=== PATIENT | female | born 1960 | race Caucasian/White ===

== ENCOUNTER 2018-05-14 21:11 | Inpatient (IN) | payer MEDICARE, OTHER ==
[~2018-05-14] VITALS: Ht 154.9 cm; Wt 103.1 kg
--- OUTSIDE RECORDS SUMMARY | 2018-05-14 21:14 | XMS REPORT | Clinical Summary ---
Author Author [facility] Address Unknown Phone Unavailable Care Team Providers Care Gre Tutor Name Role Phone Lucero Knight MD PCP Allergies Comments Active Allergy Reactions Severity Noted Date Morphine Itching 09/03/2016 Medications End Date Status Medication Sig Dispensed Refills Start Date Active VENTOLIN HFA 90 INL 1 PUFF PO 0 mcg/actuation inhaler Q 4 H PRF WHZ 7 Active amLODIPine (NORVASC) 10 TK 1 T PO QD 3 mg tablet 7 Active atorvastatin (LIPITOR) 20 TK 1 T PO HS 1 MG tablet 7 Active esomeprazole (NexIUM) 40 TK 1 C PO D 0 MG capsule 7 Active lisinopril-hydrochlorothi TK 1 T PO D 0 azide 7 (PRINZIDE,ZESTORETIC) 20-12.5 mg per tablet Active citalopram (CeleXA) 20 MG TK 1 AND 1/2 0 tablet TS PO D 7 Active QUEtiapine (SEROquel) 400 TK 2 TS PO HS 0 MG tablet 7 Active traZODone (DESYREL) 50 MG TK 1 T PO HS 0 tablet 7 Active QUEtiapine (SEROquel) 300 TK 2 TS PO HS 0 MG tablet 7 Active eszopiclone (LUNESTA) 2 TK 1 T PO QD 0 MG tablet HS PRN 7 10/21/2017 Discontinued LEVEMIR FLEXTOUCH 100 INJ 70 UNITS 3 unit/mL (3 mL) insulin UNDER THE 7 pen SKIN QD 10/21/2017 Discontinued zolpidem (AMBIEN) 10 mg TK 1 T PO QD 0 tablet HS 7 10/21/2017 Discontinued benzonatate (TESSALON) Take 1 15 capsule 0 100 MG capsule capsule (100 8 mg total) by mouth 3 (three) times a day as needed for cough. 10/21/2017 Discontinued guaiFENesin (MUCINEX) 600 Take 1 tablet 10 tablet 0 mg tablet extended (600 mg 8 release 12hr total) by mouth every 12 (twelve) hours. 10/28/2017 doxycycline (VIBRAMYCIN) Take 1 14 capsule 0 100 MG capsule capsule (100 8 mg total) by mouth 2 (two) times a day for 7 days. 10/28/2017 mupirocin (BACTROBAN) 2 % Apply 22 g 0 ointment topically 3 8 (three) times a day for 7 days. 10/24/2017 acetaminophen-codeine Take 1-2 20 tablet 0 (TYLENOL WITH CODEINE #3) tablets by 8 300-30 mg per tablet mouth every 6 (six) hours as needed for moderate pain for up to 20 doses. Active Problems Not on file Encounters Care Team Description Date Type Specialty Eloina Hunetr DO Periorbital cellulitis of left eye (Primary Dx); Elevated blood pressure reading 10/21/2017 Emergency Emergency Medicine after 05/13/2017 Social History Date Tobacco Use Types Packs/Day Years Used Current Every Day Smoker Smokeless Tobacco: Never Used Alcohol Use Drinks/Week oz/Week Comments No Sex Assigned at Date Recorded Not on file Industry Job Start Date Occupation Not on file Not on file Not on file Travel End Travel History Travel Start No recent travel history available. Last Filed Vital Signs Time Taken Vital Sign Reading 10/21/2017 10:34 AM CDT Blood Pressure 189/74 10/21/2017 10:34 AM CDT Pulse 96 10/21/2017 10:34 AM CDT Temperature 36.9 C (98.4 F) 10/21/2017 10:34 AM CDT Respiratory Rate 14 10/21/2017 10:34 AM CDT Oxygen Saturation 95% - Inhaled Oxygen - Concentration 10/21/2017 10:35 AM CDT Weight 95.3 kg (210 lb) 10/21/2017 10:35 AM CDT Height 154.9 cm (5' 1") 10/21/2017 10:35 AM CDT Body Mass Index 39.68 Plan of Treatment Health Maintenance Due Date Last Done Comments CERVICAL CANCER SCREENING 1980 BREAST CANCER SCREENING 2009 COLON CANCER SCREENING 2009 SHINGLES VACCINES (#1) 2009 INFLUENZA VACCINE 10/04/2017 Procedures Comments Procedure Name Priority Date/Time Associated Diagnosis ED REFERRAL TO [facility] 10/21/2017 [facility] PHYSICIAN 11:02 AM CDT ORGANIZATION after 05/13/2017 Results Not on fileafter 05/13/2017 Insurance Payer Benefit Subscriber ID Type Phone Address Plan / Group [employer] xxxxxxxxx HMO STAR+PLUS MICHAELA HUMANA MEDICARE HUMANA HMO xxxxxxxxx HMO GOLD PLUS [place] [address] ([place]) [place] [address] Advance Directives Patient has advance care planning documents on file. For more information, carmen pruitt contact: Jonnathan Zapata [address] [place] [address]
--- OUTSIDE RECORDS SUMMARY | 2018-05-14 21:17 | XMS REPORT | Summary of Care ---
Author Author [facility] Address Unknown Phone Unavailable Encounter KELLY Lomas(NOAH) [id number] Date(s): 01/30/17 - 01/31/17 [facility] [address] [place] [phone] Vital Signs No data available for this section Problem List Condition Effective Dates Status Health Status Informant Abdominal Active bloating(Confirmed) Anemia(Confirmed) Active Anxiety(Confirmed) Active Chronic Active colitis(Confirmed) CKD - chronic kidney Active disease(Confirmed) Colitis(Confirmed) < 01/13/14 Resolved Uncontrolled Active diabetes mellitus(Confirmed) Diabetes(Confirmed) < 01/13/14 Resolved Diarrhea(Confirmed) < 01/13/14 Resolved DVT (deep venous < 01/13/14 Resolved thrombosis)(Confirme d) Gastric < 01/13/14 Resolved bypass(Confirmed) GERD Active (gastroesophageal reflux disease)(Confirmed) S/P gastric Active bypass(Confirmed) HTN Active (hypertension)(Confi rmed) Hyperlipidemia(Confi Active rmed) Hypothyroid(Confirme Active d) Insomnia(Confirmed) Active Bipolar Active disorder(Confirmed) Depression(Confirmed Active ) Morbid Active obesity(Confirmed) Paronychia(Confirmed Active ) Restless Active legs(Confirmed) Smoker(Confirmed) Active Tinea Active pedis(Confirmed) Allergies, Adverse Reactions, Alerts Substance Reaction Severity Status NKDA Active Medications Lunesta 2 mg oral tablet 2 mg=1 tab, PO, Bedtime, PRN for insomnia, X 30 day, # 30 tab, 0 Refill(s) Start Date: 01/30/17 Stop Date: 03/01/17 Status: Ordered Results No data available for this section Immunizations Given and Recorded Vaccine Date Status Refusal Reason pneumococcal 23-valent vaccine 01/08/14 Given pneumococcal 23-valent vaccine 01/20/09 Given influenza virus vaccine, inactivated 01/08/14 Given influenza virus vaccine, inactivated 01/20/09 Given Procedures Procedure Date Related Diagnosis Body Site section1 Cholecystectomy Gastric bypass operation Oophorectomy2 1x 2 2right Social History Social History Type Response Substance Abuse Use: Current. Type: Marijuana. Frequency: Daily. Employment/School Work/School description: unemployed. Alcohol Never Smoking Status Current every day smoker; Type: Cigarettes; Previous treatment: None; Ready to change: No; Concerns about tobacco use in household: No; Exposure to Tobacco Smoke None; Cigarette Smoking Last 365 Days No; Reg Smoking Cessation Counseling No; Other Tobacco Frequency One Pack a day; Assessment and Plan No data available for this section
--- OUTSIDE RECORDS SUMMARY | 2018-05-14 21:17 | XMS REPORT | Summary of Care ---
Author Author [facility] Organization [facility] Address Unknown Phone Unavailable Encounter KELLY Lomas([facility]) [id number] Date(s): 10/11/16 - 10/15/16 [facility] [address] [place] [address]- Discharge Disposition: Home or Self Care Attending Physician: Umm Yao MD Admitting Physician: Umm Yao MD Vital Signs 1 2 3 Most recent to oldest [Reference Range]: 154.94 cm (10/11/16 9:18 PM) 154.94 cm (10/11/16 9:44 AM) Height 98.6 DegF (10/15/16 8:00 AM) 98.1 DegF (10/15/16 4:00 AM) 98.3 DegF (10/15/16 12:00 AM) Temperature Oral [96.4-99.1 DegF] 142/69 mmHg *HI* (10/15/16 8:00 AM) 137/73 mmHg (10/15/16 4:00 AM) 150/81 mmHg *HI* (10/15/16 12:00 AM) Blood Pressure [90-140/60-90 mmHg] 20 BRMIN (10/15/16 8:00 AM) 20 BRMIN (10/15/16 4:00 AM) 18 BRMIN (10/15/16 12:00 AM) Respiratory Rate [14-20 BRMIN] 95 bpm (10/15/16 8:00 AM) 100 bpm (10/15/16 4:00 AM) 98 bpm (10/15/16 12:00 AM) Peripheral Pulse Rate [60-100 bpm] 93.6 kg (10/11/16 9:18 PM) 90.909 kg (10/11/16 9:44 AM) Weight 38.99 m2 (10/11/16 9:18 PM) 37.87 m2 (10/11/16 9:44 AM) Body Mass Index Problem List Condition Effective Dates Status Health Status Informant Anemia(Confirmed) Active Chronic Active colitis(Confirmed) CKD - chronic kidney Active disease(Confirmed) Colitis(Confirmed) < 01/13/14 Resolved Uncontrolled Active diabetes mellitus(Confirmed) Diabetes(Confirmed) < 01/13/14 Resolved Diarrhea(Confirmed) < 01/13/14 Resolved DVT (deep venous < 01/13/14 Resolved thrombosis)(Confirme d) Gastric < 01/13/14 Resolved bypass(Confirmed) GERD Active (gastroesophageal reflux disease)(Confirmed) S/P gastric Active bypass(Confirmed) HTN Active (hypertension)(Confi rmed) Hyperlipidemia(Confi Active rmed) Hypothyroid(Confirme Active d) Bipolar Active disorder(Confirmed) Depression(Confirmed Active ) Morbid Active obesity(Confirmed) Smoker(Confirmed) Active Allergies, Adverse Reactions, Alerts Substance Reaction Severity Status NKDA Active Medications acetaminophen-hydrocodone 325 mg-5 mg oral tablet 2 tab, Route: PO, Drug Form: TAB, Dosing Weight 90.909, kg, Q4H, PRN Pain Score 7-10, Start date: 10/11/16 15:12:00 CDT, Duration: 30 day, Stop date: 11/10/16 1 5:11:00 CDT Notes: (Same as: Mosca 325/5) Do not exceed 4gm/day of acetaminophen. Start Date: 10/11/16 Stop Date: 10/15/16 Status: Discontinued Ambien 10 mg, 2 tab, Route: PO, Drug form: TAB, Bedtime, Dosing Weight 93.6, kg, Start date: 10/13/16 22:52:00 CDT, Duration: 30 day, Stop date: 11/12/16 21:00:00 CDT Notes: (Same As: Ambien) Start Date: 10/13/16 Stop Date: 10/15/16 Status: Discontinued Bentyl 10 mg, 1 cap, Route: PO, Drug form: CAP, QID, Dosing Weight 93.6, kg, PRN Pain S core 1-5, Start date: 10/12/16 20:59:00 CDT, Duration: 30 day, Stop date: 20:58:00 CDT Notes: (Same as: Bentyl) Start Date: 10/12/16 Stop Date: 10/15/16 Status: Discontinued Cipro 200 mg, 100 mL, Route: IVPB, Drug form: INJ, [id number], Start date: 10/11/16 16:00 :00 CDT, Duration: 5 day, Stop date: 10/16/16 4:00:00 CDT, ABX Indication: Intra -abdominal Infection Start Date: 10/11/16 Stop Date: 10/15/16 Status: Discontinued Cipro 400 mg, Route: IVPB, [id number], Dosing Weight 90.909, kg, Start date: 10/11/16 16: 00:00 CDT, Duration: 5 day, Stop date: 10/16/16 4:00:00 CDT, ABX Indication: Int ra-abdominal Infection Start Date: 10/11/16 Stop Date: 10/11/16 Status: Deleted Cipro 500 mg oral tablet 500 mg=1 tab, PO, Q12H, X 9 day, # 18 tab, 0 Refill(s), Pharmacy: [id number] Start Date: 10/15/16 Stop Date: 10/24/16 Status: Ordered citalopram 30 mg, 1.5 tab, Route: PO, Drug form: TAB, Daily, Dosing Weight 93.6, kg, Start date: 10/12/16 9:00:00 CDT, Duration: 30 day, Stop date: 11/10/16 9:00:00 CDT Notes: (Same As: CeleXA) Start Date: 10/12/16 Stop Date: 10/15/16 Status: Discontinued Dextrose 50% Syringe 25 gm, 50 mL, Route: IVP, Drug Form: INJ, Dosing Weight 90.909, kg, PRN, PRN Blo od Glucose Results, Start date: 10/11/16 15:06:00 CDT, Duration: 30 day, Stop da te: 11/10/16 15:05:00 CDT Start Date: 10/11/16 Stop Date: 10/15/16 Status: Discontinued Dextrose 50% Syringe 12.5 gm, 25 mL, Route: IVP, Drug Form: INJ, Dosing Weight 90.909, kg, PRN, PRN B lood Glucose Results, Start date: 10/11/16 15:06:00 CDT, Duration: 30 day, Stop date: 11/10/16 15:05:00 CDT Start Date: 10/11/16 Stop Date: 10/15/16 Status: Discontinued dicyclomine 20 mg, 2 cap, Route: PO, Drug form: CAP, Q6H, Dosing Weight 93.6, kg, PRN Cramps , Start date: 10/11/16 23:56:00 CDT, Duration: 30 day, Stop date: 11/10/16 23:55 :00 CDT Notes: (Same as: Bentyl) Start Date: 10/11/16 Stop Date: 10/15/16 Status: Discontinued dicyclomine 20 mg oral tablet 20 mg=1 tab, PO, QID, PRN Cramps, 0 Refill(s) Start Date: 10/11/16 Status: Ordered docusate 100 mg, 1 cap, Route: PO, Drug form: CAP, BID, Dosing Weight 90.909, kg, Start d ate: 10/11/16 17:00:00 CDT, Duration: 30 day, Stop date: 11/10/16 9:00:00 CDT Notes: (Same as: Colace) (Do Not Crush) Start Date: 10/11/16 Stop Date: 10/15/16 Status: Discontinued Ferrlecit 125 mg, Route: IVPB, Daily, Dosing Weight 93.6, kg, Start date: 10/14/16 9:00:00 CDT, Duration: 4 doses or times, Stop date: 10/17/16 9:00:00 CDT Start Date: 10/14/16 Stop Date: 10/13/16 Status: Canceled Ferrlecit + sodium chloride 0.9% INJ 100 mL 125 mg, 10 mL, Route: IVPB, Daily, Dosing Weight 93.6, kg, Start date: 10/13/16 12:40:00 CDT, Duration: 4 doses or times, Stop date: 10/16/16 9:00:00 CDT Notes: (sodium ferric gluconate complex (elemental iron) 62.5 mg/5 ml INJ)"Limit ed stability. Use immediately after admixture"(Same as: Ferrlecit) MEDICAT ION WASTE Product Size: 62.5 mgProduct Wasted: __0_ mg Start Date: 10/13/16 Stop Date: 10/15/16 Status: Discontinued Flagyl 500 mg, 100 mL, Route: IVPB, Drug form: INJ, [id number], Dosing Weight 90.909, kg, S tart date: 10/11/16 16:00:00 CDT, Duration: 5 day, Stop date: 10/16/16 8:00:00 C DT, ABX Indication: Intra-abdominal Infection Notes: (Same as: Flagyl) Avoid alcohol. Start Date: 10/11/16 Stop Date: 10/15/16 Status: Discontinued Flagyl 500 mg oral tablet 500 mg=1 tab, PO, Q8H, X 9 day, # 27 tab, 0 Refill(s), Pharmacy: [facility] [id number] Start Date: 10/15/16 Stop Date: 10/24/16 Status: Ordered glucagon 1 mg, Route: IM, Drug form: PDR/INJ, PRN, Dosing Weight 90.909, kg, PRN Blood Gl ucose Results, Start date: 10/11/16 15:06:00 CDT, Duration: 30 day, Stop date: 0 11/10/16 15:05:00 CDT Start Date: 10/11/16 Stop Date: 10/15/16 Status: Discontinued insulin aspart 3 unit, 0.03 mL, Route: SUB-Q, Drug form: SOLN, Bedtime, Dosing Weight 90.909, k g, PRN Blood Glucose Results, Start date: 10/11/16 15:06:00 CDT, Duration: 30 da y, Stop date: 11/10/16 15:05:00 CDT Notes: Roll in palms of hands gently; Do not shake vigorously. (Same as: NovoLO G)"single patient use only"WASTE: F/P - Black; E - Municipal Trash Bin Stable f or 28 days at room temperature.Expires in days from Date Start Date: 10/11/16 Stop Date: 10/15/16 Status: Discontinued insulin aspart 4 unit, 0.04 mL, Route: SUB-Q, Drug form: SOLN, Bedtime, Dosing Weight 90.909, k g, PRN Blood Glucose Results, Start date: 10/11/16 15:06:00 CDT, Duration: 30 da y, Stop date: 11/10/16 15:05:00 CDT Notes: Roll in palms of hands gently; Do not shake vigorously. (Same as: Reina Simth)"single patient use only"WASTE: F/P - Black; E - Municipal Trash Bin Stable f or 28 days at room temperature.Expires in days from Date Start Date: 10/11/16 Stop Date: 10/15/16 Status: Discontinued insulin aspart 4 unit, 0.04 mL, Route: SUB-Q, Drug form: SOLN, TID-Before Meals, Dosing Weight 90.909, kg, PRN Blood Glucose Results, Start date: 10/11/16 15:06:00 CDT, Durati on: 30 day, Stop date: 11/10/16 15:05:00 CDT Notes: Roll in palms of hands gently; Do not shake vigorously. (Same as: Reina Smith)"single patient use only"WASTE: F/P - Black; E - Municipal Trash Bin Stable f or 28 days at room temperature.Expires in days from Date Start Date: 10/11/16 Stop Date: 10/15/16 Status: Discontinued insulin aspart 5 unit, 0.05 mL, Route: SUB-Q, Drug form: SOLN, TID-Before Meals, Dosing Weight 90.909, kg, PRN Blood Glucose Results, Start date: 10/11/16 15:06:00 CDT, Durati on: 30 day, Stop date: 11/10/16 15:05:00 CDT Notes: Roll in palms of hands gently; Do not shake vigorously. (Same as: Reina Smith)"single patient use only"WASTE: F/P - Black; E - Municipal Trash Bin Stable f or 28 days at room temperature.Expires in days from Date Start Date: 10/11/16 Stop Date: 10/15/16 Status: Discontinued insulin aspart 3 unit, 0.03 mL, Route: SUB-Q, Drug form: SOLN, TID-Before Meals, Dosing Weight 90.909, kg, PRN Blood Glucose Results, Start date: 10/11/16 15:06:00 CDT, Durati on: 30 day, Stop date: 11/10/16 15:05:00 CDT Notes: Roll in palms of hands gently; Do not shake vigorously. (Same as: Reina Smith)"single patient use only"WASTE: F/P - Black; E - Municipal Trash Bin Stable f or 28 days at room temperature.Expires in days from Date Start Date: 10/11/16 Stop Date: 10/15/16 Status: Discontinued insulin aspart 2 unit, 0.02 mL, Route: SUB-Q, Drug form: SOLN, Bedtime, Dosing Weight 90.909, k g, PRN Blood Glucose Results, Start date: 10/11/16 15:06:00 CDT, Duration: 30 da y, Stop date: 11/10/16 15:05:00 CDT Notes: Roll in palms of hands gently; Do not shake vigorously. (Same as: Reina Smith)"single patient use only"WASTE: F/P - Black; E - Municipal Trash Bin Stable f or 28 days at room temperature.Expires in days from Date Start Date: 10/11/16 Stop Date: 10/15/16 Status: Discontinued insulin aspart 1 unit, 0.01 mL, Route: SUB-Q, Drug form: SOLN, Bedtime, Dosing Weight 90.909, k g, PRN Blood Glucose Results, Start date: 10/11/16 15:06:00 CDT, Duration: 30 da y, Stop date: 11/10/16 15:05:00 CDT Notes: Roll in palms of hands gently; Do not shake vigorously. (Same as: Reina Smith)"single patient use only"WASTE: F/P - Black; E - Municipal Trash Bin Stable f or 28 days at room temperature.Expires in days from Date Start Date: 10/11/16 Stop Date: 10/15/16 Status: Discontinued insulin aspart 2 unit, 0.02 mL, Route: SUB-Q, Drug form: SOLN, TID-Before Meals, Dosing Weight 90.909, kg, PRN Blood Glucose Results, Start date: 10/11/16 15:06:00 CDT, Durati on: 30 day, Stop date: 11/10/16 15:05:00 CDT Notes: Roll in palms of hands gently; Do not shake vigorously. (Same as: NovoCHUY Smith)"single patient use only"WASTE: F/P - Black; E - Municipal Trash Bin Stable f or 28 days at room temperature.Expires in days from Date Start Date: 10/11/16 Stop Date: 10/15/16 Status: Discontinued insulin aspart 1 unit, 0.01 mL, Route: SUB-Q, Drug form: SOLN, TID-Before Meals, Dosing Weight 90.909, kg, PRN Blood Glucose Results, Start date: 10/11/16 15:06:00 CDT, Durati on: 30 day, Stop date: 11/10/16 15:05:00 CDT Notes: Roll in palms of hands gently; Do not shake vigorously. (Same as: NovoCHUY Smith)"single patient use only"WASTE: F/P - Black; E - Municipal Trash Bin Stable f or 28 days at room temperature.Expires in days from Date Start Date: 10/11/16 Stop Date: 10/12/16 Status: Discontinued Levemir 20 unit, 0.2 mL, Route: SUB-Q, Drug form: INJ, Bedtime, Dosing Weight 90.909, kg , Start date: 10/11/16 21:00:00 CDT, Stop date: 11/09/16 21:00:00 CDT Notes: Same as LevemirDo not hold insulin without contacting prescriberWASTE: F/ P - Black; E - Municipal Trash Bin "single patient use only" Start Date: 10/11/16 Stop Date: 10/15/16 Status: Discontinued levothyroxine 25 microgram, 1 tab, Route: PO, Drug form: TAB, [id number], Dosing Weight 93.6, kg, Start date: 10/12/16 6:30:00 CDT, Duration: 30 day, Stop date: 11/10/16 6:30:00 CDT Notes: Take 1 hour before or 2 hours after meal; Enteral feeds may interefere wi th the absorption of this medication. (Same as:Levothroid) Start Date: 10/12/16 Stop Date: 10/15/16 Status: Discontinued Lipitor 20 mg, 1 tab, Route: PO, Drug form: TAB, Bedtime, Dosing Weight 93.6, kg, Start date: 10/12/16 0:05:00 CDT, Duration: 30 day, Stop date: 11/10/16 21:00:00 CDT Notes: (Same As: Lipitor) Start Date: 10/12/16 Stop Date: 10/15/16 Status: Discontinued Lovenox 40 mg, 0.4 mL, Route: SUB-Q, Drug form: INJ, [id number], Dosing Weight 93.6, kg, S tart date: 10/14/16 15:00:00 CDT, Duration: 30 day, Stop date: 11/12/16 15:00:00 CDT Notes: (Same as: Lovenox) Start Date: 10/14/16 Stop Date: 10/15/16 Status: Discontinued morphine Sulfate 4 mg, 1 mL, Route: IVP, Drug form: INJ, ONCE, Dosing Weight 90.909, kg, Priority : STAT, Start date: 10/11/16 14:02:00 CDT, Stop date: 10/11/16 14:02:00 CDT Notes: (Same as:MORPhine Sulfate) Start Date: 10/11/16 Stop Date: 10/11/16 Status: Completed morphine Sulfate 2 mg, 0.5 mL, Route: IVP, Drug form: INJ, Q4H, Dosing Weight 90.909, kg, PRN Shanti n Score 7-10, Start date: 10/11/16 15:12:00 CDT, Duration: 30 day, Stop date: 15:11:00 CDT Notes: (Same as:MORPhine Sulfate) Start Date: 10/11/16 Stop Date: 10/14/16 Status: Discontinued NexIUM 40 mg, Route: PO, Drug form: ECCAP, Daily, Dosing Weight 93.6, kg, Start date: 0 10/12/16 9:00:00 CDT, Duration: 30 day, Stop date: 11/10/16 9:00:00 CDT Start Date: 10/12/16 Stop Date: 10/12/16 Status: Deleted NS (Bolus) IV 1,000 mL, 1,000 ml/hr, Infuse Over: 1 hr, Route: IV, ONCE, Priority: STAT, Dosin g Weight 90.909 kg, Start date: 10/11/16 11:32:00 CDT, Duration: 1 doses or time s, Stop date: 10/11/16 11:32:00 CDT Start Date: 10/11/16 Stop Date: 10/11/16 Status: Completed ondansetron 4 mg, 2 mL, Route: IVP, Drug form: INJ, Q6H, Dosing Weight 90.909, kg, PRN Nause a & Vomiting, Start date: 10/11/16 15:12:00 CDT, Duration: 30 day, Stop date: 11/10/16 15:11:00 CDT Notes: (Same as: Kimberly) MEDICATION WASTE Product Size: 4 mgProduct Was stephanie: ___ mg Start Date: 10/11/16 Stop Date: 10/15/16 Status: Discontinued Protonix 40 mg, 1 tab, Route: PO, Drug form: ECTAB, Before Dinner, Start date: 10/12/16 1 6:30:00 CDT, Duration: 30 day, Stop date: 11/10/16 16:30:00 CDT Notes: Tablet should not be chewed or crushed.(Same as: Protonix) Start Date: 10/12/16 Stop Date: 10/15/16 Status: Discontinued QUEtiapine 800 mg, 8 tab, Route: PO, Drug form: TAB, Bedtime, Dosing Weight 93.6, kg, Start date: 10/12/16 0:10:00 CDT, Duration: 30 day, Stop date: 11/10/16 21:00:00 CDT Notes: (Same as: SEROquel) Start Date: 10/12/16 Stop Date: 10/15/16 Status: Discontinued Saline Flush 0.9% 10 mL, Route: IVP, Drug Form: INJ, Dosing Weight 90.909, kg, PRN, PRN Line Flush , Start date: 10/11/16 9:54:00 CDT, Duration: 30 day, Stop date: 11/10/16 9:53:0 0 CDT Notes: preservative free. Start Date: 10/11/16 Stop Date: 10/15/16 Status: Discontinued sodium chloride 0.9% 1000 ml INJ 1,000 mL 1,000 mL, Rate: 75 ml/hr, Infuse over: 13.3 hr, Route: IV, Dosing Weight 90.909 kg, Total Volume: 1,000, Start date: 10/11/16 15:10:00 CDT, Stop date: 10/13/16 6:43:00 CDT Start Date: 10/11/16 Stop Date: 10/13/16 Status: Completed Tylenol with Codeine #3 oral tablet 1 tab, PO, Q4H, PRN Pain, X 7 day, # 42 tab, 0 Refill(s) Start Date: 10/15/16 Stop Date: 10/22/16 Status: Ordered Zofran 4 mg, 2 mL, Route: IVP, Drug form: INJ, ONCE, Dosing Weight 90.909, kg, Priority : STAT, Start date: 10/11/16 14:03:00 CDT, Stop date: 10/11/16 14:03:00 CDT Notes: (Same as: Zofran) MEDICATION WASTE Product Size: 4 mgProduct Was stephanie: ___ mg Start Date: 10/11/16 Stop Date: 10/11/16 Status: Completed Results BLOOD BANK RESULTS 1 2 3 Most recent to oldest [Reference Range]: O POS *Unknown* (10/11/16 10:34 AM) ABO/Rh Negative (10/11/16 10:34 AM) Antibody Scrn ELECTROLYTES 1 2 3 Most recent to oldest [Reference Range]: 140 mEq/L (10/15/16 9:35 AM) 138 mEq/L (10/14/16 4:00 AM) 136 mEq/L (10/13/16 5:04 AM) Sodium Lvl [135-145 mEq/L] 3.7 mEq/L (10/15/16 9:35 AM) 3.8 mEq/L (10/14/16 4:00 AM) 3.8 mEq/L (10/13/16 5:04 AM) Potassium Lvl [3.5-5.1 mEq/L] 109 mEq/L (10/15/16 9:35 AM) 108 mEq/L (10/14/16 4:00 AM) 107 mEq/L (10/13/16 5:04 AM) Chloride Lvl [95-109 mEq/L] 23 mEq/L *LOW* (10/15/16:35 AM) 23 mEq/L *LOW* (10/14/16 4:00 AM) 21 mEq/L *LOW* (10/13/16 5:04 AM) CO2 [24-32 mEq/L] 11.7 mEq/L (10/15/16 9:35 AM) 10.8 mEq/L (10/14/16 4:00 AM) 11.8 mEq/L (10/13/16 5:04 AM) AGAP [10.0-20.0 mEq/L] CHEM PANEL 1 2 3 Most recent to oldest [Reference Range]: 1.29 mg/dL (10/15/16 9:35 AM) 1.59 mg/dL *HI* (10/14/16 4:00 AM) 2.04 mg/dL *HI* (10/13/16 5:04 AM) Creatinine Lvl [0.50-1.40 mg/dL] 46 mL/min/1.73m2 1 *NA* (10/15/16 9:35 AM) 36 mL/min/1.73m2 2 *NA* (10/14/16 4:00 AM) 26 mL/min/1.73m2 3 *NA* (10/13/16 5:04 AM) eGFR 20 mg/dL (10/15/16 9:35 AM) 34 mg/dL *HI* (10/14/16 4:00 AM) 46 mg/dL *HI* (10/13/16 5:04 AM) BUN [7-22 mg/dL] 22 (10/12/16 5:02 AM) 14 (10/11/16 10:34 AM) B/C Ratio [6-25] 124 mg/dL *HI* (10/15/16 9:35 AM) 101 mg/dL *HI* (10/14/16 4:00 AM) 77 mg/dL (10/13/16 5:04 AM) Glucose Lvl [70-99 mg/dL] 5.8 g/dL *LOW* (10/12/16 5:02 AM) 7.3 g/dL (10/11/16 10:34 AM) Total Protein [6.4-8.4 g/dL] 2.1 g/dL *LOW* (10/14/16 4:00 AM) 2.1 g/dL *LOW* (10/13/16 5:04 AM) 2.2 g/dL *LOW* (10/12/16 5:02 AM) Albumin Lvl [3.5-5.0 g/dL] 3.6 g/dL (10/12/16 5:02 AM) 4.5 g/dL *HI* (10/11/16 10:34 AM) Globulin [2.7-4.2 g/dL] 0.6 *LOW* (10/12/16 5:02 AM) 0.6 *LOW* (10/11/16 10:34 AM) A/G Ratio [0.7-1.6] 8.3 mg/dL *LOW* (10/15/16 9:35 AM) 8.6 mg/dL (10/14/16 4:00 AM) 7.9 mg/dL *LOW* (10/13/16 5:04 AM) Calcium Lvl [8.5-10.5 mg/dL] 2.5 mg/dL (10/14/16 4:00 AM) 3.3 mg/dL (10/13/16 5:04 AM) 3.6 mg/dL (10/12/16 5:02 AM) Phosphorus [2.5-4.5 mg/dL] 18 unit/L (10/12/16 5:02 AM) 24 unit/L (10/11/16 10:34 AM) ALT [0-65 unit/L] 19 unit/L (10/12/16 5:02 AM) 21 unit/L (10/11/16 10:34 AM) AST [0-37 unit/L] 71 unit/L (10/12/16 5:02 AM) 95 unit/L (10/11/16 10:34 AM) Alk Phos [39-136 unit/L] 0.4 mg/dL (10/12/16 5:02 AM) 0.5 mg/dL (10/11/16 10:34 AM) Bili Total [0.2-1.3 mg/dL] 420 unit/L *HI* (10/11/16 10:34 AM) Lipase Lvl [73-393 unit/L] 1.6 mMol/L (10/11/16 4:11 PM) 2.0 mMol/L (10/11/16 1:51 PM) 4.2 mMol/L 4 *CRIT* (10/11/16 10:34 AM) Lactic Acid Lvl [0.5-2.2 mMol/L] 1Result Comment: The eGFR is calculated using the CKD-EPI formula. In most young, healthy individuals the eGFR will be >90 mL/min/1.73m2. The eGFR declines with age. An eGFR of 60-89 may be normal in some populations, particularly the elderly, for whom the CKD-EPI formula has not been extensively validated. Use of the eGFR is not recommended in the following populations: Individuals with unstable creatinine concentrations, including patients and those with serious co-morbid conditions. Patients with extremes in muscle mass or diet. The data above are obtained from the National Kidney Disease Education Program ( NKDEP) which additionally recommends that when the eGFR is used in patients with extremes of body mass index for purposes of drug dosing, the eGFR should be mul tiplied by the estimated BMI. 2Result Comment: The eGFR is calculated using the CKD-EPI formula. In most young, healthy individuals the eGFR will be >90 mL/min/1.73m2. The eGFR declines with age. An eGFR of 60-89 may be normal in some populations, particularly the elderly, for whom the CKD-EPI formula has not been extensively validated. Use of the eGFR is not recommended in the following populations: Individuals with unstable creatinine concentrations, including patients and those with serious co-morbid conditions. Patients with extremes in muscle mass or diet. The data above are obtained from the National Kidney Disease Education Program ( NKDEP) which additionally recommends that when the eGFR is used in patients with extremes of body mass index for purposes of drug dosing, the eGFR should be mul tiplied by the estimated BMI. 3Result Comment: The eGFR is calculated using the CKD-EPI formula. In most young, healthy individuals the eGFR will be >90 mL/min/1.73m2. The eGFR declines with age. An eGFR of 60-89 may be normal in some populations, particularly the elderly, for whom the CKD-EPI formula has not been extensively validated. Use of the eGFR is not recommended in the following populations: Individuals with unstable creatinine concentrations, including patients and those with serious co-morbid conditions. Patients with extremes in muscle mass or diet. The data above are obtained from the National Kidney Disease Education Program ( NKDEP) which additionally recommends that when the eGFR is used in patients with extremes of body mass index for purposes of drug dosing, the eGFR should be mul tiplied by the estimated BMI. 4Result Comment: critical results called to von roberts at 10/11/2016 11:15 by usman. read back ok. CARDIAC ENZYMES 1 2 3 Most recent to oldest [Reference Range]: 0.08 ng/mL (10/11/16 10:34 AM) Troponin-I [0.00-0.40 ng/mL] ANEMIA STUDY 1 2 3 Most recent to oldest [Reference Range]: 10 ug/dl *LOW* (10/13/16 5:04 AM) Iron [30-160 ug/dl] 142 ng/mL (10/13/16 5:04 AM) Ferritin Lvl [5-204 ng/mL] 5 % *LOW* (10/13/16 5:04 AM) % Satur Fe [12-57 %] 182 ug/dl (10/13/16 5:04 AM) UIBC [110-370 ug/dl] 192 ug/dl *LOW* (10/13/16 5:04 AM) TIBC [228-428 ug/dl] URINE CHEM 1 2 3 Most recent to oldest [Reference Range]: 240.0 mg/L *NA* (10/12/16 12:28 AM) U Microalb 79.80 mg/dL *NA* (10/12/16 12:28 AM) U Creatinine 59.9 mg/dL *NA* (10/12/16 12:28 AM) U Protein URINE AND STOOL 1 2 3 Most recent to oldest [Reference Range]: Slight *ABN* (10/11/16 10:34 AM) UA Turbidity [Clear] Brown *ABN* (10/11/16 10:34 AM) UA Color [Yellow] 5.0 (10/11/16 10:34 AM) UA pH [5.0-8.0] 1.021 (10/11/16 10:34 AM) UA Spec Grav [<=1.030] 70 mg/dL *ABN* (10/11/16 10:34 AM) UA Glucose [Negative mg/dL] Negative (10/11/16 10:34 AM) UA Blood [Negative] Trace mg/dL *ABN* (10/11/16 10:34 AM) UA Ketones [Negative mg/dL] 70 mg/dL *ABN* (10/11/16 10:34 AM) UA Protein [Negative mg/dL] 8.0 mg/dL *HI* (10/11/16 10:34 AM) UA Urobilinogen [0.1-1.0 mg/dL] Small *ABN* (10/11/16 10:34 AM) UA Bili [Negative] Trace *ABN* (10/11/16 10:34 AM) UA Leuk Est [Negative] Negative (10/11/16 10:34 AM) UA Nitrite [Negative] 2 /HPF (10/11/16 10:34 AM) UA WBC [0-5 /HPF] 3 /HPF *HI* (10/11/16 10:34 AM) UA RBC [0-2 /HPF] Moderate /LPF *ABN* (10/11/16 10:34 AM) UA Sq Epi [Few /LPF] 9 /LPF *HI* (10/11/16 10:34 AM) UA Hyal Cast [0-2 /LPF] Occasional /HPF *NA* (10/11/16 10:34 AM) UA Amorph Heena [None Seen /HPF] Few /LPF *NA* (10/11/16 10:34 AM) UA Mucus [None Seen /LPF] HEMATOLOGY 1 2 3 Most recent to oldest [Reference Range]: 8.7 K/CMM (10/14/16 4:00 AM) 9.9 K/CMM (10/12/16 5:02 AM) 15.6 K/CMM *HI* (10/11/16 10:34 AM) WBC [3.7-10.4 K/CMM] 2.83 M/CMM *LOW* (10/14/16 4:00 AM) 2.96 M/CMM *LOW* (10/12/16 5:02 AM) 3.90 M/CMM *LOW* (10/11/16 10:34 AM) RBC [4.20-5.40 M/CMM] 8.6 g/dL *LOW* (10/14/16 4:00 AM) 8.9 g/dL *LOW* (10/12/16 5:02 AM) 11.7 g/dL *LOW* (10/11/16 10:34 AM) Hgb [12.0-16.0 g/dL] 25.2 % *LOW* (10/14/16 4:00 AM) 26.4 % *LOW* (10/12/16 5:02 AM) 35.2 % *LOW* (10/11/16 10:34 AM) Hct [36.0-48.0 %] 88.8 fL (10/14/16 4:00 AM) 89.0 fL (10/12/16 5:02 AM) 90.2 fL (10/11/16 10:34 AM) MCV [80.0-98.0 fL] 30.2 pg (10/14/16 4:00 AM) 30.1 pg (10/12/16 5:02 AM) 29.9 pg (10/11/16 10:34 AM) MCH [27.0-31.0 pg] 34.1 g/dL (10/14/16 4:00 AM) 33.8 g/dL (10/12/16 5:02 AM) 33.2 g/dL (10/11/16 10:34 AM) MCHC [32.0-36.0 g/dL] 14.0 % (10/14/16 4:00 AM) 14.4 % (10/12/16 5:02 AM) 14.0 % (10/11/16 10:34 AM) RDW [11.5-14.5 %] 184 K/CMM (10/14/16 4:00 AM) 176 K/CMM (10/12/16 5:02 AM) 246 K/CMM (10/11/16 10:34 AM) Platelet [133-450 K/CMM] 8.0 fL (10/14/16 4:00 AM) 8.0 fL (10/12/16 5:02 AM) 8.9 fL (10/11/16 10:34 AM) MPV [7.4-10.4 fL] 80.9 % *HI* (10/14/16 4:00 AM) 83.6 % *HI* (10/12/16 5:02 AM) 91.1 % *HI* (10/11/16 10:34 AM) Segs [45.0-75.0 %] 10.7 % *LOW* (10/14/16 4:00 AM) 10.7 % *LOW* (10/12/16 5:02 AM) 5.0 % *LOW* (10/11/16 10:34 AM) Lymphocytes [20.0-40.0 %] 7.7 % (10/14/16 4:00 AM) 5.1 % (10/12/16 5:02 AM) 3.8 % (10/11/16 10:34 AM) Monocytes [2.0-12.0 %] 0.6 % (10/14/16 4:00 AM) 0.3 % (10/12/16 5:02 AM) Eosinophils [0.0-4.0 %] 0.1 % (10/14/16 4:00 AM) 0.3 % (10/12/16 5:02 AM) 0.1 % (10/11/16 10:34 AM) Basophils [0.0-1.0 %] 7.1 K/CMM (10/14/16 4:00 AM) 8.2 K/CMM *HI* (10/12/16 5:02 AM) 14.2 K/CMM *HI* (10/11/16 10:34 AM) Segs-Bands # [1.5-8.1 K/CMM] 0.9 K/CMM *LOW* (10/14/16 4:00 AM) 1.1 K/CMM (10/12/16 5:02 AM) 0.8 K/CMM *LOW* (10/11/16 10:34 AM) Lymphocytes # [1.0-5.5 K/CMM] 0.7 K/CMM (10/14/16 4:00 AM) 0.5 K/CMM (10/12/16 5:02 AM) 0.6 K/CMM (10/11/16 10:34 AM) Monocytes # [0.0-0.8 K/CMM] 16.5 seconds *HI* (10/11/16 10:34 AM) PT [12.0-14.7 seconds] 1.31 *HI* (10/11/16 10:34 AM) INR [0.85-1.17] 30.2 seconds (10/11/16 10:34 AM) PTT [22.9-35.8 seconds] MOLECULAR DIAGNOSTIC 1 2 3 Most recent to oldest [Reference Range]: Negative (10/12/16 4:08 PM) C difficile DNA [Negative] PARASITOLOGY - SEROLOGY 1 2 3 Most recent to oldest [Reference Range]: Negative (10/12/16 4:08 PM) Giardia Ag [Negative] Immunizations Given and Recorded Vaccine Date Status Refusal Reason influenza virus vaccine, inactivated 01/08/14 Given influenza virus vaccine, inactivated 01/20/09 Given pneumococcal 23-valent vaccine 01/08/14 Given pneumococcal 23-valent vaccine 01/20/09 Given Procedures Procedure Date Related Diagnosis [...] household: No; Exposure to Tobacco Smoke None; Other Tobacco Frequency One Pack a day; Cigarette Smoking Last 365 Days No; Reg Smoking Cessation Counseling No Assessment and Plan Extracted from: Title: Clinical Document Author: Cindi Brown MD Date: 10/17/16 DISCHARGE SUMMARY ADMISSION DATE 10/11/2016 DISCHARGE DATE 10/15/2016 DISCHARGE DIAGNOSIS Sepsis likely secondary to acute infectious colitis Acute infectious colitis Acute on chronic kidney disease stage III Dehydration Hypertension Diabetes mellitus Hyponatremia resolved Morbid obesity Leukocytosis resolved Mild encephalopathy resolved DISCHARGE MEDICATIONS : See medication reconciliation sheet. Home Diet: Diet Heart Healthy Activity: Limited activity Follow Up With Anya Pena MD, Call for appointment, within: 1 Week, reason: gastroenterology follow up Lucero Knight MD, Call for appointment, within: 1 Week, reason: Primary Care Physician follow up post hospitalization Richelle Campo MD, Call for appointment, within: 1 Week, reason: kidney doctor follow up with [facility] Consulting Physicians: Anya Pena MDOffice: service: Gastroenterology Naun Miguel MDOffice: Service: Medicine Richelle Campo MDOffice: Service: Nephrology Labs (Last four charted values) WBC 8.7(OCT 14)9.9(OCT 12)H 15.6(OCT 11) Hgb L 8.6(OCT 14)L 8.9(OCT 12)L 11.7(OCT 11) Hct L 25.2(OCT 14)L 26.4(OCT 12)L 35.2(OCT 11) Plt 184(OCT 14)176(OCT 12)246(OCT 11) Na 140(OCT 15)138(OCT 14)136(OCT 13)136(OCT 12) K 3.7(OCT 15)3.8(OCT 14)3.8(OCT 13)3.7(OCT 12) CO2 L 23(OCT 15)L 23(OCT 14)L 21(OCT 13)L 20(OCT 12) Cl 109(OCT 15)108(OCT 14)107(OCT 13)105(OCT 12) Cr 1.29(OCT 15)H 1.59(OCT 14)H 2.04(OCT 13)H 2.10(OCT 12) BUN 20(OCT 15)H 34(OCT 14)H 46(OCT 13)H 46(OCT 12) Glucose Random H 124(OCT 15)H 101(OCT 14)77(OCT 13)H 114(OCT 12) Phos 2.5(OCT 14)3.3(AUG 10)3.6(OCT 12) Ca L 8.3(OCT 15)8.6(OCT 14)L 7.9(OCT 13)L 7.7(OCT 12) PT H 16.5(OCT 11) INR H 1.31(OCT 11) PTT 30.2(OCT 11) Troponin 0.08(OCT 11) Ms. Marc is 56 years old female with history of bowel resection 2 years ago, chronic abdominal pain post surgery, hypertension, bipolar disorder who presented with abdominal pain, diarrhea, vomitings patient as outpatient was seen by Dr. Mera and patient was scheduled to have colonoscopy but was noted to have elevated blood sugars and was instructed to present to the ER. In ER patient was noted to have leukocytosis, acute on chronic renal failure, lactic acidosis and CAT scan concerning for colitis. Patient was admitted for further management. Physical examination on day of discharge Vital signs stable Heart sounds regular Abdomen showed no tenderness Patient was admitted. Vital signs were closely monitored. With her lactic acidosis, elevated white count, tachycardia, colitis patient was thought to have sepsis. Was started on IV antibiotics. Stool studies and C. difficile were negative. Renal function improved. Patient was started on clear liquids and diet was advanced to regular and the patient tolerated well. With patient remote dramatically and was discharged home with outpatient follow-up as above. Extracted from: Title: Progress Note * Author: Cindi Brown MD Date: 10/14/16 Impression and Plan 1. Acute infectious colitis - cont cipro/Flagyl. Cdiff neg, stool Cx negative so far. Will need colonoscopy as outpatient once colitis improves. 2. ADAM on CKD stage III - 2nd to ATN - cont IVF, improving. 3. Dehydration - cont IVF 4. Sepsis - 2nd to colitis - cont IV abx, improving 5. HTN - hold antihypertensives 6. NIDDM - decrease levemir 7. hyponatremia - resolved 8. morbid obesity - aware 9. Leukocytosis - resolved. 10. Mild encephalopathy - likely secondary to pain meds. D/c morphine. Lovenox for dvt prophylaxis. Full code. Extracted from: Title: General Admission H&P * Author: Umm Yao MD Date: 10/11/16 Impression and Plan 56 yo fm with history of bowel resection 2 years ago with chronic abdominal pain post surgery, HTN, bipolar disorder here with abdominal pain, CT with colitis 1.Acute colitis- seen on CT A/P. CConcern for UC flare on imaging. Pt states she has no diagnosis of UC in past -GI Dr Pena consulted -Pt unable to state why she had a bowel resection in the past -given white count, started empiric cipro flagyl -c diff and stool studies ordered -further management per GI 2.ADAM- Cr of 3.21 -baseline Cr 1.6 -poor po intake since Monday given vomiting -suspect prerenal, also on lisinopril- discontinue -Renal consult -IVF 3.Severe Sepsis - lactic acidosis, white count, tachy, colitis -IVF -Abx -GI following, Source colitis 4.HTN -Hold lisinopril -add antihypertensives tomorrow if vitals stable 5.Elevated lipase- unclear if this is related to pancreatitis -cld -ivf 6.Uncontrolled DM -BS 400s in ER, no gap -IVF -Did not take her levemir this AM given colonoscopy -restart low dose levemir, Takes levemir 70 U qam 7.Hyponatremia - 2/2 volume depletion -IVF Code Full Admit to inpatient
--- OUTSIDE RECORDS SUMMARY | 2018-05-14 21:17 | XMS REPORT | Summary of Care ---
Author Author [facility] Organization [facility] Address Unknown Phone Unavailable Encounter [facility]) [id number] Date(s): 11/18/16 - 11/18/16 [facility] [address] [place] [address]- Discharge Diagnosis: Abdominal pain in female Discharge Disposition: Home or Self Care Attending Physician: Rashel Montemayor MD Vital Signs 1 2 3 Most recent to oldest [Reference Range]: 154.94 cm (11/18/16 12:25 PM) Height 97.5 DegF (11/18/16 12:25 PM) Temperature Oral [96.4-99.1 DegF] 151/65 mmHg *HI* (11/18/16 8:02 PM) 152/72 mmHg *HI* (11/18/16 7:00 PM) 155/80 mmHg *HI* (11/18/16 5:59 PM) Blood Pressure [90-140/60-90 mmHg] 18 BRMIN (11/18/16 7:00 PM) 18 BRMIN (11/18/16 5:59 PM) 20 BRMIN (11/18/16 12:25 PM) Respiratory Rate [14-20 BRMIN] 93 bpm (11/18/16 12:25 PM) Peripheral Pulse Rate [60-100 bpm] 92.273 kg (11/18/16 12:25 PM) Weight 38.44 m2 (11/18/16 12:25 PM) Body Mass Index Problem List Condition Effective Dates Status Health Status Informant Abdominal Active bloating(Confirmed) Anemia(Confirmed) Active Chronic Active colitis(Confirmed) CKD - [...] ) Morbid Active obesity(Confirmed) Paronychia(Confirmed Active ) Smoker(Confirmed) Active Tinea Active pedis(Confirmed) Allergies, Adverse Reactions, Alerts Substance Reaction Severity Status NKDA Active Medications Colace 100 mg oral capsule 100 mg=1 cap, PO, BID, PRN Constipation, # 20 cap, 0 Refill(s), Pharmacy: [facility] [id number] Start Date: 11/18/16 Status: Ordered lactulose 10 g/15 mL oral syrup 20 gm, 30 ml, Route: PO, Drug form: SYRP, ONCE, Dosing Weight 92.273, kg, Priori ty: STAT, Start date: 11/18/16 20:30:00 CDT, Stop date: 11/18/16 20:30:00 CDT Notes: (Same as:Chronulac) Start Date: 11/18/16 Stop Date: 11/18/16 Status: Completed lactulose 10 g/15 mL oral syrup 20 gm=30 mL, PO, BID, PRN constipation, X 8 day, # 240 mL, 0 Refill(s), Pharmacy : [facility] [id number] Start Date: 11/18/16 Stop Date: 11/26/16 Status: Ordered morphine Sulfate 4 mg, 1 mL, Route: IVP, Drug form: SOLN, ONCE, Dosing Weight 92.273, kg, Priorit y: STAT, Start date: 11/18/16 12:28:00 CDT, Stop date: 11/18/16 12:28:00 CDT Notes: (Same as:MORPhine Sulfate) Start Date: 11/18/16 Stop Date: 11/18/16 Status: Completed ondansetron 4 mg, 2 mL, Route: IVP, Drug form: INJ, ONCE, Dosing Weight 92.273, kg, Priority : STAT, Start date: 11/18/16 12:28:00 CDT, Stop date: 11/18/16 12:28:00 CDT Notes: (Same as: Zofran) MEDICATION WASTE Product Size: 4 mgProduct Was stephanie: ___ mg Start Date: 11/18/16 Stop Date: 11/18/16 Status: Completed Saline Flush 0.9% 10 mL, Route: IVP, Drug Form: INJ, Dosing Weight 92.273, kg, PRN, PRN Line Flush , Start date: 11/18/16 12:28:00 CDT, Duration: 30 day, Stop date: 12/18/16 12:27 :00 CDT Notes: Same as: BD Posiflush Sterile Start Date: 11/18/16 Stop Date: 11/18/16 Status: Discontinued Sodium Chloride 0.9% (Bolus) IV 1,000 mL, 2,000 ml/hr, Infuse Over: 30 minutes, Route: IV, 1,000, Drug form: INJ , ONCE, Priority: STAT, Dosing Weight 92.273 kg, Start date: 11/18/16 12:28:00 C DT, Duration: 1 doses or times, Stop date: 11/18/16 12:28:00 CDT Start Date: 11/18/16 Stop Date: 11/18/16 Status: Completed Results ELECTROLYTES Most recent to 1 oldest [Reference Range]: Sodium Lvl [135-145 138 mEq/L mEq/L] (11/18/16 4:41 PM) Potassium Lvl 4.0 mEq/L [3.5-5.1 mEq/L] (11/18/16 4:41 PM) Chloride Lvl [95-109 107 mEq/L mEq/L] (11/18/16 4:41 PM) CO2 [24-32 mEq/L] 25 mEq/L (11/18/16 4:41 PM) AGAP [10.0-20.0 10.0 mEq/L mEq/L] (11/18/16 4:41 PM) CHEM PANEL Most recent to 1 oldest [Reference Range]: Creatinine Lvl 0.98 mg/dL [0.50-1.40 mg/dL] (11/18/16 4:41 PM) eGFR 65 mL/min/1.73m2 1 *NA* (11/18/16 4:41 PM) BUN [7-22 mg/dL] 15 mg/dL (11/18/16 4:41 PM) B/C Ratio [6-25] 15 (11/18/16 4:41 PM) Glucose Lvl [70-99 89 mg/dL mg/dL] (11/18/16 4:41 PM) Total Protein 7.2 g/dL [6.4-8.4 g/dL] (11/18/16 4:41 PM) Albumin Lvl [3.5-5.0 3.0 g/dL g/dL] *LOW* (11/18/16 4:41 PM) Globulin [2.7-4.2 4.2 g/dL g/dL] (11/18/16 4:41 PM) A/G Ratio [0.7-1.6] 0.7 (11/18/16 4:41 PM) Calcium Lvl 8.4 mg/dL [8.5-10.5 mg/dL] *LOW* (11/18/16 4:41 PM) ALT [0-65 unit/L] 14 unit/L (11/18/16 4:41 PM) AST [0-37 unit/L] 9 unit/L (11/18/16 4:41 PM) Alk Phos [39-136 89 unit/L unit/L] (11/18/16 4:41 PM) Bili Total [0.2-1.3 0.3 mg/dL mg/dL] (11/18/16 4:41 PM) Lipase Lvl [73-393 203 unit/L unit/L] (11/18/16 4:41 PM) 1Result Comment: The eGFR is calculated using [...] be mul tiplied by the estimated BMI. URINE AND STOOL Most recent to 1 oldest [Reference Range]: UA Turbidity [Clear] Clear (11/18/16 3:20 PM) UA Color [Yellow] Yellow *NA* (11/18/16 3:20 PM) UA pH [5.0-8.0] 6.0 (11/18/16 3:20 PM) UA Spec Grav 1.011 [<=1.030] (11/18/16 3:20 PM) UA Glucose [Negative Negative mg/dL mg/dL] *NA* (11/18/16 3:20 PM) UA Blood [Negative] Trace *ABN* (11/18/16 3:20 PM) UA Ketones [Negative Negative mg/dL mg/dL] *NA* (11/18/16 3:20 PM) UA Protein [Negative >=300 mg/dL mg/dL] *ABN* (11/18/16 3:20 PM) UA Urobilinogen <=1.0 mg/dL [0.1-1.0 mg/dL] *NA* (11/18/16 3:20 PM) UA Bili [Negative] Negative *NA* (11/18/16 3:20 PM) UA Leuk Est Negative [Negative] (11/18/16 3:20 PM) UA Nitrite Negative [Negative] (11/18/16 3:20 PM) UA WBC [0-5 /HPF] 1 /HPF (11/18/16 3:20 PM) UA RBC [0-2 /HPF] 6 /HPF *HI* (11/18/16 3:20 PM) UA Sq Epi [Few /LPF] Many /LPF *ABN* (11/18/16 3:20 PM) UA Hyal Cast [0-2 3 /LPF /LPF] *HI* (11/18/16 3:20 PM) UA Mucus [None Seen Few /LPF /LPF] *NA* (11/18/16 3:20 PM) HEMATOLOGY Most recent to 1 oldest [Reference Range]: WBC [3.7-10.4 K/CMM] 8.5 K/CMM (11/18/16 4:41 PM) RBC [4.20-5.40 3.12 M/CMM M/CMM] *LOW* (11/18/16 4:41 PM) Hgb [12.0-16.0 g/dL] 9.5 g/dL *LOW* (11/18/16 4:41 PM) Hct [36.0-48.0 %] 27.5 % *LOW* (11/18/16 4:41 PM) MCV [80.0-98.0 fL] 88.2 fL (11/18/16 4:41 PM) MCH [27.0-31.0 pg] 30.3 pg (11/18/16 4:41 PM) MCHC [32.0-36.0 34.3 g/dL g/dL] (11/18/16 4:41 PM) RDW [11.5-14.5 %] 14.7 % *HI* (11/18/16 4:41 PM) Platelet [133-450 275 K/CMM K/CMM] (11/18/16 4:41 PM) MPV [7.4-10.4 fL] 7.4 fL (11/18/16 4:41 PM) Segs [45.0-75.0 %] 58.5 % (11/18/16 4:41 PM) Lymphocytes 35.2 % [20.0-40.0 %] (11/18/16 4:41 PM) Monocytes [2.0-12.0 5.3 % %] (11/18/16 4:41 PM) Eosinophils [0.0-4.0 0.5 % %] (11/18/16 4:41 PM) Basophils [0.0-1.0 0.5 % %] (11/18/16 4:41 PM) Segs-Bands # 5.0 K/CMM [1.5-8.1 K/CMM] (11/18/16 4:41 PM) Lymphocytes # 3.0 K/CMM [1.0-5.5 K/CMM] (11/18/16 4:41 PM) Monocytes # [0.0-0.8 0.5 K/CMM K/CMM] (11/18/16 4:41 PM) PT [12.0-14.7 13.3 seconds seconds] (11/18/16 5:24 PM) INR [0.85-1.17] 0.99 (11/18/16 5:24 PM) PTT [22.9-35.8 25.0 seconds seconds] (11/18/16 5:24 PM) Immunizations Given and Recorded Vaccine Date Status [...] Smoking Cessation Counseling No Assessment and Plan No data available for this section
--- OUTSIDE RECORDS SUMMARY | 2018-05-14 21:17 | XMS REPORT | Continuity of Care Document ---
Author Author [facility] Interface Address Unknown Phone Unavailable Problems Problem Status Onset Date Classification Date Reported Comments Source Bipolar 1 disorder, depressed Active 12/12/2017 Diagnosis 05/01/2018 [facility] Anxiety disorder Active 12/12/2017 Diagnosis 05/01/2018 [facility] SHOULDER KNEE Active 10/04/2017 [facility] CLOSED PATELLAR COMMUNITED FRACTURE OF R Active 07/23/2017 [facility] FALL Active 07/23/2017 [facility] ANXIETY DISORDER/ DR BATISTA # [id number] Active 01/10/2017 [facility] Discharge Diagnosis: Abdominal pain in female 11/18/2016 11/21/2016 [facility] SNT BY Active 11/18/2016 [facility] HYPERGLYCEMIA W/O KETOSIS/ ULCERATIVE CO Active 10/11/2016 [facility] NEAR SYNCOPE Active 10/11/2016 [facility] SURGICAL WOUND Active 12/21/2014 [facility] STRICTURE 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.9 AND 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.9 CHR Active 02/06/2014 [facility] Colitis Resolved 01/13/2014 Problem 05/13/2018 [facility] Diabetes Resolved 01/13/2014 Problem 05/13/2018 [facility] Diarrhea Resolved 01/13/2014 Problem 05/13/2018 [facility] DVT (<span [id number]">Confirmed</span>) Resolved 01/13/2014 Problem 05/13/2018 [facility] Gastric bypass Resolved 01/13/2014 Problem 05/13/2018 [facility] GASTROINTESTINAL BLEED, HYPOKALEMIA, HIS Active 01/07/2014 [facility] ABDOMINAL PAIN, DR VILLANUEVA REFERRAL Active 01/07/2014 [facility] SENT BY FOR BLOOD TRANSFUSION Active 10/05/2013 [facility] SYMPTOMATIC ANEMIA, WEAKNESS Active 10/05/2013 [facility] COLITIS ,BLOOD CLOTS Active 09/11/2013 [facility] ANEMIA HGB 7.0 Active 08/14/2013 [facility] Abdominal bloating Active Problem 05/13/2018 [facility] Anemia Active Problem 05/13/2018 [facility] Problem 05/13/2018 [facility] CKD - chronic kidney disease Resolved Problem 05/13/2018 [facility] Uncontrolled diabetes mellitus Active Problem 05/13/2018 [facility] GERD (<span ID="[id number]">Confirmed</span>) Active Problem 05/13/2018 [facility] S/P gastric bypass Active Problem 05/13/2018 [facility] HTN (<span ID="[id number]">Confirmed</span>) Active Problem 05/13/2018 [facility] Hyperlipidemia Active Problem 05/13/2018 [facility] Hypothyroid Active Problem 05/13/2018 [facility] Insomnia Active Problem 05/13/2018 [facility] Bipolar disorder Active Problem 05/13/2018 [facility] Depression Active Problem 05/13/2018 [facility] Morbid obesity Active Problem 05/13/2018 [facility] Paronychia [facility]13[facility] Active Problem 05/13/2018 [facility] Smoker Active Problem 05/13/2018 [facility] Tinea pedis Active Problem 05/13/2018 [facility] IRON DEFIC ANEMIA NOS Active [facility] GASTROINTEST HEMORR NOS Active [facility] ADMINISTRTVE ENCOUNT NOS Active [facility] ABDOMINAL PAIN Active [facility] INTESTINAL OBSTRUCT NOS Active [facility] REGIONAL ENTERITIS NOS Active [facility] HYPERGLYCEMIA, UNSPECIFIED Active [facility] ULCERATIVE COLITIS, UNSPECIFIED, WITHOUT Active [facility] OT FRACTURE OF RIGHT PATELLA, INIT FOR Active [facility] DISP FX OF GREATER TUBEROSITY OF R HUMER Active [facility] UNSPECIFIED FALL, INITIAL ENCOUNTER Active [facility] Medications Medication Details Route Status Patient Instructions Ordering Provider Order Date Source Furosemide 20 MG Oral Tablet [Lasix] 20 mg=1 tab, PO, Daily, # 30 tab, 0 Refill(s) Active 05/03/2018 [facility] Esomeprazole 40 MG Enteric Coated Capsule =1 cap, PO, Daily, # 90 unknown unit, [id number] Active 04/03/2018 [facility] Hydrochlorothiazide 12.5 MG / Lisinopril 20 MG Oral Tablet =1 tab, PO, Daily, # 90 tab, Pharmacy: [facility] [id number] Active 04/03/2018 [facility] ZOLOFT 100 MG ORAL TABLET Take 1.5 tablets daily Active Take 1.5 tablets daily 02/03/2018 [facility] QUETIAPINE FUMARATE TAKE 1 TABLET BY MOUTH EVERY NIGHT AT BEDTIME Active TAKE 1 TABLET BY MOUTH EVERY NIGHT AT BEDTIME 02/03/2018 [facility] FLUOXETINE HCL TAKE ONE CAPSULE BY MOUTH EVERY DAY Active TAKE ONE CAPSULE BY MOUTH EVERY DAY 02/03/2018 [facility] ARIPIPRAZOLE TAKE 1 TABLET BY MOUTH EVERY NIGHT AT BEDTIME Active TAKE 1 TABLET BY MOUTH EVERY NIGHT AT BEDTIME 01/03/2018 [facility] ESCITALOPRAM OXALATE TAKE 1 TABLET BY MOUTH EVERY DAY Active TAKE 1 TABLET BY MOUTH EVERY DAY 01/03/2018 [facility] celecoxib 200 mg oral capsule See Instructions, # 60 unknown unit, TAKE 1 CAPSULE BY MOUTH TWICE DAILY, Pharmacy: [facility] [id number] Active 12/19/2017 [facility] Furosemide 20 MG Oral Tablet See Instructions, # 30 tab, TAKE 1 TABLET BY MOUTH DAILY, Pharmacy: [facility] [id number] Active 12/19/2017 [facility] potassium chloride 10 mEq oral capsule, extended release See Instructions, # 30 unknown unit, TAKE 1 CAPSULE BY MOUTH DAILY, Pharmacy: [facility] [id number] Active 12/19/2017 [facility] KLONOPIN 0.5 MG ORAL TABLET Take 1 tablet at bedtime Active Take 1 tablet at bedtime 12/12/2017 [facility] VALIUM 5 MG ORAL TABLET Take 1 tablet By Mouth twice a day Active Take 1 tablet By Mouth twice a day 12/12/2017 [facility] celecoxib 200 mg oral capsule See Instructions, # 60 unknown unit, TAKE 1 CAPSULE BY MOUTH TWICE DAILY, Pharmacy: [facility] [id number] No Longer Active 11/20/2017 [facility] potassium chloride 10 mEq oral capsule, extended release See Instructions, # 30 unknown unit, TAKE 1 CAPSULE BY MOUTH DAILY, Pharmacy: [facility] [id number] No Longer Active 11/20/2017 [facility] Furosemide 20 MG Oral Tablet See Instructions, # 30 tab, TAKE 1 TABLET BY MOUTH DAILY, Pharmacy: [facility] [id number] No Longer Active 11/20/2017 [facility] Furosemide 20 MG Oral Tablet See Instructions, # 30 tab, TAKE 1 TABLET BY MOUTH DAILY, [id number] No Longer Active 10/23/2017 [facility] Vitamin B 12 1,000 microgram, Route: IM, ONCE, Dosing Weight 97.727, kg, Start date: 10/05/17 11:18:00 CDT, Stop date: 10/05/17 11:18:00 CDT Inactive 10/05/2017 [facility] Esomeprazole 40 MG Enteric Coated Capsule 40 mg=1 cap, PO, Daily, # 90 cap, 1 Refill(s), [facility] [id number] No Longer Active 10/05/2017 [facility] trazodone 300 mg oral tablet 300 mg=1 tab, PO, Bedtime, # 90 tab, 0 Refill(s), Pharmacy: [facility] [id number] Active 10/05/2017 [facility] Furosemide 20 MG Oral Tablet See Instructions, # 90 tab, TAKE 1 TABLET BY MOUTH DAILY, Pharmacy: [facility] [id number] No Longer Active 09/27/2017 [facility] potassium chloride 10 mEq oral capsule, extended release See Instructions, # 90 unknown unit, Refill(s) 1, TAKE 1 CAPSULE BY MOUTH DAILY, Pharmacy: [facility] [id number] No Longer Active 09/27/2017 [facility] Vitamin B12 1000 mcg/mL injectable solution See Instructions, 1 mL IM once a week x 4 weeks, then once a month, # 30 mL, 0 Refill(s), Pharmacy: [facility] [id number] Active 09/27/2017 [facility] potassium chloride 10 mEq oral capsule, extended release 10 mEq=1 cap, PO, Daily, # 30 cap, 1 Refill(s), Pharmacy: [facility] [id number] Inactive 09/27/2017 [facility] Furosemide 20 MG Oral Tablet [Lasix] 20 mg=1 tab, PO, Daily, # 30 tab, 0 Refill(s), [id number] Inactive 09/27/2017 [facility] Mupirocin 0.02 MG/MG Topical Ointment [Bactroban] 1 appl, TOP, TID, PRN as needed, Apply to affected area(s), X 14 day, # 60 gm, 0 Refill(s), [facility] [id number] No Longer Active 09/26/2017 [facility] Trazodone Hydrochloride 100 MG Oral Tablet See Instructions, # 180 tab, TAKE 2 TABLETS BY MOUTH AT BEDTIME, [id number] Active 08/01/2017 [facility] QUEtiapine 400 mg oral tablet 400 mg=1 tab, PO, Daily, # 30 tab, 11 Refill(s), [id number] Active 08/01/2017 [facility] zolpidem 10 mg oral tablet 10 mg=1 tab, PO, Bedtime, PRN for sleep, X 30 day, # 30 tab, 0 Refill(s) Active 08/01/2017 [facility] Trazodone Hydrochloride 100 MG Oral Tablet 200 mg=2 tab, PO, Bedtime, # 60 tab, 0 Refill(s), Pharmacy: [facility] [id number] Inactive 08/01/2017 [facility] Lovenox 40 mg, 0.4 mL, Route: SUB-Q, Drug form: INJ, [id number], Dosing Weight 86, kg, Start date: 07/29/17 9:00:00 CDT, Duration: 30 day, Stop date: 08/27/17 9:00:00 CDTNotes: (Same as: Lovenox) No Longer Active 07/29/2017 [facility] Lisinopril 10 mg, 1 tab, Route: PO, Drug form: TAB, Daily, Dosing Weight 86, kg, Start date: 07/28/17 15:00:00 CDT, Duration: 30 day, Stop date: 08/27/17 9:00:00 CDTNotes: (Same as: Prinivil, Zestril) Inactive 07/28/2017 [facility] Acetaminophen 325 MG / Hydrocodone Bitartrate 5 MG Oral Tablet [[place] 5/325] 1 tab, PO, Q4H, PRN Pain Score 6-10, # 60 tab, 0 Refill(s), other Active 07/28/2017 [facility] Bisacodyl 10 mg, 2 tab, Route: PO, Drug form: ECTAB, ONCE, Dosing Weight 86, kg, Start date: 07/28/17 13:20:00 CDT, Stop date: 07/28/17 13:20:00 CDTNotes: (Same As: Dulcolax, Correctol) (Do Not Crush) "Do Not Crush" Inactive 07/28/2017 [facility] lisinopril 10 mg oral tablet 10 mg, PO, Daily, 0 Refill(s) Active 07/28/2017 [facility] insulin lispro 100 units/mL subcutaneous injection 2 unit, SUB-Q, Bedtime, PRN Blood Glucose Results, 0 Refill(s) Active 07/28/2017 [facility] Insulin Glargine 100 UNT/ML Injectable Solution [Lantus] 20 unit, SUB-Q, Daily, 0 Refill(s) Active 07/28/2017 [facility] Lovenox 40 mg, SUB-Q, [id number], 0 Refill(s) Active 07/28/2017 [facility] Docusate Sodium 100 MG Oral Capsule 100 mg=1 cap, PO, BID, 0 Refill(s) Active 07/28/2017 [facility] amLODIPine 10 mg oral tablet 10 mg=1 tab, PO, Daily, 0 Refill(s) Active 07/28/2017 [facility] Protonix 40 mg, 1 tab, Route: PO, Drug form: ECTAB, Before Dinner, Dosing Weight 86, kg, Start date: 07/27/17 16:30:00 CDT, Duration: 30 day, Stop date: 08/25/17 16:30:00 CDTNotes: Tablet should not be chewed or crushed. (Same as: Protonix) No Longer Active 07/27/2017 [facility] Magnesium Oxide 400 mg, 1 tab, Route: PO, Drug form: TAB, Daily, Dosing Weight 86, kg, Start date: 07/27/17 9:00:00 CDT, Duration: 30 day, Stop date: 08/25/17 9:00:00 CDTNotes: (Same as: Mag-Ox 400) Magnesium oxide [id number] elemental magnesium Dose=____mg magnesium oxide (___mg elemental magnesium) No Longer Active 07/27/2017 [facility] metoprolol tartrate 25 mg, 1 tab, Route: PO, Drug form: TAB, Q12H, Dosing Weight 86, kg, Start date: 07/26/17 21:00:00 CDT, Duration: 30 day, Stop date: 08/25/17 9:00:00 CDTNotes: (Same as: Lopressor) No Longer Active 07/27/2017 [facility] Hydralazine Hydrochloride 50 MG Oral Tablet 50 mg, 1 tab, Route: PO, Drug form: TAB, ONCE, Dosing Weight 86, kg, Start date: 07/26/17 18:02:00 CDT, Stop date: 07/26/17 18:02:00 CDTNotes: (Same as: Apresoline) May interfere w/enteral feedings Take With Food Inactive 07/26/2017 [facility] Magnesium Oxide 400 mg, 1 tab, Route: PO, Drug form: TAB, ONCE, Dosing Weight 86, kg, Start date: 07/26/17 17:58:00 CDT, Stop date: 07/26/17 17:58:00 CDTNotes: (Same as: Mag-Ox 400) Magnesium oxide [id number] elemental magnesium Dose=____mg magnesium oxide (___mg elemental magnesium) Inactive 07/26/2017 [facility] Magnesium Sulfate 1 gm, 100 mL, Route: IVPB, Drug form: INJ, ONCE, Dosing Weight 86, kg, Start date: 07/26/17 17:54:00 CDT, Stop date: 07/26/17 17:54:00 CDTNotes: WASTE: F/P - Sink; E - Municipal Trash Bin Inactive 07/26/2017 [facility] Cefazolin 1 gm, Route: IVP, [id number], Dosing Weight 86, kg, Start date: 07/25/17 22:00:00 CDT, Duration: 1 day, Stop date: 07/26/17 14:00:00 CDT, ABX Indication: Surgical ProphylaxisNotes: (Same As: Braxton Jama) MEDICATION WASTE Product Size: 1000 mg Product Wasted: ___ mg No Longer Active 07/26/2017 [facility] Ergocalciferol 50,000 unit, Route: PO, Drug form: CAP, QTue, Dosing Weight 86, kg, Start date: 07/25/17 18:00:00 CDT, Duration: 30 day, Stop date: 08/22/17 9:00:00 CDTNotes: (Same as: Vitamin D) "Do Not Crush" No Longer Active 07/25/2017 [facility] Calcium Carbonate 500 mg, 1 tab, Route: PO, Drug form: CHEWTAB, BID, Dosing Weight 86, kg, Start date: 07/25/17 17:00:00 CDT, Duration: 30 day, Stop date: 08/24/17 9:00:00 CDTNotes: (Same As: Tums) Calcium Carbonate 500 ya=492 mg elemental calcium Dose= mg calcium carbonate ( mg elemental calcium) No Longer Active 07/25/2017 [facility] fentaNYL (ANES) Route: IV, Drug form: INJ, ONCE, Stop date: 07/25/17 16:57:00 CDT Inactive 07/25/2017 [facility] propofol (ANES) Route: IV, Drug form: INJ, ONCE, Stop date: 07/25/17 16:44:00 CDT Inactive 07/25/2017 [facility] phenylephrine (ANES) Route: IV, Drug form: INJ, ONCE, Stop date: 07/25/17 15:11:00 CDT Inactive 07/25/2017 [facility] midazolam (ANES) Route: IV, Drug form: SOLN, ONCE, Stop date: 07/25/17 14:56:00 CDT Inactive 07/25/2017 [facility] fentaNYL (ANES) Route: IV, Drug form: INJ, ONCE, Stop date: 07/25/17 14:40:00 CDT Inactive 07/25/2017 [facility] propofol (ANES) Route: IV, Drug form: INJ, ONCE, Stop date: 07/25/17 14:40:00 CDT Inactive 07/25/2017 [facility] rocuronium (ANES) Route: IV, Drug form: INJ, ONCE, Stop date: 07/25/17 14:40:00 CDT Inactive 07/25/2017 [facility] lidocaine (ANES) Route: IV, Drug form: INJ, ONCE, Stop date: 07/25/17 14:35:00 CDT Inactive 07/25/2017 [facility] acetaminophen (ANES) 10 mg Route: IV, Drug form: INJ, Start date: 07/25/17 14:27:00 CDT, Stop date: 07/25/17 15:27:00 CDT Inactive 07/25/2017 [facility] ceFAZolin (ANES) 1000 mg Route: IV, Drug form: INJ, Start date: 07/25/17 13:51:00 CDT, Stop date: 07/25/17 14:51:00 CDT Inactive 07/25/2017 [facility] Sodium Chloride 0.9% IV (ANES) 500 mL Route: IV, Total Volume: 500, Start date: 07/25/17 13:10:00 CDT, Stop date: 07/25/17 14:10:00 CDT Inactive 07/25/2017 [facility] Albuterol 0.833 MG/ML / Ipratropium [place] 0.167 MG/ML Inhalant Solution [DuoNeb] 3 ml, Route: INHALATION, Drug Form: SOLN, Dosing Weight 86, kg, PRN, PRN Respiratory Protocol, Start date: 07/25/17 11:30:00 CDT, Duration: 30 day, Stop date: 08/24/17 11:29:00 CDTNotes: (Same as: Duoneb) Inactive 07/25/2017 [facility] Calcium Chloride 0.0014 MEQ/ML / Potassium Chloride 0.004 MEQ/ML / Sodium Chloride 0.103 MEQ/ML / Sodium Lactate 0.028 MEQ/ML Injectable Solution 1,000 mL, Rate: 25 ml/hr, Infuse over: 40 hr, Route: IV, Dosing Weight 86 kg, Total Volume: 1,000, Start date: 07/25/17 11:30:00 CDT, Duration: 30 day, Stop date: 08/24/17 11:29:00 CDT, 1.96, m2 Inactive 07/25/2017 [facility] Benadryl 12.5 mg, 0.25 mL, Route: IVP, Drug form: INJ, ONCE, Dosing Weight 86, kg, PRN Itching, Start date: 07/25/17 9:48:00 CDTNotes: (Same as: Benadryl) Inactive 07/25/2017 [facility] Thyroxine 25 microgram, 1 tab, Route: PO, Drug form: TAB, Daily, Dosing Weight 86, kg, Start date: 07/25/17 9:00:00 CDT, Stop date: 08/23/17 6:30:00 CDTNotes: Take 1 hour before or 2 hours after meal; Enteral fee ds may interefere with the absorption of this medication. (Same as:Levothroid) No Longer Active 07/25/2017 [facility] Amlodipine 10 mg, 1 tab, Route: PO, Drug form: TAB, Daily, Dosing Weight 86, kg, Start date: 07/25/17 9:00:00 CDT, Duration: 30 day, Stop date: 08/23/17 9:00:00 CDTNotes: (Same as: Norvasc) No Longer Active 07/25/2017 [facility] Lunesta 3mg tab Lunesta 3mg tab, 1 tab, Drug form: MISC, Route: PO, Bedtime, 07/24/17 21:00:00 CDT, Duration: 30 day, Stop date: 08/22/17 21:00:00 CDT Inactive 07/25/2017 [facility] Lunesta 3 mg, Route: PO, Bedtime, Dosing Weight 86.364, kg, Start date: 07/24/17 21:00:00 CDT, Duration: 30 day, Stop date: 08/22/17 21:00:00 CDT Inactive 07/25/2017 [facility] Potassium Chloride 20 mEq, 1 tab, Route: PO, Drug form: ERTAB, ONCE, Dosing Weight 86, kg, Start date: 07/24/17 14:49:00 CDT, Stop date: 07/24/17 14:49:00 CDTNotes: (Same as: K-Dur 20) "Do Not Crush" For patient s unable to swallow tablet, dissolve in one half glass of water. Allow about 2 minutes for the tablets to disintegrate. Stir before giving to prepare slurry and administer. Please exclude Patients with feeding tube less than 14 Swedish (Dobhoff, J-tube etc) and pediatric and patients. With food and full glass of water Inactive 07/24/2017 [facility] Benadryl 25 mg, 1 cap, Route: PO, Drug form: CAP, Q6H, Dosing Weight 86, kg, PRN as needed for itching, Start date: 07/24/17 12:07:00 CDT, Duration: 30 day, Stop date: 08/23/17 12:06:00 CDT, Patient's Own Med sNotes: (Same as: Benadryl) No Longer Active 07/24/2017 [facility] Dilaudid 0.2 mg, 0.1 mL, Route: IVP, Drug form: INJ, Q3H, Dosing Weight 86, kg, PRN Pain Score 7-10, Start date: 07/24/17 12:04:00 CDT, Duration: 30 day, Stop date: 08/23/17 12:03:00 CDTNotes: Same as Dilaudid No Longer Active 07/24/2017 [facility] Acetaminophen 325 MG / Oxycodone Hydrochloride 5 MG Oral Tablet [Percocet 5/325] 2 tab, Route: PO, Drug Form: TAB, Dosing Weight 86, kg, Q4H, PRN Pain Score 4-6, Start date: 07/24/17 12:03:00 CDT, Duration: 30 day, Stop date: 08/23/17 12:02:00 CDTNotes: Do not exceed 4gm/day of acetaminophen. (Same as: Percocet-5/325) No Longer Active 07/24/2017 [facility] Insulin Glargine 100 UNT/ML Injectable Solution [Lantus] 20 unit, 0.2 mL, Route: SUB-Q, Drug form: SOLN, Daily, Dosing Weight 86, kg, Start date: 07/24/17 10:00:00 CDT, Duration: 30 day, Stop date: 08/23/17 9:00:00 CDTNotes: (Same as: Lantus) Do not hold insulin without contacting prescriber WASTE: F/P - Black; E - Municipal Trash Bin "single patient use only" No Longer Active 07/24/2017 [facility] Albuterol 0.833 MG/ML / Ipratropium [place] 0.167 MG/ML Inhalant Solution [DuoNeb] 3 ml, Route: NEB, Drug Form: SOLN, Dosing Weight 86, kg, TID, PRN Respiratory Protocol, Start date: 07/24/17 9:22:00 CDT, Duration: 30 day, Stop date: 08/23/17 9:21:00 CDTNotes: (Same as: Duoneb) No Longer Active 07/24/2017 [facility] NS 1,000 mL 1,000 mL, Rate: 75 ml/hr, Infuse over: 13.3 hr, Route: IV, Dosing Weight 86 kg, Total Volume: 1,000, Start date: 07/24/17 9:15:00 CDT, Duration: 30 day, Stop date: 08/23/17 9:14:00 CDT, 1.96, m2 No Longer Active 07/24/2017 [facility] Morphine 2 mg, 0.5 mL, Route: IVP, Drug form: SOLN, Q4H, Dosing Weight 86, kg, PRN Pain Score 7-10, Start date: 07/24/17 9:14:00 CDT, Duration: 30 day, Stop date: 08/23/17 9:13:00 CDTNotes: (Same as:MORPhine Sulfate) No Longer Active 07/24/2017 [facility] Acetaminophen 325 mg, 1 tab, Route: PO, Drug form: TAB, Q4H, Dosing Weight 86, kg, PRN Pain 1-3/Temp > 100.4 F, Start date: 07/24/17 9:13:00 CDT, Duration: 30 day, Stop date: 08/23/17 9:12:00 CDTNotes: Do not exce ed 4 gm/day. (Same as: Tylenol) No Longer Active 07/24/2017 [facility] Insulin Lispro 3 unit, 0.03 mL, Route: SUB-Q, Drug form: SOLN, Bedtime, Dosing Weight 86, kg, PRN Blood Glucose Results, Start date: 07/24/17 9:07:00 CDT, Duration: 30 day, Stop date: 08/23/17 9:06:00 CDTNotes: (Same as: Humalog ) Roll in palms of hands gently; Do not shake `vigorously. "Single Patient Use Only " WASTE: F/P - Black; E - Municipal Trash Bin Stable for 28 days at room temperature. Expires in days from Date No Longer Active 07/24/2017 [facility] Dextrose 50% Syringe 12.5 gm, 25 mL, Route: IVP, Drug Form: INJ, Dosing Weight 86, kg, PRN, PRN Blood Glucose Results, Start date: 07/24/17 9:07:00 CDT, Duration: 30 day, Stop date: 08/23/17 9:06:00 CDT No Longer Active 07/24/2017 [facility] Glucagon 1 mg, Route: IM, Drug form: PDR/INJ, PRN, Dosing Weight 86, kg, PRN Blood Glucose Results, Start date: 07/24/17 9:07:00 CDT, Duration: 30 day, Stop date: 08/23/17 9:06:00 CDT No Longer Active 07/24/2017 [facility] Docusate 100 mg, 1 cap, Route: PO, Drug form: CAP, BID, Dosing Weight 86.364, kg, Start date: 07/24/17 9:00:00 CDT, Duration: 30 day, Stop date: 08/22/17 17:00:00 CDTNotes: (Same as: Colace) (Do Not Crush) No Longer Active 07/24/2017 [facility] zolpidem 5 mg, 1 tab, Route: PO, Drug form: TAB, Bedtime, Start date: 07/24/17 1:00:00 CDT, Duration: 30 day, Stop date: 08/22/17 21:00:00 CDTNotes: (Same As: Ambien) No Longer Active 07/24/2017 [facility] Trazodone Hydrochloride 100 MG Oral Tablet 100 mg, 2 tab, Route: PO, Drug form: TAB, Bedtime, Dosing Weight 86.364, kg, Start date: 07/24/17 1:00:00 CDT, Duration: 30 day, Stop date: 08/22/17 21:00:00 CDTNotes: (Same As: Desyrel) No Longer Active 07/24/2017 [facility] Seroquel 400 mg, 4 tab, Route: PO, Drug form: TAB, Bedtime, Dosing Weight 86.364, kg, Start date: 07/24/17 1:00:00 CDT, Duration: 30 day, Stop date: 08/22/17 21:00:00 CDTNotes: (Same as: SEROquel) No Longer Active 07/24/2017 [facility] Eszopiclone 3 MG Oral Tablet [Lunesta] 3 mg=1 tab, PO, Bedtime, PRN for insomnia, # 30 tab, 0 Refill(s) Inactive 07/24/2017 [facility] Hydralazine 10 mg, 0.5 mL, Route: IVP, Drug form: INJ, Q6H, Dosing Weight 86.364, kg, PRN Hypertension, Start date: 07/23/17 18:26:00 CDT, Duration: 30 day, Stop date: 08/22/17 18:25:00 CDTNotes: (Same as: Serafin lin) Push over 5 minutes No Longer Active 07/23/2017 [facility] Enoxaparin 30 mg, 0.3 mL, Route: SUB-Q, Drug form: INJ, [id number], Dosing Weight 86.364, kg, Start date: 07/23/17 18:00:00 CDT, Stop date: 08/22/17 6:00:00 CDTNotes: (Same as: Lovenox) No Longer Active 07/23/2017 [facility] Insulin Lispro 4 unit, 0.04 mL, Route: SUB-Q, Drug form: SOLN, TID-Before Meals, Dosing Weight 86.364, kg, PRN Blood Glucose Results, Start date: 07/23/17 17:41:00 CDT, Duration: 30 day, Stop date: 08/22/17 17:40:0 0 CDTNotes: (Same as: Humalog ) Roll in palms of hands gently; Do not shake `vigorously. "Single Patient Use Only " WASTE: F/P - Black; E - Municipal Trash Bin Stable for 28 days at room temperature. Expires in days from Date No Longer Active 07/23/2017 [facility] Glucagon 1 mg, Route: IM, Drug form: PDR/INJ, PRN, Dosing Weight 86.364, kg, PRN Blood Glucose Results, Start date: 07/23/17 17:41:00 CDT, Duration: 30 day, Stop date: 08/22/17 17:40:00 CDT No Longer Active 07/23/2017 [facility] Dextrose 50% Syringe 25 gm, 50 mL, Route: IVP, Drug Form: INJ, Dosing Weight 86.364, kg, PRN, PRN Blood Glucose Results, Start date: 07/23/17 17:41:00 CDT, Duration: 30 day, Stop date: 08/22/17 17:40:00 CDT No Longer Active 07/23/2017 [facility] Ondansetron 4 mg, 2 mL, Route: IVP, Drug form: INJ, Q6H, Dosing Weight 86.364, kg, PRN Nausea & Vomiting, Start date: 07/23/17 17:40:00 CDT, Duration: 30 day, Stop date: 08/22/17 17:39:00 CDTNotes: (Same as: Kimberly) MEDICATION WASTE Product Size: 4 mg Product Wasted: ___ mg No Longer Active 07/23/2017 [facility] Morphine 4 mg, 1 mL, Route: IVP, Drug form: SOLN, Q3H, Dosing Weight 86.364, kg, PRN Pain Score 7-10, Start date: 07/23/17 17:40:00 CDT, Duration: 30 day, Stop date: 08/22/17 17:39:00 CDTNotes: (Same as:MORPhine Sulfate) No Longer Active 07/23/2017 [facility] Acetaminophen 325 MG / Hydrocodone Bitartrate 5 MG Oral Tablet 1 tab, Route: PO, Drug Form: TAB, Dosing Weight 86.364, kg, Q4H, PRN Pain Score 4-6, Start date: 07/23/17 17:40:00 CDT, Duration: 30 day, Stop date: 08/22/17 17:39:00 CDTNotes: (Same as: [place] 325/5) Do not exceed 4gm/day of acetaminophen. No Longer Active 07/23/2017 [facility] Acetaminophen 650 mg, 2 tab, Route: PO, Drug form: TAB, Q4H, Dosing Weight 86.364, kg, PRN Pain 1-3/Temp > 100.4 F, Start date: 07/23/17 17:40:00 CDT, Duration: 30 day, Stop date: 08/22/17 17:39:00 CDTNotes: Do not exceed 4 gm/day. (Same as: Tylenol) No Longer Active 07/23/2017 [facility] Acetaminophen 325 MG / Hydrocodone Bitartrate 5 MG Oral Tablet [[place] 5/325] 1 tab, Route: PO, Drug Form: TAB, Dosing Weight 86.364, kg, ONCE, STAT, Start date: 07/23/17 16:34:00 CDT, Stop date: 07/23/17 16:34:00 CDT Inactive 07/23/2017 [facility] tramadol hydrochloride 50 MG Oral Tablet 50 mg, Route: PO, Drug form: TAB, ONCE, Dosing Weight 86.364, kg, Priority: STAT, Start date: 07/23/17 15:37:00 CDT, Stop date: 07/23/17 15:37:00 CDT Inactive 07/23/2017 [facility] tramadol hydrochloride 50 MG Oral Tablet 50 mg, Route: PO, Drug form: TAB, ONCE, Dosing Weight 86.364, kg, Priority: STAT, Start date: 07/23/17 15:14:00 CDT, Stop date: 07/23/17 15:14:00 CDT Inactive 07/23/2017 [facility] citalopram 20 mg oral tablet See Instructions, # 180 tab, TAKE 2 TABLETS BY MOUTH DAILY, Pharmacy: [facility] [id number] Active 07/20/[facility] QUEtiapine 400 mg oral tablet See Instructions, # 30 tab, Refill(s) 11, TAKE 1 TABLET BY MOUTH AT BEDTIME, 08/01/17 8:20:36 CDT, Pharmacy: [facility] [id number] No Longer Active 07/20/2017 [facility] QUEtiapine 400 mg oral tablet See Instructions, # 30 tab, TAKE 1 TABLET BY MOUTH AT BEDTIME, Pharmacy: [facility] [id number] No Longer Active 06/09/2017 [facility] Esomeprazole 40 MG Enteric Coated Capsule See Instructions, # 90 unknown unit, TAKE 1 CAPSULE BY MOUTH DAILY, Pharmacy: [facility] [id number] Active 06/09/2017 [facility] amLODIPine 10 mg oral tablet See Instructions, # 90 tab, TAKE 1 TABLET BY MOUTH DAILY, Pharmacy: [facility] [id number] No Longer Active 06/09/2017 [facility] Metronidazole 500 MG Oral Tablet [Flagyl] 500 mg=1 tab, PO, BID, X 14 day, # 28 tab, 0 Refill(s), Pharmacy: [facility] [id number] No Longer Active 05/25/2017 [facility] QUEtiapine 400 mg oral tablet See Instructions, # 90 tab, TAKE 1 TABLET BY MOUTH AT BEDTIME, Pharmacy: [facility] [id number] No Longer Active 05/17/2017 [facility] Fluconazole 100 MG Oral Tablet [Diflucan] 100 mg=1 tab, PO, Daily, X 7 day, # 7 tab, 0 Refill(s) No Longer Active 05/16/2017 [facility] Trazodone Hydrochloride 100 MG Oral Tablet 200 mg=2 tab, PO, Bedtime, # 180 tab, 0 Refill(s) No Longer Active 05/16/2017 [facility] Hydrochlorothiazide 12.5 MG / Lisinopril 20 MG Oral Tablet See Instructions, TAKE 1 TABLET BY MOUTH DAILY, # 90 tab, 1 Refill(s), [id number] No Long[facility] Active 05/16/2017 [facility] QUEtiapine 400 mg oral tablet 400 mg=1 tab, PO, Bedtime, # 30 tab, 0 Refill(s) No Longer Active 05/16/2017 [facility] Suvorexant 5 MG Oral Tablet [Belsomra] 5 mg=1 tab, PO, Bedtime, # 90 tab, 0 Refill(s) No Longer Active 05/10/2017 [facility] Eszopiclone 3 MG Oral Tablet [Lunesta] 3 mg=1 tab, PO, Bedtime, PRN for insomnia, X 30 day, # 30 tab, 3 Refill(s) No Longer Active 05/02/2017 [facility] citalopram 20 mg oral tablet See Instructions, # 180 tab, TAKE 2 TABLETS BY MOUTH DAILY, [facility] [id number] No Longer Active 05/02/2017 [facility] QUEtiapine 300 mg oral tablet 300 mg=1 tab, PO, Daily, # 90 tab, 0 Refill(s), [facility] [id number] No Longer Active 04/05/2017 [facility] Trazodone Hydrochloride 100 MG Oral Tablet See Instructions, TAKE 1 TABLET BY MOUTH AT BEDTIME, # 90 tab, 0 Refill(s), Pharmacy: [facility] [id number] No Longer Active 04/05/2017 [facility] Eszopiclone 3 MG Oral Tablet [Lunesta] 3 mg=1 tab, PO, Bedtime, PRN for insomnia, X 30 day, # 30 tab, 0 Refill(s) No Longer Active 04/05/2017 [facility] Trazodone Hydrochloride 100 MG Oral Tablet See Instructions, # 90 tab, TAKE 1 TABLET BY MOUTH AT BEDTIME, Pharmacy: [facility] [id number] No Longer Active 03/15/2017 [facility] predniSONE 20 mg oral tablet 20 mg=1 tab, PO, Daily, X 7 day, # 7 tab, 0 Refill(s), Pharmacy: [facility] [id number] No Longer Active 03/15/2017 [facility] Sulfamethoxazole 800 MG / Trimethoprim 160 MG Oral Tablet [Bactrim] 1 tab, PO, BID, X 14 day, # 28 tab, 0 Refill(s), Pharmacy: [facility] [id number] No Longer Active 03/15/2017 [facility] QUEtiapine 300 mg oral tablet 300 mg=1 tab, PO, Daily, # 90 tab, 0 Refill(s), Pharmacy: [facility] [id number] No Longer Active 03/15/2017 [facility] Hydrochlorothiazide 12.5 MG / Lisinopril 20 MG Oral Tablet See Instructions, TAKE 1 TABLET BY MOUTH DAILY, # 90 tab, 1 Refill(s), Pharmacy: [facility] [id number] No Longer Active 03/15/2017 [facility] Eszopiclone 2 MG Oral Tablet [Lunesta] 2 mg=1 tab, PO, Bedtime, PRN for insomnia, X 30 day, # 30 tab, 0 Refill(s) No Longer Active 03/15/2017 [facility] Trazodone Hydrochloride 100 MG Oral Tablet 100 mg=1 tab, PO, Bedtime, # 30 tab, 0 Refill(s), Pharmacy: [facility] [id number] Inactive 03/15/2017 [facility] amLODIPine 10 mg oral tablet 10 mg, PO, Daily, # 90 tab, 0 Refill(s), Pharmacy: [facility] [id number] No Longer Active 03/15/2017 [facility] Eszopiclone 2 MG Oral Tablet [Lunesta] 2 mg=1 tab, PO, Bedtime, PRN for insomnia, X 30 day, # 30 tab, 0 Refill(s) Active 02/03/2017 [facility] Trazodone Hydrochloride 50 MG Oral Tablet See Instructions, # 90 tab, Refill(s) 1, TAKE 1 TABLET BY MOUTH AT BEDTIME, Pharmacy: [facility] [id number] Active 02/03/2017 [facility] QUEtiapine 300 mg oral tablet See Instructions, # 60 tab, TAKE 2 TABLETS BY MOUTH AT BEDTIME, Pharmacy: [facility] [id number] Active 02/03/2017 [facility] Eszopiclone 2 MG Oral Tablet [Lunesta] 2 mg=1 tab, PO, Bedtime, PRN for insomnia, X 30 day, # 30 tab, 0 Refill(s) Active 01/30/2017 [facility] Lactulose 667 MG/ML Oral Solution 20 gm=30 mL, PO, BID, PRN constipation, X 8 day, # 240 mL, 0 Refill(s), Pharmacy: [facility] [id number] Active 11/19/2016 [facility] Docusate Sodium 100 MG Oral Capsule [Colace] 100 mg=1 cap, PO, BID, PRN Constipation, # 20 cap, 0 Refill(s), Pharmacy: [facility] [id number] Active 11/19/2016 [facility] Lactulose 667 MG/ML Oral Solution 20 gm, 30 ml, Route: PO, Drug form: SYRP, ONCE, Dosing Weight 92.273, kg, Priority: STAT, Start date: 11/18/16 20:30:00 CDT, Stop date: 11/18/16 20:30:00 CDTNotes: (Same as:Chronulac) Inactive 11/19/2016 [facility] Ondansetron 4 mg, 2 mL, Route: IVP, Drug form: INJ, ONCE, Dosing Weight 92.273, kg, Priority: STAT, Start date: 11/18/16 12:28:00 CDT, Stop date: 11/18/16 12:28:00 CDTNotes: (Same as: Zofran) MEDICATION WASTE Product Size: 4 mg Product Wasted: ___ mg Inactive 11/18/2016 [facility] Morphine 4 mg, 1 mL, Route: IVP, Drug form: SOLN, ONCE, Dosing Weight 92.273, kg, Priority: STAT, Start date: 11/18/16 12:28:00 CDT, Stop date: 11/18/16 12:28:00 CDTNotes: (Same as:MORPhine Sulfate) Inactive 11/18/2016 [facility] Saline Flush 0.9% 10 mL, Route: IVP, Drug Form: INJ, Dosing Weight 92.273, kg, PRN, PRN Line Flush, Start date: 11/18/16 12:28:00 CDT, Duration: 30 day, Stop date: 12/18/16 12:27:00 CDTNotes: Same as: [facility] Posiflush Sterile Inactive 11/18/2016 [facility] Sodium Chloride 0.9% (Bolus) IV 1,000 mL, 2,000 ml/hr, Infuse Over: 30 minutes, Route: IV, 1,000, Drug form: INJ, ONCE, Priority: STAT, Dosing Weight 92.273 kg, Start date: 11/18/16 12:28:00 CDT, Duration: 1 doses or times, Stop date: 11/18/16 12:28:00 CDT Inactive 11/18/2016 [facility] Acetaminophen 300 MG / Codeine Phosphate 30 MG Oral Tablet [Tylenol with Codeine #3] 1 tab, PO, Q4H, PRN Pain, X 7 day, # 42 tab, 0 Refill(s) Active 10/15/2016 [facility] Metronidazole 500 MG Oral Tablet [Flagyl] 500 mg=1 tab, PO, Q8H, X 9 day, # 27 tab, 0 Refill(s), [facility] [id number] Active 10/15/2016 [facility] Ciprofloxacin 500 MG Oral Tablet [Cipro] 500 mg=1 tab, PO, Q12H, X 9 day, # 18 tab, 0 Refill(s), [facility] [id number] Active 10/15/2016 [facility] Lovenox 40 mg, 0.4 mL, Route: SUB-Q, Drug form: INJ, [id number], Dosing Weight 93.6, kg, Start date: 10/14/16 15:00:00 CDT, Duration: 30 day, Stop date: 11/12/16 15:00:00 CDTNotes: (Same as: Lovenox) No Longer Active 10/14/2016 [facility] Ferrlecit 125 mg, Route: IVPB, Daily, Dosing Weight 93.6, kg, Start date: 10/14/16 9:00:00 CDT, Duration: 4 doses or times, Stop date: 10/17/16 9:00:00 CDT No Longer Active 10/14/2016 [facility] Ambien 10 mg, 2 tab, Route: PO, Drug form: TAB, Bedtime, Dosing Weight 93.6, kg, Start date: 10/13/16 22:52:00 CDT, Duration: 30 day, Stop date: 11/12/16 21:00:00 CDTNotes: (Same As: Ambien) No Longer Active 10/14/2016 [facility] Ferrlecit 125 mg, 10 mL, Route: IVPB, Daily, Dosing Weight 93.6, kg, Start date: 10/13/16 12:40:00 CDT, Duration: 4 doses or times, Stop date: 10/16/16 9:00:00 CDTNotes: (sodium ferric gluconate complex (elemental iron) 62.5 mg/5 ml INJ) "Limited stability. Use immediately after admixture" (Same as: Ferrlecit) MEDICATION WASTE Product Size: 62.5 mg Product Wasted: __0_ mg No Longer Active 10/13/2016 [facility] Bentyl 10 mg, 1 cap, Route: PO, Drug form: CAP, QID, Dosing Weight 93.6, kg, PRN Pain Score 1-5, Start date: 10/12/16 20:59:00 CDT, Duration: 30 day, Stop date: 11/11/16 20:58:00 CDTNotes: (Same as: Bentyl) No Longer Active 10/13/2016 [facility] Protonix 40 mg, 1 tab, Route: PO, Drug form: ECTAB, Before Dinner, Start date: 10/12/16 16:30:00 CDT, Duration: 30 day, Stop date: 11/10/16 16:30:00 CDTNotes: Tablet should not be chewed or crushed. (Same as: Protonix) No Longer Active 10/12/2016 [facility] Citalopram 30 mg, 1.5 tab, Route: PO, Drug form: TAB, Daily, Dosing Weight 93.6, kg, Start date: 10/12/16 9:00:00 CDT, Duration: 30 day, Stop date: 11/10/16 9:00:00 CDTNotes: (Same As: CeleXA) No Longer Active 10/12/2016 [facility] Nexium 40 mg, Route: PO, Drug form: ECCAP, Daily, Dosing Weight 93.6, kg, Start date: 10/12/16 9:00:00 CDT, Duration: 30 day, Stop date: 11/10/16 9:00:00 CDT Inactive 10/12/2016 [place] Thyroxine 25 microgram, 1 tab, Route: PO, Drug form: TAB, [id number], Dosing Weight 93.6, kg, Start date: 10/12/16 6:30:00 CDT, Duration: 30 day, Stop date: 11/10/16 6:30:00 CDTNotes: Take 1 hour before or 2 hours after meal; Enteral feeds may interefere with the absorption of this medication. (Same as:Levothroid) No Longer Active 10/12/2016 [facility] quetiapine 800 mg, 8 tab, Route: PO, Drug form: TAB, Bedtime, Dosing Weight 93.6, kg, Start date: 10/12/16 0:10:00 CDT, Duration: 30 day, Stop date: 11/10/16 21:00:00 CDTNotes: (Same as: SEROquel) No Longer Active 10/12/2016 [place] Lipitor 20 mg, 1 tab, Route: PO, Drug form: TAB, Bedtime, Dosing Weight 93.6, kg, Start date: 10/12/16 0:05:00 CDT, Duration: 30 day, Stop date: 11/10/16 21:00:00 CDTNotes: (Same As: Lipitor) No Longer Active 10/12/2016 [place] Dicyclomine 20 mg, 2 cap, Route: PO, Drug form: CAP, Q6H, Dosing Weight 93.6, kg, PRN Cramps, Start date: 10/11/16 23:56:00 CDT, Duration: 30 day, Stop date: 11/10/16 23:55:00 CDTNotes: (Same as: Bentyl) No Longer Active 10/12/2016 [facility] dicyclomine 20 mg oral tablet 20 mg=1 tab, PO, QID, PRN Cramps, 0 Refill(s) Active 10/12/2016 [facility] Levemir 20 unit, 0.2 mL, Route: SUB-Q, Drug form: INJ, Bedtime, Dosing Weight 90.909, kg, Start date: 10/11/16 21:00:00 CDT, Stop date: 11/09/16 21:00:00 CDTNotes: Same as Levemir Do not hold insulin without co ntacting prescriber WASTE: F/P - Black; E - [employer] Trash Bin "single patient use only" No Longer Active 10/12/2016 [facility] Docusate 100 mg, 1 cap, Route: PO, Drug form: CAP, BID, Dosing Weight 90.909, kg, Start date: 10/11/16 17:00:00 CDT, Duration: 30 day, Stop date: 11/10/16 9:00:00 CDTNotes: (Same as: Colace) (Do Not Crush) No Longer Active 10/11/2016 [facility] Flagyl 500 mg, 100 mL, Route: IVPB, Drug form: INJ, [id number], Dosing Weight 90.909, kg, Start date: 10/11/16 16:00:00 CDT, Duration: 5 day, Stop date: 10/16/16 8:00:00 CDT, ABX Indication: Intra-abdominal InfectionNotes: (Same as: Flagyl) Avoid alcohol. No Longer Active 10/11/2016 [facility] Cipro 200 mg, 100 mL, Route: IVPB, Drug form: INJ, [id number], Start date: 10/11/16 16:00:00 CDT, Duration: 5 day, Stop date: 10/16/16 4:00:00 CDT, ABX Indication: Intra-abdominal Infection No Longer Active 10/11/2016 [facility] Morphine 2 mg, 0.5 mL, Route: IVP, Drug form: INJ, Q4H, Dosing Weight 90.909, kg, PRN Pain Score 7-10, Start date: 10/11/16 15:12:00 CDT, Duration: 30 day, Stop date: 11/10/16 15:11:00 CDTNotes: (Same as:MORPhine Sulfate) No Longer Active 10/11/2016 [facility] Ondansetron 4 mg, 2 mL, Route: IVP, Drug form: INJ, Q6H, Dosing Weight 90.909, kg, PRN Nausea & Vomiting, Start date: 10/11/16 15:12:00 CDT, Duration: 30 day, Stop date: 11/10/16 15:11:00 CDTNotes: (Same as: Zofran) MEDICATION WASTE Product Size: 4 mg Product Wasted: ___ mg No Longer Active 10/11/2016 [facility] Acetaminophen 325 MG / Hydrocodone Bitartrate 5 MG Oral Tablet 2 tab, Route: PO, Drug Form: TAB, Dosing Weight 90.909, kg, Q4H, PRN Pain Score 7-10, Start date: 10/11/16 15:12:00 CDT, Duration: 30 day, Stop date: 11/10/16 15:11:00 CDTNotes: (Same as: [place] 325/5) Do not exceed 4gm/day of acetaminophen. No Longer Active 10/11/2016 [facility] sodium chloride 0.9% 1000 ml INJ 1,000 mL 1,000 mL, Rate: 75 ml/hr, Infuse over: 13.3 hr, Route: IV, Dosing Weight 90.909 kg, Total Volume: 1,000, Start date: 10/11/16 15:10:00 CDT, Stop date: 10/13/16 6:43:00 CDT No Longer Active 10/11/2016 [facility] Insulin, Aspart, Human 3 unit, 0.03 mL, Route: SUB-Q, Drug form: SOLN, Bedtime, Dosing Weight 90.909, kg, PRN Blood Glucose Results, Start date: 10/11/16 15:06:00 CDT, Duration: 30 day, Stop date: 11/10/16 15:05:00 CDTNotes: Roll in palms of hands gently; Do not shake vigorously. (Same as: NovoLOG) "single patient use only" WASTE: F/P - Black; E - [employer] Trash Bin Stable for 28 days at room temperature. Expires in days from Date No Longer Active 10/11/2016 [facility] Dextrose 50% Syringe 25 gm, 50 mL, Route: IVP, Drug Form: INJ, Dosing Weight 90.909, kg, PRN, PRN Blood Glucose Results, Start date: 10/11/16 15:06:00 CDT, Duration: 30 day, Stop date: 11/10/16 15:05:00 CDT No Longer Active 10/11/2016 [facility] Glucagon 1 mg, Route: IM, Drug form: PDR/INJ, PRN, Dosing Weight 90.909, kg, PRN Blood Glucose Results, Start date: 10/11/16 15:06:00 CDT, Duration: 30 day, Stop date: 11/10/16 15:05:00 CDT No Longer Active 10/11/2016 [facility] Zofran 4 mg, 2 mL, Route: IVP, Drug form: INJ, ONCE, Dosing Weight 90.909, kg, Priority: STAT, Start date: 10/11/16 14:03:00 CDT, Stop date: 10/11/16 14:03:00 CDTNotes: (Same as: Zofran) MEDICATION WASTE Product Size: 4 mg Product Wasted: ___ mg Inactive 10/11/2016 [facility] Morphine 4 mg, 1 mL, Route: IVP, Drug form: INJ, ONCE, Dosing Weight 90.909, kg, Priority: STAT, Start date: 10/11/16 14:02:00 CDT, Stop date: 10/11/16 14:02:00 CDTNotes: (Same as:MORPhine Sulfate) Inactive 10/11/2016 [facility] NS (Bolus) IV 1,000 mL, 1,000 ml/hr, Infuse Over: 1 hr, Route: IV, ONCE, Priority: STAT, Dosing Weight 90.909 kg, Start date: 10/11/16 11:32:00 CDT, Duration: 1 doses or times, Stop date: 10/11/16 11:32:00 CDT Inactive 10/11/2016 [facility] Saline Flush 0.9% 10 mL, Route: IVP, Drug Form: INJ, Dosing Weight 90.909, kg, PRN, PRN Line Flush, Start date: 10/11/16 9:54:00 CDT, Duration: 30 day, Stop date: 11/10/16 9:53:00 CDTNotes: preservative free. No Longer Active 10/11/2016 [facility] predniSONE 10 mg oral tablet 20 mg=2 tab, PO, Daily, # 60 tab, 0 Refill(s) Active 01/13/2014 [facility] benzonatate 100 mg oral capsule 200 mg=2 cap, PO, TID, Cough, # 30 cap, 0 Refill(s) Active 01/13/2014 [facility] Amlodipine 10 mg, PO, Daily, 0 Refill(s) Active 01/13/2014 [facility] Acetaminophen 325 MG / tramadol hydrochloride 37.5 MG Oral Tablet [Ultracet] 1 tab, PO, Q12H, for pain, # 20 tab, 0 Refill(s) Active 01/13/2014 [facility] 120 ACTUAT Fluticasone propionate 0.05 MG/ACTUAT Nasal Inhaler [Flonase] 2 spray, Route: Each Affected Nostril, Drug Form: SPRY, Dosing Weight 83.182, kg, Daily, Start date: 01/12/14 18:30:00, Duration: 30 day, Stop date: 02/11/14 9:00:00Notes: (Same as: Flonase) No Longer Active 01/13/2014 [facility] Tessalon Perles 200 mg, 2 cap, Route: PO, Drug form: CAP, TID, Dosing Weight 83.182, kg, PRN Cough, Start date: 01/12/14 17:26:00, Duration: 30 day, Stop date: 02/11/14 17:25:00Notes: (Same As: Tessalon Perles) "Do Not Crush" No Longer Active 01/12/2014 [facility] Norvasc 10 mg, 1 tab, Route: PO, Drug form: TAB, Daily, Start date: 01/11/14 18:00:00, Duration: 30 day, Stop date: 02/10/14 9:00:00Notes: (Same as: Norvasc) No Longer Active 01/12/2014 [facility] Aldactone 50 mg, 1 tab, Route: PO, Drug form: TAB, Daily, Start date: 01/11/14 18:00:00, Duration: 30 day, Stop date: 02/10/14 9:00:00Notes: (Same As: Aldactone) No Longer Active 01/12/2014 [facility] Trandate 20 mg, 4 mL, Route: IV, Drug form: INJ, Q4H, PRN Other -See Comment, Start date: 01/11/14 16:52:00, Duration: 30 day, Stop date: 02/10/14 16:51:00 No Longer Active 01/11/2014 [facility] Seroquel XR 400mg- patient's own med Seroquel XR 400mg- patient's own med, 800 mg, 2 tab, Drug form: MISC, Route: PO, Bedtime, 01/10/14 21:00:00, Duration: 30 day, Stop date: 02/08/14 21:00:00 No Longer Active 01/11/2014 [facility] Asacol 800 mg, 2 cap, Route: PO, Drug form: DRC, TID, Dosing Weight 83.182, kg, Start date: 01/10/14 17:00:00, Duration: 30 day, Stop date: 02/09/14 13:00:00Notes: (Same as: Delzicol) No Longer Active 01/10/2014 [facility] Prednisone 20 mg, 1 tab, Route: PO, Drug form: TAB, Daily, Dosing Weight 83.182, kg, Start date: 01/10/14 17:00:00, Duration: 30 day, Stop date: 02/09/14 9:00:00Notes: Take with food. No Longer Active 01/10/2014 [facility] Dextrose 50% in Water IV 50 mL, Route: IVP, Start date: 01/09/14 19:34:00, Duration: 30 day, Stop date: 02/08/14 19:33:00, PRN Blood Glucose Results No Longer Active 01/10/2014 [facility] NovoLOG FlexPen 15 unit, 0.15 mL, Route: SUB-Q, Drug form: SOLN, Sliding Scale, PRN Blood Glucose Results, Start date: 01/09/14 19:34:00, Duration: 30 day, Stop date: 02/08/14 19:33:00Notes: Roll in palms of hands gent ly; Do not shake vigorously. (Same as: NovoLOG) "single patient use only" Stable for 28 days at room temperature. Expires in days from Date No Longer Active 01/10/2014 [facility] NovoLOG FlexPen 4 unit, 0.04 mL, Route: SUB-Q, Drug form: SOLN, Sliding Scale, PRN Blood Glucose Results, Start date: 01/09/14 19:33:00, Duration: 30 day, Stop date: 02/08/14 19:32:00Notes: Roll in palms of hands ge ntly; Do not shake vigorously. (Same as: NovoLOG) "single patient use only" Stable for 28 days at room temperature. Expires in days from Date No Longer Active 01/10/2014 [facility] Zocor 20 mg, 1 tab, Route: PO, Drug form: TAB, Bedtime, Dosing Weight 81.42, kg, Start date: 01/08/14 21:00:00, Duration: 30 day, Stop date: 02/06/14 21:00:00Notes: (Same as: Zocor) No Longer Active 01/09/2014 [facility] Trazodone Hydrochloride 100 MG Oral Tablet 50 mg, 1 tab, Route: PO, Drug form: TAB, Bedtime, Dosing Weight 81.42, kg, Start date: 01/08/14 21:00:00, Duration: 30 day, Stop date: 02/06/14 21:00:00Notes: (Same As: Desyrel) No Longer Active 01/09/2014 [facility] Seroquel 800 mg, 16 tab, Route: PO, Drug form: ERTAB, Bedtime, Dosing Weight 81.42, kg, Start date: 01/08/14 21:00:00, Stop date: 02/06/14 21:00:00Notes: Same as: SEROquel XR "Do Not Crush" Non-Formulary Item No Longer Active 01/09/2014 [facility] acetaminophen-hydrocodone 325 mg-7.5 mg oral tablet 1 tab, Route: PO, Drug Form: TAB, Q6H, PRN Pain, Start date: 01/08/14 20:04:00, Duration: 30 day, Stop date: 02/07/14 20:03:00Notes: Same as [place] 325-7.5mg Do not exceed 4gm/day of acetaminophen. No Longer Active 01/09/2014 [facility] magnesium citrate 300 ml, Route: PO, Drug Form: LIQ, Dosing Weight 83.182, kg, ONCE, Start date: 01/08/14 19:40:00, Stop date: 01/08/14 19:40:00Notes: (Same as: Citrate of Magnesia) Inactive 01/09/2014 [facility] Pepcid 40 mg, 2 tab, Route: PO, Drug form: TAB, ONCE, Start date: 01/08/14 19:33:00, Stop date: 01/08/14 19:33:00Notes: (Same as: Pepcid) Inactive 01/09/2014 [facility] Benadryl 50 mg, 2 cap, Route: PO, Drug form: CAP, ONCE, Start date: 01/08/14 19:32:00, Stop date: 01/08/14 19:32:00Notes: (Same as: Benadryl) Inactive 01/09/2014 [facility] Ambien 10 mg, 2 tab, Route: PO, Drug form: TAB, Bedtime, PRN Sleep, Start date: 01/08/14 19:11:00, Stop date: 02/07/14 19:10:00Notes: (Same As: Ambien) No Longer Active 01/09/2014 [facility] Dilaudid 1 mg, 0.5 mL, Route: IV, Drug form: INJ, Q6H, PRN Pain, Start date: 01/08/14 17:27:00, Duration: 30 day, Stop date: 02/07/14 17:26:00Notes: (Same as: Dilaudid) Inactive 01/08/2014 [facility] Protonix 40 mg, 1 tab, Route: PO, Drug form: ECTAB, Before Dinner, Start date: 01/08/14 16:30:00, Duration: 30 day, Stop date: 02/06/14 16:30:00Notes: Tablet should not be chewed or crushed. (Same as: Protonix) No Longer Active 01/08/2014 [facility] Prinivil 20 mg, 1 tab, Route: PO, Drug form: TAB, Daily, Start date: 01/08/14 9:00:00, Duration: 30 day, Stop date: 02/06/14 9:00:00Notes: (Same as: Prinivil, Zestril) Inactive 01/08/2014 [facility] hydrochlorothiazide 25 mg oral tablet 12.5 mg, 0.5 tab, Route: PO, Drug form: TAB, Daily, Start date: 01/08/14 9:00:00, Duration: 30 day, Stop date: 02/06/14 9:00:00Notes: (Same as: Hydrodiuril) With food. No Longer Active 01/08/2014 [facility] Hydrochlorothiazide 12.5 MG / Lisinopril 20 MG Oral Tablet 1 tab, Route: PO, Drug Form: TAB, Dosing Weight 81.42, kg, Daily, Start date: 01/08/14 9:00:00, Duration: 30 day, Stop date: 02/06/14 9:00:00 No Longer Active 01/08/2014 [facility] Omeprazole 10 mg, Route: PO, Drug form: DRC, Daily, Dosing Weight 81.42, kg, Start date: 01/08/14 9:00:00, Duration: 30 day, Stop date: 02/06/14 9:00:00 Inactive 01/08/2014 [facility] Lasix 20 mg, 1 tab, Route: PO, Drug form: TAB, Daily, Dosing Weight 81.42, kg, Start date: 01/08/14 9:00:00, Duration: 30 day, Stop date: 02/06/14 9:00:00Notes: (Same as: Lasix) May cause GI upset. Give with food or milk. No Longer Active 01/08/2014 [facility] Nexium 40 mg, Route: PO, Drug form: ECCAP, Daily, Dosing Weight 81.42, kg, Start date: 01/08/14 9:00:00, Duration: 30 day, Stop date: 02/06/14 9:00:00 Inactive 01/08/2014 [facility] Acetaminophen 325 MG / Hydrocodone Bitartrate 5 MG Oral Tablet [[place] 5/325] 1 tab, Route: PO, Drug Form: TAB, Dosing Weight 81.42, kg, BID, Start date: 01/08/14 9:00:00, Duration: 30 day, Stop date: 02/06/14 17:00:00 No Longer Active 01/08/2014 [facility] Lovenox 40 mg, 0.4 mL, Route: SUB-Q, Drug form: INJ, [id number], Dosing Weight 81.42, kg, Start date: 01/08/14 8:00:00, Duration: 30 day, Stop date: 02/06/14 8:00:00Notes: (Same as: Lovenox) No Longer Active 01/08/2014 [facility] Omeprazole 40 mg, Route: PO, Drug form: ECCAP, Before Breakfast, Dosing Weight 81.42, kg, Start date: 01/08/14 7:30:00, Duration: 30 day, Stop date: 02/06/14 7:30:00 No Longer Active 01/08/2014 [facility] Protonix 40 mg, 1 tab, Route: PO, Drug form: ECTAB, Before Breakfast, Start date: 01/08/14 7:30:00, Duration: 30 day, Stop date: 02/06/14 7:30:00Notes: Tablet should not be chewed or crushed. (Same as: Protonix) Inactive 01/08/2014 [facility] Promethazine 12.5 mg, 0.5 tab, Route: PO, Drug form: TAB, TID, Dosing Weight 81.42, kg, PRN Nausea, Start date: 01/08/14 7:17:00, Duration: 30 day, Stop date: 02/07/14 7:16:00Notes: (Same as: Phenergan) No Longer Active 01/08/2014 [facility] K-Dur 20 40 mEq, 2 tab, Route: PO, Drug form: ERTAB, ONCE, Start date: 01/08/14 5:30:00, Stop date: 01/08/14 5:30:00Notes: (Same as: K-Dur 20) "Do Not Crush" With food and full glass of water Inactive 01/08/2014 [facility] magnesium citrate 300 ml, Route: PO, Drug Form: LIQ, Dosing Weight 81.42, kg, ONCE, Start date: 01/08/14 1:24:00, Stop date: 01/08/14 1:24:00Notes: (Same as: Citrate of Magnesia) Inactive 01/08/2014 [facility] Golytely 4,000 ml, Route: PO, Drug Form: PDR/REC, Dosing Weight 81.42, kg, ONCE, Start date: 01/08/14 1:24:00, Duration: 1 doses or times, Stop date: 01/08/14 1:24:00Notes: (polyethylene glycol electrolyte solut ion 4 Liter bottle) (Same as: Golytely, Colyte) Inactive 01/08/2014 [facility] Dulcolax Laxative 20 mg, 4 tab, Route: PO, Drug form: ECTAB, ONCE, Dosing Weight 81.42, kg, Start date: 01/08/14 1:24:00, Stop date: 01/08/14 1:24:00Notes: (Same As: Dulcolax, Correctol) (Do Not Crush) "Do Not Crush" Inactive 01/08/2014 [facility] Carafate 1 gm, 10 mL, Route: PO, Drug form: SUSP, Q6H, PRN Stomach Upset, Priority: NOW, Start date: 01/08/14 1:05:00, Duration: 30 day, Stop date: 02/07/14 1:04:00Notes: Enteral feeds may interfere with the abs orption of this medication. Shake well. Take 1 hr before or 2 hrs after antacids, dairy pdt, minerals & meals. (Same As: Carafate) Inactive 01/08/2014 [facility] Ondansetron 4 mg, 2 mL, Route: IVP, Drug form: INJ, Q8H, Dosing Weight 81.42, kg, PRN Nausea & Vomiting, Start date: 01/07/14 23:40:00, Duration: 30 day, Stop date: 02/06/14 23:39:00Notes: (Same as: Zofran) No Longer Active 01/08/2014 [facility] Visipaque 100 mL, 200 ml/hr, Route: IV, Drug Form: SOLN, ONCALL, Start date: 01/07/14 23:00:00, Duration: 30 day, Stop date: 02/06/14 22:59:00Notes: (Same as: Visipaque). Inactive 01/08/2014 [facility] Potassium Chloride 1.33 MEQ/ML Oral Solution 40 mEq, 30 mL, Route: PO, Drug form: LIQ, ONCE, Dosing Weight 81.42, kg, Priority: STAT, Start date: 01/07/14 19:53:00, Stop date: 01/07/14 19:53:00Notes: (Same as: Potassium Chloride) Inactive 01/08/2014 [facility] Hydrochlorothiazide 12.5 MG / Lisinopril 20 MG Oral Tablet 1 tab, Route: PO, Drug Form: TAB, Dosing Weight 80.455, kg, Daily, Start date: 10/06/13 9:00:00, Duration: 30 day, Stop date: 11/04/13 9:00:00 No Longer Active 10/06/2013 [facility] Nexium 40 mg, Route: PO, Drug form: ECCAP, Daily, Dosing Weight 80.455, kg, Start date: 10/06/13 9:00:00, Duration: 30 day, Stop date: 11/04/13 9:00:00 No Longer Active 10/06/2013 [facility] Lasix 20 mg, 1 tab, Route: PO, Drug form: TAB, Daily, Dosing Weight 80.455, kg, Start date: 10/06/13 9:00:00, Duration: 30 day, Stop date: 11/04/13 9:00:00Notes: (Same as: Lasix) May cause GI upset. Give with food or milk. Inactive 10/06/2013 [facility] hydrochlorothiazide 25 mg oral tablet 12.5 mg, 0.5 tab, Route: PO, Drug form: TAB, Daily, Start date: 10/06/13 9:00:00, Duration: 30 day, Stop date: 11/04/13 9:00:00Notes: (Same as: Hydrodiuril) With food. Inactive 10/06/2013 [facility] Prinivil 20 mg, 1 tab, Route: PO, Drug form: TAB, Daily, Start date: 10/06/13 9:00:00, Duration: 30 day, Stop date: 11/04/13 9:00:00Notes: (Same as: Prinivil, Zestril) Inactive 10/06/2013 [facility] Trazodone Hydrochloride 100 MG Oral Tablet 50 mg, 1 tab, Route: PO, Drug form: TAB, Bedtime, Dosing Weight 80.455, kg, Start date: 10/05/13 21:00:00, Duration: 30 day, Stop date: 11/03/13 21:00:00Notes: (Same As: Desyrel) No Longer Active 10/06/2013 [facility] Seroquel 800 mg, Route: PO, Drug form: TAB, Bedtime, Dosing Weight 80.455, kg, Start date: 10/05/13 21:00:00, Duration: 30 day, Stop date: 11/03/13 21:00:00 Inactive 10/06/2013 [facility] Nortriptyline 100 mg, 4 cap, Route: PO, Drug form: CAP, Bedtime, Dosing Weight 80.455, kg, Start date: 10/05/13 21:00:00, Duration: 30 day, Stop date: 11/03/13 21:00:00Notes: (Same as:Pamelor, Aventyl) Inactive 10/06/2013 [facility] Coumadin 5 mg, 1 tab, Route: PO, Drug form: TAB, Q5PM, Dosing Weight 80.455, kg, Start date: 10/05/13 17:00:00, Duration: 30 day, Stop date: 11/03/13 17:00:00Notes: Nurse to ensure documentation of patient education per anticoagulation policy. Avoid large intake of vitamin-K containing foods diet. (Same As: Coumadin) No Longer Active 10/05/2013 [facility] Promethazine 25 mg, 1 tab, Route: PO, Drug form: TAB, TID, Dosing Weight 80.455, kg, Start date: 10/05/13 17:00:00, Duration: 30 day, Stop date: 11/04/13 13:00:00Notes: (Same as: Phenergan) No Longer Active 10/05/2013 [facility] Protonix 40 mg, 1 tab, Route: PO, Drug form: ECTAB, Before Dinner, Start date: 10/05/13 16:30:00, Duration: 30 day, Stop date: 11/03/13 16:30:00Notes: Tablet should not be chewed or crushed. (Same as: Protonix) No Longer Active 10/05/2013 [facility] Acetaminophen 325 MG / Hydrocodone Bitartrate 5 MG Oral Tablet 1 tab, Route: PO, Drug Form: TAB, Dosing Weight 80.455, kg, Q4H, PRN Pain Score 1-3, Start date: 10/05/13 16:00:00, Duration: 30 day, Stop date: 11/04/13 15:59:00Notes: (Same as: [place] 325/5) Do not exceed 4gm/day of acetaminophen. No Longer Active 10/05/2013 [facility] Insulin, Aspart, Human 4 unit, 0.04 mL, Route: SUB-Q, Drug form: SOLN, TID-Before Meals, Dosing Weight 80.455, kg, PRN Blood Glucose Results, Start date: 10/05/13 15:59:00, Duration: 30 day, Stop date: 11/04/13 15:58:00Notes: Roll in palms of hands gently; Do not shake vigorously. (Same as: NovoLOG) "single patient use only" Stable for 28 days at room temperature. Expires in days from Date No Longer Active 10/05/2013 [facility] Acetaminophen 650 mg, 2 tab, Route: PO, Drug form: TAB, Q4H, Dosing Weight 80.455, kg, PRN Pain 1-3/Temp > 100.4 F, Start date: 10/05/13 15:53:00, Duration: 30 day, Stop date: 11/04/13 15:52:00Notes: Do not exceed 4 gm/day. (Same as: Tylenol) No Longer Active 10/05/2013 [facility] Ondansetron 4 mg, 2 mL, Route: IVP, Drug form: INJ, Q8H, Dosing Weight 80.455, kg, PRN Nausea & Vomiting, Start date: 10/05/13 15:53:00, Duration: 30 day, Stop date: 11/04/13 15:52:00Notes: (Same as: Zofran) No Longer Active 10/05/2013 [facility] Acetaminophen 325 MG / Hydrocodone Bitartrate 5 MG Oral Tablet [[place] 5/325] 1 tab, PO, BID, 0 Refill(s) Active 10/05/2013 [facility] Ondansetron 4 MG Oral Tablet [Zofran] =4 mg, PO, BID, 0 Refill(s) Active 10/05/2013 [facility] Lasix 20 mg, PO, Daily, 0 Refill(s) Active 10/05/2013 [facility] Warfarin Sodium 5 MG Oral Tablet [Coumadin] 5 mg=1 tab, PO, Daily, # 30 tab, 0 Refill(s) Active 10/05/2013 [facility] loperamide 2 mg oral tablet 2 mg=1 tab, PO, Q4H, Loose Stools, # 60 tab, 0 Refill(s) Inactive 10/05/2013 [facility] Atropine Sulfate 0.025 MG / Diphenoxylate Hydrochloride 2.5 MG Oral Tablet [Lomotil] 2.5mg-5 mg, PO, TID, 0 Refill(s) Inactive 10/05/2013 [facility] promethazine 25 mg oral tablet =25 mg, PO, TID, 0 Refill(s) Active 10/05/2013 [facility] Trazodone Hydrochloride 100 MG Oral Tablet =100 mg, PO, Bedtime, 0 Refill(s) Active 10/05/2013 [facility] Seroquel 800 mg, PO, Bedtime, 0 Refill(s) Active 10/05/2013 [facility] Hydrochlorothiazide 12.5 MG / Lisinopril 20 MG Oral Tablet 1 tab, PO, Daily, # 30 tab, 0 Refill(s) Active 10/05/2013 [facility] Esomeprazole 40 MG Enteric Coated Capsule [Nexium] 40 mg=1 cap, PO, Daily, # 30 cap, 0 Refill(s) Active 10/05/2013 [facility] nortriptyline 50 mg oral capsule =100 mg, PO, Bedtime, 0 Refill(s) Active 10/05/2013 [facility] busPIRone 10 mg oral tablet =10 mg, PO, BID, 0 Refill(s) Inactive 10/05/2013 [facility] omeprazole 10 mg oral delayed release capsule 10 mg=1 cap, PO, Daily, # 30 cap, 0 Refill(s) Active 10/05/2013 [facility] Rosuvastatin calcium 10 MG Oral Tablet [Crestor] 10 mg=1 tab, PO, Bedtime, # 30 tab, 0 Refill(s) Active 10/05/2013 [facility] Sodium Chloride 0.9% IV IV, 0 ml/hr, PRN, PRN Blood Transfusion, Start date: 08/15/13 8:59:00, Duration: 30, 250 ml No Longer Active 08/15/2013 [facility] DIAZEPAM TAKE 1 TABLET BY MOUTH TWICE DAILY Active TAKE 1 TABLET BY MOUTH TWICE DAILY [facility] Allergies, Adverse Reactions, Alerts Substance Category Reaction Severity Reaction type Status Date Reported Comments Source Immunizations Immunization Date Given Site Status Last Updated Comments Source pneumococcal 23-valent vaccine 01/08/2014 Right Deltoid completed [facility] influenza virus vaccine, inactivated 01/08/2014 Right Deltoid completed [facility] influenza virus vaccine, inactivated 01/20/2009 Left Arm [facility] pneumococcal 23-valent vaccine 01/20/2009 [facility] Results Order Name Results Value Reference Range Date Interpretation Comments Source CHEM PANEL Magnesium Lvl 1.8 mg/dL 1.8 - 2.4 07/27/2017 [facility] CHEM PANEL Glucose Lvl 166 mg/dL 70 - 99 07/27/2017 [facility] CHEM PANEL Chloride Lvl 107 meq/L 95 - 109 07/27/2017 [facility] CHEM PANEL Creatinine Lvl 1.34 mg/dL 0.50 - 1.40 07/27/2017 [facility] CHEM PANEL BUN 21 mg/dL 7 - 22 07/27/2017 [facility] CHEM PANEL Potassium Lvl 3.9 meq/L 3.5 - 5.1 07/27/2017 [facility] CHEM PANEL Sodium Lvl 140 meq/L 135 - 145 07/27/2017 [facility] CHEM PANEL Calcium Lvl 8.5 mg/dL 8.5 - 10.5 07/27/2017 [facility] CHEM PANEL AGAP 12.9 meq/L 10.0 - 20.0 07/27/2017 [facility] CHEM PANEL CO2 24 meq/L 24 - 32 07/27/2017 [facility] CHEM PANEL eGFR 44 mL/min/1.73m2 07/27/2017 Result Comment: The eGFR is calculated using the [...] from the National Kidney Disease Education Program (NKDEP) which additionally recommends that when the eGFR is used in patients with extremes of body mass index for purposes of drug dosing, the eGFR should be multiplied by the estimated BMI. [facility] HEMATOLOGY Lymphocytes # 1.4 K/CMM 1.0 - 5.5 07/27/2017 [facility] HEMATOLOGY Segs-Bands # 4.2 K/CMM 1.5 - 8.1 07/27/2017 [facility] HEMATOLOGY Monocytes # 0.4 K/CMM 0.0 - 0.8 07/27/2017 [facility] HEMATOLOGY Lymphocytes 23.6 % 20.0 - 40.0 07/27/2017 [facility] HEMATOLOGY Monocytes 7.3 % 2.0 - 12.0 07/27/2017 [facility] HEMATOLOGY Segs 68.0 % 45.0 - 75.0 07/27/2017 [facility] HEMATOLOGY Eosinophils 0.7 % 0.0 - 4.0 07/27/2017 [facility] HEMATOLOGY Basophils 0.4 % 0.0 - 1.0 07/27/2017 [facility] HEMATOLOGY Hct 24.9 % 36.0 - 48.0 07/27/2017 [facility] HEMATOLOGY MCV 86.9 fL 80.0 - 98.0 07/27/2017 [facility] HEMATOLOGY MCH 30.4 pg 27.0 - 31.0 07/27/2017 [facility] HEMATOLOGY MCHC 35.0 g/dL 32.0 - 36.0 07/27/2017 [facility] HEMATOLOGY Platelet 199 K/CMM 133 - 450 07/27/2017 [facility] HEMATOLOGY MPV 7.7 fL 7.4 - 10.4 07/27/2017 [facility] HEMATOLOGY RDW 14.0 % 11.5 - 14.5 07/27/2017 [facility] HEMATOLOGY WBC 6.1 K/CMM 3.7 - 10.4 07/27/2017 [facility] HEMATOLOGY RBC 2.87 M/CMM 4.20 - 5.40 07/27/2017 [facility] HEMATOLOGY Hgb 8.7 g/dL 12.0 - 16.0 07/27/2017 [facility] CHEM PANEL Magnesium Lvl 1.4 mg/dL 1.8 - 2.4 07/26/2017 [facility] CHEM PANEL eGFR 36 mL/min/1.73m2 07/26/2017 Result Comment: The eGFR is calculated using the [...] from the National Kidney Disease Education Program (NKDEP) which additionally recommends that when the eGFR is used in patients with extremes of body mass index for purposes of drug dosing, the eGFR should be multiplied by the estimated BMI. [facility] CHEM PANEL Calcium Lvl 8.0 mg/dL 8.5 - 10.5 07/26/2017 [facility] CHEM PANEL Sodium Lvl 142 meq/L 135 - 145 07/26/2017 [facility] CHEM PANEL Potassium Lvl 3.9 meq/L 3.5 - 5.1 07/26/2017 [facility] CHEM PANEL Chloride Lvl 111 meq/L 95 - 109 07/26/2017 [facility] CHEM PANEL BUN 25 mg/dL 7 - 22 07/26/2017 [facility] CHEM PANEL Glucose Lvl 88 mg/dL 70 - 99 07/26/2017 [facility] CHEM PANEL Creatinine Lvl 1.59 mg/dL 0.50 - 1.40 07/26/2017 [facility] CHEM PANEL CO2 23 meq/L 24 - 32 07/26/2017 [facility] CHEM PANEL AGAP 11.9 meq/L 10.0 - 20.0 07/26/2017 [facility] CHEM PANEL Vitamin D, 25-OH, Total 8.5 ng/mL 30.0 - 100.0 07/26/2017 [facility] HEMATOLOGY MPV 7.4 fL 7.4 - 10.4 07/26/2017 [facility] HEMATOLOGY Platelet 203 K/CMM 133 - 450 07/26/2017 [facility] HEMATOLOGY RDW 13.9 % 11.5 - 14.5 07/26/2017 [facility] HEMATOLOGY MCHC 33.4 g/dL 32.0 - 36.0 07/26/2017 [facility] HEMATOLOGY WBC 7.2 K/CMM 3.7 - 10.4 07/26/2017 [facility] HEMATOLOGY RBC 2.82 M/CMM 4.20 - 5.40 07/26/2017 [facility] HEMATOLOGY MCH 29.8 pg 27.0 - 31.0 07/26/2017 [facility] HEMATOLOGY MCV 89.0 fL 80.0 - 98.0 07/26/2017 [facility] HEMATOLOGY Hct 25.1 % 36.0 - 48.0 07/26/2017 [facility] HEMATOLOGY Hgb 8.4 g/dL 12.0 - 16.0 07/26/2017 [facility] HEMATOLOGY Lymphocytes # 2.1 K/CMM 1.0 - 5.5 07/26/2017 [facility] HEMATOLOGY Segs-Bands # 4.5 K/CMM 1.5 - 8.1 07/26/2017 [facility] HEMATOLOGY Eosinophils # 0.1 K/CMM 0.0 - 0.5 07/26/2017 [facility] HEMATOLOGY Monocytes # 0.6 K/CMM 0.0 - 0.8 07/26/2017 [facility] HEMATOLOGY Segs 62.0 % 45.0 - 75.0 07/26/2017 [facility] HEMATOLOGY Basophils 0.4 % 0.0 - 1.0 07/26/2017 [facility] HEMATOLOGY Eosinophils 0.7 % 0.0 - 4.0 07/26/2017 [facility] HEMATOLOGY Lymphocytes 28.5 % 20.0 - 40.0 07/26/2017 [facility] HEMATOLOGY Monocytes 8.4 % 2.0 - 12.0 07/26/2017 [facility] PARATHYROID PROFILE PTH Intact 84.3 pg/mL 18.4 - 80.1 07/26/2017 [facility] PARATHYROID PROFILE Ca Ion WB 1.14 mMol/L 1.05 - 1.25 07/26/2017 [facility] PARATHYROID PROFILE Ca Norm WB 1.12 mMol/L 1.05 - 1.25 07/26/2017 [facility] CHEM PANEL Creatinine Lvl 1.67 mg/dL 0.50 - 1.40 07/25/2017 [facility] CHEM PANEL BUN 24 mg/dL 7 - 22 07/25/2017 [facility] CHEM PANEL Calcium Lvl 7.8 mg/dL 8.5 - 10.5 07/25/2017 [facility] CHEM PANEL CO2 26 meq/L 24 - 32 07/25/2017 [facility] CHEM PANEL Potassium Lvl 4.1 meq/L 3.5 - 5.1 07/25/2017 [facility] CHEM PANEL Sodium Lvl 140 meq/L 135 - 145 07/25/2017 [facility] CHEM PANEL Chloride Lvl 108 meq/L 95 - 109 07/25/2017 [facility] CHEM PANEL eGFR 33 mL/min/1.73m2 07/25/2017 Result Comment: The eGFR is calculated using the [...] from the National Kidney Disease Education Program (NKDEP) which additionally recommends that when the eGFR is used in patients with extremes of body mass index for purposes of drug dosing, the eGFR should be multiplied by the estimated BMI. [facility] CHEM PANEL Glucose Lvl 156 mg/dL 70 - 99 07/25/2017 [facility] CHEM PANEL AGAP 10.1 meq/L 10.0 - 20.0 07/25/2017 [facility] CHEM PANEL Magnesium Lvl 1.4 mg/dL 1.8 - 2.4 07/25/2017 [facility] HEMATOLOGY Lymphocytes 26.5 % 20.0 - 40.0 07/25/2017 [facility] HEMATOLOGY Monocytes 7.0 % 2.0 - 12.0 07/25/2017 [facility] HEMATOLOGY Eosinophils 0.3 % 0.0 - 4.0 07/25/2017 [facility] HEMATOLOGY Basophils 0.6 % 0.0 - 1.0 07/25/2017 [facility] HEMATOLOGY Segs-Bands # 4.7 K/CMM 1.5 - 8.1 07/25/2017 [facility] HEMATOLOGY Lymphocytes # 1.9 K/CMM 1.0 - 5.5 07/25/2017 [facility] HEMATOLOGY Monocytes # 0.5 K/CMM 0.0 - 0.8 07/25/2017 [facility] HEMATOLOGY Segs 65.6 % 45.0 - 75.0 07/25/2017 [facility] HEMATOLOGY Platelet 195 K/CMM 133 - 450 07/25/2017 [facility] HEMATOLOGY MCV 86.8 fL 80.0 - 98.0 07/25/2017 [facility] HEMATOLOGY MCH 29.9 pg 27.0 - 31.0 07/25/2017 [facility] HEMATOLOGY MCHC 34.5 g/dL 32.0 - 36.0 07/25/2017 [facility] HEMATOLOGY RDW 13.4 % 11.5 - 14.5 07/25/2017 [facility] HEMATOLOGY MPV 7.3 fL 7.4 - 10.4 07/25/2017 [facility] HEMATOLOGY Hgb 9.3 g/dL 12.0 - 16.0 07/25/2017 [facility] HEMATOLOGY Hct 27.0 % 36.0 - 48.0 07/25/2017 [facility] HEMATOLOGY WBC 7.2 K/CMM 3.7 - 10.4 07/25/2017 [facility] HEMATOLOGY RBC 3.11 M/CMM 4.20 - 5.40 07/25/2017 [facility] Shoulder wo contrast w/3D CT Shoulder wo contrast w/3D CT Patient Name: ELAINE MARC. : 1960; Age: 57 years y/o; Female. MR: [id number]. Ordering Physician: Donny Melgar MD. CT RIGHT SHOULDER WITHOUT CONTRAST: HISTORY: Right shoulder fracture status post fall. COMPARISON: Right shoulder x-ray 07/23/2017. FINDINGS: Computed tomography of right shoulder was performed utilizing 2.5 mm transaxial sections without intravenous or intra-articular contrast. Coronal and sagittal reformatted images were obtained. 3-D postprocessing volume rendered images were created. Displaced comminuted fracture of right humeral surgical neck noted with fracture lines extending to the anatomical neck and greater tuberosity. Humeral shaft is mildly displaced anteriorly in relation to the humeral head. Perifracture soft tissue hematoma. Fracture line does not appear to extend to the humeral head articular surface. Glenohumeral joint is intact without joint effusion. Hypertrophic degenerative change of acromioclavicular joint noted. Mild subacromial spurring noted. Calcific tendinitis is also noted. Partially imaged right lung demonstrates oblong subpleural pulmonary nodule at the anterolateral aspect of right upper lobe measuring 9 mm in greatest dimension, axial image 71. IMPRESSION: 1. Displaced comminuted fracture of right humeral surgical neck with fracture lines extending to the anatomical neck and greater tuberosity. Humeral shaft is mildly displaced anteriorly in relation to the humeral head. Perifracture soft tissue hematoma. 2. Hypertrophic degenerative change of acromioclavicular joint. Mild subacromial spurring. Calcific tendinitis. 3. 9 mm oblong subpleural pulmonary nodule at the anterolateral aspect of right upper lobe, axial image 71. Follow-up as per Fleischner criteria advised. SL: [id number] 07/24/2017 - - Read by: Rick Suresh MD Dictated Date/time: 07/24/17 13:20 Electronically Signed by: Rick Suresh MD 07/24/17 13:28 FINAL REPORT [facility] CHEM PANEL Alk Phos 81 unit/L 39 - 136 07/23/2017 [facility] CHEM PANEL Bili Total 0.2 mg/dL 0.2 - 1.3 07/23/2017 [facility] CHEM PANEL AST 23 unit/L 0 - 37 07/23/2017 [facility] CHEM PANEL Albumin Lvl 2.8 g/dL 3.5 - 5.0 07/23/2017 [facility] CHEM PANEL Total Protein 7.4 g/dL 6.4 - 8.4 07/23/2017 [facility] CHEM PANEL ALT 17 unit/L 0 - 65 07/23/2017 [facility] CHEM PANEL A/G Ratio 0.6 0.7 - 1.6 07/23/2017 [facility] CHEM PANEL Globulin 4.6 g/dL 2.7 - 4.2 07/23/2017 [facility] CHEM PANEL B/C Ratio 17 6 - 25 07/23/2017 [facility] HEMATOLOGY Basophils # 0.1 K/CMM 0.0 - 0.2 07/23/2017 [facility] Shoulder series DX Shoulder series DX Patient Name: ELAINE Putnam WHIPKEY : 1960; Age: 57 years y/o Female MR: [id number] RIGHT SHOULDER, 2 views, portable History: Injury, trauma to right shoulder. Status post fall. Right shoulder pain. Technique: Portable frontal and crosstable lateral radiographs the right shoulder were obtained. IMPRESSION: 1. Markedly displaced fracture through the right humeral neck. The humeral shaft is displaced medially and superiorly in relation to the humeral head. 2. No other fractures are seen there is no dislocation. 3. No evidence of underlying degenerative changes or other underlying abnormalities. SL: YURI 07/23/2017 - - Read by: Isaak Chavez MD Dictated Date/time: 07/23/17 16:25 Electronically Signed by: Isaak Chavez MD 07/23/17 16:26 FINAL REPORT [facility] Knee 3 views DX Knee 3 views DX Exam: Right Knee 3 views DX Clinical Indication: - knee pain s/p fall Comparison: None FINDINGS: 3 views of the right knee are performed. There is comminuted oblique fracture through the patella with minimal distraction. Alignment is within normal limits without dislocation. Mild degenerative changes in the medial compartment. No significant soft tissue swelling. No radiopaque foreign body. Moderate joint effusion is present. Vascular calcifications are present. IMPRESSION: 1. Comminuted minimally distracted fracture of the patella. 2. Moderate joint effusion. SL: [id number] 07/23/2017 - - Read by: Devin Barnard MD Dictated Date/time: 07/23/17 16:26 Electronically Signed by: Devin Barnard MD 07/23/17 16:27 FINAL REPORT [facility] HEMATOLOGY INR 0.99 0.85 - 1.17 11/18/2016 [facility] HEMATOLOGY PT 13.3 s 12.0 - 14.7 11/18/2016 [place] HEMATOLOGY PTT 25.0 s 22.9 - 35.8 11/18/2016 [place] CHEM PANEL eGFR 65 mL/min/1.73m2 11/18/2016 Result Comment: The eGFR is calculated using the [...] from the National Kidney Disease Education Program (NKDEP) which additionally recommends that when the eGFR is used in patients with extremes of body mass index for purposes of drug dosing, the eGFR should be multiplied by the estimated BMI. [facility] CHEM PANEL AST 9 unit/L 0 - 37 11/18/2016 [facility] CHEM PANEL Total Protein 7.2 g/dL 6.4 - 8.4 11/18/2016 [place] CHEM PANEL ALT 14 unit/L 0 - 65 11/18/2016 [place] CHEM PANEL Albumin Lvl 3.0 g/dL 3.5 - 5.0 11/18/2016 [place] CHEM PANEL Bili Total 0.3 mg/dL 0.2 - 1.3 11/18/2016 [place] CHEM PANEL Alk Phos 89 unit/L 39 - 136 11/18/2016 [place] CHEM PANEL Glucose Lvl 89 mg/dL 70 - 99 11/18/2016 [place] CHEM PANEL Sodium Lvl 138 meq/L 135 - 145 11/18/2016 [place] CHEM PANEL CO2 25 meq/L 24 - 32 11/18/2016 [place] CHEM PANEL Chloride Lvl 107 meq/L 95 - 109 11/18/2016 [place] CHEM PANEL BUN 15 mg/dL 7 - 22 11/18/2016 [place] CHEM PANEL Creatinine Lvl 0.98 mg/dL 0.50 - 1.40 11/18/2016 [place] CHEM PANEL Potassium Lvl 4.0 meq/L 3.5 - 5.1 11/18/2016 [place] CHEM PANEL Calcium Lvl 8.4 mg/dL 8.5 - 10.5 11/18/2016 [place] CHEM PANEL B/C Ratio 15 6 - 25 11/18/2016 [place] CHEM PANEL Globulin 4.2 g/dL 2.7 - 4.2 11/18/2016 [place] CHEM PANEL AGAP 10.0 meq/L 10.0 - 20.0 11/18/2016 [place] CHEM PANEL A/G Ratio 0.7 0.7 - 1.6 11/18/2016 [place] CHEM PANEL Lipase Lvl 203 unit/L 73 - 393 11/18/2016 [facility] HEMATOLOGY MPV 7.4 fL 7.4 - 10.4 11/18/2016 [facility] HEMATOLOGY Platelet 275 K/CMM 133 - 450 11/18/2016 [facility] HEMATOLOGY Hgb 9.5 g/dL 12.0 - 16.0 11/18/2016 [facility] HEMATOLOGY RBC 3.12 M/CMM 4.20 - 5.40 11/18/2016 [facility] HEMATOLOGY RDW 14.7 % 11.5 - 14.5 11/18/2016 [facility] HEMATOLOGY MCH 30.3 pg 27.0 - 31.0 11/18/2016 [facility] HEMATOLOGY MCHC 34.3 g/dL 32.0 - 36.0 11/18/2016 [facility] HEMATOLOGY WBC 8.5 K/CMM 3.7 - 10.4 11/18/2016 [facility] HEMATOLOGY MCV 88.2 fL 80.0 - 98.0 11/18/2016 [facility] HEMATOLOGY Hct 27.5 % 36.0 - 48.0 11/18/2016 [facility] HEMATOLOGY Monocytes # 0.5 K/CMM 0.0 - 0.8 11/18/2016 [facility] HEMATOLOGY Lymphocytes # 3.0 K/CMM 1.0 - 5.5 11/18/2016 [facility] HEMATOLOGY Basophils 0.5 % 0.0 - 1.0 11/18/2016 [facility] HEMATOLOGY Segs 58.5 % 45.0 - 75.0 11/18/2016 [place] HEMATOLOGY Segs-Bands # 5.0 K/CMM 1.5 - 8.1 11/18/2016 [place] HEMATOLOGY Eosinophils 0.5 % 0.0 - 4.0 11/18/2016 [place] HEMATOLOGY Monocytes 5.3 % 2.0 - 12.0 11/18/2016 [place] HEMATOLOGY Lymphocytes 35.2 % 20.0 - 40.0 11/18/2016 [place] URINE AND STOOL UA Urobilinogen <=1.0 mg/dL 0.1 - 1.0 11/18/2016 [place] URINE AND STOOL UA Sq Epi Many /LPF Few /LPF 11/18/2016 [place] URINE AND STOOL UA Blood Trace *ABN* (11/18/16 3:20 PM) Negative 11/18/2016 [place] URINE AND STOOL UA RBC 6 /HPF 0 - 2 11/18/2016 [place] URINE AND STOOL UA Hyal Cast 3 /LPF 0 - 2 11/18/2016 [place] URINE AND STOOL UA Mucus Few /LPF None Seen /LPF 11/18/2016 [place] URINE AND STOOL UA WBC 1 /HPF 0 - 5 11/18/2016 [place] URINE AND STOOL UA Bili Negative *NA* (11/18/16 3:20 PM) Negative 11/18/2016 [place] URINE AND STOOL UA Leuk Est Negative (11/18/16 3:20 PM) Negative 11/18/2016 [place] URINE AND STOOL UA Nitrite Negative (11/18/16 3:20 PM) Negative 11/18/2016 [place] URINE AND STOOL UA Turbidity Clear (11/18/16 3:20 PM) Clear 11/18/2016 [place] URINE AND STOOL UA Color Yellow *NA* (11/18/16 3:20 PM) Yellow 11/18/2016 [place] URINE AND STOOL UA Protein >=300 mg/dL Negative mg/dL 11/18/2016 [place] URINE AND STOOL UA Ketones Negative mg/dL Negative mg/dL 11/18/2016 [place] URINE AND STOOL UA pH 6.0 5.0 - 8.0 11/18/2016 [place] URINE AND STOOL UA Spec Grav 1.011 <=1.030 11/18/2016 [place] URINE AND STOOL UA Glucose Negative mg/dL Negative mg/dL 11/18/2016 [facility] ED Abdomen/Pelvis IV contrast only CT ED Abdomen/Pelvis IV contrast only CT Patient Name: ELAINE MARC : 1960; Age: 56 years y/o Female MR: [id number] Study: ED Abdomen/Pelvis IV contrast only CT 11/18/2016 12:28 PM CDT Ordering Physician: Clinical Indication: - H/O MONISHA; ABDOMINAL PAIN/VOMITING; Comparison: None TECHNIQUE: Helical imaging was performed diaphragm through the symphysis with multiplanar reformations obtained. IV CONTRAST: 100cc Omnipaque 300 GI CONTRAST: None CT Radiation Dose: CFA=959 mGy-cm FINDINGS: LOWER CHEST: The lung bases are clear. SOLID ORGANS: The liver, spleen, pancreas, adrenal glands and kidneys are normal. Gallbladder is surgically absent. Perinephric fat planes show nonspecific stranding. BOWEL: Stomach shows postoperative changes. Small bowel show normal caliber. Distal small bowel surgical suture line is a manifestation of previous partial resection. Right lower quadrant appendix shows normal size. Ascending and transverse colon contain a large amount of stool. A few diverticula arise from the descending and sigmoid colon. Pericolonic fat planes remain preserved. PERITONEUM: No free intraperitoneal fluid or air. RETROPERITONEUM: No adenopathy. The aorta is normal. PELVIS: No pelvic mass. The urinary bladder is normal. MUSCULOSKELETAL: The skeleton is intact. IMPRESSION: Retained stool in colon. No CT evidence of small bowel obstruction SL: MAINOR-SHIRLEY 11/18/2016 - - Read by: Rolando May MD Dictated Date/time: 11/18/16 18:13 Electronically Signed by: Rolando May MD 11/18/16 18:40 FINAL REPORT [place] CHEM PANEL Glucose Lvl 124 mg/dL 70 - 99 10/15/2016 [place] CHEM PANEL Creatinine Lvl 1.29 mg/dL 0.50 - 1.40 10/15/2016 [place] CHEM PANEL BUN 20 mg/dL 7 - 22 10/15/2016 [place] CHEM PANEL Potassium Lvl 3.7 meq/L 3.5 - 5.1 10/15/2016 [place] CHEM PANEL Calcium Lvl 8.3 mg/dL 8.5 - 10.5 10/15/2016 [place] CHEM PANEL CO2 23 meq/L 24 - 32 10/15/2016 [facility] CHEM PANEL Chloride Lvl 109 meq/L 95 - 109 10/15/2016 [facility] CHEM PANEL Sodium Lvl 140 meq/L 135 - 145 10/15/2016 [facility] CHEM PANEL AGAP 11.7 meq/L 10.0 - 20.0 10/15/2016 [facility] CHEM PANEL eGFR 46 mL/min/1.73m2 10/15/2016 Result Comment: The eGFR is calculated using the [...] from the National Kidney Disease Education Program (NKDEP) which additionally recommends that when the eGFR is used in patients with extremes of body mass index for purposes of drug dosing, the eGFR should be multiplied by the estimated BMI. [place] ELECTROLYTES AGAP 10.8 meq/L 10.0 - 20.0 10/14/2016 [facility] ELECTROLYTES Albumin Lvl 2.1 g/dL 3.5 - 5.0 10/14/2016 [facility] ELECTROLYTES Calcium Lvl 8.6 mg/dL 8.5 - 10.5 10/14/2016 [facility] ELECTROLYTES eGFR 36 mL/min/1.73m2 10/14/2016 Result Comment: The eGFR is calculated using the [...] from the National Kidney Disease Education Program (NKDEP) which additionally recommends that when the eGFR is used in patients with extremes of body mass index for purposes of drug dosing, the eGFR should be multiplied by the estimated BMI. [facility] ELECTROLYTES Phosphorus 2.5 mg/dL 2.5 - 4.5 10/14/2016 [facility] ELECTROLYTES Glucose Lvl 101 mg/dL 70 - 99 10/14/2016 [facility] ELECTROLYTES Creatinine Lvl 1.59 mg/dL 0.50 - 1.40 10/14/2016 [facility] ELECTROLYTES Potassium Lvl 3.8 meq/L 3.5 - 5.1 10/14/2016 [facility] ELECTROLYTES BUN 34 mg/dL 7 - 22 10/14/2016 [facility] ELECTROLYTES Chloride Lvl 108 meq/L 95 - 109 10/14/2016 [facility] ELECTROLYTES CO2 23 meq/L 24 - 32 10/14/2016 [facility] ELECTROLYTES Sodium Lvl 138 meq/L 135 - 145 10/14/2016 [facility] HEMATOLOGY MCHC 34.1 g/dL 32.0 - 36.0 10/14/2016 [facility] HEMATOLOGY RDW 14.0 % 11.5 - 14.5 10/14/2016 [facility] HEMATOLOGY Platelet 184 K/CMM 133 - 450 10/14/2016 [facility] HEMATOLOGY MPV 8.0 fL 7.4 - 10.4 10/14/2016 [facility] HEMATOLOGY MCH 30.2 pg 27.0 - 31.0 10/14/2016 [facility] HEMATOLOGY Hct 25.2 % 36.0 - 48.0 10/14/2016 [facility] HEMATOLOGY MCV 88.8 fL 80.0 - 98.0 10/14/2016 [facility] HEMATOLOGY RBC 2.83 M/CMM 4.20 - 5.40 10/14/2016 [facility] HEMATOLOGY Hgb 8.6 g/dL 12.0 - 16.0 10/14/2016 [facility] HEMATOLOGY WBC 8.7 K/CMM 3.7 - 10.4 10/14/2016 [facility] HEMATOLOGY Monocytes # 0.7 K/CMM 0.0 - 0.8 10/14/2016 [facility] HEMATOLOGY Segs 80.9 % 45.0 - 75.0 10/14/2016 [facility] HEMATOLOGY Lymphocytes 10.7 % 20.0 - 40.0 10/14/2016 [facility] HEMATOLOGY Eosinophils 0.6 % 0.0 - 4.0 10/14/2016 [facility] HEMATOLOGY Monocytes 7.7 % 2.0 - 12.0 10/14/2016 [facility] HEMATOLOGY Basophils 0.1 % 0.0 - 1.0 10/14/2016 [facility] HEMATOLOGY Segs-Bands # 7.1 K/CMM 1.5 - 8.1 10/14/2016 [facility] HEMATOLOGY Lymphocytes # 0.9 K/CMM 1.0 - 5.5 10/14/2016 [facility] ANEMIA STUDY TIBC 192 ug/dl 228 - 428 10/13/2016 [facility] ANEMIA STUDY Iron 10 ug/dl 30 - 160 10/13/2016 [facility] ANEMIA STUDY % [place] 5 % 12 - 57 10/13/2016 [facility] ANEMIA STUDY UIBC 182 ug/dl 110 - 370 10/13/2016 [facility] ANEMIA STUDY Ferritin Lvl 142 ng/mL 5 - 204 10/13/2016 [facility] CHEM PANEL eGFR 26 mL/min/1.73m2 10/13/2016 Result Comment: The eGFR is calculated using the [...] from the National Kidney Disease Education Program (NKDEP) which additionally recommends that when the eGFR is used in patients with extremes of body mass index for purposes of drug dosing, the eGFR should be multiplied by the estimated BMI. [place] CHEM PANEL Phosphorus 3.3 mg/dL 2.5 - 4.5 10/13/2016 [place] CHEM PANEL Albumin Lvl 2.1 g/dL 3.5 - 5.0 10/13/2016 [place] CHEM PANEL AGAP 11.8 meq/L 10.0 - 20.0 10/13/2016 [place] CHEM PANEL Potassium Lvl 3.8 meq/L 3.5 - 5.1 10/13/2016 [place] CHEM PANEL Creatinine Lvl 2.04 mg/dL 0.50 - 1.40 10/13/2016 [place] CHEM PANEL BUN 46 mg/dL 7 - 22 10/13/2016 [place] CHEM PANEL CO2 21 meq/L 24 - 32 10/13/2016 [place] CHEM PANEL Glucose Lvl 77 mg/dL 70 - 99 10/13/2016 [place] CHEM PANEL Sodium Lvl 136 meq/L 135 - 145 10/13/2016 [place] CHEM PANEL Calcium Lvl 7.9 mg/dL 8.5 - 10.5 10/13/2016 [place] CHEM PANEL Chloride Lvl 107 meq/L 95 - 109 10/13/2016 [place] MOLECULAR DIAGNOSTIC C difficile DNA Negative (10/12/16 4:08 PM) Negative 10/12/2016 [place] PARASITOLOGY - SEROLOGY Giardia Ag Negative (10/12/16 4:08 PM) Negative 10/12/2016 [place] CHEM PANEL AST 19 unit/L 0 - 37 10/12/2016 [place] CHEM PANEL Alk Phos 71 unit/L 39 - 136 10/12/2016 [place] CHEM PANEL Bili Total 0.4 mg/dL 0.2 - 1.3 10/12/2016 [place] CHEM PANEL B/C Ratio 22 6 - 25 10/12/2016 [place] CHEM PANEL Globulin 3.6 g/dL 2.7 - 4.2 10/12/2016 [place] CHEM PANEL Total Protein 5.8 g/dL 6.4 - 8.4 10/12/2016 [place] CHEM PANEL Albumin Lvl 2.2 g/dL 3.5 - 5.0 10/12/2016 [place] CHEM PANEL A/G Ratio 0.6 0.7 - 1.6 10/12/2016 [place] CHEM PANEL ALT 18 unit/L 0 - 65 10/12/2016 [place] CHEM PANEL Phosphorus 3.6 mg/dL 2.5 - 4.5 10/12/2016 [place] HEMATOLOGY Lymphocytes # 1.1 K/CMM 1.0 - 5.5 10/12/2016 [place] HEMATOLOGY Monocytes # 0.5 K/CMM 0.0 - 0.8 10/12/2016 [place] HEMATOLOGY Segs-Bands # 8.2 K/CMM 1.5 - 8.1 10/12/2016 [place] HEMATOLOGY Basophils 0.3 % 0.0 - 1.0 10/12/2016 [place] HEMATOLOGY Eosinophils 0.3 % 0.0 - 4.0 10/12/2016 [facility] HEMATOLOGY Lymphocytes 10.7 % 20.0 - 40.0 10/12/2016 [facility] HEMATOLOGY Monocytes 5.1 % 2.0 - 12.0 10/12/2016 [place] HEMATOLOGY Segs 83.6 % 45.0 - 75.0 10/12/2016 [facility] HEMATOLOGY MPV 8.0 fL 7.4 - 10.4 10/12/2016 [place] HEMATOLOGY Platelet 176 K/CMM 133 - 450 10/12/2016 [place] HEMATOLOGY WBC 9.9 K/CMM 3.7 - 10.4 10/12/2016 [facility] HEMATOLOGY RBC 2.96 M/CMM 4.20 - 5.40 10/12/2016 [facility] HEMATOLOGY RDW 14.4 % 11.5 - 14.5 10/12/2016 [facility] HEMATOLOGY MCH 30.1 pg 27.0 - 31.0 10/12/2016 [facility] HEMATOLOGY Hct 26.4 % 36.0 - 48.0 10/12/2016 [facility] HEMATOLOGY MCHC 33.8 g/dL 32.0 - 36.0 10/12/2016 [facility] HEMATOLOGY MCV 89.0 fL 80.0 - 98.0 10/12/2016 [facility] HEMATOLOGY Hgb 8.9 g/dL 12.0 - 16.0 10/12/2016 [place] URINE CHEM U Microalb 240.0 mg/L 10/12/2016 [facility] URINE CHEM U Creatinine 79.80 mg/dL 10/12/2016 [place] URINE CHEM U Protein 59.9 mg/dL 10/12/2016 [place] CHEM PANEL Lactic Acid Lvl 1.6 mMol/L 0.5 - 2.2 10/11/2016 [facility] CHEM PANEL Lactic Acid Lvl 2.0 mMol/L 0.5 - 2.2 10/11/2016 [facility] BLOOD BANK RESULTS Antibody Scrn Negative (10/11/16 10:34 AM) 10/11/2016 [facility] BLOOD BANK RESULTS ABO/Rh O POS 10/11/2016 [place] CARDIAC ENZYMES Troponin-I 0.08 ng/mL 0.00 - 0.40 10/11/2016 [place] CHEM PANEL Total Protein 7.3 g/dL 6.4 - 8.4 10/11/2016 [place] CHEM PANEL B/C Ratio 14 6 - 25 10/11/2016 [place] CHEM PANEL Bili Total 0.5 mg/dL 0.2 - 1.3 10/11/2016 [place] CHEM PANEL AST 21 unit/L 0 - 37 10/11/2016 [place] CHEM PANEL Alk Phos 95 unit/L 39 - 136 10/11/2016 [place] CHEM PANEL ALT 24 unit/L 0 - 65 10/11/2016 [place] CHEM PANEL Globulin 4.5 g/dL 2.7 - 4.2 10/11/2016 [place] CHEM PANEL A/G Ratio 0.6 0.7 - 1.6 10/11/2016 [place] CHEM PANEL Lipase Lvl 420 unit/L 73 - 393 10/11/2016 [place] CHEM PANEL Lactic Acid Lvl 4.2 mMol/L 0.5 - 2.2 10/11/2016 Result Comment: critical results called to von roberts at 10/11/2016 11:15 by usman. read back ok. [place] HEMATOLOGY Basophils 0.1 % 0.0 - 1.0 10/11/2016 [facility] HEMATOLOGY Lymphocytes # 0.8 K/CMM 1.0 - 5.5 10/11/2016 [place] HEMATOLOGY Segs-Bands # 14.2 K/CMM 1.5 - 8.1 10/11/2016 [facility] HEMATOLOGY Monocytes # 0.6 K/CMM 0.0 - 0.8 10/11/2016 [place] HEMATOLOGY Segs 91.1 % 45.0 - 75.0 10/11/2016 [facility] HEMATOLOGY Lymphocytes 5.0 % 20.0 - 40.0 10/11/2016 [facility] HEMATOLOGY Monocytes 3.8 % 2.0 - 12.0 10/11/2016 [place] HEMATOLOGY PT 16.5 s 12.0 - 14.7 10/11/2016 [place] HEMATOLOGY INR 1.31 0.85 - 1.17 10/11/2016 [facility] HEMATOLOGY PTT 30.2 s 22.9 - 35.8 10/11/2016 [facility] HEMATOLOGY RDW 14.0 % 11.5 - 14.5 10/11/2016 [facility] HEMATOLOGY Platelet 246 K/CMM 133 - 450 10/11/2016 [facility] HEMATOLOGY MPV 8.9 fL 7.4 - 10.4 10/11/2016 [facility] HEMATOLOGY MCH 29.9 pg 27.0 - 31.0 10/11/2016 [facility] HEMATOLOGY MCHC 33.2 g/dL 32.0 - 36.0 10/11/2016 [facility] HEMATOLOGY MCV 90.2 fL 80.0 - 98.0 10/11/2016 [facility] HEMATOLOGY Hct 35.2 % 36.0 - 48.0 10/11/2016 [facility] HEMATOLOGY WBC 15.6 K/CMM 3.7 - 10.4 10/11/2016 [facility] HEMATOLOGY RBC 3.90 M/CMM 4.20 - 5.40 10/11/2016 [facility] HEMATOLOGY Hgb 11.7 g/dL 12.0 - 16.0 10/11/2016 [facility] URINE AND STOOL UA Nitrite Negative (10/11/16 10:34 AM) Negative 10/11/2016 [facility] URINE AND STOOL UA Hyal Cast 9 /LPF 0 - 2 10/11/2016 [facility] URINE AND STOOL UA Amorph Heena Occasional /HPF None Seen /HPF 10/11/2016 [facility] URINE AND STOOL UA RBC 3 /HPF 0 - 2 10/11/2016 [facility] URINE AND STOOL UA Mucus Few /LPF None Seen /LPF 10/11/2016 [facility] URINE AND STOOL UA Sq Epi Moderate /LPF Few /LPF 10/11/2016 [facility] URINE AND STOOL UA WBC 2 /HPF 0 - 5 10/11/2016 [facility] URINE AND STOOL UA Leuk Est Trace *ABN* (10/11/16 10:34 AM) Negative 10/11/2016 [facility] URINE AND STOOL UA Urobilinogen 8.0 mg/dL 0.1 - 1.0 10/11/2016 [facility] URINE AND STOOL UA Bili Small *ABN* (10/11/16 10:34 AM) Negative 10/11/2016 [place] URINE AND STOOL UA Blood Negative (10/11/16 10:34 AM) Negative 10/11/2016 [place] URINE AND STOOL UA Ketones Trace mg/dL Negative mg/dL 10/11/2016 [place] URINE AND STOOL UA Glucose 70 mg/dL Negative mg/dL 10/11/2016 [place] URINE AND STOOL UA pH 5.0 5.0 - 8.0 10/11/2016 [place] URINE AND STOOL UA Protein 70 mg/dL Negative mg/dL 10/11/2016 [place] URINE AND STOOL UA Spec Grav 1.021 <=1.030 10/11/2016 [place] URINE AND STOOL UA Turbidity Slight *ABN* (10/11/16 10:34 AM) Clear 10/11/2016 [place] URINE AND STOOL UA Color Brown *ABN* (10/11/16 10:34 AM) Yellow 10/11/2016 [place] Abdomen/Pelvis wo IV contrast CT Abdomen/Pelvis wo IV contrast CT Clinical Indication: Abdominal distension - lower abd pain. Comparison: None. TECHNIQUE: Noncontrast helical CT imaging of the abdomen and pelvis performed from the lung bases through the lesser trochanters. Axial, coronal and sagittal reconstructions are provided. IV contrast: None GI contrast: No Exam DLP: 731 mGy-cm FINDINGS: This examination is limited for the evaluation of solid organs and vascular structures due to withheld intravenous contrast. LOWER CHEST: The visualized lung bases are clear. LIVER: Unremarkable. GALLBLADDER/BILIARY: Prior cholecystectomy PANCREAS: Unremarkable. SPLEEN: Unremarkable. ADRENALS: Unremarkable. KIDNEYS: No urinary calculi, hydronephrosis or perinephric stranding. BLADDER: Unremarkable. STOMACH: Prior vertical band gastroplasty BOWEL: Prior distal small bowel resection with right lower quadrant anastomosis.. Segmental wall thickening in the transverse colon with mild pericolonic inflammatory changes in the transverse mesocolon APPENDIX: Not well seen on this exam PELVIS: No pelvic mass. Stress. PERITONEUM AND RETROPERITONEUM: No ascites or free air. LYMPH NODES: Unremarkable. VASCULAR: There is no aortic aneurysm OSSEOUS STRUCTURES: No acute abnormality seen. SOFT TISSUES: Unremarkable. IMPRESSION: 1. Segmental wall thickening and ahaustral appearance of the transverse colon suggestive of infectious or inflammatory colitis, differential considerations including active ulcerative colitis. SL: [id number] 10/11/2016 - - Read by: Hay Gatica MD Dictated Date/time: 10/11/16 12:47 Electronically Signed by: Hay Gatica MD 10/11/16 12:54 FINAL REPORT [facility] Chest 1view DX Chest 1view DX Exam: Chest 1view DX Clinical Indication: - near syncope Comparison: Chest radiograph 10/05/2013 FINDINGS: Single frontal radiograph of the chest is performed. Study slightly limited by rotation to the left. Lungs appear grossly clear without focal consolidation. No pleural effusion or pneumothorax. Cardiomediastinal silhouette appears more prominent since the prior study most likely related to rotation. Pulmonary vascularity is within normal limits. No acute osseous abnormality identified. IMPRESSION: Slightly limited rotated study without definite acute abnormality in the chest. SL: [id number] 10/11/2016 - - Read by: Devin Barnard MD Dictated Date/time: 10/11/16 10:14 Electronically Signed by: Devin Barnard MD 10/11/16 10:16 FINAL REPORT [facility] Abdomen complete US Abdomen complete US Clinical Indication: RUQ Pain Comparison: 01/17/2009 TECHNIQUE: Grayscale and limited color sonographic evaluation of the abdomen was performed with standard technique. FINDINGS: LIVER: The visualized liver shows normal contour and morphology with normal parenchymal echotexture. The liver is enlarged relative 16.9 cm in diameter. BILE DUCTS: The intrahepatic and extrahepatic bile ducts are not dilated with the common bile duct measuring 4 mm. The distal common bile duct is not well seen. GALLBLADDER: The gallbladder surgically absent. PANCREAS: The pancreas is not well seen. SPLEEN: The spleen is unremarkable and measures 10.7 cm. KIDNEY: The right kidney measures 11.2 cm. The left kidney measures 10.6 cm. There is normal renal contour and morphology, with normal parenchymal echotexture. There is no hydronephrosis. AORTA AND INFERIOR VENA CAVA: Visualized portions appear unremarkable. ASCITES: There is no right abdominal ascites. IMPRESSION: 1. Mild hepatomegaly. 2. Otherwise unremarkable. SL: [id number] 07/13/2016 - - Read by: Nic Oglesby MD Dictated Date/time: 07/13/16 09:22 Electronically Signed by: Nic Oglesby MD 07/13/16 09:24 [facility] [place] Barium enema DX Barium enema DX NAME: ELAINE MARC : 1960 SEX: F Ordering Physician: Lilo Prasad Single contrast barium enema : Feb 12, 2014 08:41:00 AM. CLINICAL INDICATION: stricture of intestine or colon, crohns disease/regional enteritis. Comparison Examination: CT abdomen and pelvis dated 01/07/2014. FINDINGS: Fluoro time: 1.43 minutes. The entire colon was evaluated using single contrast technique. There is a marked smooth focal narrowing to the distal transverse colon spanning approximately 2.2 cm. The mid to distal transverse colon proximal to the area of narrowing has a mildly distended featureless appearance. These changes would be consistent with changes from reported Crohn's disease and are similar to that seen on the CT study. The colon proximal to the mid transverse colon has a moderate amount of stool limiting evaluation. There are scattered diverticula about the descending colon and proximal sigmoid colon. No reflux was seen into the terminal ileum or the appendix. No polyps or masses were identified. The patient is status post cholecystectomy and gastric stapling surgery. Bilateral iliac artery calcification noted. No fistulous tract identified. CONCLUSIONS: 1. Marked smooth focal narrowing to the distal transverse colon with featureless appearance to the mildly distended mid to distal transverse colon similar to the findings on the CT study. These changes would be consistent with reported Crohn's disease. No fistulous tract is identified. 2. Moderate amount of stool in the right colon and proximal transverse colon limits evaluation. 3. Colonic diverticulosis as above. 4. No polyps or masses identified. SL: 12 02/12/2014 - - Read by: Barry Meier MD Dictated Date/time: 02/12/14 10:06 Electronically Signed by: Barry Meier MD 02/12/14 10:16 FINAL REPORT [facility] CHEM PANEL A/G Ratio 0.7 0.7 - 1.6 01/13/2014 [facility] CHEM PANEL Globulin 3.9 g/dL 2.0 - 4.0 01/13/2014 [facility] CHEM PANEL B/C Ratio 12 6 - 25 01/13/2014 [facility] CHEM PANEL AGAP 8.8 meq/L 10.0 - 20.0 01/13/2014 [facility] CHEM PANEL eGFR 51 mL/min/1.73m2 01/13/2014 4Result Comment: The eGFR is calculated using the [...] from the National Kidney Disease Education Program (NKDEP) which additionally recommends that when the eGFR is used in patients with extremes of body mass index for purposes of drug dosing, the eGFR should be multiplied by the estimated BMI. [facility] CHEM PANEL Potassium Lvl 3.8 meq/L 3.5 - 5.1 01/13/2014 [facility] CHEM PANEL Chloride Lvl 99 meq/L 95 - 109 01/13/2014 [facility] CHEM PANEL Albumin Lvl 2.9 g/dL 3.5 - 5.0 01/13/2014 [facility] CHEM PANEL Calcium Lvl 8.9 mg/dL 8.5 - 10.5 01/13/2014 [facility] CHEM PANEL Total Protein 6.8 g/dL 6.4 - 8.4 01/13/2014 [facility] CHEM PANEL CO2 31 meq/L 24 - 32 01/13/2014 [facility] [facility] PANEL Glucose Lvl 157 mg/dL 70 - 99 01/13/2014 7Interpretive Data: Adult reference range values reflect the clinical guidelines of the [employer]. [facility] CHEM PANEL Sodium Lvl 135 meq/L 135 - 145 01/13/2014 [facility] CHEM PANEL BUN 15 mg/dL 7 - 22 01/13/2014 [facility] CHEM PANEL Creatinine Lvl 1.2 mg/dL 0.5 - 1.4 01/13/2014 [facility] CHEM PANEL AST 13 unit/L 0 - 37 01/13/2014 [facility] CHEM PANEL ALT 21 unit/L 0 - 65 01/13/2014 [facility] CHEM PANEL Alk Phos 77 unit/L 39 - 136 01/13/2014 [facility] CHEM PANEL Bili Total 0.2 mg/dL 0.2 - 1.3 01/13/2014 [facility] HEMATOLOGY MCH 29.9 pg 27.0 - 31.0 01/13/2014 [facility] HEMATOLOGY MCHC 32.8 g/dL 32.0 - 36.0 01/13/2014 [facility] HEMATOLOGY Hct 31.8 % 36.0 - 48.0 01/13/2014 [facility] HEMATOLOGY MCV 91.1 fL 80.0 - 98.0 01/13/2014 [facility] HEMATOLOGY Hgb 10.4 g/dL 12.0 - 16.0 01/13/2014 [facility] HEMATOLOGY MPV 6.9 fL 7.4 - 10.4 01/13/2014 [facility] HEMATOLOGY Platelet 356 K/CMM 133 - 450 01/13/2014 [facility] HEMATOLOGY RDW 14.5 % 11.5 - 14.5 01/13/2014 [facility] HEMATOLOGY RBC 3.49 M/CMM 4.20 - 5.40 01/13/2014 [facility] HEMATOLOGY WBC 7.0 K/CMM 3.7 - 10.4 01/13/2014 [facility] HEMATOLOGY Lymphocytes # 2.8 K/CMM 1.0 - 5.5 01/13/2014 [facility] HEMATOLOGY Segs-Bands # 3.6 K/CMM 1.5 - 8.1 01/13/2014 [facility] HEMATOLOGY Eosinophils # 0.0 K/CMM 0.0 - 0.5 01/13/2014 [facility] HEMATOLOGY Monocytes # 0.6 K/CMM 0.0 - 0.8 01/13/2014 [facility] HEMATOLOGY Basophils # 0.0 K/CMM 0.0 - 0.2 01/13/2014 [facility] HEMATOLOGY Lymphocytes 39.2 % 20.0 - 40.0 01/13/2014 [facility] HEMATOLOGY Segs 51.5 % 45.0 - 75.0 01/13/2014 [facility] HEMATOLOGY Basophils 0.2 % 0.0 - 1.0 01/13/2014 [facility] HEMATOLOGY Eosinophils 0.2 % 0.0 - 4.0 01/13/2014 [facility] HEMATOLOGY Monocytes 8.9 % 2.0 - 12.0 01/13/2014 [facility] CARDIAC ENZYMES Total CK 24 unit/L 12 - 191 01/11/2014 [facility] HEMATOLOGY Lup Interp Negative for lupus anticoagulant by DRVV screen and hexagonal phospholipidneutralization test. If there is a strong clinical suspicion of lupus anticoagulant,additional testing, to include repeat studies at a clinically appropriate interval and anticardiolipin antibody assays, is recommended.Interpretation performed at [facility]. 01/11/2014 [facility] HEMATOLOGY Hex Phos N Negative (01/11/14 5:52 AM) Negative 01/11/2014 [facility] HEMATOLOGY dRVV Ratio 0.77 <=1.20 01/11/2014 [facility] IMMUNOLOGY Cardiolipin IgA 1.5 APL-U/mL <=19.9 APL 01/11/2014 [facility] IMMUNOLOGY Cardiolipin IgM 0.6 MPL-U/mL <=19.9 MPL 01/11/2014 [facility] IMMUNOLOGY Cardiolipin IgG null <=19.9 GPL 01/11/2014 [facility] IMMUNOLOGY C3 Complement 108 mg/dL 88 - 201 01/11/2014 [facility] IMMUNOLOGY C4 Complement 38 mg/dL 16 - 47 01/11/2014 [facility] HEMATOLOGY Hgb 9.9 g/dL 12.0 - 16.0 01/10/2014 [facility] HEMATOLOGY Hct 29.2 % 36.0 - 48.0 01/10/2014 [facility] HEMATOLOGY RBC 3.20 M/CMM 4.20 - 5.40 01/10/2014 [facility] HEMATOLOGY WBC 3.9 K/CMM 3.7 - 10.4 01/10/2014 [facility] HEMATOLOGY Platelet 256 K/CMM 133 - 450 01/10/2014 [facility] HEMATOLOGY MPV 7.0 fL 7.4 - 10.4 01/10/2014 [facility] HEMATOLOGY RDW 14.3 % 11.5 - 14.5 01/10/2014 [facility] HEMATOLOGY MCHC 33.9 g/dL 32.0 - 36.0 01/10/2014 [facility] HEMATOLOGY MCH 30.9 pg 27.0 - 31.0 01/10/2014 [facility] HEMATOLOGY MCV 91.1 fL 80.0 - 98.0 01/10/2014 [facility] HEMATOLOGY Eosinophils 0.4 % 0.0 - 4.0 01/10/2014 [facility] HEMATOLOGY Monocytes 9.8 % 2.0 - 12.0 01/10/2014 [facility] HEMATOLOGY Segs 39.8 % 45.0 - 75.0 01/10/2014 [facility] HEMATOLOGY Lymphocytes 49.7 % 20.0 - 40.0 01/10/2014 [facility] HEMATOLOGY Monocytes # 0.4 K/CMM 0.0 - 0.8 01/10/2014 [facility] HEMATOLOGY Basophils # 0.0 K/CMM 0.0 - 0.2 01/10/2014 [facility] HEMATOLOGY Eosinophils # 0.0 K/CMM 0.0 - 0.5 01/10/2014 [facility] HEMATOLOGY Lymphocytes # 1.9 K/CMM 1.0 - 5.5 01/10/2014 [facility] HEMATOLOGY Segs-Bands # 1.5 K/CMM 1.5 - 8.1 01/10/2014 [facility] HEMATOLOGY Basophils 0.3 % 0.0 - 1.0 01/10/2014 [facility] HEMATOLOGY Basophils # 0.0 K/CMM 0.0 - 0.2 01/09/2014 [facility] HEMATOLOGY Segs-Bands # 3.2 K/CMM 1.5 - 8.1 01/09/2014 [facility] HEMATOLOGY Basophils 0.3 % 0.0 - 1.0 01/09/2014 [facility] HEMATOLOGY Eosinophils 0.2 % 0.0 - 4.0 01/09/2014 [facility] HEMATOLOGY Lymphocytes # 1.4 K/CMM 1.0 - 5.5 01/09/2014 [facility] HEMATOLOGY Monocytes # 0.3 K/CMM 0.0 - 0.8 01/09/2014 [facility] HEMATOLOGY Eosinophils # 0.0 K/CMM 0.0 - 0.5 01/09/2014 [facility] HEMATOLOGY Lymphocytes 28.1 % 20.0 - 40.0 01/09/2014 [facility] HEMATOLOGY Monocytes 5.3 % 2.0 - 12.0 01/09/2014 [facility] HEMATOLOGY Segs 66.1 % 45.0 - 75.0 01/09/2014 [facility] HEMATOLOGY MPV 7.3 fL 7.4 - 10.4 01/09/2014 [facility] HEMATOLOGY MCV 92.2 fL 80.0 - 98.0 01/09/2014 [facility] HEMATOLOGY Platelet 270 K/CMM 133 - 450 01/09/2014 [facility] HEMATOLOGY RDW 14.6 % 11.5 - 14.5 01/09/2014 [facility] HEMATOLOGY MCHC 34.6 g/dL 32.0 - 36.0 01/09/2014 [facility] HEMATOLOGY MCH 31.9 pg 27.0 - 31.0 01/09/2014 [facility] HEMATOLOGY Hgb 10.4 g/dL 12.0 - 16.0 01/09/2014 [facility] HEMATOLOGY RBC 3.26 M/CMM 4.20 - 5.40 01/09/2014 [facility] HEMATOLOGY WBC 4.9 K/CMM 3.7 - 10.4 01/09/2014 [facility] HEMATOLOGY Hct 30.0 % 36.0 - 48.0 01/09/2014 [facility] IMMUNOLOGY RF Qnt null 0 - 20 01/09/2014 [facility] IMMUNOLOGY CAMPGROUND CARETAKER Ab null <=0.9 AI 01/09/2014 [facility] IMMUNOLOGY Sm Ab null <=0.9 AI 01/09/2014 [facility] IMMUNOLOGY DNA Ab (DS) Negative (01/08/14 6:40 PM) Negative 01/09/2014 [facility] IMMUNOLOGY JONATHON Interp Pattern appears Mixed Speckled and Nucleolar 01/09/2014 [facility] IMMUNOLOGY SS-B (La) Ab null <=0.9 AI 01/09/2014 [facility] IMMUNOLOGY SS-A (Ro) Ab null <=0.9 AI 01/09/2014 [facility] IMMUNOLOGY JONATHON Titer 1:80 *ABN* (01/08/14 6:40 PM) Negative 01/09/2014 [facility] IMMUNOLOGY JONATHON Positive *ABN* (01/08/14 6:40 PM) Negative 01/09/2014 [facility] URINE AND STOOL UA Nitrite Negative (01/08/14 4:24 AM) Negative 01/08/2014 [facility] URINE AND STOOL UA Leuk Est Negative (01/08/14 4:24 AM) Negative 01/08/2014 [facility] URINE AND STOOL UA pH 6.5 5.0 - 8.0 01/08/2014 [facility] URINE AND STOOL UA Protein 30 mg/dL Negative mg/dL 01/08/2014 [facility] URINE AND STOOL UA Spec Grav 1.025 <=1.030 01/08/2014 [facility] URINE AND STOOL UA Color Yellow *NA* (01/08/14 4:24 AM) Yellow 01/08/2014 [facility] URINE AND STOOL UA Turbidity Cloudy *ABN* (01/08/14 4:24 AM) Clear 01/08/2014 [facility] URINE AND STOOL UA Blood Negative (01/08/14 4:24 AM) Negative 01/08/2014 [facility] URINE AND STOOL UA Urobilinogen 0.2 EU/dL 0.1 - 1.0 01/08/2014 [facility] URINE AND STOOL UA Bili Negative *NA* (01/08/14 4:24 AM) Negative 01/08/2014 [facility] URINE AND STOOL UA Ketones Negative *NA* (01/08/14 4:24 AM) Negative 01/08/2014 [facility] URINE AND STOOL UA Glucose Negative (01/08/14 4:24 AM) Negative 01/08/2014 [facility] URINE AND STOOL UA WBC 0-2 /HPF None Seen /HPF 01/08/2014 [facility] URINE AND STOOL UA Sq Epi Moderate /LPF Few /LPF 01/08/2014 [facility] URINE AND STOOL UA Bacteria Many /HPF None Seen /HPF 01/08/2014 [facility] URINE AND STOOL UA RBC 0-2 /HPF 0 - 2 01/08/2014 [facility] URINE AND STOOL Micro? Performed (01/08/14 4:24 AM) 01/08/2014 [facility] THYROID PANEL TSH 2.480 uIU/mL 0.360 - 3.740 01/08/2014 [facility] ELECTROLYTES eGFR 73 mL/min/1.73m2 01/08/2014 5Result Comment: The eGFR is calculated using the [...] from the National Kidney Disease Education Program (NKDEP) which additionally recommends that when the eGFR is used in patients with extremes of body mass index for purposes of drug dosing, the eGFR should be multiplied by the estimated BMI. [facility] ELECTROLYTES Chloride Lvl 102 meq/L 95 - 109 01/08/2014 [facility] ELECTROLYTES CO2 29 meq/L 24 - 32 01/08/2014 [facility] ELECTROLYTES AGAP 11.0 meq/L 10.0 - 20.0 01/08/2014 [facility] ELECTROLYTES Calcium Lvl 8.4 mg/dL 8.5 - 10.5 01/08/2014 [facility] ELECTROLYTES Creatinine Lvl 0.9 mg/dL 0.5 - 1.4 01/08/2014 [facility] ELECTROLYTES Sodium Lvl 139 meq/L 135 - 145 01/08/2014 [facility] ELECTROLYTES Potassium Lvl 3.0 meq/L 3.5 - 5.1 01/08/2014 2Result Comment: Critical Result(s) called to isaias moscoso _01/08/2014 04:47 by ken paz_. Read back OK. [facility] ELECTROLYTES Glucose Lvl 120 mg/dL 70 - 99 01/08/2014 8Interpretive Data: Adult reference range values reflect the clinical guidelines of the [employer]. [facility] ELECTROLYTES BUN 9 mg/dL 7 - 22 01/08/2014 [facility] BLOOD BANK RESULTS ABO/Rh O POS 01/08/2014 [facility] BLOOD BANK RESULTS Antibody Scrn Positive 1 (01/07/14 6:44 PM) 01/08/2014 1Result Comment: 01/07/2014 20:09 [id number] "Significant Findings called to HEIDY Hathawayat 01/07/2014 20:08 by TP.Read Back OK." Positive ABS [facility] BLOOD BANK RESULTS AB Sendout Int Anti-K 01/08/2014 [facility] CHEM PANEL Globulin 3.9 g/dL 2.0 - 4.0 01/08/2014 [facility] CHEM PANEL Bili Direct 0.1 mg/dL 0.0 - 0.3 01/08/2014 [facility] CHEM PANEL Bili Total 0.3 mg/dL 0.2 - 1.3 01/08/2014 [facility] CHEM PANEL Alk Phos 106 unit/L 39 - 136 01/08/2014 [facility] CHEM PANEL A/G Ratio 0.8 0.7 - 1.6 01/08/2014 [facility] CHEM PANEL Bili Indirect 0.2 mg/dL 0.0 - 1.0 01/08/2014 [facility] CHEM PANEL ALT 21 unit/L 0 - 65 01/08/2014 [facility] CHEM PANEL Total Protein 7.2 g/dL 6.4 - 8.4 01/08/2014 [facility] CHEM PANEL AST 15 unit/L 0 - 37 01/08/2014 [facility] CHEM PANEL Albumin Lvl 3.3 g/dL 3.5 - 5.0 01/08/2014 [facility] CHEM PANEL Lipase Lvl 274 unit/L 73 - 393 01/08/2014 [facility] ELECTROLYTES Chloride Lvl 102 meq/L 95 - 109 01/08/2014 [facility] ELECTROLYTES CO2 32 meq/L 24 - 32 01/08/2014 [facility] ELECTROLYTES Sodium Lvl 138 meq/L 135 - 145 01/08/2014 [facility] ELECTROLYTES Potassium Lvl 2.8 meq/L 3.5 - 5.1 01/08/2014 3Result Comment: Critical Result(s) called to Joseph Diego at 01/07/2014 19:21 by Ofelia Levine. Read back OK. [facility] ELECTROLYTES AGAP 6.8 meq/L 10.0 - 20.0 01/08/2014 [facility] ELECTROLYTES BUN 12 mg/dL 7 - 22 01/08/2014 [facility] ELECTROLYTES Glucose Lvl 202 mg/dL 70 - 99 01/08/2014 9Interpretive Data: Adult reference range values reflect the clinical guidelines of the [employer]. [facility] ELECTROLYTES Creatinine Lvl 1.1 mg/dL 0.5 - 1.4 01/08/2014 [facility] ELECTROLYTES eGFR 57 mL/min/1.73m2 01/08/2014 6Result Comment: The eGFR is calculated using the [...] from the National Kidney Disease Education Program (NKDEP) which additionally recommends that when the eGFR is used in patients with extremes of body mass index for purposes of drug dosing, the eGFR should be multiplied by the estimated BMI. [facility] ELECTROLYTES Calcium Lvl 8.3 mg/dL 8.5 - 10.5 01/08/2014 [facility] HEMATOLOGY PT 12.7 s 12.0 - 14.7 01/08/2014 [facility] HEMATOLOGY INR 0.95 0.85 - 1.17 01/08/2014 10Interpretive Data: RECOMMENDED RANGES FOR PROTIME INR: 2.0-3.0 for most medical and surgical thromboembolic states. 2.5-3.5 for artificial heart valves and recurrent embolism. INR SHOULD BE USED ONLY FOR PATIENTS ON STABLE ANTICOAGULANT THERAPY. [facility] HEMATOLOGY PTT 33.9 s 22.9 - 35.8 01/08/2014 11Interpretive Data: Heparin Therapeutic Range: 57 - 92 Seconds [facility] Abdomen/Pelvis w IV contrast CT Abdomen/Pelvis w IV contrast CT CT SCAN OF THE ABDOMEN AND PELVIS WITH CONTRAST. HX: Acute abdominal pain COMPARISON: None Technique: Helical CT images from domes of the diaphragms to symphysis pubis following oral and 100 cc Omnipaque nonionic iodinated intravenous contrast. ABDOMEN: The patient has had previous cholecystectomy. The liver and spleen are homogeneous. The stomach is moderately distended by contrast. There is a hiatal hernia which may be a paraesophageal hernia. The patient appears to have had gastric bypass surgery. There is edema in the transverse music colon. The transverse colon shows some loss of haustration and some thickening in the wall of the mid transverse colon consistent with colitis. There is moderate stool accumulation in the region of the hepatic flexure and ascending colon. Thickening of the wall of the colon extends from the mid transverse region through the splenic flexure to the proximal descending colon. The kidney show symmetric renal function. The pancreas is unremarkable. ABDOMEN CONCLUSION: 1. Thickening of the wall of the transverse colon and splenic flexure suspicious for colitis. 2. Previous cholecystectomy. 3. Previous gastric bypass surgery or other limited gastric surgery. PELVIS: The bladder contour is smooth. There is no evidence of free fluid in the pelvis. The visualized osseous structures are grossly normal. No hernia is identified. The uterus is slightly anteverted. PELVIS CONCLUSION: Negative CT of the pelvis. SL: 12 01/07/2014 - - Read by: Peter Virgen MD Dictated Date/time: 01/07/14 22:00 Electronically Signed by: Peter Virgen MD 01/07/14 22:06 FINAL REPORT [facility] HEMATOLOGY Hgb 10.6 g/dL 12.0 - 16.0 10/06/2013 [facility] HEMATOLOGY Hct 31.5 % 36.0 - 48.0 10/06/2013 [facility] BLOOD BANK RESULTS RBC product Product available 1 (10/05/13 3:35 PM) 10/05/2013 1Result Comment: 10/05/2013 16:20 [id number] Called to CHANCE Isabel at 1615 RBC ready...10/05/2013 16:20 [facility] BLOOD BANK RESULTS ABO/Rh O POS 10/05/2013 [facility] BLOOD BANK RESULTS Antibody Scrn Negative (10/05/13 2:14 PM) 10/05/2013 [facility] CHEM PANEL eGFR 47 mL/min/1.73m2 10/05/2013 2Result Comment: The eGFR is calculated using [...] from the National Kidney Disease Education Program (NKDEP) which additionally recommends that when the eGFR is used in patients with extremes of body mass index for purposes of drug dosing, the eGFR should be multiplied by the estimated BMI. [facility] CHEM PANEL B/C Ratio 13 6 - 25 10/05/2013 [facility] CHEM PANEL A/G Ratio 0.3 0.7 - 1.6 10/05/2013 [facility] CHEM PANEL Globulin 4.5 g/dL 2.0 - 4.0 10/05/2013 [facility] CHEM PANEL Glucose Lvl 156 mg/dL 70 - 99 10/05/2013 3Interpretive Data: Adult reference range values reflect the clinical guidelines of the [employer]. [facility] CHEM PANEL Creatinine Lvl 1.3 mg/dL 0.5 - 1.4 10/05/2013 [facility] CHEM PANEL BUN 17 mg/dL 7 - 22 10/05/2013 [facility] CHEM PANEL Sodium Lvl 136 meq/L 135 - 145 10/05/2013 [facility] CHEM PANEL Potassium Lvl 3.4 meq/L 3.5 - 5.1 10/05/2013 [facility] CHEM PANEL AST 15 unit/L 0 - 37 10/05/2013 [facility] CHEM PANEL Bili Total 0.2 mg/dL 0.2 - 1.3 10/05/2013 [facility] CHEM PANEL Alk Phos 154 unit/L 39 - 136 10/05/2013 [facility] CHEM PANEL AGAP 7.4 meq/L 10.0 - 20.0 10/05/2013 [facility] CHEM PANEL ALT 17 unit/L 0 - 65 10/05/2013 [facility] CHEM PANEL Chloride Lvl 104 meq/L 95 - 109 10/05/2013 [facility] CHEM PANEL CO2 28 meq/L 24 - 32 10/05/2013 [facility] CHEM PANEL Calcium Lvl 7.6 mg/dL 8.5 - 10.5 10/05/2013 [facility] CHEM PANEL Total Protein 5.8 g/dL 6.4 - 8.4 10/05/2013 [facility] CHEM PANEL Albumin Lvl 1.3 g/dL 3.5 - 5.0 10/05/2013 [facility] HEMATOLOGY Eosinophils # 0.0 K/CMM 0.0 - 0.5 10/05/2013 [facility] HEMATOLOGY Basophils # 0.0 K/CMM 0.0 - 0.2 10/05/2013 [facility] HEMATOLOGY Eosinophils 0.3 % 0.0 - 4.0 10/05/2013 [facility] HEMATOLOGY Monocytes 7.4 % 2.0 - 12.0 10/05/2013 [facility] HEMATOLOGY Lymphocytes 52.6 % 20.0 - 40.0 10/05/2013 [facility] HEMATOLOGY Segs 39.4 % 45.0 - 75.0 10/05/2013 [facility] HEMATOLOGY Lymphocytes # 2.4 K/CMM 1.0 - 5.5 10/05/2013 [facility] HEMATOLOGY Segs-Bands # 1.8 K/CMM 1.5 - 8.1 10/05/2013 [facility] HEMATOLOGY Monocytes # 0.3 K/CMM 0.0 - 0.8 10/05/2013 [facility] HEMATOLOGY Basophils 0.3 % 0.0 - 1.0 10/05/2013 [facility] HEMATOLOGY PT 19.7 s 12.0 - 14.7 10/05/2013 [facility] HEMATOLOGY INR 1.70 0.85 - 1.17 10/05/2013 4Interpretive Data: RECOMMENDED RANGES FOR PROTIME INR: 2.0-3.0 for most medical and surgical thromboembolic states. 2.5-3.5 for artificial heart valves and recurrent embolism. INR SHOULD BE USED ONLY FOR PATIENTS ON STABLE ANTICOAGULANT THERAPY. [facility] HEMATOLOGY PTT 40.7 s 22.9 - 35.8 10/05/2013 5Interpretive Data: Heparin Therapeutic Range: 57 - 92 Seconds [facility] HEMATOLOGY RBC 2.49 M/CMM 4.20 - 5.40 10/05/2013 [facility] HEMATOLOGY Hgb 8.1 g/dL 12.0 - 16.0 10/05/2013 [facility] HEMATOLOGY MCH 32.4 pg 27.0 - 31.0 10/05/2013 [facility] HEMATOLOGY MCHC 33.8 g/dL 32.0 - 36.0 10/05/2013 [facility] HEMATOLOGY Hct 23.8 % 36.0 - 48.0 10/05/2013 [facility] HEMATOLOGY WBC 4.6 K/CMM 3.7 - 10.4 10/05/2013 [facility] HEMATOLOGY MCV 95.7 fL 81.0 - 99.0 10/05/2013 [facility] HEMATOLOGY RDW 17.9 % 11.5 - 14.5 10/05/2013 [facility] HEMATOLOGY MPV 6.2 fL 7.4 - 10.4 10/05/2013 [facility] HEMATOLOGY Platelet 484 K/CMM 133 - 450 10/05/2013 [facility] IMMUNOLOGY CDC HIV 4th GEN Negative (10/05/13 2:14 PM) Negative 10/05/2013 [facility] Chest 1view Chest 1view CHEST, ONE VIEW HISTORY: Abnormal chest sounds. COMPARISON: None available. FINDINGS: The lungs are clear. No significant pleural effusion. No pneumothorax. Heart size normal. No acute osseous abnormality. SL: 14 10/05/2013 - - Read by: Sha Mosqueda MD Dictated Date/time: 10/05/13 16:30 Electronically Signed by: Sha Mosqueda MD 10/05/13 16:30 FINAL REPORT [facility] HEMATOLOGY WBC 8.1 K/CMM 3.7 - 10.4 08/15/2013 [facility] HEMATOLOGY MCHC 33.6 g/dL 32.0 - 36.0 08/15/2013 [facility] HEMATOLOGY Platelet 403 K/CMM 133 - 450 08/15/2013 [facility] HEMATOLOGY RDW 15.1 % 11.5 - 14.5 08/15/2013 [facility] HEMATOLOGY MPV 6.5 fL 7.4 - 10.4 08/15/2013 [facility] HEMATOLOGY Hct 27.1 % 36.0 - 48.0 08/15/2013 [facility] HEMATOLOGY MCH 29.3 pg 27.0 - 31.0 08/15/2013 [facility] HEMATOLOGY Hgb 9.1 g/dL 12.0 - 16.0 08/15/2013 [facility] HEMATOLOGY MCV 87.0 fL 81.0 - 99.0 08/15/2013 [facility] HEMATOLOGY RBC 3.11 M/CMM 4.20 - 5.40 08/15/2013 [facility] HEMATOLOGY Monocytes # 0.5 K/CMM 0.0 - 0.8 08/15/2013 [facility] HEMATOLOGY Basophils 1.0 % 0.0 - 1.0 08/15/2013 [facility] HEMATOLOGY Segs-Bands # 4.3 K/CMM 1.5 - 8.1 08/15/2013 [facility] HEMATOLOGY Segs 52.3 % 45.0 - 75.0 08/15/2013 [facility] HEMATOLOGY Lymphocytes 40.7 % 20.0 - 40.0 08/15/2013 [facility] HEMATOLOGY Monocytes 5.6 % 2.0 - 12.0 08/15/2013 [facility] HEMATOLOGY Eosinophils 0.4 % 0.0 - 4.0 08/15/2013 [facility] HEMATOLOGY Eosinophils # 0.0 K/CMM 0.0 - 0.5 08/15/2013 [facility] HEMATOLOGY Basophils # 0.1 K/CMM 0.0 - 0.2 08/15/2013 [facility] HEMATOLOGY Lymphocytes # 3.3 K/CMM 1.0 - 5.5 08/15/2013 [facility] BLOOD BANK RESULTS RBC product Product available (08/14/13 3:00 PM) 08/14/2013 [facility] BLOOD BANK RESULTS Antibody Scrn Negative (08/14/13 3:00 PM) 08/14/2013 [facility] BLOOD BANK RESULTS ABO/Rh O POS 08/14/2013 [facility] HEMATOLOGY RDW 16.4 % 11.5 - 14.5 08/14/2013 [facility] HEMATOLOGY Platelet 540 K/CMM 133 - 450 08/14/2013 [facility] HEMATOLOGY MPV 6.4 fL 7.4 - 10.4 08/14/2013 [facility] HEMATOLOGY MCH 28.9 pg 27.0 - 31.0 08/14/2013 [facility] HEMATOLOGY MCV 86.8 fL 81.0 - 99.0 08/14/2013 [facility] HEMATOLOGY Hct 21.6 % 36.0 - 48.0 08/14/2013 [facility] HEMATOLOGY Hgb 7.2 g/dL 12.0 - 16.0 08/14/2013 [facility] HEMATOLOGY MCHC 33.3 g/dL 32.0 - 36.0 08/14/2013 [facility] HEMATOLOGY RBC 2.48 M/CMM 4.20 - 5.40 08/14/2013 [facility] HEMATOLOGY WBC 9.0 K/CMM 3.7 - 10.4 08/14/2013 [facility] HEMATOLOGY Eosinophils # 0.0 K/CMM 0.0 - 0.5 08/14/2013 [facility] HEMATOLOGY Monocytes # 0.6 K/CMM 0.0 - 0.8 08/14/2013 [facility] HEMATOLOGY Basophils # 0.0 K/CMM 0.0 - 0.2 08/14/2013 [facility] HEMATOLOGY Segs 52.7 % 45.0 - 75.0 08/14/2013 [facility] HEMATOLOGY Lymphocytes 40.7 % 20.0 - 40.0 08/14/2013 [facility] HEMATOLOGY Segs-Bands # 4.7 K/CMM 1.5 - 8.1 08/14/2013 [facility] HEMATOLOGY Lymphocytes # 3.7 K/CMM 1.0 - 5.5 08/14/2013 [facility] HEMATOLOGY Eosinophils 0.2 % 0.0 - 4.0 08/14/2013 [facility] HEMATOLOGY Monocytes 6.2 % 2.0 - 12.0 08/14/2013 [facility] HEMATOLOGY Basophils 0.2 % 0.0 - 1.0 08/14/2013 [facility] Vital Signs Vital Sign Value Date Comments Source BMI Calculated 42.6 05/03/2018 [facility] Weight 102.273 05/03/2018 [facility] Height 154.94 cm 05/03/2018 [facility] Systolic (mm Hg) 176 05/03/2018 [facility] Diastolic (mm Hg) 100 05/03/2018 [facility] Temperature Oral (F) 98.0 F 05/03/2018 [facility] Heart Rate 91 05/03/2018 [facility] Diastolic (mm Hg) 79 04/26/2018 [facility] Systolic (mm Hg) 148 04/26/2018 [facility] Height 61 04/26/2018 [facility] Heart Rate 96 04/26/2018 [facility] Weight 227 04/26/2018 [facility] Diastolic (mm Hg) 83 03/01/2018 [facility] Systolic (mm Hg) 153 03/01/2018 [facility] Height 61 03/01/2018 [facility] Heart Rate 99 03/01/2018 [facility] Weight 208.13 03/01/2018 [facility] Diastolic (mm Hg) 84 02/02/2018 [facility] Systolic (mm Hg) 158 02/02/2018 [facility] Height 61 02/02/2018 [facility] Heart Rate 101 02/02/2018 [facility] Weight 201.38 02/02/2018 [facility] Diastolic (mm Hg) 84 01/03/2018 [facility] Systolic (mm Hg) 138 01/03/2018 [facility] Height 61 01/03/2018 [facility] Heart Rate 111 01/03/2018 [facility] Weight 206.38 01/03/2018 [facility] Diastolic (mm Hg) 78 12/12/2017 [facility] Systolic (mm Hg) 123 12/12/2017 [facility] Height 61 12/12/2017 [facility] Heart Rate 81 12/12/2017 [facility] Weight 204.13 12/12/2017 [facility] BMI Calculated 40.97 10/05/2017 [facility] Height 154.94 cm 10/05/2017 [facility] Weight 98.352 10/05/2017 [facility] Heart Rate 101 10/05/2017 [facility] Temperature Oral (F) 98.3 F 10/05/2017 [facility] Systolic (mm Hg) 150 10/05/2017 [facility] Diastolic (mm Hg) 83 10/05/2017 [facility] BMI Calculated 40.71 09/26/2017 [facility] Height 154.94 cm 09/26/2017 [facility] Temperature Oral (F) 98.3 F 09/26/2017 [facility] Weight 97.727 09/26/2017 [facility] Systolic (mm Hg) 165 09/26/2017 [facility] Diastolic (mm Hg) 80 09/26/2017 [facility] Heart Rate 84 09/26/2017 [facility] Respitory Rate 20 07/28/2017 [facility] Systolic (mm Hg) 144 07/28/2017 [facility] Diastolic (mm Hg) 79 07/28/2017 [facility] Heart Rate 81 07/28/2017 [facility] Temperature Oral (F) 98.8 F 07/28/2017 [facility] Temperature Oral (F) 98.3 F 07/28/2017 [facility] Heart Rate 75 07/28/2017 [facility] Respitory Rate 20 07/28/2017 [facility] Systolic (mm Hg) 132 07/28/2017 [facility] Diastolic (mm Hg) 76 07/28/2017 [facility] Systolic (mm Hg) 146 07/28/2017 [facility] Diastolic (mm Hg) 76 07/28/2017 [facility] Respitory Rate 20 07/28/2017 [facility] Heart Rate 74 07/28/2017 [facility] Temperature Oral (F) 98.5 F 07/28/2017 [facility] BMI Calculated 35.82 07/24/2017 [facility] Weight 86 07/24/2017 [facility] Height 154.94 cm 07/24/2017 [facility] Height 154.94 cm 07/23/2017 [facility] BMI Calculated 35.98 07/23/2017 [facility] Weight 86.364 07/23/2017 [facility] Weight 89.545 05/25/2017 [facility] BMI Calculated 37.3 05/25/2017 [facility] Temperature Oral (F) 98.9 F 05/25/2017 [facility] Heart Rate 91 05/25/2017 [facility] Height 154.94 cm 05/25/2017 [facility] Systolic (mm Hg) 135 05/25/2017 [facility] Diastolic (mm Hg) 68 05/25/2017 [facility] Heart Rate 82 05/16/2017 [facility] Temperature Oral (F) 98.3 F 05/16/2017 [facility] Height 162 cm 05/16/2017 [facility] BMI Calculated 34.12 05/16/2017 [facility] Weight 89.545 05/16/2017 [facility] Systolic (mm Hg) 159 05/16/2017 [facility] Diastolic (mm Hg) 93 05/16/2017 [facility] BMI Calculated 33.89 04/05/2017 [facility] Weight 89.545 04/05/2017 [facility] Height 162.56 cm 04/05/2017 [facility] Temperature Oral (F) 97.8 F 04/05/2017 [facility] Heart Rate 90 04/05/2017 [facility] Systolic (mm Hg) 160 04/05/2017 [facility] Diastolic (mm Hg) 74 04/05/2017 [facility] BMI Calculated 36.76 03/15/2017 [facility] Weight 88.239 03/15/2017 [facility] Temperature Oral (F) 98.3 F 03/15/2017 [facility] Heart Rate 95 03/15/2017 [facility] Height 154.94 cm 03/15/2017 [facility] Systolic (mm Hg) 165 03/15/2017 [facility] Diastolic (mm Hg) 75 03/15/2017 [facility] Systolic (mm Hg) 151 11/19/2016 [place] Diastolic (mm Hg) 65 11/19/2016 [place] Respitory Rate 18 11/19/2016 [place] Systolic (mm Hg) 152 11/19/2016 [place] Diastolic (mm Hg) 72 11/19/2016 [place] Systolic (mm Hg) 155 11/18/2016 [place] Diastolic (mm Hg) 80 11/18/2016 [place] Respitory Rate 18 11/18/2016 [place] Weight 92.273 11/18/2016 [place] BMI Calculated 38.44 11/18/2016 [place] Height 154.94 cm 11/18/2016 [place] Temperature Oral (F) 97.5 F 11/18/2016 [place] Heart Rate 93 11/18/2016 [place] Respitory Rate 20 11/18/2016 [place] Temperature Oral (F) 98.6 F 10/15/2016 [place] Heart Rate 95 10/15/2016 [place] Respitory Rate 20 10/15/2016 [place] Systolic (mm Hg) 142 10/15/2016 [place] Diastolic (mm Hg) 69 10/15/2016 [place] Systolic (mm Hg) 137 10/15/2016 [place] Diastolic (mm Hg) 73 10/15/2016 [place] Respitory Rate 20 10/15/2016 [place] Temperature Oral (F) 98.1 F 10/15/2016 [place] Heart Rate 100 10/15/2016 [place] Respitory Rate 18 10/15/2016 [place] Systolic (mm Hg) 150 10/15/2016 [place] Diastolic (mm Hg) 81 10/15/2016 [place] Heart Rate 98 10/15/2016 [place] Temperature Oral (F) 98.3 F 10/15/2016 [place] Weight 93.6 10/12/2016 [place] BMI Calculated 38.99 10/12/2016 [place] Height 154.94 cm 10/12/2016 [place] Height 154.94 cm 10/11/2016 [place] Weight 90.909 10/11/2016 [place] BMI Calculated 37.87 10/11/2016 [place] Temperature Oral (F) 98.5 F 01/13/2014 [facility] Systolic (mm Hg) 156 01/13/2014 [facility] Heart Rate 93 01/13/2014 [facility] Diastolic (mm Hg) 80 01/13/2014 [facility] Respitory Rate 18 01/13/2014 [facility] Diastolic (mm Hg) 83 01/13/2014 [facility] Systolic (mm Hg) 132 01/13/2014 [facility] Respitory Rate 18 01/13/2014 [facility] Temperature Oral (F) 98.0 F 01/13/2014 [facility] Heart Rate 97 01/13/2014 [facility] Temperature Oral (F) 98.6 F 01/13/2014 [facility] Heart Rate 97 01/13/2014 [facility] Respitory Rate 18 01/13/2014 [facility] Diastolic (mm Hg) 69 01/13/2014 [facility] Systolic (mm Hg) 109 01/13/2014 [facility] Height 154.94 cm 01/10/2014 [facility] Height 154.94 cm 01/08/2014 [facility] BMI Calculated 34.65 01/08/2014 [facility] Weight 83.182 01/08/2014 [facility] Weight 81.42 01/07/2014 [facility] BMI Calculated 33.92 01/07/2014 [facility] Height 154.94 cm 01/07/2014 [facility] Diastolic (mm Hg) 80 10/06/2013 [facility] Respitory Rate 18 10/06/2013 [facility] Heart Rate 123 10/06/2013 [facility] Temperature Oral (F) 98.3 F 10/06/2013 [facility] Systolic (mm Hg) 141 10/06/2013 [facility] Diastolic (mm Hg) 84 10/06/2013 [facility] Systolic (mm Hg) 138 10/06/2013 [facility] Respitory Rate 18 10/06/2013 [facility] Heart Rate 108 10/06/2013 [facility] Temperature Oral (F) 98.7 F 10/06/2013 [facility] Temperature Oral (F) 98.3 F 10/06/2013 [facility] Systolic (mm Hg) 138 10/06/2013 [facility] Respitory Rate 18 10/06/2013 [facility] Heart Rate 108 10/06/2013 [facility] Diastolic (mm Hg) 84 10/06/2013 [facility] Weight 80.455 10/05/2013 [facility] BMI Calculated 33.51 10/05/2013 [facility] Height 154.94 cm 10/05/2013 [facility] BMI Calculated 33.51 10/05/2013 [facility] Weight 80.455 10/05/2013 [facility] Height 154.94 cm 10/05/2013 [facility] Weight 82.273 08/14/2013 [facility] Height 154.94 cm 08/14/2013 [facility] BMI Calculated 34.27 08/14/2013 [facility] Encounters Location Location Details Encounter Type Encounter Number Reason For Visit Attending Provider ADM Date DC Date Status Source [facility] Outpatient [id number] Isaak Mehta 08/15/2013 08/16/2013 [facility] OBS Observation Patient [id number] Alli Egan 10/05/2013 10/06/2013 [facility] Inpatient [id number] Windy Villanueva 01/07/2014 01/14/2014 [facility] Outpatient [id number] Lilo Prasad 02/12/2014 02/13/2014 [facility] W[facility] Care [id number] Mark Hargrove Jr 12/23/2014 01/22/2015 [facility] Outpatient [id number] TOM GUARDADOI 03/21/2016 Active [facility] Outpatient [id number] TOM LOZAWARI 04/18/2016 Active [facility] Outpatient [id number] TOM GUARDADOI 06/17/2016 Active [facility] Outpatient [id number] TOM EUGENE 07/28/2016 Active [facility] Inpatient [id number] Umm Seval 10/11/2016 10/15/2016 [facility] Outpatient [id number] TOM EUGENE 10/19/2016 Active [facility] Outpatient [id number] TOM EUGENE 11/18/2016 Active [facility] Emergency [id number] Rashel Daoan 11/18/2016 11/19/2016 [facility] Outpatient [id number] TOM EUGENE 12/23/2016 Active [facility] Outpatient [id number] FELIPE AICHA 01/12/2017 Active [facility] Primary Care [facility] Phone Message [id number] 01/30/2017 02/01/2017 [facility] [place] Phone Message [id number] 02/03/2017 02/05/2017 [facility] Outpatient [id number] TOM EUGENE 03/15/2017 Active [facility] Primary Care [facility] Outpatient [id number] Tom Eugene 03/15/2017 03/16/2017 [facility] Outpatient [id number] TOM EUGENE 03/29/2017 Active [facility] Outpatient [id number] TOM EUGENE 04/05/2017 Active [facility] [place] Outpatient [id number] Tom Eugene 04/05/2017 04/06/2017 [facility] [place] Phone Message [id number] 05/02/2017 05/04/2017 [facility] [place] Phone Message [id number] 05/09/2017 05/11/2017 [facility] [place] Phone Message [id number] 05/10/2017 05/12/2017 [facility] Outpatient [id number] TOM EUGENE 05/11/2017 Active [facility] Primary Care [facility] Ambulatory Pre-Reg [id number] Tom Eugene 05/11/2017 05/11/2017 [facility] Outpatient [id number] TOM EUGENE 05/16/2017 [facility] [place] Outpatient [id number] Tom Eugene 05/16/2017 05/17/2017 [facility] [place] Phone Message [id number] 05/22/2017 05/24/2017 [facility] Outpatient [id number] TOM EUGENE 05/25/2017 Active [facility] [place] Outpatient [id number] Tom Eugene 05/25/2017 05/26/2017 [facility] Inpatient [id number] Louie CastroNick 07/23/2017 07/28/2017 [facility] [place] Phone Message [id number] 08/01/2017 08/03/2017 [facility] Outpatient [id number] TOM EUGENE 09/26/2017 Active [facility] [place] Outpatient [id number] Tom Eugene 09/26/2017 09/27/2017 [facility] Outpatient [id number] TOM EUGENE 10/05/2017 Active [facility] [place] Outpatient [id number] Tom Eugene 10/05/2017 10/06/2017 [facility] [place] Phone Message [id number] 10/23/2017 10/25/2017 [facility] Outpatient [id number] TOM EUGENE 11/07/2017 Active [facility] Outpatient [id number] TOM EUGENE 11/22/2017 Active [facility] Outpatient [id number] TOM EUGENE 12/06/2017 Active [facility] Health Est Patient Detailed - [id number] Gee Garcia MD 01/03/2018 [facility] Health Est Patient Detailed - [id number] Gee Garcia MD 02/02/2018 [facility] Health Est Patient Detailed - [id number] Gee Garcia MD 03/01/2018 [facility] Health Est Patient Exp Problem - [id number] Gee Garcia MD 04/26/2018 [facility] [id number] PAM OMERUETT 05/03/2018 [facility] Fabian Perez [facility] Primary Care [facility] Outpatient [id number] Pam Annia 05/03/2018 05/04/2018 [facility] Procedures Procedure Code Date Perfomer Comments Source Diagnostic evaluation with [facility] - [id number] 12/12/2017 Jose HARRISON [facility] section<sup>1</sup> 12106004 x 2 [facility] Cholecystectomy 71270415 [facility] Gastric bypass operation 38322444 [facility] Oophorectomy<sup>2</sup> 41098170 right [facility] Oophorectomy<sup>1</sup> 36373789 1right [facility] section<sup>1</sup> 16361681 x 2 [facility] Cholecystectomy 88633978 [facility] Gastric bypass operation 50229689 [facility] Oophorectomy<sup>2</sup> 78661261 right [facility] section<sup>1</sup> 82186652 x 2 [facility] Cholecystectomy 11954390 [place] Gastric bypass operation 26554453 [facility] Oophorectomy<sup>2</sup> 18836347 right [facility]
--- OUTSIDE RECORDS SUMMARY | 2018-05-14 21:17 | XMS REPORT | Summary of Care ---
Author Author [facility] Primary Care [facility] Care [facility] Address Unknown Phone Unavailable Encounter [facility](FIN) [id number] Date(s): 03/15/17 - 03/15/17 [facility] Primary Care [facility] [address] [facility] [place] [address]- [phone] Discharge Disposition: Home or Self Care Attending Physician: Lucero Knight MD Vital Signs Most recent to 1 oldest [Reference Range]: Height 154.94 cm (03/15/17 7:18 AM) Temperature Oral 98.3 DegF [96.4-99.1 DegF] (03/15/17 7:18 AM) Blood Pressure 165/75 mmHg [90-140/60-90 mmHg] *HI* (03/15/17 7:18 AM) Peripheral Pulse 95 bpm Rate [60-100 bpm] (03/15/17 7:18 AM) Weight 88.239 kg (03/15/17 7:18 AM) Body Mass Index 36.76 m2 (03/15/17 7:18 AM) Problem List Condition Effective Dates Status Health [...] Substance Reaction Severity Status NKDA Active Medications amLODIPine 10 mg oral tablet 10 mg, PO, Daily, # 90 tab, 0 Refill(s), Pharmacy: [facility] [id number] Start Date: 03/15/17 Stop Date: 06/13/17 Status: Ordered Bactrim DS 800 mg- 160 mg oral tablet 1 tab, PO, BID, X 14 day, # 28 tab, 0 Refill(s), Pharmacy: [facility] [id number] Start Date: 03/15/17 Stop Date: 03/29/17 Status: Ordered hydrochlorothiazide-lisinopril 12.5 mg-20 mg oral tablet See Instructions, TAKE 1 TABLET BY MOUTH DAILY, # 90 tab, 1 Refill(s), Pharmacy: [facility] [id number] Start Date: 03/15/17 Status: Ordered Lunesta 2 mg oral tablet 2 mg=1 tab, PO, Bedtime, PRN for insomnia, X 30 day, # 30 tab, 0 Refill(s) Start Date: 03/15/17 Stop Date: 04/14/17 Status: Ordered predniSONE 20 mg oral tablet 20 mg=1 tab, PO, Daily, X 7 day, # 7 tab, 0 Refill(s), Pharmacy: [facility] [id number] Start Date: 03/15/17 Stop Date: 03/22/17 Status: Ordered QUEtiapine 300 mg oral tablet 300 mg=1 tab, PO, Daily, # 90 tab, 0 Refill(s), Pharmacy: [facility] 1 [id number] Start Date: 03/15/17 Stop Date: 06/13/17 Status: Ordered trazodone 100 mg oral tablet 100 mg=1 tab, PO, Bedtime, # 30 tab, 0 Refill(s), Pharmacy: [facility] [id number] Start Date: 03/15/17 Stop Date: 03/15/17 Status: Completed trazodone 100 mg oral tablet See Instructions, # 90 tab, TAKE 1 TABLET BY MOUTH AT BEDTIME, Pharmacy[place] [facility] [id number] Start Date: 03/15/17 Status: Ordered Results No data available for this section Immunizations Given and Recorded Vaccine Date Status Refusal Reason pneumococcal 23-valent vaccine 01/08/14 Given pneumococcal 23-valent vaccine 01/20/09 Given influenza virus vaccine, inactivated 01/08/14 Given influenza virus vaccine, inactivated 01/20/09 Given Procedures Procedure Date Related Diagnosis Body Site Status section1 Completed Cholecystectomy Completed Gastric bypass operation Completed Oophorectomy2 Completed 1x 2 2right Social History Social History [...] Other Tobacco Frequency One Pack a day; entered on: 03/15/17 Assessment and Plan No data available for this section
--- OUTSIDE RECORDS SUMMARY | 2018-05-14 21:17 | XMS REPORT | Summary of Care ---
Author Author [facility] [place] [facility] Address Unknown Phone Unavailable Encounter KELLY Lomas(NOAH) [id number] Date(s): 02/03/17 - 02/04/17 [facility] Primary Care [facility] [address] [place] [address]- [phone] Vital Signs No data available for this [...] # 30 tab, 0 Refill(s) Start Date: 02/03/17 Stop Date: 03/05/17 Status: Ordered QUEtiapine 300 mg oral tablet See Instructions, # 60 tab, TAKE 2 TABLETS BY MOUTH AT BEDTIME, Pharmacy: [facility] [id number] Start Date: 02/03/17 Status: Ordered trazodone 50 mg oral tablet See Instructions, # 90 tab, Refill(s) 1, TAKE 1 TABLET BY MOUTH AT BEDTIME, Katelyn kapadia: [facility] [id number] Start Date: 02/03/17 Status: Ordered Results No data available for [...]
--- OUTSIDE RECORDS SUMMARY | 2018-05-14 21:17 | XMS REPORT | Summary of Care ---
Author Author [facility] Primary Care [facility] Care [facility] Address Unknown Phone Unavailable Encounter [facility](FIN) [id number] Date(s): 10/05/17 - 10/05/17 [facility] Primary Care [facility] [address] [facility] [place] [address]- [phone] Discharge Disposition: Home or Self Care Attending Physician: Lucero Knight MD Vital Signs Most recent to 1 oldest [Reference Range]: Height 154.94 cm (10/05/17 1:30 PM) Temperature Oral 98.3 DegF [96.4-99.1 DegF] (10/05/17 1:30 PM) Blood Pressure 150/83 mmHg [90-140/60-90 mmHg] *HI* (10/05/17 1:30 PM) Peripheral Pulse 101 bpm Rate [60-100 bpm] *HI* (10/05/17 1:30 PM) Weight 98.352 kg (10/05/17 1:30 PM) Body Mass Index 40.97 m2 (10/05/17 1:30 PM) Problem List Condition Effective Dates Status Health Status Informant Abdominal Active bloating(Confirmed) Anemia(Confirmed) Active Anxiety(Confirmed) Active Chronic Active colitis(Confirmed) CKD - chronic kidney Resolved disease(Confirmed) Colitis(Confirmed) < 01/13/14 Resolved Uncontrolled Active [...] Substance Reaction Severity Status NKDA Active Medications cyanocobalamin 1,000 microgram, Route: IM, ONCE, Dosing Weight 97.727, kg, Start date: 10/05/17 11:18:00 CDT, Stop date: 10/05/17 11:18:00 CDT Start Date: 10/05/17 Stop Date: 10/05/17 Status: Completed esomeprazole 40 mg oral delayed release capsule =1 cap, PO, Daily, # 90 unknown unit, Pharmacy: [facility] [id number] Start Date: 04/03/18 Status: Ordered esomeprazole 40 mg oral delayed release capsule 40 mg=1 cap, PO, Daily, # 90 cap, 1 Refill(s), Pharmacy: [facility] [id number] Start Date: 10/05/17 Stop Date: 04/03/18 Status: Completed hydrochlorothiazide-lisinopril 12.5 mg-20 mg oral tablet =1 tab, PO, Daily, # 90 tab, Pharmacy: [facility] [id number] Start Date: 04/03/18 Status: Ordered trazodone 300 mg oral tablet 300 mg=1 tab, PO, Bedtime, # 90 tab, 0 Refill(s), Pharmacy: [facility] [id number] Start Date: 10/05/17 Stop Date: 01/03/18 Status: Ordered Results No data available for [...] Frequency One Pack a day; entered on: 11/22/17 Assessment and Plan No data available for this section
--- OUTSIDE RECORDS SUMMARY | 2018-05-14 21:18 | XMS REPORT | Summary of Care ---
Author Author [facility] Primary Care [facility] Care [facility] Address Unknown Phone Unavailable Encounter [facility](FIN) [id number] Date(s): 05/09/17 - 05/10/17 [facility] [address] [facility] [place] [address]- [phone] Vital Signs No data available for this [...] Substance Reaction Severity Status NKDA Active Medications No data available for this section Results No data available for this section [...] Frequency One Pack a day; entered on: 07/23/17 Assessment and Plan No data available for this section
--- OUTSIDE RECORDS SUMMARY | 2018-05-14 21:18 | XMS REPORT | Summary of Care ---
Author Author [facility] Primary Care [facility] Care [facility] Address Unknown Phone Unavailable Encounter [facility](FIN) [id number] Date(s): 04/05/17 - 04/05/17 [facility] Primary Care [facility] [address] [facility] [place] [address]- [phone] Discharge Disposition: Home or Self Care Attending Physician: Lucero Knight MD Vital Signs Most recent to 1 oldest [Reference Range]: Height 162.56 cm (04/05/17 1:23 PM) Temperature Oral 97.8 DegF [96.4-99.1 DegF] (04/05/17 1:23 PM) Blood Pressure 160/74 mmHg [90-140/60-90 mmHg] *HI* (04/05/17 1:23 PM) Peripheral Pulse 90 bpm Rate [60-100 bpm] (04/05/17 1:23 PM) Weight 89.545 kg (04/05/17 1:23 PM) Body Mass Index 33.89 m2 (04/05/17 1:23 PM) Problem List Condition Effective Dates Status [...] Reaction Severity Status NKDA Active Medications Lunesta 3 mg oral tablet 3 mg=1 tab, PO, Bedtime, PRN for insomnia, X 30 day, # 30 tab, 0 Refill(s) Start Date: 04/05/17 Stop Date: 05/05/17 Status: Completed QUEtiapine 300 mg oral tablet 300 mg=1 tab, PO, Daily, # 90 tab, 0 Refill(s), Pharmacy: [facility] 1 [id number] Start Date: 04/05/17 Stop Date: 05/16/17 Status: Discontinued trazodone 100 mg oral tablet See Instructions, TAKE 1 TABLET BY MOUTH AT BEDTIME, # 90 tab, 0 Refill(s), Phar [facility]: [facility] [id number] Start Date: 04/05/17 Stop Date: 05/16/17 Status: Discontinued Results No data available for this section [...] Frequency One Pack a day; entered on: 05/25/17 Assessment and Plan No data available for this section
--- OUTSIDE RECORDS SUMMARY | 2018-05-14 21:18 | XMS REPORT | Summary of Care ---
Author Author [facility] Organization [facility] Address Unknown Phone Unavailable Encounter KELLY Lomas([facility]) [id number] Date(s): 07/23/17 - 07/28/17 [facility] [address] [place] [address]- Discharge Disposition: Intermediate Facility Attending Physician: Louie Romero DO Admitting Physician: Louie Romero DO Vital Signs 1 2 3 Most recent to oldest [Reference Range]: 154.94 cm (07/23/17 11:31 PM) 154.94 cm (07/23/17 3:00 PM) Height 98.8 DegF (07/28/17 4:45 PM) 98.3 DegF (07/28/17 10:51 AM) 98.5 DegF (07/28/17 6:51 AM) Temperature Oral [96.4-99.1 DegF] 144/79 mmHg *HI* (07/28/17 4:45 PM) 132/76 mmHg (07/28/17 10:51 AM) 146/76 mmHg *HI* (07/28/17 6:51 AM) Blood Pressure [90-140/60-90 mmHg] 20 BRMIN (07/28/17 4:45 PM) 20 BRMIN (07/28/17 10:51 AM) 20 BRMIN (07/28/17 6:51 AM) Respiratory Rate [14-20 BRMIN] 81 bpm (07/28/17 4:45 PM) 75 bpm (07/28/17 10:51 AM) 74 bpm (07/28/17 6:51 AM) Peripheral Pulse Rate [60-100 bpm] 86 kg (07/23/17 11:31 PM) 86.364 kg (07/23/17 3:00 PM) Weight 35.82 m2 (07/23/17 11:31 PM) 35.98 m2 (07/23/17 3:00 PM) Body Mass Index Problem List Condition [...] Substance Reaction Severity Status NKDA Active Medications acetaminophen 325 mg, 1 tab, Route: PO, Drug form: TAB, Q4H, Dosing Weight 86, kg, PRN Pain 1- 3/Temp > 100.4 F, Start date: 07/24/17 9:13:00 CDT, Duration: 30 day, Stop date: 08/23/17 9:12:00 CDT Notes: Do not exceed 4 gm/day. (Same as: Tylenol) Start Date: 07/24/17 Stop Date: 07/26/17 Status: Discontinued acetaminophen 650 mg, 2 tab, Route: PO, Drug form: TAB, Q4H, Dosing Weight 86.364, kg, PRN Shanti n 1-3/Temp > 100.4 F, Start date: 07/23/17 17:40:00 CDT, Duration: 30 day, Stop date: 08/22/17 17:39:00 CDT Notes: Do not exceed 4 gm/day. (Same as: Tylenol) Start Date: 07/23/17 Stop Date: 07/24/17 Status: Discontinued acetaminophen (ANES) 10 mg Route: IV, Drug form: INJ, Start date: 07/25/17 14:27:00 CDT, Stop date: 8 15:27:00 CDT Start Date: 07/25/17 Stop Date: 07/25/17 Status: Completed acetaminophen-hydrocodone 325 mg-5 mg oral tablet 1 tab, Route: PO, Drug Form: TAB, Dosing Weight 86.364, kg, Q4H, PRN Pain Score 4-6, Start date: 07/23/17 17:40:00 CDT, Duration: 30 day, Stop date: 08/22/17 17 :39:00 CDT Notes: (Same as: Pisek 325/5) Do not exceed 4gm/day of acetaminophen. Start Date: 07/23/17 Stop Date: 07/24/17 Status: Discontinued amLODIPine 10 mg, 1 tab, Route: PO, Drug form: TAB, Daily, Dosing Weight 86, kg, Start date : 07/25/17 9:00:00 CDT, Duration: 30 day, Stop date: 08/23/17 9:00:00 CDT Notes: (Same as: Norvasc) Start Date: 07/25/17 Stop Date: 07/28/17 Status: Discontinued amLODIPine 5 mg, Route: PO, Drug form: TAB, Daily, Dosing Weight 86, kg, Start date: 9:00:00 CDT, Duration: 30 day, Stop date: 08/23/17 9:00:00 CDT Start Date: 07/25/17 Stop Date: 07/24/17 Status: Canceled amLODIPine 10 mg oral tablet 10 mg=1 tab, PO, Daily, 0 Refill(s) Start Date: 07/28/17 Status: Ordered Benadryl 25 mg, 1 cap, Route: PO, Drug form: CAP, Q6H, Dosing Weight 86, kg, PRN as neede d for itching, Start date: 07/24/17 12:07:00 CDT, Duration: 30 day, Stop date: 0 08/23/17 12:06:00 CDT, Patient's Own Meds Notes: (Same as: Benadryl) Start Date: 07/24/17 Stop Date: 07/28/17 Status: Discontinued Benadryl 12.5 mg, 0.25 mL, Route: IVP, Drug form: INJ, ONCE, Dosing Weight 86, kg, PRN It emilie, Start date: 07/25/17 9:48:00 CDT Notes: (Same as: Benadryl) Start Date: 07/25/17 Stop Date: 07/25/17 Status: Completed bisacodyl 10 mg, 2 tab, Route: PO, Drug form: ECTAB, ONCE, Dosing Weight 86, kg, Start aris e: 07/28/17 13:20:00 CDT, Stop date: 07/28/17 13:20:00 CDT Notes: (Same As: Dulcolax, Correctol) (Do Not Crush) "Do Not Crush" Start Date: 07/28/17 Stop Date: 07/28/17 Status: Completed calcium carbonate 500 mg, 1 tab, Route: PO, Drug form: CHEWTAB, BID, Dosing Weight 86, kg, Start d ate: 07/25/17 17:00:00 CDT, Duration: 30 day, Stop date: 08/24/17 9:00:00 CDT Notes: (Same As: [place])Calcium Carbonate 500 bw=048 mg elemental calcium Dose=_ mg calcium carbonate ( mg elemental calcium) Start Date: 07/25/17 Stop Date: 07/28/17 Status: Discontinued ceFAZolin (ANES) 1000 mg Route: IV, Drug form: INJ, Start date: 07/25/17 13:51:00 CDT, Stop date: 8 14:51:00 CDT Start Date: 07/25/17 Stop Date: 07/25/17 Status: Completed ceFAZolin + sterile water 10 mL 1 gm, Route: IVP, [id number], Dosing Weight 86, kg, Start date: 07/25/17 22:00:00 CD T, Duration: 1 day, Stop date: 07/26/17 14:00:00 CDT, ABX Indication: Surgical P rophylaxis Notes: (Same As: Braxton Jamal) MEDICATION WASTE Product Size: 1000 mgP roduct Wasted: ___ mg Start Date: 07/25/17 Stop Date: 07/26/17 Status: Completed Dextrose 50% Syringe 25 gm, 50 mL, Route: IVP, Drug Form: INJ, Dosing Weight 86.364, kg, PRN, PRN Blo od Glucose Results, Start date: 07/23/17 17:41:00 CDT, Duration: 30 day, Stop da te: 08/22/17 17:40:00 CDT Start Date: 07/23/17 Stop Date: 07/24/17 Status: Discontinued Dextrose 50% Syringe 12.5 gm, 25 mL, Route: IVP, Drug Form: INJ, Dosing Weight 86.364, kg, PRN, PRN B lood Glucose Results, Start date: 07/23/17 17:41:00 CDT, Duration: 30 day, Stop date: 08/22/17 17:40:00 CDT Start Date: 07/23/17 Stop Date: 07/24/17 Status: Discontinued Dextrose 50% Syringe 12.5 gm, 25 mL, Route: IVP, Drug Form: INJ, Dosing Weight 86, kg, PRN, PRN Blood Glucose Results, Start date: 07/24/17 9:07:00 CDT, Duration: 30 day, Stop date: 08/23/17 9:06:00 CDT Start Date: 07/24/17 Stop Date: 07/28/17 Status: Discontinued Dextrose 50% Syringe 25 gm, 50 mL, Route: IVP, Drug Form: INJ, Dosing Weight 86, kg, PRN, PRN Blood G lucose Results, Start date: 07/24/17 9:07:00 CDT, Duration: 30 day, Stop date: 0 08/23/17 9:06:00 CDT Start Date: 07/24/17 Stop Date: 07/28/17 Status: Discontinued Dilaudid 0.2 mg, 0.1 mL, Route: IVP, Drug form: INJ, Q3H, Dosing Weight 86, kg, PRN Pain Score 7-10, Start date: 07/24/17 12:04:00 CDT, Duration: 30 day, Stop date: 08/05 12:03:00 CDT Notes: Same as Dilaudid Start Date: 07/24/17 Stop Date: 07/28/17 Status: Discontinued docusate 100 mg, 1 cap, Route: PO, Drug form: CAP, BID, Dosing Weight 86.364, kg, Start d ate: 07/24/17 9:00:00 CDT, Duration: 30 day, Stop date: 08/22/17 17:00:00 CDT Notes: (Same as: Colace) (Do Not Crush) Start Date: 07/24/17 Stop Date: 07/28/17 Status: Discontinued docusate sodium 100 mg oral capsule 100 mg=1 cap, PO, BID, 0 Refill(s) Start Date: 07/28/17 Status: Ordered DuoNeb inhalation solution 3 ml, Route: NEB, Drug Form: SOLN, Dosing Weight 86, kg, TID, PRN Respiratory Pr otocol, Start date: 07/24/17 9:22:00 CDT, Duration: 30 day, Stop date: 08/23/17 9:21:00 CDT Notes: (Same as: Duoneb) Start Date: 07/24/17 Stop Date: 07/28/17 Status: Discontinued DuoNeb inhalation solution 3 ml, Route: INHALATION, Drug Form: SOLN, Dosing Weight 86, kg, PRN, PRN Respira tory Protocol, Start date: 07/25/17 11:30:00 CDT, Duration: 30 day, Stop date: 0 08/24/17 11:29:00 CDT Notes: (Same as: Duoneb) Start Date: 07/25/17 Stop Date: 07/25/17 Status: Discontinued enoxaparin 30 mg, 0.3 mL, Route: SUB-Q, Drug form: INJ, [id number], Dosing Weight 86.364, kg, Start date: 07/23/17 18:00:00 CDT, Stop date: 08/22/17 6:00:00 CDT Notes: (Same as: Lovenox) Start Date: 07/23/17 Stop Date: 07/28/17 Status: Discontinued ergocalciferol 50,000 unit, Route: PO, Drug form: CAP, QTue, Dosing Weight 86, kg, Start date: 07/25/17 18:00:00 CDT, Duration: 30 day, Stop date: 08/22/17 9:00:00 CDT Notes: (Same as: Vitamin D) "Do Not Crush" Start Date: 07/25/17 Stop Date: 07/28/17 Status: Discontinued fentaNYL (ANES) Route: IV, Drug form: INJ, ONCE, Stop date: 07/25/17 16:57:00 CDT Start Date: 07/25/17 Stop Date: 07/25/17 Status: Completed fentaNYL (ANES) Route: IV, Drug form: INJ, ONCE, Stop date: 07/25/17 14:40:00 CDT Start Date: 07/25/17 Stop Date: 07/25/17 Status: Completed glucagon 1 mg, Route: IM, Drug form: PDR/INJ, PRN, Dosing Weight 86.364, kg, PRN Blood Gl ucose Results, Start date: 07/23/17 17:41:00 CDT, Duration: 30 day, Stop date: 0 08/22/17 17:40:00 CDT Start Date: 07/23/17 Stop Date: 07/24/17 Status: Discontinued glucagon 1 mg, Route: IM, Drug form: PDR/INJ, PRN, Dosing Weight 86, kg, PRN Blood Glucos e Results, Start date: 07/24/17 9:07:00 CDT, Duration: 30 day, Stop date: 9:06:00 CDT Start Date: 07/24/17 Stop Date: 07/28/17 Status: Discontinued hydrALAZINE 10 mg, 0.5 mL, Route: IVP, Drug form: INJ, Q6H, Dosing Weight 86.364, kg, PRN Hy pertension, Start date: 07/23/17 18:26:00 CDT, Duration: 30 day, Stop date: 08/04 11/21 18:25:00 CDT Notes: (Same as: Apresoline)Push over 5 minutes Start Date: 07/23/17 Stop Date: 07/28/17 Status: Discontinued hydrALAZINE 50 mg oral tablet 50 mg, 1 tab, Route: PO, Drug form: TAB, ONCE, Dosing Weight 86, kg, Start date: 07/26/17 18:02:00 CDT, Stop date: 07/26/17 18:02:00 CDT Notes: (Same as: Apresoline) May interfere w/enteral feedings Take With Food Start Date: 07/26/17 Stop Date: 07/26/17 Status: Completed insulin lispro 4 unit, 0.04 mL, Route: SUB-Q, Drug form: SOLN, TID-Before Meals, Dosing Weight 86.364, kg, PRN Blood Glucose Results, Start date: 07/23/17 17:41:00 CDT, Durati on: 30 day, Stop date: 08/22/17 17:40:00 CDT Notes: (Same as: Humalog ) Roll in palms of hands gently; Do not shake `vigorou sly. "Single Patient Use Only " WASTE: F/P - Black; E - [facility] [address] able for 28 days at room temperature.Expires in days from Da te Start Date: 07/23/17 Stop Date: 07/24/17 Status: Discontinued insulin lispro 6 unit, 0.06 mL, Route: SUB-Q, Drug form: SOLN, TID-Before Meals, Dosing Weight 86.364, kg, PRN Blood Glucose Results, Start date: 07/23/17 17:41:00 CDT, Durati on: 30 day, Stop date: 08/22/17 17:40:00 CDT Notes: (Same as: Humalog ) Roll in palms of hands gently; Do not shake `vigorou sly. "Single Patient Use Only " WASTE: F/P - Black; E - [facility] [address] able for 28 days at room temperature.Expires in days from Da te Start Date: 07/23/17 Stop Date: 07/24/17 Status: Discontinued insulin lispro 8 unit, 0.08 mL, Route: SUB-Q, Drug form: SOLN, TID-Before Meals, Dosing Weight 86.364, kg, PRN Blood Glucose Results, Start date: 07/23/17 17:41:00 CDT, Durati on: 30 day, Stop date: 08/22/17 17:40:00 CDT Notes: (Same as: Humalog ) Roll in palms of hands gently; Do not shake `vigorou sly. "Single Patient Use Only " WASTE: F/P - Black; E - [facility] [address] able for 28 days at room temperature.Expires in days from Da te Start Date: 07/23/17 Stop Date: 07/24/17 Status: Discontinued insulin lispro 10 unit, 0.1 mL, Route: SUB-Q, Drug form: SOLN, TID-Before Meals, Dosing Weight 86.364, kg, PRN Blood Glucose Results, Start date: 07/23/17 17:41:00 CDT, Durati on: 30 day, Stop date: 08/22/17 17:40:00 CDT Notes: (Same as: Humalog ) Roll in palms of hands gently; Do not shake `vigorou sly. "Single Patient Use Only " WASTE: F/P - Black; E - [facility] [address] able for 28 days at room temperature.Expires in days from Da te Start Date: 07/23/17 Stop Date: 07/24/17 Status: Discontinued insulin lispro 1 unit, 0.01 mL, Route: SUB-Q, Drug form: SOLN, Bedtime, Dosing Weight 86.364, k g, PRN Blood Glucose Results, Start date: 07/23/17 17:41:00 CDT, Duration: 30 da y, Stop date: 08/22/17 17:40:00 CDT Notes: (Same as: Humalog ) Roll in palms of hands gently; Do not shake `vigorou sly. "Single Patient Use Only " WASTE: F/P - Black; E - [facility] [address] able for 28 days at room temperature.Expires in days from Da te Start Date: 07/23/17 Stop Date: 07/24/17 Status: Discontinued insulin lispro 4 unit, 0.04 mL, Route: SUB-Q, Drug form: SOLN, Bedtime, Dosing Weight 86.364, k g, PRN Blood Glucose Results, Start date: 07/23/17 17:41:00 CDT, Duration: 30 da y, Stop date: 08/22/17 17:40:00 CDT Notes: (Same as: Humalog ) Roll in palms of hands gently; Do not shake `vigorou sly. "Single Patient Use Only " WASTE: F/P - Black; E - [facility] [address] able for 28 days at room temperature.Expires in days from Da te Start Date: 07/23/17 Stop Date: 07/24/17 Status: Discontinued insulin lispro 2 unit, 0.02 mL, Route: SUB-Q, Drug form: SOLN, Bedtime, Dosing Weight 86.364, k g, PRN Blood Glucose Results, Start date: 07/23/17 17:41:00 CDT, Duration: 30 da y, Stop date: 08/22/17 17:40:00 CDT Notes: (Same as: Humalog ) Roll in palms of hands gently; Do not shake `vigorou sly. "Single Patient Use Only " WASTE: F/P - Black; E - [facility] [address] able for 28 days at room temperature.Expires in days from Da te Start Date: 07/23/17 Stop Date: 07/24/17 Status: Discontinued insulin lispro 3 unit, 0.03 mL, Route: SUB-Q, Drug form: SOLN, Bedtime, Dosing Weight 86.364, k g, PRN Blood Glucose Results, Start date: 07/23/17 17:41:00 CDT, Duration: 30 da y, Stop date: 08/22/17 17:40:00 CDT Notes: (Same as: Humalog ) Roll in palms of hands gently; Do not shake `vigorou sly. "Single Patient Use Only " WASTE: F/P - Black; E - [facility] able for 28 days at room temperature.Expires in days from Da te Start Date: 07/23/17 Stop Date: 07/24/17 Status: Discontinued insulin lispro 2 unit, 0.02 mL, Route: SUB-Q, Drug form: SOLN, TID-Before Meals, Dosing Weight 86.364, kg, PRN Blood Glucose Results, Start date: 07/23/17 17:41:00 CDT, Durati on: 30 day, Stop date: 08/22/17 17:40:00 CDT Notes: (Same as: Humalog ) Roll in palms of hands gently; Do not shake `vigorou sly. "Single Patient Use Only " WASTE: F/P - Black; E - [facility] [address] able for 28 days at room temperature.Expires in days from Da te Start Date: 07/23/17 Stop Date: 07/24/17 Status: Discontinued insulin lispro 3 unit, 0.03 mL, Route: SUB-Q, Drug form: SOLN, Bedtime, Dosing Weight 86, kg, P RN Blood Glucose Results, Start date: 07/24/17 9:07:00 CDT, Duration: 30 day, St op date: 08/23/17 9:06:00 CDT Notes: (Same as: Humalog ) Roll in palms of hands gently; Do not shake `vigorou sly. "Single Patient Use Only " WASTE: F/P - Black; E - [facility] [address] able for 28 days at room temperature.Expires in days from Da te Start Date: 07/24/17 Stop Date: 07/28/17 Status: Discontinued insulin lispro 4 unit, 0.04 mL, Route: SUB-Q, Drug form: SOLN, Bedtime, Dosing Weight 86, kg, P RN Blood Glucose Results, Start date: 07/24/17 9:07:00 CDT, Duration: 30 day, St op date: 08/23/17 9:06:00 CDT Notes: (Same as: Humalog ) Roll in palms of hands gently; Do not shake `vigorou sly. "Single Patient Use Only " WASTE: F/P - Black; E - [facility] [address] able for 28 days at room temperature.Expires in days from Da te Start Date: 07/24/17 Stop Date: 07/28/17 Status: Discontinued insulin lispro 1 unit, 0.01 mL, Route: SUB-Q, Drug form: SOLN, Bedtime, Dosing Weight 86, kg, P RN Blood Glucose Results, Start date: 07/24/17 9:07:00 CDT, Duration: 30 day, St op date: 08/23/17 9:06:00 CDT Notes: (Same as: Humalog ) Roll in palms of hands gently; Do not shake `vigorou sly. "Single Patient Use Only " WASTE: F/P - Black; E - [facility] [address] able for 28 days at room temperature.Expires in days from Da te Start Date: 07/24/17 Stop Date: 07/28/17 Status: Discontinued insulin lispro 2 unit, 0.02 mL, Route: SUB-Q, Drug form: SOLN, Bedtime, Dosing Weight 86, kg, P RN Blood Glucose Results, Start date: 07/24/17 9:07:00 CDT, Duration: 30 day, St op date: 08/23/17 9:06:00 CDT Notes: (Same as: Humalog ) Roll in palms of hands gently; Do not shake `vigorou sly. "Single Patient Use Only " WASTE: F/P - Black; E - [facility] [address] able for 28 days at room temperature.Expires in days from Da te Start Date: 07/24/17 Stop Date: 07/28/17 Status: Discontinued insulin lispro 1 unit, 0.01 mL, Route: SUB-Q, Drug form: SOLN, TID-Before Meals, Dosing Weight 86, kg, PRN Blood Glucose Results, Start date: 07/24/17 9:07:00 CDT, Duration: 3 0 day, Stop date: 08/23/17 9:06:00 CDT Notes: (Same as: Humalog ) Roll in palms of hands gently; Do not shake `vigorou sly. "Single Patient Use Only " WASTE: F/P - Black; E - [facility] [address] able for 28 days at room temperature.Expires in days from Da te Start Date: 07/24/17 Stop Date: 07/28/17 Status: Discontinued insulin lispro 2 unit, 0.02 mL, Route: SUB-Q, Drug form: SOLN, TID-Before Meals, Dosing Weight 86, kg, PRN Blood Glucose Results, Start date: 07/24/17 9:07:00 CDT, Duration: 3 0 day, Stop date: 08/23/17 9:06:00 CDT Notes: (Same as: Humalog ) Roll in palms of hands gently; Do not shake `vigorou sly. "Single Patient Use Only " WASTE: F/P - Black; E - [facility] [address] able for 28 days at room temperature.Expires in days from Da te Start Date: 07/24/17 Stop Date: 07/28/17 Status: Discontinued insulin lispro 3 unit, 0.03 mL, Route: SUB-Q, Drug form: SOLN, TID-Before Meals, Dosing Weight 86, kg, PRN Blood Glucose Results, Start date: 07/24/17 9:07:00 CDT, Duration: 3 0 day, Stop date: 08/23/17 9:06:00 CDT Notes: (Same as: Humalog ) Roll in palms of hands gently; Do not shake `vigorou sly. "Single Patient Use Only " WASTE: F/P - Black; E - [facility] [address] able for 28 days at room temperature.Expires in days from Da te Start Date: 07/24/17 Stop Date: 07/28/17 Status: Discontinued insulin lispro 4 unit, 0.04 mL, Route: SUB-Q, Drug form: SOLN, TID-Before Meals, Dosing Weight 86, kg, PRN Blood Glucose Results, Start date: 07/24/17 9:07:00 CDT, Duration: 3 0 day, Stop date: 08/23/17 9:06:00 CDT Notes: (Same as: Humalog ) Roll in palms of hands gently; Do not shake `vigorou sly. "Single Patient Use Only " WASTE: F/P - Black; E - [facility] [address] able for 28 days at room temperature.Expires in days from Da te Start Date: 07/24/17 Stop Date: 07/28/17 Status: Discontinued insulin lispro 5 unit, 0.05 mL, Route: SUB-Q, Drug form: SOLN, TID-Before Meals, Dosing Weight 86, kg, PRN Blood Glucose Results, Start date: 07/24/17 9:07:00 CDT, Duration: 3 0 day, Stop date: 08/23/17 9:06:00 CDT Notes: (Same as: Humalog ) Roll in palms of hands gently; Do not shake `vigorou sly. "Single Patient Use Only " WASTE: F/P - Black; E - [facility] [address] able for 28 days at room temperature.Expires in days from Da te Start Date: 07/24/17 Stop Date: 07/28/17 Status: Discontinued insulin lispro 100 units/mL subcutaneous injection 2 unit, SUB-Q, Bedtime, PRN Blood Glucose Results, 0 Refill(s) Start Date: 07/28/17 Status: Ordered insulin lispro 100 units/mL subcutaneous injection 1 unit, SUB-Q, Bedtime, PRN Blood Glucose Results, 0 Refill(s) Start Date: 07/28/17 Status: Ordered insulin lispro 100 units/mL subcutaneous injection 5 unit, SUB-Q, TID-Before Meals, PRN Blood Glucose Results, 0 Refill(s) Start Date: 07/28/17 Status: Ordered insulin lispro 100 units/mL subcutaneous injection 4 unit, SUB-Q, TID-Before Meals, PRN Blood Glucose Results, 0 Refill(s) Start Date: 07/28/17 Status: Ordered insulin lispro 100 units/mL subcutaneous injection 3 unit, SUB-Q, TID-Before Meals, PRN Blood Glucose Results, 0 Refill(s) Start Date: 07/28/17 Status: Ordered insulin lispro 100 units/mL subcutaneous injection 2 unit, SUB-Q, TID-Before Meals, PRN Blood Glucose Results, 0 Refill(s) Start Date: 07/28/17 Status: Ordered insulin lispro 100 units/mL subcutaneous injection 1 unit, SUB-Q, TID-Before Meals, PRN Blood Glucose Results, 0 Refill(s) Start Date: 07/28/17 Status: Ordered insulin lispro 100 units/mL subcutaneous injection 4 unit, SUB-Q, Bedtime, PRN Blood Glucose Results, 0 Refill(s) Start Date: 07/28/17 Status: Ordered insulin lispro 100 units/mL subcutaneous injection 3 unit, SUB-Q, Bedtime, PRN Blood Glucose Results, 0 Refill(s) Start Date: 07/28/17 Status: Ordered Lactated Ringers Injection IV 1,000 mL 1,000 mL, Rate: 25 ml/hr, Infuse over: 40 hr, Route: IV, Dosing Weight 86 kg, To purvi Volume: 1,000, Start date: 07/25/17 11:30:00 CDT, Duration: 30 day, Stop aris e: 08/24/17 11:29:00 CDT, 1.96, m2 Start Date: 07/25/17 Stop Date: 07/25/17 Status: Discontinued Lantus 100 units/mL 20 unit, SUB-Q, Daily, 0 Refill(s) Start Date: 07/28/17 Status: Ordered Lantus 100 units/mL 20 unit, 0.2 mL, Route: SUB-Q, Drug form: SOLN, Daily, Dosing Weight 86, kg, Sta rt date: 07/24/17 10:00:00 CDT, Duration: 30 day, Stop date: 08/23/17 9:00:00 CD T Notes: (Same as: Lantus)Do not hold insulin without contacting prescriberWASTE: F/P - Black; E - [facility] Trash [facility] "single patient use only" Start Date: 07/24/17 Stop Date: 07/28/17 Status: Discontinued Lantus 100 units/mL 16 unit, 0.16 mL, Route: SUB-Q, Drug form: SOLN, Daily, Dosing Weight 86, kg, St art date: 07/24/17 10:00:00 CDT, Duration: 30 day, Stop date: 08/23/17 9:00:00 C DT Notes: (Same as: Lantus)Do not hold insulin without contacting prescriberWASTE: F/P - Black; E - [facility] Trash Bin "single patient use only" Start Date: 07/24/17 Stop Date: 07/24/17 Status: Canceled levothyroxine 25 microgram, 1 tab, Route: PO, Drug form: TAB, Daily, Dosing Weight 86, kg, Sta rt date: 07/25/17 9:00:00 CDT, Stop date: 08/23/17 6:30:00 CDT Notes: Take 1 hour before or 2 hours after meal; Enteral feeds may interefere wi th the absorption of this medication. (Same as:Levothroid) Start Date: 07/25/17 Stop Date: 07/28/17 Status: Discontinued lidocaine (ANES) Route: IV, Drug form: INJ, ONCE, Stop date: 07/25/17 14:35:00 CDT Start Date: 07/25/17 Stop Date: 07/25/17 Status: Completed lisinopril 10 mg, 1 tab, Route: PO, Drug form: TAB, Daily, Dosing Weight 86, kg, Start date : 07/28/17 15:00:00 CDT, Duration: 30 day, Stop date: 08/27/17 9:00:00 CDT Notes: (Same as: Prinivil, Zestril) Start Date: 07/28/17 Stop Date: 07/28/17 Status: Discontinued lisinopril 10 mg oral tablet 10 mg, PO, Daily, 0 Refill(s) Start Date: 07/28/17 Status: Ordered Lovenox 40 mg, SUB-Q, [id number], 0 Refill(s) Start Date: 07/28/17 Status: Ordered Lovenox 40 mg, 0.4 mL, Route: SUB-Q, Drug form: INJ, [id number], Dosing Weight 86, kg, Sta rt date: 07/29/17 9:00:00 CDT, Duration: 30 day, Stop date: 08/27/17 9:00:00 CDT Notes: (Same as: Lovenox) Start Date: 07/29/17 Stop Date: 07/28/17 Status: Canceled Lunesta 3 mg, Route: PO, Bedtime, Dosing Weight 86.364, kg, Start date: 07/24/17 21:00:0 0 CDT, Duration: 30 day, Stop date: 08/22/17 21:00:00 CDT Start Date: 07/24/17 Stop Date: 07/24/17 Status: Deleted Lunesta 3 mg oral tablet 3 mg=1 tab, PO, Bedtime, PRN for insomnia, # 30 tab, 0 Refill(s) Start Date: 07/23/17 Stop Date: 07/23/17 Status: Deleted Lunesta 3 mg oral tablet 3 mg=1 tab, PO, Bedtime, PRN for insomnia, # 30 tab, 0 Refill(s) Start Date: 07/23/17 Stop Date: 07/28/17 Status: Discontinued Lunesta 3mg tab Lunesta 3mg tab, 1 tab, Drug form: MISC, Route: PO, Bedtime, 07/24/17 21:00:00 C DT, Duration: 30 day, Stop date: 08/22/17 21:00:00 CDT Start Date: 07/24/17 Stop Date: 07/24/17 Status: Deleted magnesium oxide 400 mg, 1 tab, Route: PO, Drug form: TAB, Daily, Dosing Weight 86, kg, Start rais e: 07/27/17 9:00:00 CDT, Duration: 30 day, Stop date: 08/25/17 9:00:00 CDT Notes: (Same as: Mag-Ox 400)Magnesium oxide [id number] elemental magnesiumDose= ____mg magnesium oxide (___mg elemental magnesium) Start Date: 07/27/17 Stop Date: 07/28/17 Status: Discontinued magnesium oxide 400 mg, 1 tab, Route: PO, Drug form: TAB, ONCE, Dosing Weight 86, kg, Start date : 07/26/17 17:58:00 CDT, Stop date: 07/26/17 17:58:00 CDT Notes: (Same as: Mag-Ox 400)Magnesium oxide [id number] elemental magnesiumDose= ____mg magnesium oxide (___mg elemental magnesium) Start Date: 07/26/17 Stop Date: 07/26/17 Status: Completed magnesium sulfate 1 gm, 100 mL, Route: IVPB, Drug form: INJ, ONCE, Dosing Weight 86, kg, Start aris e: 07/26/17 17:54:00 CDT, Stop date: 07/26/17 17:54:00 CDT Notes: WASTE: F/P - Sink; E - [facility] Trash [facility] Start Date: 07/26/17 Stop Date: 07/26/17 Status: Completed metoprolol tartrate 25 mg, 1 tab, Route: PO, Drug form: TAB, Q12H, Dosing Weight 86, kg, Start date: 07/26/17 21:00:00 CDT, Duration: 30 day, Stop date: 08/25/17 9:00:00 CDT Notes: (Same as: Lopressor) Start Date: 07/26/17 Stop Date: 07/28/17 Status: Discontinued midazolam (ANES) Route: IV, Drug form: SOLN, ONCE, Stop date: 07/25/17 14:56:00 CDT Start Date: 07/25/17 Stop Date: 07/25/17 Status: Completed morphine Sulfate 4 mg, 1 mL, Route: IVP, Drug form: SOLN, Q3H, Dosing Weight 86.364, kg, PRN Pain Score 7-10, Start date: 07/23/17 17:40:00 CDT, Duration: 30 day, Stop date: 17:39:00 CDT Notes: (Same as:MORPhine Sulfate) Start Date: 07/23/17 Stop Date: 07/24/17 Status: Discontinued morphine Sulfate 2 mg, 0.5 mL, Route: IVP, Drug form: SOLN, Q4H, Dosing Weight 86, kg, PRN Pain S core 7-10, Start date: 07/24/17 9:14:00 CDT, Duration: 30 day, Stop date: 9:13:00 CDT Notes: (Same as:MORPhine Sulfate) Start Date: 07/24/17 Stop Date: 07/28/17 Status: Discontinued Pisek 5/325 oral tablet 1 tab, Route: PO, Drug Form: TAB, Dosing Weight 86.364, kg, ONCE, STAT, Start da te: 07/23/17 16:34:00 CDT, Stop date: 07/23/17 16:34:00 CDT Start Date: 07/23/17 Stop Date: 07/23/17 Status: Completed Pisek 5/325 oral tablet 1 tab, PO, Q4H, PRN Pain Score 6-10, # 60 tab, 0 Refill(s), other Start Date: 07/28/17 Stop Date: 08/28/17 Status: Ordered NS 1,000 mL 1,000 mL, Rate: 75 ml/hr, Infuse over: 13.3 hr, Route: IV, Dosing Weight 86 kg, Total Volume: 1,000, Start date: 07/24/17 9:15:00 CDT, Duration: 30 day, Stop da te: 08/23/17 9:14:00 CDT, 1.96, m2 Start Date: 07/24/17 Stop Date: 07/28/17 Status: Discontinued ondansetron 4 mg, 2 mL, Route: IVP, Drug form: INJ, Q6H, Dosing Weight 86.364, kg, PRN Nause a & Vomiting, Start date: 07/23/17 17:40:00 CDT, Duration: 30 day, Stop date: 08/22/17 17:39:00 CDT Notes: (Same as: Kimberly) MEDICATION WASTE Product Size: 4 mgProduct Was stephanie: ___ mg Start Date: 07/23/17 Stop Date: 07/28/17 Status: Discontinued Percocet 5/325 oral tablet 2 tab, Route: PO, Drug Form: TAB, Dosing Weight 86, kg, Q4H, PRN Pain Score 4-6, Start date: 07/24/17 12:03:00 CDT, Duration: 30 day, Stop date: 08/23/17 12:02: 00 CDT Notes: Do not exceed 4gm/day of acetaminophen. (Same as: Percocet-5/325) Start Date: 07/24/17 Stop Date: 07/28/17 Status: Discontinued phenylephrine (ANES) Route: IV, Drug form: INJ, ONCE, Stop date: 07/25/17 15:11:00 CDT Start Date: 07/25/17 Stop Date: 07/25/17 Status: Completed potassium chloride 20 mEq, 1 tab, Route: PO, Drug form: ERTAB, ONCE, Dosing Weight 86, kg, Start da te: 07/24/17 14:49:00 CDT, Stop date: 07/24/17 14:49:00 CDT Notes: (Same as: Matthew 20)"Do Not Crush"For patients unable to swallow tablet, d issolve in one half glass of water. Allow about 2 minutes for the tablets to dis integrate. Stir before giving to prepare slurry and administer.Please exclude Pa tients with feeding tube less than 14 Guatem[place] (Dobhoff, J-tube etc) and pediat judith and patients. With food and full glass of water Start Date: 07/24/17 Stop Date: 07/24/17 Status: Completed propofol (ANES) Route: IV, Drug form: INJ, ONCE, Stop date: 07/25/17 16:44:00 CDT Start Date: 07/25/17 Stop Date: 07/25/17 Status: Completed propofol (ANES) Route: IV, Drug form: INJ, ONCE, Stop date: 07/25/17 14:40:00 CDT Start Date: 07/25/17 Stop Date: 07/25/17 Status: Completed Protonix 40 mg, 1 tab, Route: PO, Drug form: ECTAB, Before Dinner, Dosing Weight 86, kg, Start date: 07/27/17 16:30:00 CDT, Duration: 30 day, Stop date: 08/25/17 16:30:0 0 CDT Notes: Tablet should not be chewed or crushed.(Same as: Protonix) Start Date: 07/27/17 Stop Date: 07/28/17 Status: Discontinued rocuronium (ANES) Route: IV, Drug form: INJ, ONCE, Stop date: 07/25/17 14:40:00 CDT Start Date: 07/25/17 Stop Date: 07/25/17 Status: Completed SEROquel 400 mg, 4 tab, Route: PO, Drug form: TAB, Bedtime, Dosing Weight 86.364, kg, Sta rt date: 07/24/17 1:00:00 CDT, Duration: 30 day, Stop date: 08/22/17 21:00:00 CD T Notes: (Same as: SEROquel) Start Date: 07/24/17 Stop Date: 07/28/17 Status: Discontinued Sodium Chloride 0.9% IV (ANES) 500 mL Route: IV, Total Volume: 500, Start date: 07/25/17 13:10:00 CDT, Stop date: 07/05 04/23 14:10:00 CDT Start Date: 07/25/17 Stop Date: 07/25/17 Status: Completed tramadol 50 mg oral tablet 50 mg, Route: PO, Drug form: TAB, ONCE, Dosing Weight 86.364, kg, Priority: STAT , Start date: 07/23/17 15:14:00 CDT, Stop date: 07/23/17 15:14:00 CDT Start Date: 07/23/17 Stop Date: 07/23/17 Status: Completed tramadol 50 mg oral tablet 50 mg, Route: PO, Drug form: TAB, ONCE, Dosing Weight 86.364, kg, Priority: STAT , Start date: 07/23/17 15:37:00 CDT, Stop date: 07/23/17 15:37:00 CDT Start Date: 07/23/17 Stop Date: 07/23/17 Status: Completed trazodone 100 mg oral tablet 100 mg, 2 tab, Route: PO, Drug form: TAB, Bedtime, Dosing Weight 86.364, kg, Sta rt date: 07/24/17 1:00:00 CDT, Duration: 30 day, Stop date: 08/22/17 21:00:00 CD T Notes: (Same As: Vemla) Start Date: 07/24/17 Stop Date: 07/28/17 Status: Discontinued zolpidem 5 mg, 1 tab, Route: PO, Drug form: TAB, Bedtime, Start date: 07/24/17 1:00:00 CD T, Duration: 30 day, Stop date: 08/22/17 21:00:00 CDT Notes: (Same As: Sasha) Start Date: 07/24/17 Stop Date: 07/25/17 Status: Discontinued Results ELECTROLYTES 1 2 3 Most recent to oldest [Reference Range]: 140 mEq/L (07/27/17 3:28 AM) 142 mEq/L (07/26/17 4:37 AM) 140 mEq/L (07/25/17 6:53 AM) Sodium Lvl [135-145 mEq/L] 3.9 mEq/L (07/27/17 3:28 AM) 3.9 mEq/L (07/26/17 4:37 AM) 4.1 mEq/L (07/25/17 6:53 AM) Potassium Lvl [3.5-5.1 mEq/L] 107 mEq/L (07/27/17 3:28 AM) 111 mEq/L *HI* (07/26/17 4:37 AM) 108 mEq/L (07/25/17 6:53 AM) Chloride Lvl [95-109 mEq/L] 24 mEq/L (07/27/17 3:28 AM) 23 mEq/L *LOW* (07/26/17 4:37 AM) 26 mEq/L (07/25/17 6:53 AM) CO2 [24-32 mEq/L] 12.9 mEq/L (07/27/17 3:28 AM) 11.9 mEq/L (07/26/17 4:37 AM) 10.1 mEq/L (07/25/17 6:53 AM) AGAP [10.0-20.0 mEq/L] CHEM PANEL 1 2 3 Most recent to oldest [Reference Range]: 1.34 mg/dL (07/27/17 3:28 AM) 1.59 mg/dL *HI* (07/26/17 4:37 AM) 1.67 mg/dL *HI* (07/25/17 6:53 AM) Creatinine Lvl [0.50-1.40 mg/dL] 44 mL/min/1.73m2 1 *NA* (07/27/17 3:28 AM) 36 mL/min/1.73m2 2 *NA* (07/26/17 4:37 AM) 33 mL/min/1.73m2 3 *NA* (07/25/17 6:53 AM) eGFR 21 mg/dL (07/27/17 3:28 AM) 25 mg/dL *HI* (07/26/17 4:37 AM) 24 mg/dL *HI* (07/25/17 6:53 AM) BUN [7-22 mg/dL] 17 (07/23/17 6:12 PM) B/C Ratio [6-25] 166 mg/dL *HI* (07/27/17 3:28 AM) 88 mg/dL (07/26/17 4:37 AM) 156 mg/dL *HI* (07/25/17 6:53 AM) Glucose Lvl [70-99 mg/dL] 7.4 g/dL (07/23/17 6:12 PM) Total Protein [6.4-8.4 g/dL] 2.8 g/dL *LOW* (07/23/17 6:12 PM) Albumin Lvl [3.5-5.0 g/dL] 4.6 g/dL *HI* (07/23/17 6:12 PM) Globulin [2.7-4.2 g/dL] 0.6 *LOW* (07/23/17 6:12 PM) A/G Ratio [0.7-1.6] 8.5 mg/dL (07/27/17 3:28 AM) 8.0 mg/dL *LOW* (07/26/17 4:37 AM) 7.8 mg/dL *LOW* (07/25/17 6:53 AM) Calcium Lvl [8.5-10.5 mg/dL] 1.8 mg/dL (07/27/17 3:28 AM) 1.4 mg/dL *LOW* (07/26/17 4:37 AM) 1.4 mg/dL *LOW* (07/25/17 6:53 AM) Magnesium Lvl [1.8-2.4 mg/dL] 17 unit/L (07/23/17 6:12 PM) ALT [0-65 unit/L] 23 unit/L (07/23/17 6:12 PM) AST [0-37 unit/L] 81 unit/L (07/23/17 6:12 PM) Alk Phos [39-136 unit/L] 0.2 mg/dL (07/23/17 6:12 PM) Bili Total [0.2-1.3 mg/dL] 8.5 ng/mL *LOW* (07/26/17 4:37 AM) Vitamin D, 25-OH, Total [30.0-100.0 ng/mL] 1Result Comment: The eGFR is calculated using [...] be mul tiplied by the estimated BMI. PARATHYROID PROFILE 1 2 3 Most recent to oldest [Reference Range]: 1.14 mMol/L (07/26/17 4:37 AM) Ca Ion WB [1.05-1.25 mMol/L] 1.12 mMol/L (07/26/17 4:37 AM) Ca Norm WB [1.05-1.25 mMol/L] 84.3 pg/mL *HI* (07/26/17 4:37 AM) PTH Intact [18.4-80.1 pg/mL] HEMATOLOGY 1 2 3 Most recent to oldest [Reference Range]: 6.1 K/CMM (07/27/17 3:28 AM) 7.2 K/CMM (07/26/17 4:37 AM) 7.2 K/CMM (07/25/17 6:53 AM) WBC [3.7-10.4 K/CMM] 2.87 M/CMM *LOW* (07/27/17 3:28 AM) 2.82 M/CMM *LOW* (07/26/17 4:37 AM) 3.11 M/CMM *LOW* (07/25/17 6:53 AM) RBC [4.20-5.40 M/CMM] 8.7 g/dL *LOW* (07/27/17 3:28 AM) 8.4 g/dL *LOW* (07/26/17 4:37 AM) 9.3 g/dL *LOW* (07/25/17 6:53 AM) Hgb [12.0-16.0 g/dL] 24.9 % *LOW* (07/27/17 3:28 AM) 25.1 % *LOW* (07/26/17 4:37 AM) 27.0 % *LOW* (07/25/17 6:53 AM) Hct [36.0-48.0 %] 86.9 fL (07/27/17 3:28 AM) 89.0 fL (07/26/17 4:37 AM) 86.8 fL (07/25/17 6:53 AM) MCV [80.0-98.0 fL] 30.4 pg (07/27/17 3:28 AM) 29.8 pg (07/26/17 4:37 AM) 29.9 pg (07/25/17 6:53 AM) MCH [27.0-31.0 pg] 35.0 g/dL (07/27/17 3:28 AM) 33.4 g/dL (07/26/17 4:37 AM) 34.5 g/dL (07/25/17 6:53 AM) MCHC [32.0-36.0 g/dL] 14.0 % (07/27/17 3:28 AM) 13.9 % (07/26/17 4:37 AM) 13.4 % (07/25/17 6:53 AM) RDW [11.5-14.5 %] 7.7 fL (07/27/17 3:28 AM) 7.4 fL (07/26/17 4:37 AM) 7.3 fL *LOW* (07/25/17 6:53 AM) MPV [7.4-10.4 fL] 199 K/CMM (07/27/17 3:28 AM) 203 K/CMM (07/26/17 4:37 AM) 195 K/CMM (07/25/17 6:53 AM) Platelet [133-450 K/CMM] 68.0 % (07/27/17 3:28 AM) 62.0 % (07/26/17 4:37 AM) 65.6 % (07/25/17 6:53 AM) Segs [45.0-75.0 %] 23.6 % (07/27/17 3:28 AM) 28.5 % (07/26/17 4:37 AM) 26.5 % (07/25/17 6:53 AM) Lymphocytes [20.0-40.0 %] 7.3 % (07/27/17 3:28 AM) 8.4 % (07/26/17 4:37 AM) 7.0 % (07/25/17 6:53 AM) Monocytes [2.0-12.0 %] 0.7 % (07/27/17 3:28 AM) 0.7 % (07/26/17 4:37 AM) 0.3 % (07/25/17 6:53 AM) Eosinophils [0.0-4.0 %] 0.4 % (07/27/17 3:28 AM) 0.4 % (07/26/17 4:37 AM) 0.6 % (07/25/17 6:53 AM) Basophils [0.0-1.0 %] 4.2 K/CMM (07/27/17 3:28 AM) 4.5 K/CMM (07/26/17 4:37 AM) 4.7 K/CMM (07/25/17 6:53 AM) Segs-Bands # [1.5-8.1 K/CMM] 1.4 K/CMM (07/27/17 3:28 AM) 2.1 K/CMM (07/26/17 4:37 AM) 1.9 K/CMM (07/25/17 6:53 AM) Lymphocytes # [1.0-5.5 K/CMM] 0.4 K/CMM (07/27/17 3:28 AM) 0.6 K/CMM (07/26/17 4:37 AM) 0.5 K/CMM (07/25/17 6:53 AM) Monocytes # [0.0-0.8 K/CMM] 0.1 K/CMM (07/26/17 4:37 AM) Eosinophils # [0.0-0.5 K/CMM] 0.1 K/CMM (07/23/17 6:12 PM) Basophils # [0.0-0.2 K/CMM] Immunizations Given and Recorded Vaccine Date Status [...] day; entered on: 07/23/17 Assessment and Plan Extracted from: Title: Pulmonary note Author: Louie Robert MD Date: 07/28/17 Pulmonary Critical Care Medicine Progress Allergies: NKDA Subjective / overnight events: Overnight events noted; discussed with RN no sob Exam: VS reviewed General: not in any distress HEENT: no pallor, icterus Cardiovascular: regular, no murmur Respiratory: Diminished on bases Abdomen: soft, non-tender, +BS Extremities: no edema, no cyanosis Neurologic: Alert, Nonfocal Skin: no breakdown Assessment: 1. Right-sided nodule 9-mm. 2. Heavy smoker. 3. Chronic obstructive pulmonary disease without exacerbation. 4. Mechanical fall status post right humeral neck fracture displaced and right patella fracture status post surgery. 5. History of hypertension. 6. Diabetes mellitus. 7. Suspected obstructive sleep apnea, undiagnosed. Plan: I discussed plan of care with the patient. She needs to followup for a followup CT scan and pulmonary function test. Continue nutritional support Aspiration precautions, elevate HOB Nebs prn, IS OOB, PT/OT Plan of care discussed with patient From my standpoint, the patient can be discharged. I gave my business card to follow up with me, again she can be discharged with albuterol inhaler p.r.n. I will sign off case, since there are no acute pulmonary issues. Please call us if any questions. MICROBIOLOGY: reviewed RADIOLOGY: reviewed CXR: reviewed Diagnosis: Displaced fracture of greater tuberosity of right humerus, subsequent encounter for fracture with malunion Comment: Diagnosis: Unspecified fall, initial encounter Comment: Diagnosis: Other fracture of right patella, initial encounter for closed fracture Comment: Diagnosis: 2-part displaced fracture of surgical neck of right humerus, initial encounter for closed fracture Comment: Diagnosis: Accidental fall Comment: Diagnosis: Closed displaced fracture of proximal right humerus with malunion Comment: Diagnosis: Closed patellar communited fracture of right knee Comment: Diagnosis: Type 2 diabetes mellitus without complications Comment: Vital Signs (last 24 hrs) Last Charted Temp Oral98.5 DegF (JULY 28:51) Heart Rate [id number] bpm (JULY 28:) Resp Rate 20 BRMIN (JULY 28:) SBPH 146mmHg (JULY 28:) DBP76 mmHg (JULY 28:) [id number] % (JULY 28:) I&ORecordInOutBal 07/2523hr Tot 0 0 0 07/2423hr Tot 0 0 0 (all previously charted lines have been discontinued) [employer] CATHETER NEEDED FOR I/O MONITORING CENTRAL VENOUS LINE NEEDED Scheduled Meds (12): 07/24/17 QUEtiapine (SEROquel) 400 mg PO Bedtime 07/25/17 amLODIPine 10 mg PO Daily 07/25/17 calcium carbonate 500 mg PO BID 07/24/17 docusate 100 mg PO BID 07/23/17 enoxaparin 30 mg SUB-Q [id number] 07/25/17 ergocalciferol 50,000 unit PO QTue 07/24/17 insulin glargine (Lantus 100 units/mL) 20 unit SUB-Q Daily 0 ml/hr 07/25/17 levothyroxine 25 microgram PO Daily 07/27/17 magnesium oxide 400 mg PO Daily 07/26/17 metoprolol (metoprolol tartrate) 25 mg PO Q12H 07/27/17 pantoprazole (Protonix) 40 mg PO Before Dinner 07/24/17 trazodone (trazodone 100 mg oral tablet) 100 mg PO Bedtime Ventilator Support: 07/28/2017 06:51 SpO2 [id number] O2 Sat LocationLeft hand/finger Labs (Last four charted values) WBC 6.1(JULY 27)7.2(JULY 26)7.2(JULY 25)H 12.6(JULY 23) Hgb L 8.7(JULY 27)L 8.4(JULY 26)L 9.3(JULY 25)L 10.9(JULY 23) Hct L 24.9(JULY 27)L 25.1(JULY 26)L 27.0(JULY 25)L 31.9(JULY 23) Plt 199(JULY 27)203(JULY 26)195(JULY 25)269(JULY 23) Na 140(JULY 27)142(JULY 26)140(JULY 25)139(JULY 24) K 3.9(JULY 27)3.9(JULY 26)4.1(JULY 25)L 3.4(JULY 24) CO2 24(JULY 27)L 23(JULY 26)26(JULY 25)26(JULY 24) Cl 107(JULY 27)H 111(JULY 26)108(JULY 25)104(JULY 24) Cr 1.34(JULY 27)H 1.59(JULY 26)H 1.67(JULY 25)H 1.73(JULY 24) BUN 21(JULY 27)H 25(JULY 26)H 24(JULY 25)H 24(JULY 24) Glucose Random H 166(JULY 27)88(JULY 26)H 156(JULY 25)H 151(JULY 24) Mg 1.8(JULY 27)L 1.4(JULY 26)L 1.4(JULY 25) Ca 8.5(JULY 27)L 8.0(JULY 26)L 7.8(JULY 25)L 8.2(JULY 24) Extracted from: Title: Clinical Document Author: Navi Butler MD Date: 07/25/17 Orthopedic operative report Date of Procedure: 07/25/2017 Preoperative diagnosis: Right proximal humerus fracture including fractures of the surgical neck and greater tuberosity. Right inferior pole patella fracture Postoperative diagnosis:Right proximal humerus fracture including fractures of the surgical neck and greater tuberosity. Right inferior pole patella fracture Procedure performed: Open reduction internal fixation of the right proximal humerus fracture and greater tuberosity fractures. Closed treatment without manipulation of the right inferior pole patella fracture Surgeon: Navi butler Health Physicist: None Estimated blood loss: 150 cc Intravenous fluids: Per anesthesia records Complications: None Findings: Right proximal humerus fracture including complete displacement of the surgical neck and a fracture at the greater tuberosity Implants: Rhonda proximal humerus plate, fibula allograft, #2 FiberWire Indications for surgery: 63-year-old female with multiple medical comorbidities and had a fall from standing and sustained a displaced right proximal humerus fracture and a nondisplaced right inferior pole patella fracture. Risks, benefits, and alternatives of surgical and nonsurgical management were discussed with the patient in detail informed consent was obtained prior to going to the operating room. Risks include, but are not limited to, pain, bleeding, infection, damage to surrounding structures, loss of function, failure to heal, need for further surgery, heart attack, stroke and . The patient verbalized understanding and wished to proceed with the operation. Description of operative technique in detail: The patient was identified in the preoperative holding area. The patient was marked for surgery. The patient was brought to the operating room and placed onto the operating room table. The right upper extremity was prepped and draped in the usual sterile fashion. After prepping and draping, a timeout was performed and all parties in the room agreed that we had the correct patient, and the correct site, and the correct side. Initially a lateral deltoid splitting approach was made to the proximal humerus. The axillary nerve was identified and a neuro lysis was performed to allow for greater freedom of motion and the nerve was protected with a vessel loop throughout the operation. The fracture site was identified and debrided of intervening material. #2 FiberWire was used to place 2 sutures through the rotator cuff to help control reduction. Reduction was performed and held in place with K wires and a pointed reduction clamp. Under fluoroscopic guidance we placed a guidewire from the humeral head into the humeral shaft. This was used to guide an entry reamer to make a path for a fibula allograft. A 10 cm fibular allograft was trimmed to the appropriate size and placed into the humeral head down into the humeral shaft. The fibula allograft was tamped into place just below the articular surface of the humeral head. This was was done so that there was some fixation in the humeral head of the fibula allograft. An appropriately sized Rhonda lateral proximal humerus plate was placed onto the patient held in place with K wires. Cortical screws were placed in the distalmost portion of the plate. Locking screws were placed into the humeral head trying to capture the fibula allograft as often as possible. We took special care to place a calcar screw along the calcar of the humeral neck. Thoracoscopic guidance was used to confirm that we had restored near anatomic alignment of our right proximal humerus and that all her screws were in safe positioning. We used life fluoroscopy to confirm that our screws were in safe positioning. 1 L sterile saline was then washed through the wound. We closed the small incision of the rotator cuff with 0 PDS. Deep layers were closed with 0 PDS. Subcutaneous layers were closed with 2-0 PDS. [place] were used to close the skin. A sterile dry dressing was placed onto the patient. All needles and sponge counts were correct prior to closing operation. The patient was placed into a right upper extremity sling. We will treat her right patella fracture nonoperatively and place her into a knee immobilizer. Assessment and plan: This patient will be nonweightbearing right upper extremity. The patient will be weightbearing as tolerated in a knee immobilizer on the right lower extremity. This patient will get 24 hours of IV antibiotics. This patient will get physical therapy. Once pain is well controlled, the patient is medically cleared, and physical therapy has cleared the patient will be able to be discharged. Extracted from: Title: Upper Extremity Trauma Author: Navi Butler MD Date: 07/25/17 Admission H&P * Impression and Plan Diagnosis 2-part displaced fracture of surgical neck of right humerus, initial encounter for closed fracture ([id number] S42.221A, Working, Medical). Closed displaced fracture of proximal right humerus with malunion ([id number] S42.251P, Working, Medical). Closed patellar communited fracture of right knee ([id number] S82.091A, Working, Medical). Orders Risks benefits and alternatives of surgical nonsurgical management discussed the patient in detail. There are fracture lines of the surgical neck and greater tuberosity of the right proximal humerus. The shaft is nearly fully displaced and the head is angulated off the back of the humerus. Patient is in a lot of pain and desires to have surgery on her right proximal humerus. We will taken to surgery today for open reduction internal fixation of right proximal humerus. I do not think surgery is necessary for the right knee. Based on the x-ray it appears that her extensor mechanism is intact. She is not performing a straight leg raise right now but I think it is likely secondary to pain. We will monitor the situation in clinic and if she does need surgery down the road we will perform it. Right now we will plan on nonoperative treatment..
--- OUTSIDE RECORDS SUMMARY | 2018-05-14 21:18 | XMS REPORT | Summary of Care ---
Author Author [facility] Primary Care [facility] Address Unknown Phone Unavailable Encounter [facility] Abe[facility](FIN) [id number] Date(s): 05/02/17 - 05/03/17 [facility] Primary [facility] [address] [place] [phone]- [phone] Vital Signs No data available for this [...] Substance Reaction Severity Status NKDA Active Medications citalopram 20 mg oral tablet See Instructions, # 180 tab, TAKE 2 TABLETS BY MOUTH DAILY, Pharmacy: [id number] Start Date: 07/20/17 Status: Ordered citalopram 20 mg oral tablet See Instructions, # 180 tab, TAKE 2 TABLETS BY MOUTH DAILY, Pharmacy: [facility] [id number] Start Date: 05/02/17 Stop Date: 07/20/17 Status: Completed Lunesta 3 mg oral tablet 3 mg=1 tab, PO, Bedtime, PRN for insomnia, X 30 day, # 30 tab, 3 Refill(s) Start Date: 05/02/17 Stop Date: 05/16/17 Status: Discontinued QUEtiapine 400 mg oral tablet See Instructions, # 30 tab, Refill(s) 11, TAKE 1 TABLET BY MOUTH AT BEDTIME, 8:20:36 CDT, Pharmacy: [facility] Start Date: 07/20/17 Stop Date: 08/01/17 Status: Completed Results No data available for this section [...]
--- OUTSIDE RECORDS SUMMARY | 2018-05-14 21:18 | XMS REPORT | Summary of Care ---
Author Author [facility] Care [facility] Care [facility] Address Unknown Phone Unavailable Encounter [facility](FIN) [id number] Date(s): 05/11/17 - 05/11/17 [facility] Care [facility] [address] [facility] [place] [phone]- [phone] Attending Physician: Lucero Knight MD Vital Signs No data available for this [...]
--- OUTSIDE RECORDS SUMMARY | 2018-05-14 21:18 | XMS REPORT | Summary of Care ---
Author Author [facility] Primary Care [facility] Care [facility] Address Unknown Phone Unavailable Encounter [facility] Abe[facility](FIN) [id number] Date(s): 03/15/17 - 03/15/17 [facility] Primary Care [facility] [address] [facility] [place] [phone]- [phone] Discharge Disposition: Home or Self Care Attending [...] Daily, # 90 tab, 0 Refill(s), Pharmacy: [facility] [id number] Start Date: 03/15/17 Stop Date: 06/08/17 Status: Completed Bactrim DS 800 mg- 160 mg oral tablet 1 tab, PO, BID, X 14 day, # 28 tab, 0 Refill(s), [id number] Start Date: 03/15/17 Stop Date: 03/29/17 Status: Completed hydrochlorothiazide-lisinopril 12.5 mg-20 mg oral tablet See Instructions, TAKE 1 TABLET BY MOUTH DAILY, # 90 tab, 1 Refill(s), [facility] [id number] Start Date: 03/15/17 Stop Date: 05/16/17 Status: Discontinued Lunesta 2 mg oral tablet 2 mg=1 tab, PO, Bedtime, PRN for insomnia, X 30 day, # 30 tab, 0 Refill(s) Start Date: 03/15/17 Stop Date: 04/05/17 Status: Discontinued predniSONE 20 mg oral tablet 20 mg=1 tab, PO, Daily, X 7 day, # 7 tab, 0 Refill(s), [facility] [id number] Start Date: 03/15/17 Stop Date: 03/22/17 Status: Completed QUEtiapine 300 mg oral tablet 300 mg=1 tab, PO, Daily, # 90 tab, 0 Refill(s), [id number] Start Date: 03/15/17 Stop Date: 04/05/17 Status: Discontinued trazodone 100 mg oral tablet 100 mg=1 tab, PO, Bedtime, # 30 tab, 0 Refill(s), [facility] [id number] Start Date: 03/15/17 Stop Date: 03/15/17 Status: Completed trazodone 100 mg oral tablet See Instructions, # 90 tab, TAKE 1 TABLET BY MOUTH AT BEDTIME, Pharmacy: [facility] [id number] Start Date: 03/15/17 Stop Date: 04/05/17 Status: Discontinued Results No data available for [...]
--- OUTSIDE RECORDS SUMMARY | 2018-05-14 21:18 | XMS REPORT | Summary of Care ---
Author Author [facility] Primary Care [facility] Care [facility] Address Unknown Phone Unavailable Encounter [facility](FIN) [id number] Date(s): 05/03/18 - 05/03/18 [facility] Primary Care [facility] [address] [facility] [place] [phone]- [phone] Discharge Disposition: Home or Self Care Attending Physician: Pam Milner NP Vital Signs Most recent to 1 oldest [Reference Range]: Height 154.94 cm (05/03/18 9:05 AM) Temperature Oral 98.0 DegF [96.4-99.1 DegF] (05/03/18 9:05 AM) Blood Pressure 176/100 mmHg [90-140/60-90 mmHg] *HI* (05/03/18 9:05 AM) Peripheral Pulse 91 bpm Rate [60-100 bpm] (05/03/18 9:05 AM) Weight 102.273 kg (05/03/18 9:05 AM) Body Mass Index 42.6 m2 (05/03/18 9:05 AM) Problem List Condition Effective Dates Status [...] Substance Reaction Severity Status NKDA Active Medications Lasix 20 mg oral tablet 20 mg=1 tab, PO, Daily, # 30 tab, 0 Refill(s) Start Date: 05/03/18 Status: Ordered Results No data available for [...] Frequency One Pack a day; entered on: 05/03/18 Assessment and Plan No data available for this section
--- OUTSIDE RECORDS SUMMARY | 2018-05-14 21:19 | XMS REPORT | Summary of Care ---
Author Author [facility] Care [facility] Care [facility] Address Unknown Phone Unavailable Encounter [facility](FIN) [id number] Date(s): 05/22/17 - 05/23/[address] [facility] [address] [facility] [address] [facility] [place] [phone]- [phone] Vital Signs No data available for this [...]
--- OUTSIDE RECORDS SUMMARY | 2018-05-14 21:19 | XMS REPORT | Summary of Care ---
Author Organization Unknown Address Unknown Phone Unavailable Encounter [facility](NOAH) [id number] Date(s): 08/15/13 - 08/15/[address] Discharge Disposition: Home Physician Attending: Isaak Mehta MD Physician_Referring: Isaak Mehta MD Reason for Visit ANEMIA HGB 7.0 Vital Signs Most recent to 1 oldest [Reference Range]: Height 154.94 cm (08/14/13 3:32 PM) Weight 82.273 kg (08/14/13 3:32 PM) Body Mass Index 34.27 m2 (08/14/13 3:32 PM) Problem List No data available for this section Allergies, Adverse Reactions, Alerts Substance Reaction Severity Status NKDA Active Medications Sodium Chloride 0.9% IV IV, 0 ml/hr, PRN, PRN Blood Transfusion, Start date: 08/15/13 8:59:00, Duration: 30, 250 ml Start Date: 08/15/13 Stop Date: 08/16/13 Status: Discontinued Results BLOOD BANK RESULTS Most recent to 1 2 oldest [Reference Range]: ABO/Rh O POS *Unknown* (08/14/13 3:00 PM) Antibody Scrn Negative (08/14/13 3:00 PM) RBC product Product available (08/14/13 3:00 PM) HEMATOLOGY Most recent to 1 2 oldest [Reference Range]: WBC [3.7-10.4 K/CMM] 8.1 K/CMM 9.0 K/CMM (08/15/13 6:16 PM) (08/14/13 3:00 PM) RBC [4.20-5.40 3.11 M/CMM 2.48 M/CMM M/CMM] *LOW* *LOW* (08/15/13 6:16 PM) (08/14/13 3:00 PM) Hgb [12.0-16.0 g/dL] 9.1 g/dL 7.2 g/dL *LOW* *LOW* (08/15/13 6:16 PM) (08/14/13 3:00 PM) Hct [36.0-48.0 %] 27.1 % 21.6 % *LOW* *LOW* (08/15/13 6:16 PM) (08/14/13 3:00 PM) MCV [81.0-99.0 fL] 87.0 fL 86.8 fL (08/15/13 6:16 PM) (08/14/13 3:00 PM) MCH [27.0-31.0 pg] 29.3 pg 28.9 pg (08/15/13 6:16 PM) (08/14/13 3:00 PM) MCHC [32.0-36.0 33.6 g/dL 33.3 g/dL g/dL] (08/15/13 6:16 PM) (08/14/13 3:00 PM) RDW [11.5-14.5 %] 15.1 % 16.4 % *HI* *HI* (08/15/13 6:16 PM) (08/14/13 3:00 PM) Platelet [133-450 403 K/CMM 540 K/CMM K/CMM] (08/15/13 6:16 PM) *HI* (08/14/13 3:00 PM) MPV [7.4-10.4 fL] 6.5 fL 6.4 fL *LOW* *LOW* (08/15/13 6:16 PM) (08/14/13 3:00 PM) Segs [45.0-75.0 %] 52.3 % 52.7 % (08/15/13 6:16 PM) (08/14/13 3:00 PM) Lymphocytes 40.7 % 40.7 % [20.0-40.0 %] *HI* *HI* (08/15/13 6:16 PM) (08/14/13 3:00 PM) Monocytes [2.0-12.0 5.6 % 6.2 % %] (08/15/13 6:16 PM) (08/14/13 3:00 PM) Eosinophils [0.0-4.0 0.4 % 0.2 % %] (08/15/13 6:16 PM) (08/14/13 3:00 PM) Basophils [0.0-1.0 1.0 % 0.2 % %] (08/15/13 6:16 PM) (08/14/13 3:00 PM) Segs-Bands # 4.3 K/CMM 4.7 K/CMM [1.5-8.1 K/CMM] (08/15/13 6:16 PM) (08/14/13 3:00 PM) Lymphocytes # 3.3 K/CMM 3.7 K/CMM [1.0-5.5 K/CMM] (08/15/13 6:16 PM) (08/14/13 3:00 PM) Monocytes # [0.0-0.8 0.5 K/CMM 0.6 K/CMM K/CMM] (08/15/13 6:16 PM) (08/14/13 3:00 PM) Eosinophils # 0.0 K/CMM 0.0 K/CMM [0.0-0.5 K/CMM] (08/15/13 6:16 PM) (08/14/13 3:00 PM) Basophils # [0.0-0.2 0.1 K/CMM 0.0 K/CMM K/CMM] (08/15/13 6:16 PM) (08/14/13 3:00 PM) Medications Administered During Your Visit No data available for this section Immunizations Vaccine Date Refusal Reason influenza virus vaccine, inactivated 01/20/09 pneumococcal 23-valent vaccine 01/20/09
--- OUTSIDE RECORDS SUMMARY | 2018-05-14 21:19 | XMS REPORT | Summary of Care ---
Author Author [facility] Primary Care [facility] Care [facility] Address Unknown Phone Unavailable Encounter [facility](FIN) [id number] Date(s): 09/26/17 - 09/26/17 [facility] Primary Care [facility] [address] [facility] [place] [phone]- [phone] Discharge Disposition: Home or Self Care Attending Physician: Lucero Knight MD Vital Signs Most recent to 1 oldest [Reference Range]: Height 154.94 cm (09/26/17 10:59 AM) Temperature Oral 98.3 DegF [96.4-99.1 DegF] (09/26/17 10:59 AM) Blood Pressure 165/80 mmHg [90-140/60-90 mmHg] *HI* (09/26/17 10:59 AM) Peripheral Pulse 84 bpm Rate [60-100 bpm] (09/26/17 10:59 AM) Weight 97.727 kg (09/26/17 10:59 AM) Body Mass Index 40.71 m2 (09/26/17 10:59 AM) Problem List Condition Effective Dates Status [...] Substance Reaction Severity Status NKDA Active Medications Bactroban 2% topical ointment 1 appl, TOP, TID, PRN as needed, Apply to affected area(s), X 14 day, # 60 gm, 0 Refill(s), Pharmacy: [facility] [id number] Start Date: 09/26/17 Stop Date: 10/10/17 Status: Completed celecoxib 200 mg oral capsule See Instructions, # 60 unknown unit, TAKE 1 CAPSULE BY MOUTH TWICE DAILY, Topic cy: [facility] [id number] Start Date: 12/18/17 Status: Ordered celecoxib 200 mg oral capsule See Instructions, # 60 unknown unit, TAKE 1 CAPSULE BY MOUTH TWICE DAILY, Topic cy: [facility] [id number] Start Date: 11/20/17 Stop Date: 12/18/17 Status: Completed furosemide 20 mg oral tablet See Instructions, # 90 tab, TAKE 1 TABLET BY MOUTH DAILY, Pharmacy: [facility] [id number] Start Date: 09/27/17 Stop Date: 10/23/17 Status: Completed furosemide 20 mg oral tablet See Instructions, # 30 tab, TAKE 1 TABLET BY MOUTH DAILY, Pharmacy: [facility] [id number] Start Date: 10/23/17 Stop Date: 11/20/17 Status: Completed furosemide 20 mg oral tablet See Instructions, # 30 tab, TAKE 1 TABLET BY MOUTH DAILY, Pharmacy: [facility] [id number] Start Date: 12/18/17 Status: Ordered furosemide 20 mg oral tablet See Instructions, # 30 tab, TAKE 1 TABLET BY MOUTH DAILY, Pharmacy: [facility] [id number] Start Date: 11/20/17 Stop Date: 12/18/17 Status: Completed Lasix 20 mg oral tablet 20 mg=1 tab, PO, Daily, # 30 tab, 0 Refill(s), Pharmacy: [facility] [id number] Start Date: 09/27/17 Stop Date: 09/27/17 Status: Completed potassium chloride 10 mEq oral capsule, extended release 10 mEq=1 cap, PO, Daily, # 30 cap, 1 Refill(s), Pharmacy: [facility] 1 [id number] Start Date: 09/27/17 Stop Date: 09/27/17 Status: Completed potassium chloride 10 mEq oral capsule, extended release See Instructions, # 90 unknown unit, Refill(s) 1, TAKE 1 CAPSULE BY MOUTH DAILY, Pharmacy: [facility] [id number] Start Date: 09/27/17 Stop Date: 11/20/17 Status: Completed potassium chloride 10 mEq oral capsule, extended release See Instructions, # 30 unknown unit, TAKE 1 CAPSULE BY MOUTH DAILY, Pharmacy: [facility] [id number] Start Date: 12/18/17 Status: Ordered potassium chloride 10 mEq oral capsule, extended release See Instructions, # 30 unknown unit, TAKE 1 CAPSULE BY MOUTH DAILY, Pharmacy: [facility] [id number] Start Date: 11/20/17 Stop Date: 12/18/17 Status: Completed Vitamin B12 1000 mcg/mL injectable solution See Instructions, 1 mL IM once a week x 4 weeks, then once a month, # 30 mL, 0 R efill(s), Pharmacy: [facility] [id number] Start Date: 09/27/17 Status: Ordered Results No data available for [...]
--- OUTSIDE RECORDS SUMMARY | 2018-05-14 21:19 | XMS REPORT | Summary of Care ---
Author Author [facility] Care [facility] Care [facility] Address Unknown Phone Unavailable Encounter [facility](FIN) [id number] Date(s): 10/23/17 - 10/24/17 [facility] Care [facility] [address] [facility] [place] [phone]- [phone] Vital Signs No data available for this [...]
--- OUTSIDE RECORDS SUMMARY | 2018-05-14 21:19 | XMS REPORT | Summary of Care ---
Author Organization Unknown Address Unknown Phone Unavailable Encounter [facility] [place]([facility]) [id number] Date(s): 01/07/14 - 01/13/[address] Discharge Disposition: Home Physician Attending: Windy Garcia MD Physician Admitting: Windy Garcia MD Reason for Visit GASTROINTESTINAL BLEED, HYPOKALEMIA, HISTORY OF ABDOMIN Vital Signs 1 2 3 Most recent to oldest [Reference Range]: 154.94 cm (01/09/14 9:54 PM) 154.94 cm (01/08/14 12:34 PM) 154.94 cm (01/07/14 5:40 PM) Height 78.727 kg (01/09/14 9:54 PM) Current Weight 98.5 DegF (01/13/14 12:30 PM) 98.0 DegF (01/13/14 11:44 AM) 98.6 DegF (01/13/14 6:20 AM) Temperature Oral [96.4-99.1 DegF] 156 mmHg *HI* (01/13/14 12:30 PM) 132 mmHg (01/13/14 11:44 AM) 109 mmHg (01/13/14 6:20 AM) Systolic Blood Pressure [90-140 mmHg] 80 mmHg (01/13/14 12:30 PM) 83 mmHg (01/13/14 11:44 AM) 69 mmHg (01/13/14 6:20 AM) Diastolic Blood Pressure [60-90 mmHg] 18 BRMIN (01/13/14 12:30 PM) 18 BRMIN (01/13/14 11:44 AM) 18 BRMIN (01/13/14 6:20 AM) Respiratory Rate [14-20 BRMIN] 93 bpm (01/13/14 12:30 PM) 97 bpm (01/13/14 11:44 AM) 97 bpm (01/13/14 6:20 AM) Peripheral Pulse Rate [60-100 bpm] 83.182 kg (01/08/14 12:34 PM) 81.42 kg (01/07/14 5:40 PM) Weight 34.65 m2 (01/08/14 12:34 PM) 33.92 m2 (01/07/14 5:40 PM) Body Mass Index Problem List Condition Effective Dates Status Health Status Informant Anemia(Confirmed) Active CKD - chronic kidney Active disease(Confirmed) Colitis(Confirmed) Active Diabetes(Confirmed) Active Diarrhea(Confirmed) Active Gastric Active bypass(Confirmed) GERD Active (gastroesophageal reflux disease)(Confirmed) HTN Active (hypertension)(Confi rmed) Hyperlipidemia(Confi Active rmed) Allergies, Adverse Reactions, Alerts Substance Reaction Severity Status NKDA Active Medications acetaminophen-hydrocodone 325 mg-7.5 mg oral tablet 1 tab, Route: PO, Drug Form: TAB, Q6H, PRN Pain, Start date: 01/08/14 20:04:00, Duration: 30 day, Stop date: 02/07/14 20:03:00 Notes: Same as Rison 325-7.5mg Do not exceed 4gm/day of acetaminophen. Start Date: 01/08/14 Stop Date: 01/13/14 Status: Discontinued Aldactone 50 mg, 1 tab, Route: PO, Drug form: TAB, Daily, Start date: 01/11/14 18:00:00, D uration: 30 day, Stop date: 02/10/14 9:00:00 Notes: (Same As: Aldactone) Start Date: 01/11/14 Stop Date: 01/13/14 Status: Discontinued Ambien 10 mg, 2 tab, Route: PO, Drug form: TAB, Bedtime, PRN Sleep, Start date: 4 19:11:00, Stop date: 02/07/14 19:10:00 Notes: (Same As: Ambien) Start Date: 01/08/14 Stop Date: 01/13/14 Status: Discontinued amLODIPine 10 mg, PO, Daily, 0 Refill(s) Start Date: 01/13/14 Status: Ordered Asacol 800 mg, 2 cap, Route: PO, Drug form: DRC, TID, Dosing Weight 83.182, kg, Start d ate: 01/10/14 17:00:00, Duration: 30 day, Stop date: 02/09/14 13:00:00 Notes: (Same as: Delzicol) Start Date: 01/10/14 Stop Date: 01/13/14 Status: Discontinued Benadryl 50 mg, 2 cap, Route: PO, Drug form: CAP, ONCE, Start date: 01/08/14 19:32:00, St op date: 01/08/14 19:32:00 Notes: (Same as: Benadryl) Start Date: 01/08/14 Stop Date: 01/08/14 Status: Completed benzonatate 100 mg oral capsule 200 mg=2 cap, PO, TID, Cough, # 30 cap, 0 Refill(s) Start Date: 01/13/14 Status: Ordered Carafate 1 gm, 10 mL, Route: PO, Drug form: SUSP, Q6H, PRN Stomach Upset, Priority: NOW, Start date: 01/08/14 1:05:00, Duration: 30 day, Stop date: 02/07/14 1:04:00 Notes: Enteral feeds may interfere with the absorption of this medication. Darren e well. Take 1 hr before or 2 hrs after antacids, dairy pdt, minerals & meals. (Same As: Carafate) Start Date: 01/08/14 Stop Date: 01/08/14 Status: Discontinued Dextrose 50% in Water IV 50 mL, Route: IVP, Start date: 01/09/14 19:34:00, Duration: 30 day, Stop date: 1 04/11/13 19:33:00, PRN Blood Glucose Results Start Date: 01/09/14 Stop Date: 01/13/14 Status: Discontinued Dextrose 50% in Water IV 25 mL, Route: IVP, Start date: 01/09/14 19:34:00, Duration: 30 day, Stop date: 1 04/11/13 19:33:00, PRN Blood Glucose Results Start Date: 01/09/14 Stop Date: 01/13/14 Status: Discontinued Dilaudid 1 mg, 0.5 mL, Route: IV, Drug form: INJ, Q6H, PRN Pain, Start date: 01/08/14 17: 27:00, Duration: 30 day, Stop date: 02/07/14 17:26:00 Notes: (Same as: Dilaudid) Start Date: 01/08/14 Stop Date: 01/08/14 Status: Discontinued Dulcolax Laxative 20 mg, 4 tab, Route: PO, Drug form: ECTAB, ONCE, Dosing Weight 81.42, kg, Start date: 01/08/14 1:24:00, Stop date: 01/08/14 1:24:00 Notes: (Same As: Dulcolax, Correctol) (Do Not Crush) "Do Not Crush" Start Date: 01/08/14 Stop Date: 01/08/14 Status: Completed Flonase 0.05 mg/inh nasal spray 2 spray, Route: Each Affected Nostril, Drug Form: SPRY, Dosing Weight 83.182, kg , Daily, Start date: 01/12/14 18:30:00, Duration: 30 day, Stop date: 02/11/14 9: 00:00 Notes: (Same as: Flonase) Start Date: 01/12/14 Stop Date: 01/13/14 Status: Discontinued GoLYTELY 4,000 ml, Route: PO, Drug Form: PDR/REC, Dosing Weight 81.42, kg, ONCE, Start da te: 01/08/14 1:24:00, Duration: 1 doses or times, Stop date: 01/08/14 1:24:00 Notes: (polyethylene glycol electrolyte solution 4 Liter bottle) (Same as: Gol ytely, Colyte) Start Date: 01/08/14 Stop Date: 01/08/14 Status: Completed hydrochlorothiazide 25 mg oral tablet 12.5 mg, 0.5 tab, Route: PO, Drug form: TAB, Daily, Start date: 01/08/14 9:00:00 , Duration: 30 day, Stop date: 02/06/14 9:00:00 Notes: (Same as: Hydrodiuril) With food. Start Date: 01/08/14 Stop Date: 01/13/14 Status: Discontinued hydrochlorothiazide 25 mg oral tablet 12.5 mg, 0.5 tab, Route: PO, Drug form: TAB, Daily, Start date: 01/08/14 9:00:00 , Duration: 30 day, Stop date: 02/06/14 9:00:00 Notes: (Same as: Hydrodiuril) With food. Start Date: 01/08/14 Stop Date: 01/08/14 Status: Discontinued hydrochlorothiazide-lisinopril 12.5 mg-20 mg oral tablet 1 tab, Route: PO, Drug Form: TAB, Dosing Weight 81.42, kg, Daily, Start date: 9:00:00, Duration: 30 day, Stop date: 02/06/14 9:00:00 Start Date: 01/08/14 Stop Date: 01/07/14 Status: Deleted hydrochlorothiazide-lisinopril 12.5 mg-20 mg oral tablet 1 tab, Route: PO, Drug Form: TAB, Dosing Weight 81.42, kg, Daily, Start date: 9:00:00, Duration: 30 day, Stop date: 02/06/14 9:00:00 Start Date: 01/08/14 Stop Date: 01/08/14 Status: Deleted K-Dur 20 40 mEq, 2 tab, Route: PO, Drug form: ERTAB, ONCE, Start date: 01/08/14 5:30:00, Stop date: 01/08/14 5:30:00 Notes: (Same as: K-Dur 20)"Do Not Crush" With food and full glass of water Start Date: 01/08/14 Stop Date: 01/08/14 Status: Completed Lasix 20 mg, 1 tab, Route: PO, Drug form: TAB, Daily, Dosing Weight 81.42, kg, Start d ate: 01/08/14 9:00:00, Duration: 30 day, Stop date: 02/06/14 9:00:00 Notes: (Same as: Lasix) May cause GI upset. Give with food or milk. Start Date: 01/08/14 Stop Date: 01/13/14 Status: Discontinued Lovenox 40 mg, 0.4 mL, Route: SUB-Q, Drug form: INJ, [id number], Dosing Weight 81.42, kg, Start date: 01/08/14 8:00:00, Duration: 30 day, Stop date: 02/06/14 8:00:00 Notes: (Same as: Lovenox) Start Date: 01/08/14 Stop Date: 01/13/14 Status: Discontinued magnesium citrate 300 ml, Route: PO, Drug Form: LIQ, Dosing Weight 81.42, kg, ONCE, Start date: 1:24:00, Stop date: 01/08/14 1:24:00 Notes: (Same as: Citrate of Magnesia) Start Date: 01/08/14 Stop Date: 01/08/14 Status: Completed magnesium citrate 300 ml, Route: PO, Drug Form: LIQ, Dosing Weight 83.182, kg, ONCE, Start date: 03/10/13 19:40:00, Stop date: 01/08/14 19:40:00 Notes: (Same as: Citrate of Magnesia) Start Date: 01/08/14 Stop Date: 01/08/14 Status: Completed NexIUM 40 mg, Route: PO, Drug form: ECCAP, Daily, Dosing Weight 81.42, kg, Start date: 01/08/14 9:00:00, Duration: 30 day, Stop date: 02/06/14 9:00:00 Start Date: 01/08/14 Stop Date: 01/08/14 Status: Deleted Rison 5/325 oral tablet 1 tab, Route: PO, Drug Form: TAB, Dosing Weight 81.42, kg, BID, Start date: 07/17 9:00:00, Duration: 30 day, Stop date: 02/06/14 17:00:00 Start Date: 01/08/14 Stop Date: 01/13/14 Status: Discontinued Norvasc 10 mg, 1 tab, Route: PO, Drug form: TAB, Daily, Start date: 01/11/14 18:00:00, D uration: 30 day, Stop date: 02/10/14 9:00:00 Notes: (Same as: Norvasc) Start Date: 01/11/14 Stop Date: 01/13/14 Status: Discontinued NovoLOG FlexPen 15 unit, 0.15 mL, Route: SUB-Q, Drug form: SOLN, Sliding Scale, PRN Blood Glucos e Results, Start date: 01/09/14 19:34:00, Duration: 30 day, Stop date: 02/08/14 19:33:00 Notes: Roll in palms of hands gently; Do not shake vigorously. (Same as: NovoLO G)"single patient use only" Stable for 28 days at room temperature.Expires in _ ____ days from Date Start Date: 01/09/14 Stop Date: 01/13/14 Status: Discontinued NovoLOG FlexPen 12 unit, 0.12 mL, Route: SUB-Q, Drug form: SOLN, Sliding Scale, PRN Blood Glucos e Results, Start date: 01/09/14 19:34:00, Duration: 30 day, Stop date: 02/08/14 19:33:00 Notes: Roll in palms of hands gently; Do not shake vigorously. (Same as: NovoLO G)"single patient use only" Stable for 28 days at room temperature.Expires in _ ____ days from Date Start Date: 01/09/14 Stop Date: 01/13/14 Status: Discontinued NovoLOG FlexPen 9 unit, 0.09 mL, Route: SUB-Q, Drug form: SOLN, Sliding Scale, PRN Blood Glucose Results, Start date: 01/09/14 19:34:00, Duration: 30 day, Stop date: 02/08/14 1 9:33:00 Notes: Roll in palms of hands gently; Do not shake vigorously. (Same as: NovoLO G)"single patient use only" Stable for 28 days at room temperature.Expires in _ ____ days from Date Start Date: 01/09/14 Stop Date: 01/13/14 Status: Discontinued NovoLOG FlexPen 6 unit, 0.06 mL, Route: SUB-Q, Drug form: SOLN, Sliding Scale, PRN Blood Glucose Results, Start date: 01/09/14 19:34:00, Duration: 30 day, Stop date: 02/08/14 1 9:33:00 Notes: Roll in palms of hands gently; Do not shake vigorously. (Same as: NovoLO G)"single patient use only" Stable for 28 days at room temperature.Expires in _ ____ days from Date Start Date: 01/09/14 Stop Date: 01/13/14 Status: Discontinued NovoLOG FlexPen 4 unit, 0.04 mL, Route: SUB-Q, Drug form: SOLN, Sliding Scale, PRN Blood Glucose Results, Start date: 01/09/14 19:33:00, Duration: 30 day, Stop date: 02/08/14 1 9:32:00 Notes: Roll in palms of hands gently; Do not shake vigorously. (Same as: NovoLO G)"single patient use only" Stable for 28 days at room temperature.Expires in _ ____ days from Date Start Date: 01/09/14 Stop Date: 01/13/14 Status: Discontinued omeprazole 40 mg, Route: PO, Drug form: ECCAP, Before Breakfast, Dosing Weight 81.42, kg, S tart date: 01/08/14 7:30:00, Duration: 30 day, Stop date: 02/06/14 7:30:00 Start Date: 01/08/14 Stop Date: 01/07/14 Status: Deleted omeprazole 10 mg, Route: PO, Drug form: DRC, Daily, Dosing Weight 81.42, kg, Start date: 9:00:00, Duration: 30 day, Stop date: 02/06/14 9:00:00 Start Date: 01/08/14 Stop Date: 01/08/14 Status: Deleted ondansetron 4 mg, 2 mL, Route: IVP, Drug form: INJ, Q8H, Dosing Weight 81.42, kg, PRN Nausea & Vomiting, Start date: 01/07/14 23:40:00, Duration: 30 day, Stop date: 02/06/14 23:39:00 Notes: (Same as: Zofran) Start Date: 01/07/14 Stop Date: 01/13/14 Status: Discontinued Pepcid 40 mg, 2 tab, Route: PO, Drug form: TAB, ONCE, Start date: 01/08/14 19:33:00, St op date: 01/08/14 19:33:00 Notes: (Same as: Pepcid) Start Date: 01/08/14 Stop Date: 01/08/14 Status: Completed potassium chloride 20 mEq/15 mL oral liquid 40 mEq, 30 mL, Route: PO, Drug form: LIQ, ONCE, Dosing Weight 81.42, kg, Priorit y: STAT, Start date: 01/07/14 19:53:00, Stop date: 01/07/14 19:53:00 Notes: (Same as: Potassium Chloride) Start Date: 01/07/14 Stop Date: 01/07/14 Status: Completed predniSONE 20 mg, 1 tab, Route: PO, Drug form: TAB, Daily, Dosing Weight 83.182, kg, Start date: 01/10/14 17:00:00, Duration: 30 day, Stop date: 02/09/14 9:00:00 Notes: Take with food. Start Date: 01/10/14 Stop Date: 01/13/14 Status: Discontinued predniSONE 10 mg oral tablet 20 mg=2 tab, PO, Daily, # 60 tab, 0 Refill(s) Start Date: 01/13/14 Stop Date: 01/23/14 Status: Ordered Prinivil 20 mg, 1 tab, Route: PO, Drug form: TAB, Daily, Start date: 01/08/14 9:00:00, Du ration: 30 day, Stop date: 02/06/14 9:00:00 Notes: (Same as: Prinivil, Zestril) Start Date: 01/08/14 Stop Date: 01/08/14 Status: Canceled Prinivil 20 mg, 1 tab, Route: PO, Drug form: TAB, Daily, Start date: 01/08/14 9:00:00, Du ration: 30 day, Stop date: 02/06/14 9:00:00 Notes: (Same as: Prinivil, Zestril) Start Date: 01/08/14 Stop Date: 01/13/14 Status: Discontinued promethazine 12.5 mg, 0.5 tab, Route: PO, Drug form: TAB, TID, Dosing Weight 81.42, kg, PRN N ausea, Start date: 01/08/14 7:17:00, Duration: 30 day, Stop date: 02/07/14 7:16: 00 Notes: (Same as: Phenergan) Start Date: 01/08/14 Stop Date: 01/13/14 Status: Discontinued Protonix 40 mg, 1 tab, Route: PO, Drug form: ECTAB, Before Breakfast, Start date: 4 7:30:00, Duration: 30 day, Stop date: 02/06/14 7:30:00 Notes: Tablet should not be chewed or crushed.(Same as: Protonix) Start Date: 01/08/14 Stop Date: 01/08/14 Status: Discontinued Protonix 40 mg, 1 tab, Route: PO, Drug form: ECTAB, Before Dinner, Start date: 01/08/14 1 6:30:00, Duration: 30 day, Stop date: 02/06/14 16:30:00 Notes: Tablet should not be chewed or crushed.(Same as: Protonix) Start Date: 01/08/14 Stop Date: 01/13/14 Status: Discontinued SEROquel 800 mg, 16 tab, Route: PO, Drug form: ERTAB, Bedtime, Dosing Weight 81.42, kg, S tart date: 01/08/14 21:00:00, Stop date: 02/06/14 21:00:00 Notes: Same as: SEROquel XR"Do Not Crush" Non-Formulary Item Start Date: 01/08/14 Stop Date: 01/10/14 Status: Discontinued Seroquel XR 400mg- patient's own med Seroquel XR 400mg- patient's own med, 800 mg, 2 tab, Drug form: MISC, Route: PO, Bedtime, 01/10/14 21:00:00, Duration: 30 day, Stop date: 02/08/14 21:00:00 Start Date: 01/10/14 Stop Date: 01/13/14 Status: Discontinued Tessalon Perles 200 mg, 2 cap, Route: PO, Drug form: CAP, TID, Dosing Weight 83.182, kg, PRN Cou gh, Start date: 01/12/14 17:26:00, Duration: 30 day, Stop date: 02/11/14 17:25:0 0 Notes: (Same As: Tessalon Perles)"Do Not Crush" Start Date: 01/12/14 Stop Date: 01/13/14 Status: Discontinued Trandate 20 mg, 4 mL, Route: IV, Drug form: INJ, Q4H, PRN Other -See Comment, Start date: 01/11/14 16:52:00, Duration: 30 day, Stop date: 02/10/14 16:51:00 Start Date: 01/11/14 Stop Date: 01/13/14 Status: Discontinued trazodone 100 mg oral tablet 50 mg, 1 tab, Route: PO, Drug form: TAB, Bedtime, Dosing Weight 81.42, kg, Start date: 01/08/14 21:00:00, Duration: 30 day, Stop date: 02/06/14 21:00:00 Notes: (Same As: Desyrel) Start Date: 01/08/14 Stop Date: 01/13/14 Status: Discontinued Ultracet oral tablet 1 tab, PO, Q12H, for pain, # 20 tab, 0 Refill(s) Start Date: 01/13/14 Status: Ordered Visipaque 100 mL, 200 ml/hr, Route: IV, Drug Form: SOLN, ONCALL, Start date: 01/07/14 23:0 0:00, Duration: 30 day, Stop date: 02/06/14 22:59:00 Notes: (Same as: Visipaque). Start Date: 01/07/14 Stop Date: 01/07/14 Status: Completed Zocor 20 mg, 1 tab, Route: PO, Drug form: TAB, Bedtime, Dosing Weight 81.42, kg, Start date: 01/08/14 21:00:00, Duration: 30 day, Stop date: 02/06/14 21:00:00 Notes: (Same as: Zocor) Start Date: 01/08/14 Stop Date: 01/13/14 Status: Discontinued Results BLOOD BANK RESULTS 1 2 3 Most recent to oldest [Reference Range]: O POS *Unknown* (01/07/14 6:44 PM) ABO/Rh Positive 1 (01/07/14 6:44 PM) Antibody Scrn Anti-K *Unknown* (01/07/14 6:44 PM) AB Sendout Int 1Result Comment: 01/07/2014 20:09 [id number] "Significant Findings called to HEIDY Hathawayat 01/07/2014 20:08 by TP.Read Back O K." Positive ABS ELECTROLYTES 1 2 3 Most recent to oldest [Reference Range]: 135 mEq/L (01/13/14 3:51 AM) 139 mEq/L (01/08/14 4:00 AM) 138 mEq/L (01/07/14 6:44 PM) Sodium Lvl [135-145 mEq/L] 3.8 mEq/L (01/13/14 3:51 AM) 3.0 mEq/L 2 *CRIT* (01/08/14 4:00 AM) 2.8 mEq/L 3 *CRIT* (01/07/14 6:44 PM) Potassium Lvl [3.5-5.1 mEq/L] 99 mEq/L (01/13/14 3:51 AM) 102 mEq/L (01/08/14 4:00 AM) 102 mEq/L (01/07/14 6:44 PM) Chloride Lvl [95-109 mEq/L] 31 mEq/L (01/13/14 3:51 AM) 29 mEq/L (01/08/14 4:00 AM) 32 mEq/L (01/07/14 6:44 PM) CO2 [24-32 mEq/L] 8.8 mEq/L *LOW* (01/13/14 3:51 AM) 11.0 mEq/L (01/08/14 4:00 AM) 6.8 mEq/L *LOW* (01/07/14 6:44 PM) AGAP [10.0-20.0 mEq/L] 2Result Comment: Critical Result(s) called to isaias diego _ at _01/08/2014 04:47 by ken paz_. Read back OK. 3Result Comment: Critical Result(s) called to Joseph Diego at 01/07/2014 19:21 by Ofelia Levine. Read back OK. CHEM PANEL 1 2 3 Most recent to oldest [Reference Range]: 1.2 mg/dL (01/13/14 3:51 AM) 0.9 mg/dL (01/08/14 4:00 AM) 1.1 mg/dL (01/07/14 6:44 PM) Creatinine Lvl [0.5-1.4 mg/dL] 51 mL/min/1.73m2 4 *NA* (01/13/14 3:51 AM) 73 mL/min/1.73m2 5 *NA* (01/08/14 4:00 AM) 57 mL/min/1.73m2 6 *NA* (01/07/14 6:44 PM) eGFR 15 mg/dL (01/13/14 3:51 AM) 9 mg/dL (01/08/14 4:00 AM) 12 mg/dL (01/07/14 6:44 PM) BUN [7-22 mg/dL] 12 (01/13/14 3:51 AM) B/C Ratio [6-25] 157 mg/dL 7 *HI* (01/13/14 3:51 AM) 120 mg/dL 8 *HI* (01/08/14 4:00 AM) 202 mg/dL 9 *HI* (01/07/14 6:44 PM) Glucose Lvl [70-99 mg/dL] 6.8 g/dL (01/13/14 3:51 AM) 7.2 g/dL (01/07/14 6:44 PM) Total Protein [6.4-8.4 g/dL] 2.9 g/dL *LOW* (01/13/14 3:51 AM) 3.3 g/dL *LOW* (01/07/14 6:44 PM) Albumin Lvl [3.5-5.0 g/dL] 3.9 g/dL (01/13/14 3:51 AM) 3.9 g/dL (01/07/14 6:44 PM) Globulin [2.0-4.0 g/dL] 0.7 (01/13/14 3:51 AM) 0.8 (01/07/14 6:44 PM) A/G Ratio [0.7-1.6] 8.9 mg/dL (01/13/14 3:51 AM) 8.4 mg/dL *LOW* (01/08/14 4:00 AM) 8.3 mg/dL *LOW* (01/07/14 6:44 PM) Calcium Lvl [8.5-10.5 mg/dL] 21 unit/L (01/13/14 3:51 AM) 21 unit/L (01/07/14 6:44 PM) ALT [0-65 unit/L] 13 unit/L (01/13/14 3:51 AM) 15 unit/L (01/07/14 6:44 PM) AST [0-37 unit/L] 77 unit/L (01/13/14 3:51 AM) 106 unit/L (01/07/14 6:44 PM) Alk Phos [39-136 unit/L] 0.2 mg/dL (01/13/14 3:51 AM) 0.3 mg/dL (01/07/14 6:44 PM) Bili Total [0.2-1.3 mg/dL] 0.1 mg/dL (01/07/14 6:44 PM) Bili Direct [0.0-0.3 mg/dL] 0.2 mg/dL (01/07/14 6:44 PM) Bili Indirect [0.0-1.0 mg/dL] 274 unit/L (01/07/14 6:44 PM) Lipase Lvl [73-393 unit/L] 4Result Comment: The eGFR is calculated using [...] be mul tiplied by the estimated BMI. 5Result Comment: The eGFR is calculated using [...] be mul tiplied by the estimated BMI. 6Result Comment: The eGFR is calculated using [...] be mul tiplied by the estimated BMI. 7Interpretive Data: Adult reference range values reflect the clinical guidelines of the [place] [employer]. 8Interpretive Data: Adult reference range values reflect the clinical guidelines of the [place] [employer]. 9Interpretive Data: Adult reference range values reflect the clinical guidelines of the [place] [employer]. CARDIAC ENZYMES 1 2 3 Most recent to oldest [Reference Range]: 24 unit/L (01/11/14 5:52 AM) Total CK [12-191 unit/L] THYROID PANEL 1 2 3 Most recent to oldest [Reference Range]: 2.480 uIU/mL (01/08/14 4:00 AM) TSH [0.360-3.740 uIU/mL] URINE AND STOOL 1 2 3 Most recent to oldest [Reference Range]: Cloudy *ABN* (01/08/14 4:24 AM) UA Turbidity [Clear] Yellow *NA* (01/08/14 4:24 AM) UA Color [Yellow] 6.5 (01/08/14 4:24 AM) UA pH [5.0-8.0] 1.025 (01/08/14 4:24 AM) UA Spec Grav [<=1.030] Negative (01/08/14 4:24 AM) UA Glucose [Negative] Negative (01/08/14 4:24 AM) UA Blood [Negative] Negative *NA* (01/08/14 4:24 AM) UA Ketones [Negative] 30 mg/dL *ABN* (01/08/14 4:24 AM) UA Protein [Negative mg/dL] 0.2 EU/dL (01/08/14 4:24 AM) UA Urobilinogen [0.1-1.0 EU/dL] Negative *NA* (01/08/14 4:24 AM) UA Bili [Negative] Negative (01/08/14 4:24 AM) UA Leuk Est [Negative] Negative (01/08/14 4:24 AM) UA Nitrite [Negative] 0-2 /HPF (01/08/14 4:24 AM) UA WBC [None Seen /HPF] 0-2 /HPF (01/08/14 4:24 AM) UA RBC [0-2 /HPF] Many /HPF (01/08/14 4:24 AM) UA Bacteria [None Seen /HPF] Moderate /LPF *ABN* (01/08/14 4:24 AM) UA Sq Epi [Few /LPF] Performed (01/08/14 4:24 AM) Micro? IMMUNOLOGY 1 2 3 Most recent to oldest [Reference Range]: Positive *ABN* (01/08/14 6:40 PM) JONATHON [Negative] 1:80 *ABN* (01/08/14 6:40 PM) JONATHON Titer [Negative] Pattern appears Mixed Speckled and Nucleolar *NA* (01/08/14 6:40 PM) JONATHON Interp 108 mg/dL (01/11/14 5:52 AM) C3 Complement [88-201 mg/dL] 38 mg/dL (01/11/14 5:52 AM) C4 Complement [16-47 mg/dL] <10 IU/mL (01/08/14 6:40 PM) RF Qnt [0-20 IU/mL] Negative (01/08/14 6:40 PM) DNA Ab (DS) [Negative] <0.2 AI (01/08/14 6:40 PM) Sm Ab [<=0.9 AI] <0.2 AI (01/08/14 6:40 PM) LABELS MOLDER Ab [<=0.9 AI] <0.2 AI (01/08/14 6:40 PM) SS-A (Ro) Ab [<=0.9 AI] <0.2 AI (01/08/14 6:40 PM) SS-B (La) Ab [<=0.9 AI] 1.5 APL-U/mL (01/11/14 5:52 AM) Cardiolipin IgA [<=19.9 APL-U/mL] <1.6 GPL-U/mL (01/11/14 5:52 AM) Cardiolipin IgG [<=19.9 GPL-U/mL] 0.6 MPL-U/mL (01/11/14 5:52 AM) Cardiolipin IgM [<=19.9 MPL-U/mL] HEMATOLOGY 1 2 3 Most recent to oldest [Reference Range]: 7.0 K/CMM (01/13/14 3:51 AM) 3.9 K/CMM (01/10/14 4:01 AM) 4.9 K/CMM (01/09/14 3:20 AM) WBC [3.7-10.4 K/CMM] 3.49 M/CMM *LOW* (01/13/14 3:51 AM) 3.20 M/CMM *LOW* (01/10/14 4:01 AM) 3.26 M/CMM *LOW* (01/09/14 3:20 AM) RBC [4.20-5.40 M/CMM] 10.4 g/dL *LOW* (01/13/14 3:51 AM) 9.9 g/dL *LOW* (01/10/14 4:01 AM) 10.4 g/dL *LOW* (01/09/14 3:20 AM) Hgb [12.0-16.0 g/dL] 31.8 % *LOW* (01/13/14 3:51 AM) 29.2 % *LOW* (01/10/14 4:01 AM) 30.0 % *LOW* (01/09/14 3:20 AM) Hct [36.0-48.0 %] 91.1 fL (01/13/14 3:51 AM) 91.1 fL (01/10/14 4:01 AM) 92.2 fL (01/09/14 3:20 AM) MCV [80.0-98.0 fL] 29.9 pg (01/13/14 3:51 AM) 30.9 pg (01/10/14 4:01 AM) 31.9 pg *HI* (01/09/14 3:20 AM) MCH [27.0-31.0 pg] 32.8 g/dL (01/13/14 3:51 AM) 33.9 g/dL (01/10/14 4:01 AM) 34.6 g/dL (01/09/14 3:20 AM) MCHC [32.0-36.0 g/dL] 14.5 % (01/13/14 3:51 AM) 14.3 % (01/10/14 4:01 AM) 14.6 % *HI* (01/09/14 3:20 AM) RDW [11.5-14.5 %] 356 K/CMM (01/13/14 3:51 AM) 256 K/CMM (01/10/14 4:01 AM) 270 K/CMM (01/09/14 3:20 AM) Platelet [133-450 K/CMM] 6.9 fL *LOW* (01/13/14 3:51 AM) 7.0 fL *LOW* (01/10/14 4:01 AM) 7.3 fL *LOW* (01/09/14 3:20 AM) MPV [7.4-10.4 fL] 51.5 % (01/13/14 3:51 AM) 39.8 % *LOW* (01/10/14 4:01 AM) 66.1 % (01/09/14 3:20 AM) Segs [45.0-75.0 %] 39.2 % (01/13/14 3:51 AM) 49.7 % *HI* (01/10/14 4:01 AM) 28.1 % (01/09/14 3:20 AM) Lymphocytes [20.0-40.0 %] 8.9 % (01/13/14 3:51 AM) 9.8 % (01/10/14 4:01 AM) 5.3 % (01/09/14 3:20 AM) Monocytes [2.0-12.0 %] 0.2 % (01/13/14 3:51 AM) 0.4 % (01/10/14 4:01 AM) 0.2 % (01/09/14 3:20 AM) Eosinophils [0.0-4.0 %] 0.2 % (01/13/14 3:51 AM) 0.3 % (01/10/14 4:01 AM) 0.3 % (01/09/14 3:20 AM) Basophils [0.0-1.0 %] 3.6 K/CMM (01/13/14 3:51 AM) 1.5 K/CMM (01/10/14 4:01 AM) 3.2 K/CMM (01/09/14 3:20 AM) Segs-Bands # [1.5-8.1 K/CMM] 2.8 K/CMM (01/13/14 3:51 AM) 1.9 K/CMM (01/10/14 4:01 AM) 1.4 K/CMM (01/09/14 3:20 AM) Lymphocytes # [1.0-5.5 K/CMM] 0.6 K/CMM (01/13/14 3:51 AM) 0.4 K/CMM (01/10/14 4:01 AM) 0.3 K/CMM (01/09/14 3:20 AM) Monocytes # [0.0-0.8 K/CMM] 0.0 K/CMM (01/13/14 3:51 AM) 0.0 K/CMM (01/10/14 4:01 AM) 0.0 K/CMM (01/09/14 3:20 AM) Eosinophils # [0.0-0.5 K/CMM] 0.0 K/CMM (01/13/14 3:51 AM) 0.0 K/CMM (01/10/14 4:01 AM) 0.0 K/CMM (01/09/14 3:20 AM) Basophils # [0.0-0.2 K/CMM] 12.7 seconds (01/07/14 6:44 PM) PT [12.0-14.7 seconds] 0.95 10 (01/07/14 6:44 PM) INR [0.85-1.17] 33.9 seconds 11 (01/07/14 6:44 PM) PTT [22.9-35.8 seconds] 0.77 (01/11/14 5:52 AM) dRVV Ratio [<=1.20] Negative (01/11/14 5:52 AM) Hex Phos N [Negative] Negative for lupus anticoagulant by DRVV screen and hexagonal phospholipid neutralization test. If there is a strong clinical suspicion of lupus anticoagulant, additional testing, to include repeat studies at a clinically appropriate interval and anticardiolipin antibody assays, is recommended. Interpretation performed at [facility]. *NA* (01/11/14 5:52 AM) Chris Interp 10Interpretive Data: RECOMMENDED RANGES FOR PROTIME INR: 2.0-3.0 for most medical and surgical thromboembolic states. 2.5-3.5 for artificial heart valves and recurrent embolism. INR SHOULD BE USED ONLY FOR PATIENTS ON STABLE ANTICOAGULANT THERAPY. 11Interpretive Data: Heparin Therapeutic Range: 57 - 92 Seconds Medications Administered During Your Visit No data available for this section Immunizations Vaccine Date Refusal Reason influenza virus vaccine, inactivated 01/08/14 influenza virus vaccine, inactivated 01/20/09 pneumococcal 23-valent vaccine 01/08/14 pneumococcal 23-valent vaccine 01/20/09 Procedures Procedure Type Body Site Date of Procedure Related Diagnosis Oophorectomy1 1right Social History Social History Type Response Substance Abuse Use: None Employment/School Alcohol Use: Never Smoking Status Current some day smoker, Lives with someone who smokes, Cigarette Smoking Last 365 Days Yes, Reg Smoking Cessation Counseling Yes
--- OUTSIDE RECORDS SUMMARY | 2018-05-14 21:19 | XMS REPORT | Summary of Care ---
Author Author [facility] Primary Care [facility] Care [facility] Address Unknown Phone Unavailable Encounter [facility](FIN) [id number] Date(s): 05/16/17 - 05/16/17 [facility] Primary Care [facility] [address] [facility] [address] [place] [phone] Discharge Disposition: Home or Self Care Attending Physician: Lucero Knight MD Vital Signs Most recent to 1 oldest [Reference Range]: Height 162 cm (05/16/17 1:19 PM) Temperature Oral 98.3 DegF [96.4-99.1 DegF] (05/16/17 1:19 PM) Blood Pressure 159/93 mmHg [90-140/60-90 mmHg] *HI* (05/16/17 1:19 PM) Peripheral Pulse 82 bpm Rate [60-100 bpm] (05/16/17 1:19 PM) Weight 89.545 kg (05/16/17 1:19 PM) Body Mass Index 34.12 m2 (05/16/17 1:19 PM) Problem List Condition Effective Dates Status [...] Active Medications amLODIPine 10 mg oral tablet See Instructions, # 90 tab, TAKE 1 TABLET BY MOUTH DAILY, Pharmacy: [facility] [id number] Start Date: 06/08/17 Stop Date: 07/28/17 Status: Discontinued Diflucan 100 mg oral tablet 100 mg=1 tab, PO, Daily, X 7 day, # 7 tab, 0 Refill(s) Start Date: 05/16/17 Stop Date: 05/23/17 Status: Completed esomeprazole 40 mg oral delayed release capsule See Instructions, # 90 unknown unit, TAKE 1 CAPSULE BY MOUTH DAILY, Pharmacy: [facility] [id number] Start Date: 06/08/17 Status: Ordered hydrochlorothiazide-lisinopril 12.5 mg-20 mg oral tablet See Instructions, TAKE 1 TABLET BY MOUTH DAILY, # 90 tab, 1 Refill(s), Pharmacy: [facility] [id number] Start Date: 05/16/17 Stop Date: 07/28/17 Status: Discontinued QUEtiapine 400 mg oral tablet 400 mg=1 tab, PO, Bedtime, # 30 tab, 0 Refill(s) Start Date: 05/16/17 Stop Date: 05/17/17 Status: Completed QUEtiapine 400 mg oral tablet See Instructions, # 30 tab, TAKE 1 TABLET BY MOUTH AT BEDTIME, Pharmacy: [facility] [id number] Start Date: 06/08/17 Stop Date: 07/20/17 Status: Completed QUEtiapine 400 mg oral tablet See Instructions, # 90 tab, TAKE 1 TABLET BY MOUTH AT BEDTIME, Pharmacy: [facility] [id number] Start Date: 05/17/17 Stop Date: 06/08/17 Status: Completed trazodone 100 mg oral tablet 200 mg=2 tab, PO, Bedtime, # 180 tab, 0 Refill(s) Start Date: 05/16/17 Stop Date: 07/28/17 Status: Discontinued Results No data available for [...]
--- OUTSIDE RECORDS SUMMARY | 2018-05-14 21:19 | XMS REPORT | Summary of Care ---
Author Author [facility] Primary Care [facility] Care [facility] Address Unknown Phone Unavailable Encounter [facility]) [id number] Date(s): 05/25/17 - 05/25/17 [facility] Primary Care [facility] [address] [facility] [address] [place] [phone]- [phone] Discharge Disposition: Home or Self Care Attending Physician: Lucero Knight MD Vital Signs Most recent to 1 oldest [Reference Range]: Height 154.94 cm (05/25/17 2:59 PM) Temperature Oral 98.9 DegF [96.4-99.1 DegF] (05/25/17 2:59 PM) Blood Pressure 135/68 mmHg [90-140/60-90 mmHg] (05/25/17 2:59 PM) Peripheral Pulse 91 bpm Rate [60-100 bpm] (05/25/17 2:59 PM) Weight 89.545 kg (05/25/17 2:59 PM) Body Mass Index 37.3 m2 (05/25/17 2:59 PM) Problem List Condition Effective Dates Status [...] Substance Reaction Severity Status NKDA Active Medications Flagyl 500 mg oral tablet 500 mg=1 tab, PO, BID, X 14 day, # 28 tab, 0 Refill(s), Pharmacy: [facility] [id number] Start Date: 05/25/17 Stop Date: 06/08/17 Status: Completed Results No data available for [...]
--- OUTSIDE RECORDS SUMMARY | 2018-05-14 21:19 | XMS REPORT | Summary of Care ---
Author Author [facility] Primary Care [facility] Care [facility] Address Unknown Phone Unavailable Encounter [facility](FIN) [id number] Date(s): 09/26/17 - 09/26/17 [facility] Primary Care [facility] [address] [facility] [place] [phone]- [phone] Discharge Disposition: Home or Self Care Attending [...] day, # 60 gm, 0 Refill(s), Pharmacy: [facility] [id number] Start Date: 09/26/17 Stop Date: 10/10/17 Status: Ordered furosemide 20 mg oral tablet See Instructions, # 90 tab, TAKE 1 TABLET BY MOUTH DAILY, Pharmacy: [facility] [id number] Start Date: 09/27/17 Status: Ordered Lasix 20 mg oral tablet 20 mg=1 tab, PO, Daily, # 30 tab, 0 Refill(s), Pharmacy: [facility] [id number] Start Date: 09/27/17 Stop Date: 09/27/17 Status: Completed potassium chloride 10 mEq oral capsule, extended release 10 mEq=1 cap, PO, Daily, # 30 cap, 1 Refill(s), Pharmacy: [facility] 1 [id number] Start Date: 09/27/17 Stop Date: 09/27/17 Status: Completed potassium chloride 10 mEq oral capsule, extended release See Instructions, # 90 unknown unit, Refill(s) 1, TAKE 1 CAPSULE BY MOUTH DAILY, Pharmacy: [facility] [id number] Start Date: 09/27/17 Status: Ordered Vitamin B12 1000 mcg/mL injectable solution See Instructions, 1 mL IM once a week x 4 weeks, then once a month, # 30 mL, 0 R efill(s), Pharmacy: [facility] [id number] Start Date: 09/27/17 Status: Ordered Results No [...] Frequency One Pack a day; entered on: 09/26/17 Assessment and Plan No data available for this section
--- OUTSIDE RECORDS SUMMARY | 2018-05-14 21:19 | XMS REPORT | Summary of Care ---
Author Organization Unknown Address Unknown Phone Unavailable Encounter [facility]) [id number] Date(s): 10/05/13 - 10/06/13 [facility] [address] Discharge Disposition: Home Physician Attending: Alli Egan DO Reason for Visit SYMPTOMATIC ANEMIA, WEAKNESS Vital Signs 1 2 3 Most recent to oldest [Reference Range]: 154.94 cm (10/05/13 5:36 PM) 154.94 cm (10/05/13 1:23 PM) Height 98.3 DegF (10/05/13 11:44 PM) 98.7 DegF (10/05/13 7:27 PM) 98.3 DegF (10/05/13 7:02 PM) Temperature Oral [96.4-99.1 DegF] 141 mmHg *HI* (10/05/13 11:44 PM) 138 mmHg (10/05/13 7:27 PM) 138 mmHg (10/05/13 7:02 PM) Systolic Blood Pressure [90-140 mmHg] 80 mmHg (10/05/13 11:44 PM) 84 mmHg (10/05/13 7:27 PM) 84 mmHg (10/05/13 7:02 PM) Diastolic Blood Pressure [60-90 mmHg] 18 BRMIN (10/05/13 11:44 PM) 18 BRMIN (10/05/13 7:27 PM) 18 BRMIN (10/05/13 7:02 PM) Respiratory Rate [14-20 BRMIN] 123 bpm *HI* (10/05/13 11:44 PM) 108 bpm *HI* (10/05/13 7:27 PM) 108 bpm *HI* (10/05/13 7:02 PM) Peripheral Pulse Rate [60-100 bpm] 80.455 kg (10/05/13 5:36 PM) 80.455 kg (10/05/13 1:23 PM) Weight 33.51 m2 (10/05/13 5:36 PM) 33.51 m2 (10/05/13 1:23 PM) Body Mass Index Problem List Condition Effective Dates Status Health Status Informant Anemia(Confirmed) Resolved Diabetes(Confirmed) Resolved Diarrhea(Confirmed) Resolved DVT (deep venous Resolved thrombosis)(Confirme d) GERD Resolved (gastroesophageal reflux disease)(Confirmed) Allergies, Adverse Reactions, Alerts Substance Reaction Severity Status NKDA Active Medications acetaminophen 650 mg, 2 tab, Route: PO, Drug form: TAB, Q4H, Dosing Weight 80.455, kg, PRN Shanti n 1-3/Temp > 100.4 F, Start date: 10/05/13 15:53:00, Duration: 30 day, Stop date: 11/04/13 15:52:00 Notes: Do not exceed 4 gm/day. (Same as: Tylenol) Start Date: 10/05/13 Stop Date: 10/06/13 Status: Discontinued acetaminophen-hydrocodone 325 mg-5 mg oral tablet 1 tab, Route: PO, Drug Form: TAB, Dosing Weight 80.455, kg, Q4H, PRN Pain Score 1-3, Start date: 10/05/13 16:00:00, Duration: 30 day, Stop date: 11/04/13 15:59: 00 Notes: (Same as: Belt 325/5) Do not exceed 4gm/day of acetaminophen. Start Date: 10/05/13 Stop Date: 10/06/13 Status: Discontinued busPIRone 10 mg oral tablet =10 mg, PO, BID, 0 Refill(s) Start Date: 10/05/13 Stop Date: 10/05/13 Status: Discontinued Coumadin 5 mg, 1 tab, Route: PO, Drug form: TAB, Q5PM, Dosing Weight 80.455, kg, Start da te: 10/05/13 17:00:00, Duration: 30 day, Stop date: 11/03/13 17:00:00 Notes: Nurse to ensure documentation of patient education per anticoagulation po licy.Avoid large intake of vitamin-K containing foods diet.(Same As: Coumadin) Start Date: 10/05/13 Stop Date: 10/06/13 Status: Discontinued Coumadin 5 mg oral tablet 5 mg=1 tab, PO, Daily, # 30 tab, 0 Refill(s) Start Date: 10/05/13 Status: Ordered Crestor 10 mg oral tablet 10 mg=1 tab, PO, Bedtime, # 30 tab, 0 Refill(s) Start Date: 10/05/13 Status: Ordered hydrochlorothiazide 25 mg oral tablet 12.5 mg, 0.5 tab, Route: PO, Drug form: TAB, Daily, Start date: 10/06/13 9:00:00 , Duration: 30 day, Stop date: 11/04/13 9:00:00 Notes: (Same as: Hydrodiuril) With food. Start Date: 10/06/13 Stop Date: 10/06/13 Status: Canceled hydrochlorothiazide-lisinopril 12.5 mg-20 mg oral tablet 1 tab, Route: PO, Drug Form: TAB, Dosing Weight 80.455, kg, Daily, Start date: 0 10/06/13 9:00:00, Duration: 30 day, Stop date: 11/04/13 9:00:00 Start Date: 10/06/13 Stop Date: 10/05/13 Status: Deleted hydrochlorothiazide-lisinopril 12.5 mg-20 mg oral tablet 1 tab, PO, Daily, # 30 tab, 0 Refill(s) Start Date: 10/05/13 Status: Ordered insulin aspart 4 unit, 0.04 mL, Route: SUB-Q, Drug form: SOLN, TID-Before Meals, Dosing Weight 80.455, kg, PRN Blood Glucose Results, Start date: 10/05/13 15:59:00, Duration: 30 day, Stop date: 11/04/13 15:58:00 Notes: Roll in palms of hands gently; Do not shake vigorously. (Same as: NovoLO G)"single patient use only" Stable for 28 days at room temperature.Expires in _ ____ days from Date Start Date: 10/05/13 Stop Date: 10/06/13 Status: Discontinued insulin aspart 8 unit, 0.08 mL, Route: SUB-Q, Drug form: SOLN, TID-Before Meals, Dosing Weight 80.455, kg, PRN Blood Glucose Results, Start date: 10/05/13 15:59:00, Duration: 30 day, Stop date: 11/04/13 15:58:00 Notes: Roll in palms of hands gently; Do not shake vigorously. (Same as: NovoLO G)"single patient use only" Stable for 28 days at room temperature.Expires in _ ____ days from Date Start Date: 10/05/13 Stop Date: 10/06/13 Status: Discontinued insulin aspart 6 unit, 0.06 mL, Route: SUB-Q, Drug form: SOLN, TID-Before Meals, Dosing Weight 80.455, kg, PRN Blood Glucose Results, Start date: 10/05/13 15:59:00, Duration: 30 day, Stop date: 11/04/13 15:58:00 Notes: Roll in palms of hands gently; Do not shake vigorously. (Same as: NovoLO G)"single patient use only" Stable for 28 days at room temperature.Expires in _ ____ days from Date Start Date: 10/05/13 Stop Date: 10/06/13 Status: Discontinued insulin aspart 10 unit, 0.1 mL, Route: SUB-Q, Drug form: SOLN, TID-Before Meals, Dosing Weight 80.455, kg, PRN Blood Glucose Results, Start date: 10/05/13 15:59:00, Duration: 30 day, Stop date: 11/04/13 15:58:00 Notes: Roll in palms of hands gently; Do not shake vigorously. (Same as: NovoLO G)"single patient use only" Stable for 28 days at room temperature.Expires in _ ____ days from Date Start Date: 10/05/13 Stop Date: 10/06/13 Status: Discontinued insulin aspart 2 unit, 0.02 mL, Route: SUB-Q, Drug form: SOLN, TID-Before Meals, Dosing Weight 80.455, kg, PRN Blood Glucose Results, Start date: 10/05/13 15:59:00, Duration: 30 day, Stop date: 11/04/13 15:58:00 Notes: Roll in palms of hands gently; Do not shake vigorously. (Same as: NovoCHUY Smith)"single patient use only" Stable for 28 days at room temperature.Expires in _ ____ days from Date Start Date: 10/05/13 Stop Date: 10/06/13 Status: Discontinued Lasix 20 mg, 1 tab, Route: PO, Drug form: TAB, Daily, Dosing Weight 80.455, kg, Start date: 10/06/13 9:00:00, Duration: 30 day, Stop date: 11/04/13 9:00:00 Notes: (Same as: Lasix) May cause GI upset. Give with food or milk. Start Date: 10/06/13 Stop Date: 10/06/13 Status: Canceled Lasix 20 mg, PO, Daily, 0 Refill(s) Start Date: 10/05/13 Status: Ordered Lomotil oral tablet 2.5mg-5 mg, PO, TID, 0 Refill(s) Start Date: 10/05/13 Stop Date: 10/05/13 Status: Discontinued loperamide 2 mg oral tablet 2 mg=1 tab, PO, Q4H, Loose Stools, # 60 tab, 0 Refill(s) Start Date: 10/05/13 Stop Date: 10/05/13 Status: Discontinued NexIUM 40 mg, Route: PO, Drug form: ECCAP, Daily, Dosing Weight 80.455, kg, Start date: 10/06/13 9:00:00, Duration: 30 day, Stop date: 11/04/13 9:00:00 Start Date: 10/06/13 Stop Date: 10/05/13 Status: Deleted NexIUM 40 mg oral delayed release capsule 40 mg=1 cap, PO, Daily, # 30 cap, 0 Refill(s) Start Date: 10/05/13 Status: Ordered Belt 5/325 oral tablet 1 tab, PO, BID, 0 Refill(s) Start Date: 10/05/13 Status: Ordered nortriptyline 100 mg, 4 cap, Route: PO, Drug form: CAP, Bedtime, Dosing Weight 80.455, kg, Sta rt date: 10/05/13 21:00:00, Duration: 30 day, Stop date: 11/03/13 21:00:00 Notes: (Same as:Pamelor, Aventyl) Start Date: 10/05/13 Stop Date: 10/05/13 Status: Canceled nortriptyline 50 mg oral capsule =100 mg, PO, Bedtime, 0 Refill(s) Start Date: 10/05/13 Status: Ordered omeprazole 10 mg oral delayed release capsule 10 mg=1 cap, PO, Daily, # 30 cap, 0 Refill(s) Start Date: 10/05/13 Status: Ordered ondansetron 4 mg, 2 mL, Route: IVP, Drug form: INJ, Q8H, Dosing Weight 80.455, kg, PRN Nause a & Vomiting, Start date: 10/05/13 15:53:00, Duration: 30 day, Stop date: 11/04/13 15:52:00 Notes: (Same as: Zofran) Start Date: 10/05/13 Stop Date: 10/06/13 Status: Discontinued Prinivil 20 mg, 1 tab, Route: PO, Drug form: TAB, Daily, Start date: 10/06/13 9:00:00, Du ration: 30 day, Stop date: 11/04/13 9:00:00 Notes: (Same as: Prinivil, Zestril) Start Date: 10/06/13 Stop Date: 10/06/13 Status: Canceled promethazine 25 mg, 1 tab, Route: PO, Drug form: TAB, TID, Dosing Weight 80.455, kg, Start da te: 10/05/13 17:00:00, Duration: 30 day, Stop date: 11/04/13 13:00:00 Notes: (Same as: Phenergan) Start Date: 10/05/13 Stop Date: 10/06/13 Status: Discontinued promethazine 25 mg oral tablet =25 mg, PO, TID, 0 Refill(s) Start Date: 10/05/13 Status: Ordered Protonix 40 mg, 1 tab, Route: PO, Drug form: ECTAB, Before Dinner, Start date: 10/05/13 1 6:30:00, Duration: 30 day, Stop date: 11/03/13 16:30:00 Notes: Tablet should not be chewed or crushed.(Same as: Protonix) Start Date: 10/05/13 Stop Date: 10/06/13 Status: Discontinued SEROquel 800 mg, Route: PO, Drug form: TAB, Bedtime, Dosing Weight 80.455, kg, Start date : 10/05/13 21:00:00, Duration: 30 day, Stop date: 11/03/13 21:00:00 Start Date: 10/05/13 Stop Date: 10/05/13 Status: Canceled SEROquel 800 mg, PO, Bedtime, 0 Refill(s) Start Date: 10/05/13 Status: Ordered SEROquel 400 mg, 4 tab, Route: PO, Drug form: TAB, Bedtime, Dosing Weight 80.455, kg, Sta rt date: 10/05/13 21:00:00, Duration: 30 day, Stop date: 11/03/13 21:00:00 Notes: (Same as: SEROquel) Start Date: 10/05/13 Stop Date: 10/06/13 Status: Discontinued trazodone 100 mg oral tablet 50 mg, 1 tab, Route: PO, Drug form: TAB, Bedtime, Dosing Weight 80.455, kg, Star t date: 10/05/13 21:00:00, Duration: 30 day, Stop date: 11/03/13 21:00:00 Notes: (Same As: Desyrel) Start Date: 10/05/13 Stop Date: 10/06/13 Status: Discontinued trazodone 100 mg oral tablet =100 mg, PO, Bedtime, 0 Refill(s) Start Date: 10/05/13 Status: Ordered Zofran 4 mg oral tablet =4 mg, PO, BID, 0 Refill(s) Start Date: 10/05/13 Status: Ordered Results BLOOD BANK RESULTS Most recent to 1 2 oldest [Reference Range]: ABO/Rh O POS *Unknown* (10/05/13 2:14 PM) Antibody Scrn Negative (10/05/13 2:14 PM) RBC product Product available 1 (10/05/13 3:35 PM) 1Result Comment: 10/05/2013 16:20 [id number] Called to CHANCE Isabel at 1615 RBC ready...10/05/2013 16:20 ELECTROLYTES Most recent to 1 2 oldest [Reference Range]: Sodium Lvl [135-145 136 mEq/L mEq/L] (10/05/13 2:14 PM) Potassium Lvl 3.4 mEq/L [3.5-5.1 mEq/L] *LOW* (10/05/13 2:14 PM) Chloride Lvl [95-109 104 mEq/L mEq/L] (10/05/13 2:14 PM) CO2 [24-32 mEq/L] 28 mEq/L (10/05/13 2:14 PM) AGAP [10.0-20.0 7.4 mEq/L mEq/L] *LOW* (10/05/13 2:14 PM) CHEM PANEL Most recent to 1 2 oldest [Reference Range]: Creatinine Lvl 1.3 mg/dL [0.5-1.4 mg/dL] (10/05/13 2:14 PM) eGFR 47 mL/min/1.73m2 2 *NA* (10/05/13 2:14 PM) BUN [7-22 mg/dL] 17 mg/dL (10/05/13 2:14 PM) B/C Ratio [6-25] 13 (10/05/13 2:14 PM) Glucose Lvl [70-99 156 mg/dL 3 mg/dL] *HI* (10/05/13 2:14 PM) Total Protein 5.8 g/dL [6.4-8.4 g/dL] *LOW* (10/05/13 2:14 PM) Albumin Lvl [3.5-5.0 1.3 g/dL g/dL] *LOW* (10/05/13 2:14 PM) Globulin [2.0-4.0 4.5 g/dL g/dL] *HI* (10/05/13 2:14 PM) A/G Ratio [0.7-1.6] 0.3 *LOW* (10/05/13 2:14 PM) Calcium Lvl 7.6 mg/dL [8.5-10.5 mg/dL] *LOW* (10/05/13 2:14 PM) ALT [0-65 unit/L] 17 unit/L (10/05/13 2:14 PM) AST [0-37 unit/L] 15 unit/L (10/05/13 2:14 PM) Alk Phos [39-136 154 unit/L unit/L] *HI* (10/05/13 2:14 PM) Bili Total [0.2-1.3 0.2 mg/dL mg/dL] (10/05/13 2:14 PM) 2Result Comment: The eGFR is calculated using [...] be mul tiplied by the estimated BMI. 3Interpretive Data: Adult reference range values reflect the clinical guidelines of the [employer]. IMMUNOLOGY Most recent to 1 2 oldest [Reference Range]: CDC HIV 4th GEN Negative [Negative] (10/05/13 2:14 PM) HEMATOLOGY Most recent to 1 2 oldest [Reference Range]: WBC [3.7-10.4 K/CMM] 4.6 K/CMM (10/05/13 2:14 PM) RBC [4.20-5.40 2.49 M/CMM M/CMM] *LOW* (10/05/13 2:14 PM) Hgb [12.0-16.0 g/dL] 10.6 g/dL 8.1 g/dL *LOW* *LOW* (10/05/13 11:00 PM) (10/05/13 2:14 PM) Hct [36.0-48.0 %] 31.5 % 23.8 % *LOW* *LOW* (10/05/13 11:00 PM) (10/05/13 2:14 PM) MCV [81.0-99.0 fL] 95.7 fL (10/05/13 2:14 PM) MCH [27.0-31.0 pg] 32.4 pg *HI* (10/05/13 2:14 PM) MCHC [32.0-36.0 33.8 g/dL g/dL] (10/05/13 2:14 PM) RDW [11.5-14.5 %] 17.9 % *HI* (10/05/13 2:14 PM) Platelet [133-450 484 K/CMM K/CMM] *HI* (10/05/13 2:14 PM) MPV [7.4-10.4 fL] 6.2 fL *LOW* (10/05/13 2:14 PM) Segs [45.0-75.0 %] 39.4 % *LOW* (10/05/13 2:14 PM) Lymphocytes 52.6 % [20.0-40.0 %] *HI* (10/05/13 2:14 PM) Monocytes [2.0-12.0 7.4 % %] (10/05/13 2:14 PM) Eosinophils [0.0-4.0 0.3 % %] (10/05/13 2:14 PM) Basophils [0.0-1.0 0.3 % %] (10/05/13 2:14 PM) Segs-Bands # 1.8 K/CMM [1.5-8.1 K/CMM] (10/05/13 2:14 PM) Lymphocytes # 2.4 K/CMM [1.0-5.5 K/CMM] (10/05/13 2:14 PM) Monocytes # [0.0-0.8 0.3 K/CMM K/CMM] (10/05/13 2:14 PM) Eosinophils # 0.0 K/CMM [0.0-0.5 K/CMM] (10/05/13 2:14 PM) Basophils # [0.0-0.2 0.0 K/CMM K/CMM] (10/05/13 2:14 PM) PT [12.0-14.7 19.7 seconds seconds] *HI* (10/05/13 2:14 PM) INR [0.85-1.17] 1.70 4 *HI* (10/05/13 2:14 PM) PTT [22.9-35.8 40.7 seconds 5 seconds] *HI* (10/05/13 2:14 PM) 4Interpretive Data: RECOMMENDED RANGES FOR PROTIME INR: 2.0-3.0 for most medical and surgical thromboembolic states. 2.5-3.5 for artificial heart valves and recurrent embolism. INR SHOULD BE USED ONLY FOR PATIENTS ON STABLE ANTICOAGULANT THERAPY. 5Interpretive Data: Heparin Therapeutic Range: 57 - 92 Seconds Medications Administered During Your Visit No data available for this section Immunizations Vaccine Date Refusal Reason influenza virus vaccine, inactivated 01/20/09 pneumococcal 23-valent vaccine 01/20/09 Procedures Procedure Type Body Site Date of Procedure Related Diagnosis section1 Cholecystectomy Gastric bypass operation 1x 2 Social History Social History Type Response Substance Abuse Use: None Employment/School Alcohol Use: Never Smoking Status Former smoker, Previous treatment: None, Ready to change: No, Concerns about tobacco use in household: No, Exposure to Tobacco Smoke None, Cigarette Smoking Last 365 Days No, Reg Smoking Cessation Counseling No
--- OUTSIDE RECORDS SUMMARY | 2018-05-14 21:20 | XMS REPORT ---
[facility] Address Unknown Phone Unavailable Care Team Providers Care Curing Finisher Name Role Phone Unavailable Unavailable Payers Payer Name Policy Type Policy Number Effective Date Expiration Date Problems This patient has no known problems. Allergies, Adverse Reactions, Alerts Allergy Name Allergy Type Status Severity Reaction(s) Onset Date Inactive Date Treating Clinician Comments morphine DA Active SV 2018-05-08 00:00:00 morphine DA Active SV 2018-05-07 00:00:00 morphine DA Active SV 2014-07-21 00:00:00 Medications This patient has no known medications. Results Test Description Test Time Test Comments Text Results Atomic Results Result Comments GLUBED 2018-05-14 12:16:00 GLUBED (test code=GLUBED) 161 mg/dL 74-106 Performed by certified tool engine lathe set up operator at [facility] [id number] 07:58:00* Test Item Value Reference Range Comments GLUBED (test code=GLUBED) 172 mg/dL 74-106 Performed by certified tool engine lathe set up operator at [facility] BASIC METABOLIC [id number] 07:45:00* Test Item Value Reference Range Comments SODIUM (test code=NA) 140 mmol/L 136-145 POTASSIUM (test code=K) 3.9 mmol/L 3.5-5.1 CHLORIDE (test code=CL) 106.0 mmol/L 98-107 CARBON DIOXIDE (test code=CO2) 24.0 mmol/L 21-32 ANION GAP (test code=GAP) 13.9 10-20 GLUCOSE (test code=GLU) 146 mg/dL 74-106 BLOOD UREA NITROGEN (test code=BUN) 30 mg/dL 7-18 GLOMERULAR FILTRATION RATE (test code=GFR) 26 mL/min >=60 Estimated GFR by using Modified MDRD formula.Chronic kidney disease is defined as either kidney damageor GFR <60 mL/min/1.73 m2 for >3 months. CREATININE (test code=CREAT) 2.00 mg/dL 0.55-1.02 Note change in reference range due to change in reagent. BUN/CREATININE RATIO (test code=BUN/CREA) 15.0 10-20 CALCIUM (test code=CA) 7.8 mg/dL 8.5-10.1 BASIC METABOLIC [id number] 07:38:00* Test Item Value Reference Range Comments SODIUM (test code=NA) 140 mmol/L 136-145 POTASSIUM (test code=K) 3.9 mmol/L 3.5-5.1 CHLORIDE (test code=CL) 106.0 mmol/L 98-107 CARBON DIOXIDE (test code=CO2) mmol/L 21-32 ANION GAP (test code=GAP) 10-20 GLUCOSE (test code=GLU) mg/dL 74-106 BLOOD UREA NITROGEN (test code=BUN) mg/dL 7-18 GLOMERULAR FILTRATION RATE (test code=GFR) mL/min >=60 CREATININE (test code=CREAT) mg/dL 0.55-1.02 BUN/CREATININE RATIO (test code=BUN/CREA) 10-20 CALCIUM (test code=CA) mg/dL 8.5-10.1 CBC W/AUTO [id number] 07:17:00* Test Item Value Reference Range Comments WHITE BLOOD CELL (test code=WBC) 3.6 K/mm3 4.5-12.5 RED BLOOD CELL (test code=RBC) 2.90 mill/mm3 3.7-5.2 HEMOGLOBIN (test code=HGB) 7.9 gram/dL 11.5-15.5 HEMATOCRIT (test code=HCT) 25.3 % 36.0-46.0 MEAN CELL VOLUME (test code=MCV) 87.2 fL 80-98 MEAN CELL HGB (test code=MCH) 27.2 picogram 27.0-33.0 MEAN CELL HGB CONCETRATION (test code=MCHC) 31.2 gram/dL 33.0-36.0 RED CELL DISTRIBUTION WIDTH (test code=RDW) 15.7 % 11.6-16.2 RED CELL DISTRIBUTION WIDTH SD (test code=RDW-SD) 49.8 fL 37.0-51.0 PLATELET COUNT (test code=PLT) 230 K/mm3 150-450 MEAN PLATELET VOLUME (test code=MPV) 10.0 fL 6.7-11.0 NEUTROPHIL % (test code=NT%) 64.3 % 39.0-69.0 IMMATURE GRANULOCYTE % (test code=IG%) 1.1 % 0.0-5.0 LYMPHOCYTE % (test code=LY%) 26.0 % 25.0-55.0 MONOCYTE % (test code=MO%) 8.0 % 0.0-10.0 EOSINOPHIL % (test code=EO%) 0.0 % 0.0-5.0 BASOPHIL % (test code=BA%) 0.6 % 0.0-1.0 NUCLEATED RBC % (test code=NRBC%) 0.0 % 0-0 NEUTROPHIL # (test code=NT#) 2.32 K/mm3 1.8-7.7 IMMATURE GRANULOCYTE # (test code=IG#) 0.04 x10 3/uL 0-0.03 LYMPHOCYTE # (test code=LY#) 0.94 K/mm3 1.0-5.0 MONOCYTE # (test code=MO#) 0.29 K/mm3 0-0.8 EOSINOPHIL # (test code=EO#) 0.00 K/mm3 0.0-0.5 BASOPHIL # (test code=BA#) 0.02 K/mm3 0.0-0.2 NUCLEATED RBC # (test code=NRBC#) 0.00 K/mm3 0.0-0.1 MANUAL DIFF REQUIRED (test code=MDIFF) NO [id number] 20:30:00* Test Item Value Reference Range Comments GLUBED (test code=GLUBED) 186 mg/dL 74-106 Performed by certified tool engine lathe set up operator at [facility] [id number] 15:20:00* Test Item Value Reference Range Comments GLUBED (test code=GLUBED) 161 mg/dL 74-106 Performed by certified tool engine lathe set up operator at [facility] [id number] 15:11:00* Test Item Value Reference Range Comments MAGNESIUM (test code=MAG) 1.6 mg/dL 1.8-2.4 [id number] 11:44:00* Test Item Value Reference Range Comments GLUBED (test code=GLUBED) 182 mg/dL 74-106 Performed by certified tool engine lathe set up operator at [facility] [id number] 08:19:00* Test Item Value Reference Range Comments GLUBED (test code=GLUBED) 176 mg/dL 74-106 Performed by certified tool engine lathe set up operator at [facility] BASIC METABOLIC [id number] 05:48:00* Test Item Value Reference Range Comments SODIUM (test code=NA) 142 mmol/L 136-145 POTASSIUM (test code=K) 3.6 mmol/L 3.5-5.1 CHLORIDE (test code=CL) 107.0 mmol/L 98-107 CARBON DIOXIDE (test code=CO2) 28.0 mmol/L 21-32 ANION GAP (test code=GAP) 10.6 10-20 GLUCOSE (test code=GLU) 124 mg/dL 74-106 BLOOD UREA NITROGEN (test code=BUN) 30 mg/dL 7-18 GLOMERULAR FILTRATION RATE (test code=GFR) 26 mL/min >=60 Estimated GFR by using Modified MDRD formula.Chronic kidney disease is defined as either kidney damageor GFR <60 mL/min/1.73 m2 for >3 months. CREATININE (test code=CREAT) 2.00 mg/dL 0.55-1.02 Note change in reference range due to change in reagent. BUN/CREATININE RATIO (test code=BUN/CREA) 15.0 10-20 CALCIUM (test code=CA) 8.1 mg/dL 8.5-10.1 BASIC METABOLIC [id number] 05:44:00* Test Item Value Reference Range Comments SODIUM (test code=NA) 142 mmol/L 136-145 POTASSIUM (test code=K) 3.6 mmol/L 3.5-5.1 CHLORIDE (test code=CL) 107.0 mmol/L 98-107 CARBON DIOXIDE (test code=CO2) mmol/L 21-32 ANION GAP (test code=GAP) 10-20 GLUCOSE (test code=GLU) mg/dL 74-106 BLOOD UREA NITROGEN (test code=BUN) mg/dL 7-18 GLOMERULAR FILTRATION RATE (test code=GFR) mL/min >=60 CREATININE (test code=CREAT) mg/dL 0.55-1.02 BUN/CREATININE RATIO (test code=BUN/CREA) 10-20 CALCIUM (test code=CA) mg/dL 8.5-10.1 CBC W/AUTO [id number] 05:34:00* Test Item Value Reference Range Comments WHITE BLOOD CELL (test code=WBC) 3.4 K/mm3 4.5-12.5 RED BLOOD CELL (test code=RBC) 2.63 mill/mm3 3.7-5.2 HEMOGLOBIN (test code=HGB) 7.0 gram/dL 11.5-15.5 HEMATOCRIT (test code=HCT) 23.0 % 36.0-46.0 MEAN CELL VOLUME (test code=MCV) 87.5 fL 80-98 MEAN CELL HGB (test code=MCH) 26.6 picogram 27.0-33.0 MEAN CELL HGB CONCETRATION (test code=MCHC) 30.4 gram/dL 33.0-36.0 RED CELL DISTRIBUTION WIDTH (test code=RDW) 15.5 % 11.6-16.2 RED CELL DISTRIBUTION WIDTH SD (test code=RDW-SD) 49.4 fL 37.0-51.0 PLATELET COUNT (test code=PLT) 218 K/mm3 150-450 MEAN PLATELET VOLUME (test code=MPV) 9.9 fL 6.7-11.0 NEUTROPHIL % (test code=NT%) 64.5 % 39.0-69.0 IMMATURE GRANULOCYTE % (test code=IG%) 0.9 % 0.0-5.0 LYMPHOCYTE % (test code=LY%) 24.9 % 25.0-55.0 MONOCYTE % (test code=MO%) 9.1 % 0.0-10.0 EOSINOPHIL % (test code=EO%) 0.3 % 0.0-5.0 BASOPHIL % (test code=BA%) 0.3 % 0.0-1.0 NUCLEATED RBC % (test code=NRBC%) 0.0 % 0-0 NEUTROPHIL # (test code=NT#) 2.20 K/mm3 1.8-7.7 IMMATURE GRANULOCYTE # (test code=IG#) 0.03 x10 3/uL 0-0.03 LYMPHOCYTE # (test code=LY#) 0.85 K/mm3 1.0-5.0 MONOCYTE # (test code=MO#) 0.31 K/mm3 0-0.8 EOSINOPHIL # (test code=EO#) 0.01 K/mm3 0.0-0.5 BASOPHIL # (test code=BA#) 0.01 K/mm3 0.0-0.2 NUCLEATED RBC # (test code=NRBC#) 0.00 K/mm3 0.0-0.1 [id number] 21:01:00* Test Item Value Reference Range Comments GLUBED (test code=GLUBED) 203 mg/dL 74-106 Performed by certified tool engine lathe set up operator at [facility] [id number] 16:40:00* Test Item Value Reference Range Comments GLUBED (test code=GLUBED) 198 mg/dL 74-106 Performed by certified tool engine lathe set up operator at [facility] [id number] 12:11:00* Test Item Value Reference Range Comments GLUBED (test code=GLUBED) 256 mg/dL 74-106 Performed by certified tool engine lathe set up operator at [facility] [id number] 08:40:00* Test Item Value Reference Range Comments GLUBED (test code=GLUBED) 227 mg/dL 74-106 Performed by certified tool engine lathe set up operator at [facility] BASIC METABOLIC [id number] 07:05:00* Test Item Value Reference Range Comments SODIUM (test code=NA) 140 mmol/L 136-145 POTASSIUM (test code=K) 3.3 mmol/L 3.5-5.1 CHLORIDE (test code=CL) 105.0 mmol/L 98-107 CARBON DIOXIDE (test code=CO2) 27.0 mmol/L 21-32 ANION GAP (test code=GAP) 11.3 10-20 GLUCOSE (test code=GLU) 194 mg/dL 74-106 BLOOD UREA NITROGEN (test code=BUN) 27 mg/dL 7-18 GLOMERULAR FILTRATION RATE (test code=GFR) 26 mL/min >=60 Estimated GFR by using Modified MDRD formula.Chronic kidney disease is defined as either kidney damageor GFR <60 mL/min/1.73 m2 for >3 months. CREATININE (test code=CREAT) 2.00 mg/dL 0.55-1.02 Note change in reference range due to change in reagent. BUN/CREATININE RATIO (test code=BUN/CREA) 13.4 10-20 CALCIUM (test code=CA) 7.9 mg/dL 8.5-10.1 CBC W/AUTO [id number] 06:56:00* Test Item Value Reference Range Comments WHITE BLOOD CELL (test code=WBC) 3.4 K/mm3 4.5-12.5 RED BLOOD CELL (test code=RBC) 2.73 mill/mm3 3.7-5.2 HEMOGLOBIN (test code=HGB) 7.3 gram/dL 11.5-15.5 HEMATOCRIT (test code=HCT) 24.2 % 36.0-46.0 MEAN CELL VOLUME (test code=MCV) 88.6 fL 80-98 MEAN CELL HGB (test code=MCH) 26.7 picogram 27.0-33.0 MEAN CELL HGB CONCETRATION (test code=MCHC) 30.2 gram/dL 33.0-36.0 RED CELL DISTRIBUTION WIDTH (test code=RDW) 15.4 % 11.6-16.2 RED CELL DISTRIBUTION WIDTH SD (test code=RDW-SD) 48.8 fL 37.0-51.0 PLATELET COUNT (test code=PLT) 233 K/mm3 150-450 MEAN PLATELET VOLUME (test code=MPV) 10.0 fL 6.7-11.0 NEUTROPHIL % (test code=NT%) 62.5 % 39.0-69.0 IMMATURE GRANULOCYTE % (test code=IG%) 1.2 % 0.0-5.0 LYMPHOCYTE % (test code=LY%) 27.4 % 25.0-55.0 MONOCYTE % (test code=MO%) 8.0 % 0.0-10.0 EOSINOPHIL % (test code=EO%) 0.6 % 0.0-5.0 BASOPHIL % (test code=BA%) 0.3 % 0.0-1.0 NUCLEATED RBC % (test code=NRBC%) 0.0 % 0-0 NEUTROPHIL # (test code=NT#) 2.10 K/mm3 1.8-7.7 IMMATURE GRANULOCYTE # (test code=IG#) 0.04 x10 3/uL 0-0.03 LYMPHOCYTE # (test code=LY#) 0.92 K/mm3 1.0-5.0 MONOCYTE # (test code=MO#) 0.27 K/mm3 0-0.8 EOSINOPHIL # (test code=EO#) 0.02 K/mm3 0.0-0.5 BASOPHIL # (test code=BA#) 0.01 K/mm3 0.0-0.2 NUCLEATED RBC # (test code=NRBC#) 0.00 K/mm3 0.0-0.1 MANUAL DIFF REQUIRED (test code=MDIFF) NO [id number] 20:51:00* Test Item Value Reference Range Comments GLUBED (test code=GLUBED) 237 mg/dL 74-106 Performed by certified tool engine lathe set up operator at [facility] UR MICROALBUMIN/CREAT [id number] 18:08:00* Test Item Value Reference Range Comments UR CREATININE RANDOM-NON REPRT (test code=CREATUT) 76.3 mg/dL Not Estab. UR MICROALBUMIN QUANT (test code=MICALB) 2266.9 ug/mL Not Estab. Results confirmed ondilution. UR MICROALB/CREAT RATIO (test code=MICALB:CRE) 2971.0 0.0-30.0 INFCE Result Units: mg/g creat Normal: 0.0 - 30.0 Albuminuria: 31.0 - 300.0 Clinical albuminuria: >300.0Performed At: [facility] [address] [id number] Jonathan Wallace MD Ph:[phone] [id number] 17:23:00* Test Item Value Reference Range Comments GLUBED (test code=GLUBED) 185 mg/dL 74-106 Performed by certified tool engine lathe set up operator at [facility] [id number] 12:35:00* Test Item Value Reference Range Comments GLUBED (test code=GLUBED) 221 mg/dL 74-106 Performed by certified tool engine lathe set up operator at [facility] [id number] 09:05:00* Test Item Value Reference Range Comments GLUBED (test code=GLUBED) 276 mg/dL 74-106 Performed by certified tool engine lathe set up operator at [facility] BASIC METABOLIC [id number] 06:47:00* Test Item Value Reference Range Comments SODIUM (test code=NA) 141 mmol/L 136-145 POTASSIUM (test code=K) 3.6 mmol/L 3.5-5.1 CHLORIDE (test code=CL) 105.0 mmol/L 98-107 CARBON DIOXIDE (test code=CO2) 27.0 mmol/L 21-32 ANION GAP (test code=GAP) 12.6 10-20 GLUCOSE (test code=GLU) 179 mg/dL 74-106 BLOOD UREA NITROGEN (test code=BUN) 28 mg/dL 7-18 GLOMERULAR FILTRATION RATE (test code=GFR) 26 mL/min >=60 Estimated GFR by using Modified MDRD formula.Chronic kidney disease is defined as either kidney damageor GFR <60 mL/min/1.73 m2 for >3 months. CREATININE (test code=CREAT) 2.00 mg/dL 0.55-1.02 Note change in reference range due to change in reagent. BUN/CREATININE RATIO (test code=BUN/CREA) 13.7 10-20 CALCIUM (test code=CA) 7.9 mg/dL 8.5-10.1 CBC W/AUTO [id number] 06:43:00* Test Item Value Reference Range Comments WHITE BLOOD CELL (test code=WBC) 4.0 K/mm3 4.5-12.5 RED BLOOD CELL (test code=RBC) 2.97 mill/mm3 3.7-5.2 HEMOGLOBIN (test code=HGB) 7.9 gram/dL 11.5-15.5 HEMATOCRIT (test code=HCT) 25.4 % 36.0-46.0 MEAN CELL VOLUME (test code=MCV) 85.5 fL 80-98 MEAN CELL HGB (test code=MCH) 26.6 picogram 27.0-33.0 MEAN CELL HGB CONCETRATION (test code=MCHC) 31.1 gram/dL 33.0-36.0 RED CELL DISTRIBUTION WIDTH (test code=RDW) 15.3 % 11.6-16.2 RED CELL DISTRIBUTION WIDTH SD (test code=RDW-SD) 46.8 fL 37.0-51.0 PLATELET COUNT (test code=PLT) 246 K/mm3 150-450 MEAN PLATELET VOLUME (test code=MPV) 10.1 fL 6.7-11.0 NEUTROPHIL % (test code=NT%) 68.3 % 39.0-69.0 IMMATURE GRANULOCYTE % (test code=IG%) 1.3 % 0.0-5.0 LYMPHOCYTE % (test code=LY%) 23.0 % 25.0-55.0 MONOCYTE % (test code=MO%) 6.6 % 0.0-10.0 EOSINOPHIL % (test code=EO%) 0.3 % 0.0-5.0 BASOPHIL % (test code=BA%) 0.5 % 0.0-1.0 NUCLEATED RBC % (test code=NRBC%) 0.0 % 0-0 NEUTROPHIL # (test code=NT#) 2.70 K/mm3 1.8-7.7 IMMATURE GRANULOCYTE # (test code=IG#) 0.05 x10 3/uL 0-0.03 LYMPHOCYTE # (test code=LY#) 0.91 K/mm3 1.0-5.0 MONOCYTE # (test code=MO#) 0.26 K/mm3 0-0.8 EOSINOPHIL # (test code=EO#) 0.01 K/mm3 0.0-0.5 BASOPHIL # (test code=BA#) 0.02 K/mm3 0.0-0.2 NUCLEATED RBC # (test code=NRBC#) 0.00 K/mm3 0.0-0.1 MANUAL DIFF REQUIRED (test code=MDIFF) NO BASIC METABOLIC [id number] 06:37:00* Test Item Value Reference Range Comments SODIUM (test code=NA) 141 mmol/L 136-145 POTASSIUM (test code=K) 3.6 mmol/L 3.5-5.1 CHLORIDE (test code=CL) 105.0 mmol/L 98-107 CARBON DIOXIDE (test code=CO2) mmol/L 21-32 ANION GAP (test code=GAP) 10-20 GLUCOSE (test code=GLU) mg/dL 74-106 BLOOD UREA NITROGEN (test code=BUN) mg/dL 7-18 GLOMERULAR FILTRATION RATE (test code=GFR) mL/min >=60 CREATININE (test code=CREAT) mg/dL 0.55-1.02 BUN/CREATININE RATIO (test code=BUN/CREA) 10-20 CALCIUM (test code=CA) mg/dL 8.5-10.1 [id number] 20:48:00* Test Item Value Reference Range Comments GLUBED (test code=GLUBED) 217 mg/dL 74-106 Performed by certified tool engine lathe set up operator at [facility] [id number] 18:37:00* Test Item Value Reference Range Comments GLUBED (test code=GLUBED) 205 mg/dL 74-106 Performed by certified tool engine lathe set up operator at [facility] [id number] 18:37:00* Test Item Value Reference Range Comments GLUBED (test code=GLUBED) 260 mg/dL 74-106 Performed by certified tool engine lathe set up operator at [facility] [id number] 12:33:00* Test Item Value Reference Range Comments MAGNESIUM (test code=MAG) 1.9 mg/dL 1.8-2.4 SPECIMEN COMMENTS: add to AM labsBASIC METABOLIC [id number] 09:22:00* Test Item Value Reference Range Comments SODIUM (test code=NA) 140 mmol/L 136-145 POTASSIUM (test code=K) 2.9 mmol/L 3.5-5.1 Results called to [employer] [id number] V.LAB.OA 05/10/18 0922Critical results verified and read back by Nurse? Y CHLORIDE (test code=CL) 103.0 mmol/L 98-107 CARBON DIOXIDE (test code=CO2) 27.0 mmol/L 21-32 ANION GAP (test code=GAP) 12.9 10-20 GLUCOSE (test code=GLU) 177 mg/dL 74-106 BLOOD UREA NITROGEN (test code=BUN) 25 mg/dL 7-18 GLOMERULAR FILTRATION RATE (test code=GFR) 23 mL/min >=60 Estimated GFR by using Modified MDRD formula.Chronic kidney disease is defined as either kidney damageor GFR <60 mL/min/1.73 m2 for >3 months. CREATININE (test code=CREAT) 2.20 mg/dL 0.55-1.02 Note change in reference range due to change in reagent. BUN/CREATININE RATIO (test code=BUN/CREA) 11.5 10-20 CALCIUM (test code=CA) 6.8 mg/dL 8.5-10.1 [id number] 09:02:00* Test Item Value Reference Range Comments GLUBED (test code=GLUBED) 178 mg/dL 74-106 Performed by certified tool engine lathe set up operator at [facility] CBC W/AUTO [id number] 07:37:00* Test Item Value Reference Range Comments WHITE BLOOD CELL (test code=WBC) 3.1 K/mm3 4.5-12.5 RED BLOOD CELL (test code=RBC) 2.80 mill/mm3 3.7-5.2 HEMOGLOBIN (test code=HGB) 7.5 gram/dL 11.5-15.5 HEMATOCRIT (test code=HCT) 24.1 % 36.0-46.0 MEAN CELL VOLUME (test code=MCV) 86.1 fL 80-98 MEAN CELL HGB (test code=MCH) 26.8 picogram 27.0-33.0 MEAN CELL HGB CONCETRATION (test code=MCHC) 31.1 gram/dL 33.0-36.0 RED CELL DISTRIBUTION WIDTH (test code=RDW) 15.2 % 11.6-16.2 RED CELL DISTRIBUTION WIDTH SD (test code=RDW-SD) 47.5 fL 37.0-51.0 PLATELET COUNT (test code=PLT) 229 K/mm3 150-450 MEAN PLATELET VOLUME (test code=MPV) 10.2 fL 6.7-11.0 NEUTROPHIL % (test code=NT%) 58.0 % 39.0-69.0 IMMATURE GRANULOCYTE % (test code=IG%) 1.0 % 0.0-5.0 LYMPHOCYTE % (test code=LY%) 31.1 % 25.0-55.0 MONOCYTE % (test code=MO%) 9.3 % 0.0-10.0 EOSINOPHIL % (test code=EO%) 0.3 % 0.0-5.0 BASOPHIL % (test code=BA%) 0.3 % 0.0-1.0 NUCLEATED RBC % (test code=NRBC%) 0.0 % 0-0 NEUTROPHIL # (test code=NT#) 1.81 K/mm3 1.8-7.7 IMMATURE GRANULOCYTE # (test code=IG#) 0.03 x10 3/uL 0-0.03 LYMPHOCYTE # (test code=LY#) 0.97 K/mm3 1.0-5.0 MONOCYTE # (test code=MO#) 0.29 K/mm3 0-0.8 EOSINOPHIL # (test code=EO#) 0.01 K/mm3 0.0-0.5 BASOPHIL # (test code=BA#) 0.01 K/mm3 0.0-0.2 NUCLEATED RBC # (test code=NRBC#) 0.00 K/mm3 0.0-0.1 MANUAL DIFF REQUIRED (test code=MDIFF) NO RETICULOCYTE [id number] 23:46:00* Test Item Value Reference Range Comments RETICULOCYTE COUNT (test code=RETICT) 2.9 % 0.5-2.0 RETIC COUNT ABSOLUTE (test code=RET#) 0.094 mill/mm3 0.016-0.095 IMMATURE RETICULOCYTE FRACTION (test code=IRF) 14.4 % 3.0-15.9 Values above normal range indicate an increase in RBCcellular response from bone marrow. RETICULOCYTE HGB EQUIVALENT (test code=RETHE) 29.2 pg 28.2-35.7 RET-He is a direct estimate of recent functionalavailability of iron in the cell, therefore, decreasedRET-He is indicative of iron deficiency. SMEAR PERIPHERAL [id number] 23:46:00* Test Item Value Reference Range Comments SMEAR PERIPHERAL BLOOD (test code=BLDSM) PATH REV PATH REVIEW NORMAL WBC WITH PREDOMINANCE OF GRANULOCYTES AND MILD TOXICGRANULATION. UNREMARKABLE PLATELET NUMBERS AND MORPHOLOGY.NORMOCYTIC ANEMIA COMPATIBLE WITH ANEMIA OF CHRONIC DISEASE.Reviewed by Dr Karel Pelayo URINALYSIS [id number] 22:14:00* Test Item Value Reference Range Comments UA COLOR (test code=COLU) YELLOW YELLOW UA APPEARANCE (test code=APPU) CLEAR CLEAR UA GLUCOSE DIPSTICK (test code=DGLUU) 150 (1+) mg/dL NEGATIVE UA BILIRUBIN DIPSTICK (test code=BILU) NEGATIVE mg/dL NEGATIVE UA KETONE DIPSTICK (test code=KETU) Negative mg/dL NEGATIVE UA SPECIFIC GRAVITY (test code=SGU) 1.011 1.001-1.035 UA BLOOD DIPSTICK (test code=SHERMAN) Negative NEGATIVE UA PH DIPSTICK (test code=MALGORZATA) 7.0 5.0-8.0 UA PROTEIN DIPSTICK (test code=PROU) >500 (3+) mg/dL NEGATIVE UA UROBILINIOGEN DIPSTICK (test code=URO) NEGATIVE mg/dL NEGATIVE UA NITRITE DIPSTICK (test code=KAMINI) POSITIVE NEGATIVE UA LEUKOCYTE ESTERASE W REFLEX (test code=LEUUR) 2+ NEGATIVE UA WBC (test code=WBCU) 11-20 #/HPF 0-5 UA RBC (test code=RBCU) 0-2 #/HPF 0-5 UA EPITHELIAL CELLS (test code=EPIU) MOD per HPF FEW UA BACTERIA (test code=BACU) FEW #/HPF NONE UA HYALINE CAST (test code=HYALU) 3-5 #/LPF 0-5 UA AMORPHOUS SEDIMENT (test code=AMORU) FEW #/LPF NONE Urine Source? [facility] SMEAR EOSINOPHIL [id number] 22:14:00* Test Item Value Reference Range Comments UR SMEAR EOSINOPHIL COUNT (test code=EOSCTU) NONE SEEN per HPF NONE SEEN Urine Source? [facility] NA,[id number] 22:14:00* Test Item Value Reference Range Comments UR NA,RANDOM (test code=EDUARDO) 27 mmol/L 20-110 Urine Source? [facility] K, [id number] 22:14:00* Test Item Value Reference Range Comments URINE K, RANDOM (test code=KU) 15.0 mmol/L 12-75 Urine Source? [facility] CHLORIDE [id number] 22:14:00* Test Item Value Reference Range Comments UR CHLORIDE RANDOM (test code=CLU) 14 mEq/L Urine Source? [facility] PROTEIN/CREATININE [id number] 22:14:00* Test Item Value Reference Range Comments UR PROTEIN RANDOM (test code=PROTU) 367.5 mg/dL 0.0-11.9 Protein levels may be falsely elevated in patients withelevated level of aminoglycoside antibiotics in CSF and inhighly concentrated urine specimens. If false elevation issuspected, contact lab for alternated testing technique. UR CREATININE RANDOM (test code=CREATU) 82.0 mg/dL 30-125 PROTEIN/CREATININE RATIO (test code=P/CRATIO) 4.48 RATIO 0.0-0.20 Urine Source? Clean [id number] 21:21:00* Test Item Value Reference Range Comments GLUBED (test code=GLUBED) 185 mg/dL 74-106 Performed by certified tool engine lathe set up operator at [facility] [id number] 20:50:00* Test Item Value Reference Range Comments GLUBED (test code=GLUBED) 229 mg/dL 74-106 Performed by certified tool engine lathe set up operator at [facility] URINALYSIS [id number] 19:35:00* Test Item Value Reference Range Comments UA COLOR (test code=COLU) YELLOW YELLOW UA APPEARANCE (test code=APPU) CLEAR CLEAR UA GLUCOSE DIPSTICK (test code=DGLUU) 150 (1+) mg/dL NEGATIVE UA BILIRUBIN DIPSTICK (test code=BILU) NEGATIVE mg/dL NEGATIVE UA KETONE DIPSTICK (test code=KETU) Negative mg/dL NEGATIVE UA SPECIFIC GRAVITY (test code=SGU) 1.011 1.001-1.035 UA BLOOD DIPSTICK (test code=SHERMAN) Negative NEGATIVE UA PH DIPSTICK (test code=MALGORZATA) 7.0 5.0-8.0 UA PROTEIN DIPSTICK (test code=PROU) >500 (3+) mg/dL NEGATIVE UA UROBILINIOGEN DIPSTICK (test code=URO) NEGATIVE mg/dL NEGATIVE UA NITRITE DIPSTICK (test code=KAMINI) POSITIVE NEGATIVE UA LEUKOCYTE ESTERASE W REFLEX (test code=LEUUR) 2+ NEGATIVE UA WBC (test code=WBCU) 11-20 #/HPF 0-5 UA RBC (test code=RBCU) 0-2 #/HPF 0-5 UA EPITHELIAL CELLS (test code=EPIU) MOD per HPF FEW UA BACTERIA (test code=BACU) FEW #/HPF NONE UA HYALINE CAST (test code=HYALU) 3-5 #/LPF 0-5 UA AMORPHOUS SEDIMENT (test code=AMORU) FEW #/LPF NONE Urine Source? [facility] SMEAR EOSINOPHIL [id number] 19:35:00* Test Item Value Reference Range Comments UR SMEAR EOSINOPHIL COUNT (test code=EOSCTU) per HPF NONE SEEN Urine Source? [facility] NA,[id number] 19:35:00* Test Item Value Reference Range Comments UR NA,RANDOM (test code=EDUARDO) 27 mmol/L 20-110 Urine Source? [facility]atch[facility]INE K, [id number] 19:35:00* Test Item Value Reference Range Comments URINE K, RANDOM (test code=KU) 15.0 mmol/L 12-75 Urine Source? [facility] CHLORIDE [id number] 19:35:00* Test Item Value Reference Range Comments UR CHLORIDE RANDOM (test code=CLU) 14 mEq/L Urine Source? [facility] PROTEIN/CREATININE [id number] 19:35:00* Test Item Value Reference Range Comments UR PROTEIN RANDOM (test code=PROTU) 367.5 mg/dL 0.0-11.9 Protein levels may be falsely elevated in patients withelevated level of aminoglycoside antibiotics in CSF and inhighly concentrated urine specimens. If false elevation issuspected, contact lab for alternated testing technique. UR CREATININE RANDOM (test code=CREATU) 82.0 mg/dL 30-125 PROTEIN/CREATININE RATIO (test code=P/CRATIO) 4.48 RATIO 0.0-0.20 Urine Source? Clean CatchURINALYSIS [id number] 19:24:00* Test Item Value Reference Range Comments UA COLOR (test code=COLU) YELLOW YELLOW UA APPEARANCE (test code=APPU) CLEAR CLEAR UA GLUCOSE DIPSTICK (test code=DGLUU) 150 (1+) mg/dL NEGATIVE UA BILIRUBIN DIPSTICK (test code=BILU) NEGATIVE mg/dL NEGATIVE UA KETONE DIPSTICK (test code=KETU) Negative mg/dL NEGATIVE UA SPECIFIC GRAVITY (test code=SGU) 1.011 1.001-1.035 UA BLOOD DIPSTICK (test code=SHERMAN) Negative NEGATIVE UA PH DIPSTICK (test code=MALGORZATA) 7.0 5.0-8.0 UA PROTEIN DIPSTICK (test code=PROU) >500 (3+) mg/dL NEGATIVE UA UROBILINIOGEN DIPSTICK (test code=URO) NEGATIVE mg/dL NEGATIVE UA NITRITE DIPSTICK (test code=KAMINI) POSITIVE NEGATIVE UA LEUKOCYTE ESTERASE W REFLEX (test code=LEUUR) 2+ NEGATIVE UA WBC (test code=WBCU) 11-20 #/HPF 0-5 UA RBC (test code=RBCU) 0-2 #/HPF 0-5 UA EPITHELIAL CELLS (test code=EPIU) MOD per HPF FEW UA BACTERIA (test code=BACU) FEW #/HPF NONE UA HYALINE CAST (test code=HYALU) 3-5 #/LPF 0-5 UA AMORPHOUS SEDIMENT (test code=AMORU) FEW #/LPF NONE Urine Source? Clean CatchUR SMEAR EOSINOPHIL [id number] 19:24:00* Test Item Value Reference Range Comments UR SMEAR EOSINOPHIL COUNT (test code=EOSCTU) per HPF NONE SEEN Urine Source? Clean CatchUR NA,[id number] 19:24:00* Test Item Value Reference Range Comments UR NA,RANDOM (test code=EDUARDO) 27 mmol/L 20-110 Urine Source? Clean CatchURINE K, [id number] 19:24:00* Test Item Value Reference Range Comments URINE K, RANDOM (test code=KU) 15.0 mmol/L 12-75 Urine Source? Clean CatchUR CHLORIDE [id number] 19:24:00* Test Item Value Reference Range Comments UR CHLORIDE RANDOM (test code=CLU) 14 mEq/L Urine Source? Clean CatchUR PROTEIN/CREATININE [id number] 19:24:00* Test Item Value Reference Range Comments UR PROTEIN RANDOM (test code=PROTU) mg/dL 0.0-11.9 UR CREATININE RANDOM (test code=CREATU) mg/dL 30-125 PROTEIN/CREATININE RATIO (test code=P/CRATIO) RATIO 0.0-0.20 Urine Source? Clean CatchURINALYSIS [id number] 19:23:00* Test Item Value Reference Range Comments UA COLOR (test code=COLU) YELLOW YELLOW UA APPEARANCE (test code=APPU) CLEAR CLEAR UA GLUCOSE DIPSTICK (test code=DGLUU) 150 (1+) mg/dL NEGATIVE UA BILIRUBIN DIPSTICK (test code=BILU) NEGATIVE mg/dL NEGATIVE UA KETONE DIPSTICK (test code=KETU) Negative mg/dL NEGATIVE UA SPECIFIC GRAVITY (test code=SGU) 1.011 1.001-1.035 UA BLOOD DIPSTICK (test code=SHERMAN) Negative NEGATIVE UA PH DIPSTICK (test code=MALGORZATA) 7.0 5.0-8.0 UA PROTEIN DIPSTICK (test code=PROU) >500 (3+) mg/dL NEGATIVE UA UROBILINIOGEN DIPSTICK (test code=URO) NEGATIVE mg/dL NEGATIVE UA NITRITE DIPSTICK (test code=KAMINI) POSITIVE NEGATIVE UA LEUKOCYTE ESTERASE W REFLEX (test code=LEUUR) 2+ NEGATIVE UA WBC (test code=WBCU) per HPF 0-5 Urine Source? Clean CatchUR SMEAR EOSINOPHIL [id number] 19:23:00* Test Item Value Reference Range Comments UR SMEAR EOSINOPHIL COUNT (test code=EOSCTU) per HPF NONE SEEN Urine Source? Clean CatchUR NA,[id number] 19:23:00* Test Item Value Reference Range Comments UR NA,RANDOM (test code=EDUARDO) 27 mmol/L 20-110 Urine Source? Clean CatchURINE K, [id number] 19:23:00* Test Item Value Reference Range Comments URINE K, RANDOM (test code=KU) 15.0 mmol/L 12-75 Urine Source? Clean CatchUR CHLORIDE [id number] 19:23:00* Test Item Value Reference Range Comments UR CHLORIDE RANDOM (test code=CLU) 14 mEq/L Urine Source? Clean CatchUR PROTEIN/CREATININE [id number] 19:23:00* Test Item Value Reference Range Comments UR PROTEIN RANDOM (test code=PROTU) mg/dL 0.0-11.9 UR CREATININE RANDOM (test code=CREATU) mg/dL 30-125 PROTEIN/CREATININE RATIO (test code=P/CRATIO) RATIO 0.0-0.20 Urine Source? Clean CatchURINALYSIS [id number] 18:54:00* Test Item Value Reference Range Comments UA COLOR (test code=COLU) YELLOW YELLOW UA APPEARANCE (test code=APPU) CLEAR CLEAR UA GLUCOSE DIPSTICK (test code=DGLUU) 150 (1+) mg/dL NEGATIVE UA BILIRUBIN DIPSTICK (test code=BILU) NEGATIVE mg/dL NEGATIVE UA KETONE DIPSTICK (test code=KETU) Negative mg/dL NEGATIVE UA SPECIFIC GRAVITY (test code=SGU) 1.011 1.001-1.035 UA BLOOD DIPSTICK (test code=SHERMAN) Negative NEGATIVE UA PH DIPSTICK (test code=MALGORZATA) 7.0 5.0-8.0 UA PROTEIN DIPSTICK (test code=PROU) >500 (3+) mg/dL NEGATIVE UA UROBILINIOGEN DIPSTICK (test code=URO) NEGATIVE mg/dL NEGATIVE UA NITRITE DIPSTICK (test code=KAMINI) POSITIVE NEGATIVE UA LEUKOCYTE ESTERASE W REFLEX (test code=LEUUR) 2+ NEGATIVE UA WBC (test code=WBCU) per HPF 0-5 Urine Source? Clean CatchUR SMEAR EOSINOPHIL [id number] 18:54:00* Test Item Value Reference Range Comments UR SMEAR EOSINOPHIL COUNT (test code=EOSCTU) per HPF NONE SEEN Urine Source? Clean CatchUR NA,[id number] 18:54:00* Test Item Value Reference Range Comments UR NA,RANDOM (test code=EDUARDO) mmol/L 20-110 Urine Source? Clean CatchURINE K, [id number] 18:54:00* Test Item Value Reference Range Comments URINE K, RANDOM (test code=KU) mmol/L 12-75 Urine Source? Clean CatchUR CHLORIDE [id number] 18:54:00* Test Item Value Reference Range Comments UR CHLORIDE RANDOM (test code=CLU) mEq/L Urine Source? Clean CatchUR PROTEIN/CREATININE [id number] 18:54:00* Test Item Value Reference Range Comments UR PROTEIN RANDOM (test code=PROTU) mg/dL 0.0-11.9 UR CREATININE RANDOM (test code=CREATU) mg/dL 30-125 PROTEIN/CREATININE RATIO (test code=P/CRATIO) RATIO 0.0-0.20 Urine Source? Clean CatchLACTIC DEHYDROGENASE(LDH)2018-05-09 14:25:00* Test Item Value Reference Range Comments LACTIC DEHYDROGENASE(LDH) (test code=LDH) 285 IUnit/L 84-246 [id number] 14:13:00* Test Item Value Reference Range Comments GLUBED (test code=GLUBED) 193 mg/dL 74-106 Performed [facility] certified tool engine [facility]he [facility]~ RETICULOCYTE [id number] 13:49:00* Test Item Value Reference Range Comments RETICULOCYTE COUNT (test code=RETICT) 2.9 % 0.5-2.0 RETIC COUNT ABSOLUTE (test code=RET#) 0.094 mill/mm3 0.016-0.095 IMMATURE RETICULOCYTE FRACTION (test code=IRF) 14.4 % 3.0-15.9 Values above normal range indicate an increase in RBCcellular response from bone marrow. RETICULOCYTE HGB EQUIVALENT (test code=RETHE) 29.2 pg 28.2-35.7 RET-He is a direct estimate of recent functionalavailability of iron in the cell, therefore, decreasedRET-He is indicative of iron deficiency. SMEAR PERIPHERAL [id number] 13:49:00* Test Item Value Reference Range Comments SMEAR PERIPHERAL BLOOD (test code=BLDSM) PATH REV PATH REVIEW [id number] 09:56:00* Test Item Value Reference Range Comments GLUBED (test code=GLUBED) 168 mg/dL 74-106 Performed by certified tool engine lathe set up operator at [facility] COMPREHENSIVE METABOLIC [id number] 07:14:00* Test Item Value Reference Range Comments SODIUM (test code=NA) 140 mmol/L 136-145 POTASSIUM (test code=K) 3.0 mmol/L 3.5-5.1 CHLORIDE (test code=CL) 103.0 mmol/L 98-107 CARBON DIOXIDE (test code=CO2) 28.0 mmol/L 21-32 ANION GAP (test code=GAP) 12.0 10-20 GLUCOSE (test code=GLU) 125 mg/dL 74-106 BLOOD UREA NITROGEN (test code=BUN) 20 mg/dL 7-18 GLOMERULAR FILTRATION RATE (test code=GFR) 22 mL/min >=60 Estimated GFR by using Modified MDRD formula.Chronic kidney disease is defined as either kidney damageor GFR <60 mL/min/1.73 m2 for >3 months. CREATININE (test code=CREAT) 2.30 mg/dL 0.55-1.02 Note change in reference range due to change in reagent. BUN/CREATININE RATIO (test code=BUN/CREA) 8.7 10-20 TOTAL PROTEIN (test code=PROT) 6.2 gram/dL 6.4-8.2 ALBUMIN (test code=ALB) 1.8 g/dL 3.4-5.0 GLOBULIN (test code=GLOB) 4.4 gram/dL 2.7-4.2 ALBUMIN/GLOBULIN RATIO (test code=A/G) 0.4 0.75-1.50 CALCIUM (test code=CA) 6.7 mg/dL 8.5-10.1 BILIRUBIN TOTAL (test code=BILT) 0.20 mg/dL 0.0-1.0 SGOT/AST (test code=AST) 12 IUnit/L 15-37 SGPT/ALT (test code=ALT) 11 IUnit/L 12-78 ALKALINE PHOSPHATASE TOTAL (test code=ALKP) 81 IUnit/L 45-117 Note change in reference range due to change in reagent. COMPREHENSIVE METABOLIC [id number] 07:13:00* Test Item Value Reference Range Comments SODIUM (test code=NA) 140 mmol/L 136-145 POTASSIUM (test code=K) 3.0 mmol/L 3.5-5.1 CHLORIDE (test code=CL) 103.0 mmol/L 98-107 CARBON DIOXIDE (test code=CO2) mmol/L 21-32 ANION GAP (test code=GAP) 10-20 GLUCOSE (test code=GLU) mg/dL 74-106 BLOOD UREA NITROGEN (test code=BUN) mg/dL 7-18 GLOMERULAR FILTRATION RATE (test code=GFR) mL/min >=60 CREATININE (test code=CREAT) mg/dL 0.55-1.02 BUN/CREATININE RATIO (test code=BUN/CREA) 10-20 TOTAL PROTEIN (test code=PROT) gram/dL 6.4-8.2 ALBUMIN (test code=ALB) g/dL 3.4-5.0 GLOBULIN (test code=GLOB) gram/dL 2.7-4.2 ALBUMIN/GLOBULIN RATIO (test code=A/G) 0.75-1.50 CALCIUM (test code=CA) mg/dL 8.5-10.1 BILIRUBIN TOTAL (test code=BILT) mg/dL 0.0-1.0 SGOT/AST (test code=AST) IUnit/L 15-37 SGPT/ALT (test code=ALT) IUnit/L 12-78 ALKALINE PHOSPHATASE TOTAL (test code=ALKP) IUnit/L 45-117 CBC W/AUTO [id number] 07:01:00* Test Item Value Reference Range Comments WHITE BLOOD CELL (test code=WBC) 3.7 K/mm3 4.5-12.5 RED BLOOD CELL (test code=RBC) 2.82 mill/mm3 3.7-5.2 HEMOGLOBIN (test code=HGB) 7.6 gram/dL 11.5-15.5 HEMATOCRIT (test code=HCT) 24.1 % 36.0-46.0 MEAN CELL VOLUME (test code=MCV) 85.5 fL 80-98 MEAN CELL HGB (test code=MCH) 27.0 picogram 27.0-33.0 MEAN CELL HGB CONCETRATION (test code=MCHC) 31.5 gram/dL 33.0-36.0 RED CELL DISTRIBUTION WIDTH (test code=RDW) 15.3 % 11.6-16.2 RED CELL DISTRIBUTION WIDTH SD (test code=RDW-SD) 47.8 fL 37.0-51.0 PLATELET COUNT (test code=PLT) 241 K/mm3 150-450 MEAN PLATELET VOLUME (test code=MPV) 10.1 fL 6.7-11.0 NEUTROPHIL % (test code=NT%) 56.4 % 39.0-69.0 IMMATURE GRANULOCYTE % (test code=IG%) 0.8 % 0.0-5.0 LYMPHOCYTE % (test code=LY%) 32.6 % 25.0-55.0 MONOCYTE % (test code=MO%) 9.6 % 0.0-10.0 EOSINOPHIL % (test code=EO%) 0.3 % 0.0-5.0 BASOPHIL % (test code=BA%) 0.3 % 0.0-1.0 NUCLEATED RBC % (test code=NRBC%) 0.0 % 0-0 NEUTROPHIL # (test code=NT#) 2.11 K/mm3 1.8-7.7 IMMATURE GRANULOCYTE # (test code=IG#) 0.03 x10 3/uL 0-0.03 LYMPHOCYTE # (test code=LY#) 1.22 K/mm3 1.0-5.0 MONOCYTE # (test code=MO#) 0.36 K/mm3 0-0.8 EOSINOPHIL # (test code=EO#) 0.01 K/mm3 0.0-0.5 BASOPHIL # (test code=BA#) 0.01 K/mm3 0.0-0.2 NUCLEATED RBC # (test code=NRBC#) 0.00 K/mm3 0.0-0.1 MANUAL DIFF REQUIRED (test code=MDIFF) NO [id number] 20:35:00* Test Item Value Reference Range Comments GLUBED (test code=GLUBED) 206 mg/dL 74-106 Performed by certified tool engine lathe set up operator at [facility] [id number] 17:23:00* Test Item Value Reference Range Comments GLUBED (test code=GLUBED) 244 mg/dL 74-106 Performed by certified tool engine lathe set up operator at [facility] - US RETRO [id number] 15:35:00 Name: ELAINE MARC [facility] : 1960 Age/S: 58 / F Marcellus Nino Unit #: [id number] Loc: [place] [address] Phys: Sheela Reddy MD Acct: [id number] Dis Date: Status: ADM IN PHONE #: [phone] Exam Date: 05/08/2018 1500 FAX #: [phone] Reason: ADAM EXAMS: CPT CODE: [id number] US RETRO LTD [id number] REASON FOR EXAM: ADAM EXAM ORDER DATE: 05/08/2018 8:29 AM Attending MBrian.: Sheela Reddy MD PROCEDURE: - US RETRO LTD FINDINGS: The right kidney measures 11.2 x 5.7 cm. The cross-sectional thickness of the right renal cortex measured 1.7 cm. The left kidney measures 10.8 x 5.4 cm. The cross-sectional thickness of the left renal cortex measured 1.5 cm. There is no evidence of hydronephrosis. There is no evidence of nephrolithiasis. There is no evidence of renal mass. The urinary bladder is unremarkable IMPRESSION: Unremarkable kidneys. at 1535 Reported and signed by: Chalino Wick M.D. CC: Allen Rausch MD; Sheela Reddy MD Technologist: Rebecca Dunn Trnscb Date/Time: 05/08/2018 (1535) [email or web address] Orig Print D/T: S: 05/08/2018 (2000) Probe: PAGE 1 Signed Report [id number] 10:27:00* Test Item Value Reference Range Comments TROPONIN-I (test code=TROPI) 0.126 ng/mL 0-0.045 COMMENTS TO ADVISORY INTERN: COLLECT 3 HOURS AFTER PREVIOUS [id number] 10:17:00* Test Item Value Reference Range Comments MAGNESIUM (test code=MAG) 1.4 mg/dL 1.8-2.4 BASIC METABOLIC [id number] 07:10:00* Test Item Value Reference Range Comments SODIUM (test code=NA) 142 mmol/L 136-145 POTASSIUM (test code=K) 2.7 mmol/L 3.5-5.1 Results called to [id number] by [email or web address] 05/08/18 0657Critical results verified and read back by Nurse? Y CHLORIDE (test code=CL) 105.0 mmol/L 98-107 CARBON DIOXIDE (test code=CO2) 29.0 mmol/L 21-32 ANION GAP (test code=GAP) 10.7 10-20 GLUCOSE (test code=GLU) 209 mg/dL 74-106 BLOOD UREA NITROGEN (test code=BUN) 16 mg/dL 7-18 GLOMERULAR FILTRATION RATE (test code=GFR) 26 mL/min >=60 Estimated GFR by using Modified MDRD formula.Chronic kidney disease is defined as either kidney damageor GFR <60 mL/min/1.73 m2 for >3 months. CREATININE (test code=CREAT) 2.00 mg/dL 0.55-1.02 Note change in reference range due to change in reagent. BUN/CREATININE RATIO (test code=BUN/CREA) 7.8 10-20 CALCIUM (test code=CA) 6.4 mg/dL 8.5-10.1 Results called to [id number] by [email or web address] 05/08/18 0710Critical results verified and read back by Nurse? Y [id number] 07:10:00* Test Item Value Reference Range Comments PHOSPHORUS (test code=PHOS) 2.7 mg/dL 2.5-4.9 [id number] 07:10:00* Test Item Value Reference Range Comments MAGNESIUM (test code=MAG) 1.5 mg/dL 1.8-2.4 LIPID PROFILE (CORONARY RISK)2018-05-08 07:05:00* Test Item Value Reference Range Comments TRIGLYCERIDES (test code=TRIG) 346 mg/dL 20-150 CHOLESTEROL (test code=CHOL) 239 mg/dL 0-200 CHOLESTEROL/HDL RATIO (test code=CHOLHDL) 11.0 RATIO 0-4.9 RISK ASSOCIATED WITH CHOL/HDL RATIOS: Risk Male Female1/2 AVERAGE 3.43 3.27AVERAGE 4.97 4.442X AVERAGE 9.55 7.053X AVERAGE 23.39 11.04 REFERENCE VALUE IS RELATED TO RISK LEVELS ASRECOMMENDED BY THE EMMANUEL. HEART, LUNG, AND BLOOD INST. HDL CHOLESTEROL (test code=HDL) 20 mg/dL 40-60 LIPOPROTEIN LDL (test code=LDL) 166 mg/dL 100-129 RN PERSONNEL, CONTACT PHYSICIAN IMMEDIATELY IF THIS IS A STROKE, AMI OR CAROTID STENOSIS PATIENT WHEN THE LDL >100 (1ST OCCURENCE, THIS ADMISSION) Reference Interval: mg/dL mmol/L Optimal <100 <2.6Near/above optimal 100-129 2.6- 3.3Borderline High 130-159 3.4-4.1High 160-189 4.1-4.9Very High >=190 >=4.9=========This LDL result is a direct measurement.========= LIPID PROFILE (CORONARY RISK)2018-05-08 07:02:00* Test Item Value Reference Range Comments TRIGLYCERIDES (test code=TRIG) mg/dL 20-150 CHOLESTEROL (test code=CHOL) 239 mg/dL 0-200 CHOLESTEROL/HDL RATIO (test code=CHOLHDL) RATIO 0-4.9 HDL CHOLESTEROL (test code=HDL) mg/dL 40-60 LIPOPROTEIN LDL (test code=LDL) mg/dL 100-129 BASIC METABOLIC [id number] 06:59:00* Test Item Value Reference Range Comments SODIUM (test code=NA) 142 mmol/L 136-145 POTASSIUM (test code=K) 2.7 mmol/L 3.5-5.1 Results called to [id number] by [email or web address] 05/08/18 0657Critical results verified and read back by Nurse? Y CHLORIDE (test code=CL) 105.0 mmol/L 98-107 CARBON DIOXIDE (test code=CO2) mmol/L 21-32 ANION GAP (test code=GAP) 10-20 GLUCOSE (test code=GLU) mg/dL 74-106 BLOOD UREA NITROGEN (test code=BUN) mg/dL 7-18 GLOMERULAR FILTRATION RATE (test code=GFR) mL/min >=60 CREATININE (test code=CREAT) mg/dL 0.55-1.02 BUN/CREATININE RATIO (test code=BUN/CREA) 10-20 CALCIUM (test code=CA) mg/dL 8.5-10.1 [id number] 06:59:00* Test Item Value Reference Range Comments PHOSPHORUS (test code=PHOS) mg/dL 2.5-4.9 [id number] 06:59:00* Test Item Value Reference Range Comments MAGNESIUM (test code=MAG) mg/dL 1.8-2.4 [id number] 06:55:00* Test Item Value Reference Range Comments TROPONIN-I (test code=TROPI) 0.116 ng/mL 0-0.045 COMMENTS TO ADVISORY INTERN: COLLECT 3 HOURS AFTER PREVIOUS SAMPLESERUM [id number] 06:53:00* Test Item Value Reference Range Comments SERUM IRON (test code=IRON) 28 ug/dL 50-175 TOTAL IRON BINDING [id number] 06:53:00* Test Item Value Reference Range Comments TOTAL IRON BINDING CAPACITY (test code=TIBC) 188 mcg/dL 250-450 [id number] 06:53:00* Test Item Value Reference Range Comments FERRITIN (test code=MIO) 68 ng/mL 8-388 [id number] 06:26:00* Test Item Value Reference Range Comments GLYCOSYLATED HEMOGLOBIN (HA1C) (test code=GLYHGB) 8.3 % HbA1 4.8-6.0 ESTIMATED AVERAGE GLUCOSE (test code=EAG) 192 MG/DL B-TYPE NATRIURETIC [id number] 23:12:00* Test Item Value Reference Range Comments B-TYPE NATRIURETIC PEPTIDE (test code=BNP) 582.12 pgram/mL 0-100 [id number] 23:11:00* Test Item Value Reference Range Comments TROPONIN-I (test code=TROPI) 0.116 ng/mL 0-0.045 Results called to [id number] by [email or web address] 05/07/18 2309Critical results verified and read back by Nurse? Y - CT ABD PELVIS W/O [id number] 22:54:00 Name: ELAINE MARC [facility] : 1960 Age/S: 58 / F [address] [facility] Unit #: [id number] Loc: [place] [address] Phys: Ranjana Carvalho DO Acct: [id number] Dis Date: Status: REG ER PHONE #: [phone] Exam Date: 05/07/2018 2240 FAX #: [phone] Reason: flank pain EXAMS: CPT CODE: [id number] CT ABD PELVIS W/O CONT [id number] REASON FOR EXAM: flank pain EXAM ORDER DATE: 05/07/2018 10:24 PM Ordering MNolan: Ranjana Carvalho DO PROCEDURE: - CT ABD PELVIS W/O CONT COMPARISON: FINDINGS: CT images of the abdomen and pelvis were obtained without IV and without oral contrast at 5mm. Dose modulation, iterative reconstruction, and/or weight based adjustment of the MA/KV was utilized to reduce the radiation dose to as low as reasonably achievable. The liver, spleen, and pancreas are grossly within normal limits. The patient is status post cholecystectomy The kidneys are within normal limits. The urinary bladder is unremarkable. The colon, small bowel, and stomach are within normal limits without evidence of obstruction. The appendix is unremarkable. Surgical karen in the stomach suggestive of status post gastric No evidence of free air or free fluid. The uterus is unremarkable. IMPRESSION: 1. Small bilateral pleural effusions 2. Diffuse soft tissue edema suggestive of anasarca. No evidence of obstructive uropathy at 0412 Reported and signed by: Chalino Wick M.D. CC: Ranjana Carvalho DO Technologist:RT CURT CTDI: DLP: Trnscb Date/Time: 05/07/2018 (760) ScotL Orig Print D/T: S: 05/07/2018 (7501) CTDI: DLP: PAGE 1 Signed Report URINALYSIS [id number] 22:29:00* Test Item Value Reference Range Comments UA COLOR (test code=COLU) STRAW YELLOW UA APPEARANCE (test code=APPU) SLIGHTLY CLOUDY CLEAR UA GLUCOSE DIPSTICK (test code=DGLUU) 150 (1+) mg/dL NEGATIVE UA BILIRUBIN DIPSTICK (test code=BILU) NEGATIVE mg/dL NEGATIVE UA KETONE DIPSTICK (test code=KETU) Negative mg/dL NEGATIVE UA SPECIFIC GRAVITY (test code=SGU) 1.010 1.001-1.035 UA BLOOD DIPSTICK (test code=SHERMAN) 1+ (Small) NEGATIVE UA PH DIPSTICK (test code=MALGORZATA) 6.0 5.0-8.0 UA PROTEIN DIPSTICK (test code=PROU) >500 (3+) mg/dL NEGATIVE UA UROBILINIOGEN DIPSTICK (test code=URO) NEGATIVE mg/dL NEGATIVE UA NITRITE DIPSTICK (test code=KAMINI) NEGATIVE NEGATIVE UA LEUKOCYTE ESTERASE W REFLEX (test code=LEUUR) NEGATIVE NEGATIVE UA WBC (test code=WBCU) 0-5 #/HPF 0-5 UA RBC (test code=RBCU) 0-2 #/HPF 0-5 UA EPITHELIAL CELLS (test code=EPIU) MOD per HPF FEW UA BACTERIA (test code=BACU) FEW #/HPF NONE UA MUCUS (test code=MUCU) FEW #/LPF FEW Urine Source? Clean CatchBASIC METABOLIC [id number] 22:28:00* Test Item Value Reference Range Comments SODIUM (test code=NA) 142 mmol/L 136-145 POTASSIUM (test code=K) 2.4 mmol/L 3.5-5.1 Results called to [id number] by [email or web address] 05/07/18 2227Critical results verified and read back by Nurse? Y CHLORIDE (test code=CL) 103.0 mmol/L 98-107 CARBON DIOXIDE (test code=CO2) 31.0 mmol/L 21-32 ANION GAP (test code=GAP) 10.4 10-20 GLUCOSE (test code=GLU) 207 mg/dL 74-106 BLOOD UREA NITROGEN (test code=BUN) 15 mg/dL 7-18 GLOMERULAR FILTRATION RATE (test code=GFR) 27 mL/min >=60 Estimated GFR by using Modified MDRD formula.Chronic kidney disease is defined as either kidney damageor GFR <60 mL/min/1.73 m2 for >3 months. CREATININE (test code=CREAT) 1.90 mg/dL 0.55-1.02 Note change in reference range due to change in reagent. BUN/CREATININE RATIO (test code=BUN/CREA) 7.7 10-20 CALCIUM (test code=CA) 7.0 mg/dL 8.5-10.1 HEPATIC FUNCTION [id number] 22:28:00* Test Item Value Reference Range Comments TOTAL PROTEIN (test code=PROT) 7.0 gram/dL 6.4-8.2 ALBUMIN (test code=ALB) 2.1 g/dL 3.4-5.0 GLOBULIN (test code=GLOB) 4.9 gram/dL 2.7-4.2 ALBUMIN/GLOBULIN RATIO (test code=A/G) 0.4 0.75-1.50 BILIRUBIN TOTAL (test code=BILT) 0.20 mg/dL 0.0-1.0 BILIRUBIN DIRECT (test code=BILD) 0.11 mg/dL 0.0-0.20 SGOT/AST (test code=AST) 18 IUnit/L 15-37 SGPT/ALT (test code=ALT) 16 IUnit/L 12-78 ALKALINE PHOSPHATASE TOTAL (test code=ALKP) 97 IUnit/L 45-117 Note change in reference range due to change in reagent. [id number] 22:28:00* Test Item Value Reference Range Comments LIPASE (test code=LIP) 107 U/L 73.0-393.0 - XR CHEST 1 [id number] 22:21:00 FAX: Ranjana Carvalho DO [place]: [address] St: REG Name: ELAINE SUAREZ [facility] : [birth year] 59 Age/S: 58/F [address] [facility] Of [facility] Unit #: [id number] Loc: [place] [address] Phys: Ranjana Carvalho DO Acct: [id number] Dis Date: Status: REG ER PHONE #: [phone] Exam Date: 05/07/20182215 FAX #: [phone] Reason: dyspnea EXAMS: CPT CODE: [id number] XR CHEST 1 V 05241 REASON FOR EXAM: dyspnea EXAM ORDER DATE: 05/07/2018 9:47 PM Ordering MNolan: Ranjana Carvalho DO PROCEDURE: - XR CHEST 1 V COMPARISON: FINDINGS: Portable AP frontal view of the chest obtained at 10:13 PM shows diffuse haziness of the lung ford. There is no evidence of effusion. The heart size is minimally enlarged. Pulmonary vasculatures are minimally congested. IMPRESSION: Early congestive heart failure with pulmonary edema and atelectasis on the basis E lectronically Signed by García Wick on 05/07/2018 at 2221 Reported and signed by: Chalino Wick M.D. CC: Ranjana Carvalho DO Technologist: Tre Cheek, RT(R Trnscrd Date/Time/By: 05/07/2018 (2220) : By: Sarwat [id number] Orig Print D/T: S: 05/07/2018 (2223) JUAN DOMINIQUE 1 Signed Report URINALYSIS [id number] 22:16:00* Test Item Value Reference Range Comments UA COLOR (test code=COLU) STRAW YELLOW UA APPEARANCE (test code=APPU) SLIGHTLY CLOUDY CLEAR UA GLUCOSE DIPSTICK (test code=DGLUU) 150 (1+) mg/dL NEGATIVE UA BILIRUBIN DIPSTICK (test code=BILU) NEGATIVE mg/dL NEGATIVE UA KETONE DIPSTICK (test code=KETU) Negative mg/dL NEGATIVE UA SPECIFIC GRAVITY (test code=SGU) 1.010 1.001-1.035 UA BLOOD DIPSTICK (test code=SHERMAN) 1+ (Small) NEGATIVE UA PH DIPSTICK (test code=MALGORZATA) 6.0 5.0-8.0 UA PROTEIN DIPSTICK (test code=PROU) >500 (3+) mg/dL NEGATIVE UA UROBILINIOGEN DIPSTICK (test code=URO) NEGATIVE mg/dL NEGATIVE UA NITRITE DIPSTICK (test code=KAMINI) NEGATIVE NEGATIVE UA LEUKOCYTE ESTERASE W REFLEX (test code=LEUUR) NEGATIVE NEGATIVE UA WBC (test code=WBCU) per HPF 0-5 Urine Source? Clean CatchCBC W/O [id number] 21:56:00* Test Item Value Reference Range Comments WHITE BLOOD CELL (test code=WBC) 6.4 K/mm3 4.5-12.5 RED BLOOD CELL (test code=RBC) 3.13 mill/mm3 3.7-5.2 HEMOGLOBIN (test code=HGB) 8.5 gram/dL 11.5-15.5 HEMATOCRIT (test code=HCT) 26.6 % 36.0-46.0 MEAN CELL VOLUME (test code=MCV) 85.0 fL 80-98 MEAN CELL HGB (test code=MCH) 27.2 picogram 27.0-33.0 MEAN CELL HGB CONCETRATION (test code=MCHC) 32.0 gram/dL 33.0-36.0 RED CELL DISTRIBUTION WIDTH (test code=RDW) 14.8 % 11.6-16.2 PLATELET COUNT (test code=PLT) 251 K/mm3 150-450 MEAN PLATELET VOLUME (test code=MPV) 9.5 fL 6.7-11.0
--- OUTSIDE RECORDS SUMMARY | 2018-05-14 21:20 | XMS REPORT ---
Author Author Admin, [place] Organization [facility] Address [address] [place] [address] Phone Allergies, Adverse Reactions, Alerts Allergy Name Reaction Description Start Date Severity Status Provider No Known Allergies Gee Garcia MD Conditions or Problems Problem Name Problem Code Onset Date Status Entry Date Provider Comment Standard Description Annotate Anxiety disorder 300.00 Active Gee Garcia MD Anxiety state, unspecified Bipolar 1 disorder, depressed 296.50 Active Gee Garcia MD Bipolar I disorder, most recent episode (or current) depressed, unspecified Medication List Medication Instructions Start Date Stop Date Generic Name NDC Status Provider Patient Instruction ARIPIPRAZOLE 20MG (TWENTY MG) TABS TAKE 1 TABLET BY MOUTH EVERY NIGHT AT BEDTIME ARIPIPRAZOLE 86729492867 Active Gee Garcia MD Active ESCITALOPRAM 20MG TABLETS TAKE 1 TABLET BY MOUTH EVERY DAY ESCITALOPRAM OXALATE 73420321767 Active Gee Garcia MD Active KLONOPIN 0.5 MG ORAL TABLET Take 1 tablet at bedtime CLONAZEPAM 78674995874 Active Gee Garcia MD Active Vital Signs Date Name Value Unit Range Description blood pressure, diastolic 84 mm[Hg] BP gregory blood pressure, systolic 138 mm[Hg] BP sys height E&M 61 [in_us] Bdy height pulse rate E&M 111 /min Heart rate weight E&M 206.38 [lb_av] Weight Measured blood pressure, diastolic 78 mm[Hg] BP gregory blood pressure, systolic 123 mm[Hg] BP sys height E&M 61 [in_us] Bdy height pulse rate E&M 81 /min Heart rate weight E&M 204.13 [lb_av] Weight Measured Encounters Date Encounter Provider Code Facility 11:45:29 CDT Est Patient Detailed - 24917 Gee Garcia MD CPT-19234 [facility] Procedures Code Procedure Name Date Entry Date Standard Description CPT-31118 Diagnostic evaluation with medical - 84948 11:44:21 CDT
--- OUTSIDE RECORDS SUMMARY | 2018-05-14 21:20 | XMS REPORT ---
Author Author Admin, [place] Organization [facility] Address [address] [place] [address] Phone Allergies, Adverse Reactions, Alerts Allergy Name [...] Generic Name NDC Status Provider Patient Instruction QUETIAPINE 400MG TABLETS TAKE 1 TABLET BY MOUTH EVERY NIGHT AT BEDTIME QUETIAPINE FUMARATE 01369641742 Active Gee Garcia MD Active ZOLOFT 100 MG ORAL TABLET Take 1.5 tablets daily SERTRALINE HCL 54344748950 Active Gee Garcia MD Active DIAZEPAM 5 MG TABS TAKE 1 TABLET BY MOUTH TWICE DAILY DIAZEPAM 81871966067 Active Gee Garcia MD Active FLUOXETINE 20MG CAPSULES TAKE ONE CAPSULE BY MOUTH EVERY DAY FLUOXETINE HCL 80338367161 No Longer Active Gee Garcia MD Active ARIPIPRAZOLE 20MG (TWENTY MG) TABS TAKE 1 TABLET BY MOUTH EVERY NIGHT AT BEDTIME ARIPIPRAZOLE 16147125828 No Longer Active Gee Garcia MD Active ESCITALOPRAM 20MG TABLETS TAKE 1 TABLET BY MOUTH EVERY DAY ESCITALOPRAM OXALATE 17743847157 No Longer Active Gee Garcia MD Active KLONOPIN 0.5 MG ORAL TABLET Take 1 tablet at bedtime CLONAZEPAM 04577662505 No Longer Active Gee Garcia MD Active Vital Signs Date Name Value Unit Range Description blood pressure, diastolic 79 mm[Hg] BP gregory blood pressure, systolic 148 mm[Hg] BP sys height E&M 61 [in_us] Bdy height pulse rate E&M 96 /min Heart rate weight E&M 227 [lb_av] Weight Measured blood pressure, diastolic 83 mm[Hg] BP gregory blood pressure, systolic 153 mm[Hg] BP sys height E&M 61 [in_us] Bdy height pulse rate E&M 99 /min Heart rate weight E&M 208.13 [lb_av] Weight Measured blood pressure, diastolic 84 mm[Hg] BP gregory blood pressure, systolic 158 mm[Hg] BP sys height E&M 61 [in_us] Bdy height pulse rate E&M 101 /min Heart rate weight E&M 201.38 [lb_av] Weight Measured blood pressure, diastolic 84 mm[Hg] BP gregory [...] Measured Encounters Date Encounter Provider Code Facility 13:36:01 EDUCATION COURSES SALES REPRESENTATIVE Est Patient Exp Problem - 19628 Gee Garcia MD CPT-02135 [facility] 14:08:37 EDUCATION COURSES SALES REPRESENTATIVE Est Patient Detailed - 87296 Gee Garcia MD CPT-73149 [facility] 11:43:44 EDUCATION COURSES SALES REPRESENTATIVE Est Patient Detailed - 65316 Gee Garcia MD CPT-06386 [facility] 11:45:29 CDT Est Patient Detailed - 18774 Gee Garcia MD CPT-26887 [facility] Procedures Code Procedure Name Date Entry Date Standard Description CPT-14164 Diagnostic evaluation with medical - 81400 11:44:21 CDT
--- OUTSIDE RECORDS SUMMARY | 2018-05-14 21:20 | XMS REPORT | Summary of Care ---
Author Organization Unknown Address Unknown Phone Unavailable Encounter HQ Supa_arvin(NOAH) [id number] Date(s): 02/12/14 - 02/12/[address] Discharge Disposition: Home Physician Attending: Lilo Prasad MD Physician_Referring: Lilo Prasad MD Reason for Visit STRICTURE 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.9 AND 555.9 CHRONS DISEASE Problem List Condition Effective Dates Status Health Status Informant Anemia(Confirmed) Active CKD - chronic kidney Active disease(Confirmed) Colitis(Confirmed) Active Diabetes(Confirmed) Active Diarrhea(Confirmed) Active Gastric Active bypass(Confirmed) GERD Active (gastroesophageal reflux disease)(Confirmed) HTN Active (hypertension)(Confi rmed) Hyperlipidemia(Confi Active rmed) Allergies, Adverse Reactions, Alerts Substance Reaction Severity Status NKDA Active Medications No data available for this section Medications Administered During Your Visit No data available for this section Immunizations Vaccine Date Refusal Reason influenza virus vaccine, inactivated 01/08/14 influenza virus vaccine, inactivated 01/20/09 pneumococcal 23-valent vaccine 01/08/14 pneumococcal 23-valent vaccine 01/20/09 Social History Social History Type Response Substance Abuse Use: None Employment/School Alcohol Use: Never Smoking Status Current some day smoker, Lives with someone who smokes, Cigarette Smoking Last 365 Days Yes, Reg Smoking Cessation Counseling Yes
--- OUTSIDE RECORDS SUMMARY | 2018-05-14 21:20 | XMS REPORT ---
Author Author Admin, [place] Organization [facility] Address [address] [place] [address] Phone Allergies, Adverse Reactions, Alerts Allergy Name [...] Generic Name NDC Status Provider Patient Instruction FLUOXETINE 20MG CAPSULES TAKE ONE CAPSULE BY MOUTH EVERY DAY FLUOXETINE HCL 09332893332 Active Gee Garcia MD Active QUETIAPINE 400MG TABLETS TAKE 1 TABLET BY MOUTH EVERY NIGHT AT BEDTIME QUETIAPINE FUMARATE 89764376536 Active Gee Garcia MD Active VALIUM 5 MG ORAL TABLET Take 1 tablet By Mouth Every Morning DIAZEPAM 46286019421 Active Gee Garcia MD Active ARIPIPRAZOLE 20MG (TWENTY MG) TABS TAKE 1 TABLET BY MOUTH EVERY NIGHT AT BEDTIME ARIPIPRAZOLE 32915485181 No Longer Active Gee Garcia MD Active ESCITALOPRAM 20MG TABLETS TAKE 1 TABLET BY MOUTH EVERY DAY ESCITALOPRAM OXALATE 10487628889 No Longer Active Gee Garcia MD Active KLONOPIN 0.5 MG ORAL TABLET Take 1 tablet at bedtime CLONAZEPAM 69139714865 No Longer Active Gee Garcia MD Active Vital Signs Date Name Value Unit Range Description blood pressure, diastolic - 8462-4 84 mm[Hg] BP gregory blood pressure, systolic - 8480-6 158 mm[Hg] BP sys height E&M - 8302-2 61 [in_us] Bdy height pulse rate E&M - 8867-4 101 /min Heart rate weight E&M - 3141-9 201.38 [lb_av] Weight Measured blood pressure, diastolic - 8462-4 84 mm[Hg] BP gregory blood pressure, systolic - 8480-6 138 mm[Hg] BP sys height E&M - 8302-2 61 [in_us] Bdy height pulse rate E&M - 8867-4 111 /min Heart rate weight E&M - 3141-9 206.38 [lb_av] Weight Measured blood pressure, diastolic - 8462-4 78 mm[Hg] BP gregory blood pressure, systolic - 8480-6 123 mm[Hg] BP sys height E&M - 8302-2 61 [in_us] Bdy height pulse rate E&M - 8867-4 81 /min Heart rate weight E&M - 3141-9 204.13 [lb_av] Weight Measured Encounters Date Encounter Provider Code Facility 11:43:44 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 11:45:29 CDT Est Patient Detailed - 56170 Gee Garcia MD CPT-86379 [facility] Procedures Code Procedure Name Date Entry Date Standard Description CPT-34882 Diagnostic evaluation with medical - 96008 11:44:21 CDT
--- OUTSIDE RECORDS SUMMARY | 2018-05-14 21:20 | XMS REPORT ---
Author Author Admin, [place] Organization [facility] Address [address] [place] [address] Phone Allergies, Adverse Reactions, Alerts Allergy Name [...] MOUTH EVERY NIGHT AT BEDTIME QUETIAPINE FUMARATE 15591563864 Active Gee Garcia MD Active ZOLOFT 100 MG ORAL TABLET Take 1.5 tablets daily SERTRALINE HCL 10137075977 Active Gee Garcia MD Active DIAZEPAM 5 MG TABS TAKE 1 TABLET BY MOUTH TWICE DAILY DIAZEPAM 20588637710 Active Gee Garcia MD Active FLUOXETINE 20MG CAPSULES TAKE ONE CAPSULE BY MOUTH EVERY DAY FLUOXETINE HCL 71102817629 No Longer Active Gee Garcia MD Active ARIPIPRAZOLE 20MG (TWENTY MG) TABS TAKE 1 TABLET BY MOUTH EVERY NIGHT AT BEDTIME ARIPIPRAZOLE 25726981422 No Longer Active Gee Garcia MD Active ESCITALOPRAM 20MG TABLETS TAKE 1 TABLET BY MOUTH EVERY DAY ESCITALOPRAM OXALATE 38118703531 No Longer Active Gee Garcia MD Active KLONOPIN 0.5 MG ORAL TABLET Take 1 tablet at bedtime CLONAZEPAM 29638946358 No Longer Active Gee Garcia MD Active [...] Encounters Date Encounter Provider Code Facility 13:36:01 SPOT CHECKER Est Patient Exp Problem - 02234 Gee Garcia MD CPT-59366 [facility] 14:08:37 SPOT CHECKER Est Patient Detailed - 74942 Gee Garcia MD CPT-77680 [facility] 11:43:44 SPOT CHECKER Est Patient Detailed - 84614 Gee Garcia MD CPT-44601 [facility] 11:45:29 CDT Est Patient Detailed - 10773 Gee Garcia MD CPT-19301 [facility] Procedures Code Procedure Name Date Entry Date Standard Description CPT-06534 Diagnostic evaluation with medical - 87790 11:44:21 CDT
--- OUTSIDE RECORDS SUMMARY | 2018-05-14 21:20 | XMS REPORT | Summary of Care ---
Author Author [facility] Organization [facility] Address Unknown Phone Unavailable Encounter HQ Abebe(FIN) [id number] Date(s): 12/23/14 - 01/21/15 [facility] [address] [place] [address]- [phone] Discharge Disposition: Home Attending Physician: Mark Denise MD Referring Physician: Mark Denise MD Vital Signs No data available for [...] 01/08/14 pneumococcal 23-valent vaccine 01/20/09 Procedures Procedure Date Related Diagnosis Body Site section1 Cholecystectomy Gastric bypass operation Oophorectomy2 1x 2 2right Social History Social History Type Response Substance Abuse Use: None. Employment/School Work/School description: unemployed. Alcohol Never Smoking Status Current some day smoker; Lives with someone who smokes; Cigarette Smoking Last 365 Days Yes; Reg Smoking Cessation Counseling Yes Assessment and Plan No data available for this section
--- OUTSIDE RECORDS SUMMARY | 2018-05-14 21:20 | XMS REPORT ---
Author Author Admin, [place] Organization [facility] Address [address] [place] [address] Phone Allergies, Adverse Reactions, Alerts Allergy Name [...] MOUTH EVERY NIGHT AT BEDTIME QUETIAPINE FUMARATE 30299201740 Active Gee Garcia MD Active ZOLOFT 100 MG ORAL TABLET Take 1 tablet daily SERTRALINE HCL 45950921790 Active Gee Garcia MD Active VALIUM 5 MG ORAL TABLET Take 1 tablet By Mouth twice a day DIAZEPAM 59599301589 Active Gee Garcia MD Active FLUOXETINE 20MG CAPSULES TAKE ONE CAPSULE BY MOUTH EVERY DAY FLUOXETINE HCL 70848025667 No Longer Active Gee Garcia MD Active ARIPIPRAZOLE 20MG (TWENTY MG) TABS TAKE 1 TABLET BY MOUTH EVERY NIGHT AT BEDTIME ARIPIPRAZOLE 79721762758 No Longer Active Gee Garcia MD Active ESCITALOPRAM 20MG TABLETS TAKE 1 TABLET BY MOUTH EVERY DAY ESCITALOPRAM OXALATE 66777909674 No Longer Active Gee Garcia MD Active KLONOPIN 0.5 MG ORAL TABLET Take 1 tablet at bedtime CLONAZEPAM 98389825801 No Longer Active Gee Garcia MD Active Vital Signs Date Name Value Unit Range Description blood pressure, diastolic 83 mm[Hg] BP gregory [...] Measured Encounters Date Encounter Provider Code Facility 14:08:37 MAINTENANCE SHOP MANAGER Est Patient Detailed - 99306 Gee Garcia MD CPT-66800 [facility] 11:43:44 MAINTENANCE SHOP MANAGER Est Patient Detailed - 98765 Gee Garcia MD CPT-61007 [facility] 11:45:29 CDT Est Patient Detailed - 79474 Gee Garcia MD CPT-07903 [facility] Procedures Code Procedure Name Date Entry Date Standard Description CPT-32640 Diagnostic evaluation with medical - 14252 11:44:21 CDT
--- OUTSIDE RECORDS SUMMARY | 2018-05-14 21:21 | XMS REPORT | Summary of Care ---
Author Author AHL GUY M.D. Organization Unknown Address Unknown Phone Unavailable Care Team Providers Care Gig Tender Name Role Phone HAL GUY M.D. Unavailable Unavailable LYNNE HARRISON, TOM Unavailable Unavailable Unavailable Unavailable Functional Status Name Dates Details Functional status health issues are not documented Status: Name Dates Details Cognitive status health issues are not documented Status: Problems Name Dates Details 2-part disp fx of surgical neck of right humerus with routine healing (V54.11, S42.221D) Status: Active Closed displaced fracture of greater tuberosity of right humerus with malunion (733.81, S42.251P) Status: Active Closed fracture of proximal pole of right patella with routine healing (V54.16, S82.091D) Status: Active Medications Name Dates Details Acetaminophen-Codeine #3 300-30 MG Oral Tablet TAKE 1 TABLET 4 TIMES DAILY NEEDED FOR PAIN. Quantity: 60 TISSUE M.D., HAL * Start : 09-Aug-2017 Active TraMADol HCl - 50 MG Oral Tablet TAKE 1 TO 2 TABLETS 3 TIMES DAILY NEEDED. * Quantity: 60 Refills: 0 TISSUE M.D., HAL * Start : 09-Aug-2017 Active Methocarbamol 750 MG Oral Tablet 1 tab po q 8 hours prn spasm * Quantity: 40 Refills: 0 TISSUE M.D., HAL * Start : 13-Sep-2017 Active Allergies and Adverse Reactions Name Dates Details No Known Drug Allergies (Allergy) Status: Active Procedures Procedure Dates Details Procedures not documented Immunization Name Dates Details Immunizations not documented Social History Name Dates Details Unknown if ever smoked Vital Signs Date Test Result Details [id number] Height 61 in Status: Weight 200 lb Status: Body Mass Index Calculated 37.79 kg/m2 Status: Body Surface Area Calculated 1.89 m2 Status: Results Date Description Value Details [id number] [U] XRAY KNEE 1 OR 2 VWS RIGHT 22688 XR KNEE 1 OR 2 VWS RIGHT Images acquired, not reported on this accession number. [id number] [U] XRAY SHOULDER MIN 2 VWS RIGHT 73353 XR SHOULDER MIN 2 VWS RIGHT Images acquired, not reported on this accession number. Plan of Care Name Dates Details Planned Observations Planned Goals not documented Interventions Provided Labs/Procedures/Imaging* [U] XRAY KNEE 1 OR 2 VWS RIGHT 77162; Done: 24 Jan 2018 * [U] XRAY SHOULDER MIN 2 VWS RIGHT 62114; Done: 24 Jan 2018 Plan* Patient can be weightbearing as tolerated right upper extremity. She has no restrictions for any of her injuries at this time. She will come back and see us in 4 months and we can see how she is proceeding with her shoulder therapy. I advised her she needs to continue working hard on her therapy at home. Instructions Name Dates Details Instructions not documented Encounters Appointment; HAL GUY M.D. Encounter Diagnosis: Problem not documented On: 09-Aug-2017 9:45 Appointment; HAL GUY M.D. Encounter Diagnosis: Problem not documented On: 13-Sep-2017 9:15 Appointment; HAL GUY M.D. Encounter Diagnosis: Problem not documented On: 25-Oct-2017 11:00 Appointment; HAL GUY M.D. Encounter Diagnosis: Problem not documented On: 24-Jan-2018 10:30
--- NOTE | 2018-05-14 22:50 | Diagnostic Imaging Report ---
EXAMINATION: CHEST SINGLE (PORTABLE) INDICATION: Sinus of breath COMPARISON: None FINDINGS: TUBES and LINES: None. LUNGS: Bilateral pulmonary venous congestion and interstitial edema. PLEURA: Probable small left pleural effusion and left basilar subsegmental atelectasis. No pneumothorax. HEART AND MEDIASTINUM: The cardiomediastinal silhouette is mildly enlarged. BONES AND SOFT TISSUES: No acute osseous lesion. Soft tissues are unremarkable. UPPER ABDOMEN: No free air under the diaphragm. IMPRESSION: Bilateral pulmonary venous congestion and interstitial edema. Signed by: Dr. Mariya Souza M.D. on 05/14/2018 10:47 PM
[2018-05-14 22:52] LABS: BASOPHILS % 0.2 % (0.0-1.0); EOSINOPHILS % 0.2 % (0.0-6.0); HEMATOCRIT 27.2 % (34.2-44.1); HEMOGLOBIN 8.4 g/dL (12.0-16.0); LYMPHOCYTES # (AUTO) 0.6 (1.0-3.2); LYMPHOCYTES % 15.6 % (18.0-39.1); MEAN CORPUSCULAR HEMOGLOBIN 26.8 pg (28-32); MEAN CORPUSCULAR HGB CONC 30.9 g/dL (31-35); MEAN CORPUSCULAR VOLUME 86.9 fL (81-99); MONOCYTES # (AUTO) 0.3 (0.2-0.8); MONOCYTES % 6.6 % (4.4-11.3); NEUTROPHILS # (AUTO) 3.2 (2.1-6.9); NEUTROPHILS % 76.7 % (38.7-80.0); PLATELET COUNT 230 x10e3/uL (140-360); RED BLOOD COUNT 3.13 x10e6/uL (3.6-5.1); RED CELL DISTRIBUTION WIDTH 15.6 % (11.7-14.4)
[2018-05-14 22:56] LABS: INR 0.99; PARTIAL THROMBOPLASTIN TIME 30.3 seconds (23.8-35.5); PROTHROMBIN TIME 13.6 seconds (11.9-14.5)
[2018-05-14 23:30] LABS: ALBUMIN 2.2 g/dL (3.5-5.0); ALBUMIN/GLOBULIN RATIO 0.5 (0.8-2.0); ANION GAP 14.3 mmol/L (8-16); CREATININE, SERUM 1.88 mg/dL (0.57-1.11); POTASSIUM 4.3 mmol/L (3.5-5.1)
[2018-05-14 23:38] LABS: CREATINE KINASE MB 0.9 ng/mL (0-5.0)
[2018-05-14] MEDS ORDERED: FUROSEMIDE INJ 10 MG/ML 4 ML VIAL IV ONE (23:45)
[2018-05-15] MEDS ORDERED: AMLODIPINE BESY10 MG PO (00:36)
[2018-05-15] MEDS ORDERED: NEXIUM40 MG PO (00:36)
[2018-05-15] MEDS ORDERED: LISINOPRIL-HCT1 EACH PO (00:36)
[2018-05-15] MEDS ORDERED: QUETIAPINE FUM400 MG PO (00:36)
[2018-05-15] MEDS ORDERED: SERTRALINE HCL100 MG PO (00:36)
[2018-05-15 00:54] LABS: BILIRUBIN,URINE NEGATIVE (NEGATIVE); CLARITY,URINE CLOUDY (CLEAR); COLOR,URINE YELLOW (YELLOW); KETONES,URINE NEGATIVE (NEGATIVE); LEUKOCYTE ESTERASE ,URINE NEGATIVE (NEGATIVE); NITRITE,URINE NEGATIVE (NEGATIVE); PROTEIN,URINE DIPSTICK 3+ (NEGATIVE); URINE UROBILINOGEN 0.2 mg/dL (0.2 - 1)
[2018-05-15 01:01] LABS: BACTERIA,URINE MANY /HPF; EPITHELIAL CELLS,URINE MANY /LPF; TRANSITIONAL EPI CELLS,URINE MODERATE
[2018-05-15] MEDS ORDERED: CEFTRIAXONE SOD 1 GM/NS 50 ML 50 ML IV SCH (01:15)
[2018-05-15] MEDS ORDERED: SODIUM CHLORIDE FLUSH 10 ML SYR INJ PRN (01:15)
[2018-05-15] MEDS ORDERED: DEXTROSE 50% SYRINGE 50 ML IV PRN (01:15)
--- OUTSIDE RECORDS SUMMARY | 2018-05-15 01:15 | XMS REPORT | Clinical Summary ---
Author Author [facility] Organization [facility] Address Unknown Phone Unavailable Care Team Providers Care Visual Presentation Manager Name Role Phone Lucero Knight MD PCP [...] Care Team Description Date Type Specialty Eloina Hunter DO Periorbital cellulitis of left eye (Primary Dx); Elevated blood pressure reading 10/21/2017 Emergency Emergency Medicine after 05/14/2017 Social History Date Tobacco Use Types Packs/Day [...] Priority Date/Time Associated Diagnosis ED REFERRAL TO [facility] 10/21/2017 TAOIST PHYSICIAN 11:02 AM CDT ORGANIZATION after 05/14/2017 Results Not on fileafter 05/14/2017 Insurance Payer Benefit Subscriber ID Type Phone Address Plan / Group [employer] AMERIGROUP xxxxxxxxx HMO STAR+PLUS MICHAELA HUMANA MEDICARE HUMANA HMO xxxxxxxxx HMO GOLD PLUS [place]IC[place] [address] ([place]) [place] [address] Advance Directives Patient has advance care planning documents on file. For more information, carmen pruitt contact: Jonnathan Zapata [address] [place] [address]
[2018-05-15] MEDS ORDERED: TRAMADOL HCL 50 MG TAB PO ONE (02:00)
--- NOTE | 2018-05-15 07:05 | NUR ---
REPORT GIVEN TO HEIDY PHILIP DAY SHIFT NURSE.
[2018-05-15 07:59] LABS: CREATINE KINASE MB 0.9 ng/mL (0-5.0)
[2018-05-15] MEDS ORDERED: SERTRALINE HCL 100 MG TAB PO SCH (09:00)
[2018-05-15] MEDS ORDERED: HYDROCHLOROTHIAZIDE 25 MG TAB PO SCH (09:00)
[2018-05-15] MEDS: INSULIN REGULAR, HUMAN 100 UNIT/1 ML 3ML VIAL SQ SCH ×4 (09:13→20:51)
--- NOTE | 2018-05-15 10:00 | NUR ---
INDUSTRIAL SERVICES WORKER AT BEDSIDE AT THIS TIME.
[2018-05-15] MEDS: PANTOPRAZOLE SOD 40 MG TABEC PO SCH (11:18)
[2018-05-15] MEDS: LISINOPRIL 20 MG TAB PO SCH (11:18)
[2018-05-15] MEDS: AMLODIPINE BESYLATE 10 MG TAB PO SCH (11:18)
[2018-05-15] MEDS: FUROSEMIDE INJ 10 MG/ML 4 ML VIAL IV SCH ×2 (11:20→17:04)
[2018-05-15] MEDS ORDERED: POTASSIUM CHLORIDE 20 MEQ TAB CR PO NR (16:21)
[2018-05-15] MEDS ORDERED: FUROSEMIDE INJ 10 MG/ML 4 ML VIAL IV NR (16:30)
[2018-05-15] MEDS ORDERED: ACETAMINOPHEN 325 MG TAB PO PRN (16:45)
[2018-05-15] MEDS ORDERED: HYDRALAZINE HCL 20 MG/ML VIAL IV PRN (16:45)
[2018-05-15] MEDS ORDERED: CEFTRIAXONE SOD 1 GM VIAL IV SCH (16:45)
[2018-05-15] MEDS: CEFTRIAXONE SOD 1 GM/NS 50 ML 50 ML IV SCH (17:01)
[2018-05-15 17:25] VITALS: BP 187/92
--- NOTE | 2018-05-15 17:30 | NUR ---
Received pt from ER at this time. Pt is axo4 and able to verbalize needs. Pt denies any pain at this time. C/O SOB with exertion and when lying flat. Medications have been reviewed and restarted by attending and consults have been notified.
[2018-05-15 17:35] LABS: CREATINE KINASE MB 0.8 ng/mL (0-5.0)
[2018-05-15] MEDS: ONDANSETRON HCL INJ 2MG/ML 2ML 2 MG/ML VIAL IV PRN (18:21)
--- NOTE | 2018-05-15 18:48 | Diagnostic Imaging Report ---
Ventilation/perfusion lung scan Clinical Information: 58 F with acute onset SOB. History of DVT 5 years ago and recent hospitalization x 1 week. Comparison: Chest radiograph 05/14/2018 Discussion: Xenon-133 gas 11 mCi was administered via inhalation. Dynamic images of the lungs in the posterior projection were obtained through single breath, equilibrium, and washout phases. Distribution of tracer activity is irregular throughout the lungs. There are no segmental ventilatory defects. Washout of tracer is diffusely delayed with diffuse air trapping in the left lung. Perfusion images of the lungs were obtained in multiple projections following intravenous administration of approximately 5.0 mCi of Tc-99m MAA. Distribution of tracer is irregular throughout the lungs. The contours of the lungs are well demarcated. There are no segmental perfusion defects of any size. The cardiomediastinal silhouette is mildly enlarged. Impression: 1. Scan findings represent a VERY LOW probability for acute pulmonary embolic disease based on the PIOPED II criteria. 2. Scan evidence of obstructive lung disease. 3. Mildly enlarged cardiac silhouette. Signed by: Dr. Darcie Jaramillo M.D. on 05/15/2018 6:44 PM
[2018-05-15 20:00] VITALS: BP 170/75
--- NOTE | 2018-05-15 20:11 | NUR ---
RECEIVED PT IN BED AOX3 .RESPIRATIONS ARE EVEN AND UNLABORED .DENIES PAIN BILATERAL LOWER LEG WITH EDEMA RT AC 20 G S/L .CALL LIGHT WITH IN REACH .CONTINUE TO MONITOR
[2018-05-15 20:26] VITALS: BP 187/92
[2018-05-15 20:27] VITALS: BP 187/92
[2018-05-15] MEDS: ATORVASTATIN 40 MG TAB PO SCH (20:49)
[2018-05-15] MEDS: QUETIAPINE FUMARATE 100 MG TAB PO SCH (20:50)
[2018-05-15] MEDS: METOPROLOL TARTRATE 25 MG TAB PO SCH (20:50)
[2018-05-15] MEDS: INSULIN GLARGINE 100 UNITS/ML VIAL SQ SCH (21:00)
[2018-05-15] MEDS ORDERED: QUETIAPINE FUMARATE 400 MG PO SCH (21:00)
[2018-05-16] VITALS (8 sets, daily range): BP systolic 138–181; BP diastolic 55–77
[2018-05-16 04:48] LABS: ALBUMIN 1.9 g/dL (3.5-5.0); ALBUMIN/GLOBULIN RATIO 0.5 (0.8-2.0); ANION GAP 10.7 mmol/L (8-16); CALCIUM 8.1 mg/dL (8.4-10.2); CREATININE, SERUM 1.92 mg/dL (0.57-1.11); MAGNESIUM 1.2 MG/DL (1.3-2.1); PHOSPHORUS 4.4 MG/DL (2.3-4.7); POTASSIUM 3.7 mmol/L (3.5-5.1)
[2018-05-16 05:10] LABS: FREE T4 (FREE THYROXINE) 0.55 ng/dL (0.9-1.8); THYROID STIMULATING HORMONE 1.55 uIU/mL (0.350-4.940)
[2018-05-16 05:55] LABS: BASOPHILS % 0.3 % (0.0-1.0); EOSINOPHILS % 0.3 % (0.0-6.0); HEMATOCRIT 23.8 % (34.2-44.1); HEMOGLOBIN 7.3 g/dL (12.0-16.0); LYMPHOCYTES # (AUTO) 0.9 (1.0-3.2); LYMPHOCYTES % 28.7 % (18.0-39.1); MEAN CORPUSCULAR HGB CONC 30.7 g/dL (31-35); MEAN CORPUSCULAR VOLUME 88.1 fL (81-99); MONOCYTES # (AUTO) 0.3 (0.2-0.8); MONOCYTES % 8.9 % (4.4-11.3); NEUTROPHILS % 60.9 % (38.7-80.0); PLATELET COUNT 219 x10e3/uL (140-360); RED CELL DISTRIBUTION WIDTH 15.7 % (11.7-14.4)
[2018-05-16 06:45] LABS: FERRITIN 115.57 ng/mL (4.63-204.00)
--- NOTE | 2018-05-16 06:46 | NUR ---
PT RESTING DENIES PAIN .CALL LIGHT WITH IN REACH .Hb IS DROPPED TO 7.[address] HINTON WITH #[phone] AND PUT THE MESSAGE .WAITING FOR CALL BACK .REPORT GIVEN TO THE ONCOMING NURSE
[2018-05-16 06:56] LABS: FOLATE 2.5 ng/mL (7.0-15.4)
--- NOTE | 2018-05-16 06:56 | NUR ---
REPORT GIVEN TO THE [facility] FOR CONTINUING CARE.
--- NOTE | 2018-05-16 07:18 | NUR ---
PATIENT ASSISTED WITH DIAPER CHANGE, REPOSITIONED IN BED. BED IN LOWER POSITION, CALL LIGHT AT REACH.
[2018-05-16] MEDS: INSULIN REGULAR, HUMAN 100 UNIT/1 ML 3ML VIAL SQ SCH ×4 (07:30→20:28)
[2018-05-16 07:37] LABS: CREATINE KINASE MB 1.6 ng/mL (0-5.0)
[2018-05-16] MEDS: HYDROCHLOROTHIAZIDE 25 MG TAB PO SCH (09:01)
[2018-05-16] MEDS: FUROSEMIDE INJ 10 MG/ML 4 ML VIAL IV SCH ×2 (09:01→17:31)
[2018-05-16] MEDS: METOPROLOL TARTRATE 25 MG TAB PO SCH ×2 (09:02→20:28)
[2018-05-16] MEDS: PANTOPRAZOLE SOD 40 MG TABEC PO SCH (09:03)
[2018-05-16] MEDS: LISINOPRIL 20 MG TAB PO SCH (09:03)
[2018-05-16] MEDS: SERTRALINE HCL 100 MG TAB PO SCH (09:03)
[2018-05-16] MEDS: AMLODIPINE BESYLATE 10 MG TAB PO SCH (09:03)
--- NOTE | 2018-05-16 12:20 | NUR ---
PATIENT SITTING UP IN BED EATING LUNCH, NO COMPLAIN VOICED. BED IN LOWER POSITION, CALL LIGHT AT REACH.
[2018-05-16] MEDS: FOLIC ACID 1 MG TAB PO SCH (13:02)
--- NOTE | 2018-05-16 16:01 | NUR ---
FOOD MIXER IN TO SEE PATIENT, NO NEW ORDER RECEIVED.
--- NOTE | 2018-05-16 16:03 | NUR ---
CM SPOKE TO PATIENT AT BEDSIDE REGARDING IMM LETTER. IMM LETTER GIVEN WITH EXPLANATION BASED ON ANTICIPATED DISCHARGE DATE. ORIGINAL SIGNED AND PLACED IN CHART; COPY OF ORIGINAL DOCUMENT GIVEN TO PATIENT AT BEDSIDE AND PLACED IN CARE TRANSITION FOLDER. CM CONTACT INFORMATION GIVEN TO PATIENT FOR ANY NEEDS OR CONCERNS. PATIENT WITH NO FURTHER QUESTIONS.
[2018-05-16] MEDS: CEFTRIAXONE SOD 1 GM/NS 50 ML 50 ML IV SCH (17:31)
[2018-05-16] MEDS: ATORVASTATIN 40 MG TAB PO SCH (20:28)
[2018-05-16] MEDS: QUETIAPINE FUMARATE 100 MG TAB PO SCH (20:28)
--- NOTE | 2018-05-16 20:28 | NUR ---
BP 181/77, PT ASYMPTOMATIC. WILL GIVE H.S. LOPRESSOR AT THIS TIME.
[2018-05-16] MEDS: INSULIN GLARGINE 100 UNITS/ML VIAL SQ SCH (20:29)
[2018-05-17] VITALS (7 sets, daily range): BP systolic 140–195; BP diastolic 69–87
--- NOTE | 2018-05-17 01:38 | Consultation ---
DATE OF CONSULTATION: Nephrology Consultation Note REASON FOR CONSULTATION: Owjax-wu-ieaejov kidney disease. HISTORY OF PRESENT ILLNESS: This is a 58-year-old female, morbidly obese, who has multiple comorbidities of known type 2 diabetes for significant number of years, which I noted from [facility], who was recently admitted due to underlying chest pain, now is being admitted for shortness of breath and further evaluation. Nephrology was consulted for underlying CKD management. workup revealed 4.5 g proteinuria. It was felt that the patient likely has diabetic nephropathy as she has underlying neuropathy and possibly some retinopathy. She reports having diabetes for greater than 20 years. Denies any herbal supplements, NSAIDs, or any jzhg-jia-orhyrfw medications. The patient was seen and evaluated at bedside on the medical floor. She is currently doing well and feeling much better now with IV diuretics. REVIEW OF SYSTEMS: Pertinent positives for shortness of breath, lower extremity edema, anasarca. Pertinent negatives for diabetes, chest pain, palpitations, nausea, vomiting, diarrhea, dysuria, hematuria, frequency, urgency, lightheadedness, dizziness, , cough, congestion, fever, or any other complaints. The rest of the 14-point review of systems are reviewed with the patient and are negative. ALLERGIES: TO MORPHINE. MEDICATIONS: Home medications are: 1. Amlodipine. 2. Nexium. 3. Lisinopril and hydrochlorothiazide. 4. Quetiapine. 5. Sertraline. PAST MEDICAL HISTORY: 1. Hypertension. 2. Diabetes. 3. Depression. PAST SURGICAL HISTORY: None. FAMILY HISTORY: Hypertension and diabetes. SOCIAL HISTORY: No drugs or alcohol. Does not smoke. PHYSICAL EXAMINATION: VITAL SIGNS: Temperature 97.8, pulse 86, respiratory rate 18, blood pressure is on room air. GENERAL: Not in acute distress. Alert and oriented x3. Cooperative on examination. HEENT: Head is normocephalic and atraumatic. Eyes, pupils are equal and reactive to light bilaterally. Extraocular movements are intact bilaterally. Throat, no evidence of erythema or exudates in the posterior pharynx. Has poor dentition. NECK: Supple. Good range of motion throughout. PULMONARY: Clear to auscultation bilaterally without wheezing, rales, or rhonchi. No crackles appreciated. CARDIOVASCULAR: Positive S1 and S2. No murmur, rubs, or gallops appreciated. ABDOMEN: Soft, nondistended, and nontender to palpation. Bowel sounds are present. MUSCULOSKELETAL: Strength is 5/5 throughout. No evidence of any muscle deficits on examination. No weakness appreciated. NEUROLOGICAL: Cranial nerves II through XII grossly intact. No evidence of any neurological deficits on exam. SKIN: Intact. Warm to touch. Good cap refill. PSYCHIATRIC: Normal mood and affect. LABORATORY DATA: Lab findings show a white count 3.2, hemoglobin 7.3, hematocrit 24, and platelets 219. Chemistry; sodium 136, potassium 3.7, chloride 101, bicarb 28, anion gap of 10, BUN 30, creatinine is 1.92. Iron saturation 11%. Troponins were negative. UA concerning for UTI. Blood cultures, no growth to date. Urine culture, no growth to date. IMAGING STUDIES: CT scan showed, there is probability. Chest x-ray was found to be bibasilar bilateral pleural effusion . IMPRESSION: 1. Xajif-hc-ckencqn kidney disease, stage 3. 2. Pulmonary edema with anasarca. proteinuria 4.5 g per year, likely diabetic nephropathy in nature. PLAN: At this time, continue with low-dose VIK inhibitor for the proteinuria. IV diuretic. Her renal function is at baseline. Renal ultrasound was performed . We will get a.m. labs and monitor closely. Thank you so much for this consultation. We will continue to follow with you. MD JOSESITO Joel/CLAUDIAL /[id number]
[2018-05-17 04:00] LABS: BASOPHILS % 0.3 % (0.0-1.0); EOSINOPHILS % 0.3 % (0.0-6.0); HEMATOCRIT 24.3 % (34.2-44.1); HEMOGLOBIN 7.6 g/dL (12.0-16.0); LYMPHOCYTES # (AUTO) 1.2 (1.0-3.2); LYMPHOCYTES % 36.6 % (18.0-39.1); MEAN CORPUSCULAR HEMOGLOBIN 27.3 pg (28-32); MEAN CORPUSCULAR HGB CONC 31.3 g/dL (31-35); MEAN CORPUSCULAR VOLUME 87.4 fL (81-99); MONOCYTES # (AUTO) 0.3 (0.2-0.8); MONOCYTES % 9.5 % (4.4-11.3); NEUTROPHILS # (AUTO) 1.8 (2.1-6.9); NEUTROPHILS % 52.7 % (38.7-80.0); PLATELET COUNT 212 x10e3/uL (140-360); RED BLOOD COUNT 2.78 x10e6/uL (3.6-5.1); RED CELL DISTRIBUTION WIDTH 15.4 % (11.7-14.4)
[2018-05-17 04:19] LABS: ANION GAP 12.7 mmol/L (8-16); CALCIUM 8.1 mg/dL (8.4-10.2); CREATININE, SERUM 1.83 mg/dL (0.57-1.11); POTASSIUM 3.7 mmol/L (3.5-5.1)
[2018-05-17 04:28] LABS: MAGNESIUM 1.1 MG/DL (1.3-2.1)
--- NOTE | 2018-05-17 04:57 | NUR ---
SPOKE WITH MARITZA GARCIA. INFORMED OF CRITICAL MAGNESIUM. STATED TO CALL NEPHROLOGY ON THE CASE.
--- NOTE | 2018-05-17 05:00 | NUR ---
SPOKE WITH DR PENDLETON. REPORTED CRITICAL MAG OF 1.1-- RECEIVED ORDER FOR MAGESIUM 2GRAM IV.
--- NOTE | 2018-05-17 05:10 | NUR ---
PER PHARMACIST QUEBRACHO TANNER, INFUSE OVER ONE HOUR.
[2018-05-17] MEDS ORDERED: MAGNESIUM SULFATE 2GM/50ML 50 ML IV ONE (05:15)
--- NOTE | 2018-05-17 07:12 | NUR ---
pt alert and sitting upright in bed resp even and unlabored, pt able to able needs known, no distress noted, call light in reach.
[2018-05-17] MEDS: INSULIN REGULAR, HUMAN 100 UNIT/1 ML 3ML VIAL SQ SCH ×4 (07:30→21:00)
[2018-05-17] MEDS: METOPROLOL TARTRATE 25 MG TAB PO SCH ×2 (09:03→21:29)
[2018-05-17] MEDS: AMLODIPINE BESYLATE 10 MG TAB PO SCH (09:03)
[2018-05-17] MEDS: FOLIC ACID 1 MG TAB PO SCH (09:03)
[2018-05-17] MEDS: LISINOPRIL 20 MG TAB PO SCH (09:03)
[2018-05-17] MEDS: FUROSEMIDE INJ 10 MG/ML 4 ML VIAL IV SCH ×2 (09:03→19:37)
[2018-05-17] MEDS: HYDROCHLOROTHIAZIDE 25 MG TAB PO SCH (09:03)
[2018-05-17] MEDS: PANTOPRAZOLE SOD 40 MG TABEC PO SCH (09:04)
[2018-05-17] MEDS: SERTRALINE HCL 100 MG TAB PO SCH (09:04)
--- NOTE | 2018-05-17 11:00 | NUR ---
spoke with Dr. Chaparro . about TEVIN, DR. Chaparro states no Tevin for this pt
--- NOTE | 2018-05-17 15:55 | Progress Note ---
DATE: 05/17/2018 Nephrology Progress Note SUBJECTIVE: The patient is doing well today with no other complaints. The patient very well. There is some concern on the echo that there could be a vegetation on the valve, but this will be deferred to the Pulmonary Services. PHYSICAL EXAMINATION: VITAL SIGNS: Temperature is 96.6, pulse 77, respiratory rate 18, blood pressure 160/82, pulse ox 94% on 2 L nasal cannula. GENERAL: Not in acute distress. Alert and oriented x3. Cooperative on examination. HEENT: Head is normocephalic and atraumatic. Eyes, pupils are equal and reactive to light bilaterally. Extraocular movements are intact bilaterally. Throat, no evidence of erythema or exudates in the posterior pharynx. Has poor dentition. NECK: Supple. Good range of motion throughout. PULMONARY: Clear to auscultation bilaterally without wheezing, rales, or rhonchi. No crackles appreciated. CARDIOVASCULAR: Positive S1 and S2. No murmur, rubs, or gallops appreciated. ABDOMEN: Soft, nondistended, and nontender to palpation. Bowel sounds are present. MUSCULOSKELETAL: Strength is 5/5 throughout. No evidence of any muscle deficits on examination. No weakness appreciated. NEUROLOGICAL: Cranial nerves II through XII grossly intact. No evidence of any neurological deficits on exam. SKIN: Intact. Warm to touch. Good cap refill. PSYCHIATRIC: Normal mood and affect EXTREMITIES: No edema. Good range of motion throughout. LAB: Findings show white count 3.3, hemoglobin 7.6, hematocrit 24, and platelets of 212. Coagulation; PT 13, INR 0.99, and PTT 30. Chemistry; sodium 137, potassium 3.7, chloride is 101, bicarb 20, anion gap 12, BUN is 33, creatinine is 1.8, glucose is 128. Magnesium was low at 1.1 for which magnesium was given this morning. IMPRESSION: 1. Acute kidney injury on chronic kidney disease, stage 3, new onset. 2. Pulmonary edema with anasarca likely secondary to proteinuria. 3. Hypomagnesemia. PLAN: Continue with IV diuretic. Magnesium was replaced. Get a.m. labs, monitor electrolytes. We will continue low-dose VIK inhibitor as well for the underlying proteinuria. MD JOSESITO Joel/ALDEN /[id number]
--- NOTE | 2018-05-17 17:52 | NUR ---
Nutrition Screen Note RD Recommendation for Physician: -Continue ADA diet as ordered Plan of Care: RD following, monitoring for tolerance and adequacy Nutrition reason for involvement: Diagnosis CKD Primary Diagnose(s): 1. Acute kidney injury on chronic kidney disease, stage 3, new onset. 2. Pulmonary edema with anasarca likely secondary to proteinuria. 3. Hypomagnesemia. PMH: HTN, DM, depression Ht: 61in Wt: 230.5lb BMI: 43.6kg/m2 IBW: 105lb RD Assessment: (05/17) Chart reviewed. Labs and meds reviewed. 58yo F, who was admitted for SOB. Currently on IV diuretics and Mg was replaced. HbA1c at 7%. No change in renal function. Visited pt in room who denied significant wt loss, denied decrease in appetite DIRECTOR OF RETAIL ANALYTICS. Pt denied chewing/swallowing problems and nausea/vomiting. Pt has had 75-100% recorded meal intake since admission. Will cont to monitor. Please consult as needed. Current Diet: ADA diet Malnutrition Evaluation (05/17) The patient does not meet criteria for a specified degree of malnutrition at this time. Will re-evaluate at follow-up as appropriate. Diet Education Needs Assessment: Diet education not indicated. Nutrition Care Level: low Signed: Charity Andrews, MS, RD, LD
[2018-05-17] MEDS: CEFTRIAXONE SOD 1 GM/NS 50 ML 50 ML IV SCH (19:37)
--- NOTE | 2018-05-17 19:48 | NUR ---
report given to oncoming nurse, for continued care
--- NOTE | 2018-05-17 19:58 | NUR ---
RECEIVED PT IN BED AOX3 .RESPIRATIONS ARE EVEN AND UNLABORED .DENIES PAIN IV AT LEFT HAND .CALL LIGHT WITH IN REACH .CONTINUE TO MONITOR
--- NOTE | 2018-05-17 20:12 | History and Physical ---
REASON FOR EVALUATION: Need for LEONEL. HISTORY OF PRESENT ILLNESS: This is an unfortunate 58-year-old lady, poor historian. She is diabetic with very, very severe end organ damage including elevation of BUN and creatinine and more importantly nephrotic syndrome with protein almost of 5 g per 24-hour collection. Her other problems are hypertension, kidney stone, bariatric surgery. The patient is a very poor historian. She just dismissed from [facility] because "swelling of the lower extremities." At that time, she was diagnosed with nephrotic syndrome. She was given treatment and medication to go home. The patient went home and she came directly here to be admitted with swelling because she noted more swelling of the lower extremity. An echocardiogram, which was read by another Cardiology team, it showed cannot rule out vegetation of the posterior mitral valve leaflet. Cardiac consultation is obtained to evaluate for LEONEL. Of note, I visited the patient. She did not have any fever or chills. She did not have any blood culture in her last admission to [place] and this admission. Her echocardiogram over there showed very severe calcification of the mitral valve and the same thickening is noted. The patient definitively did not have any fever. Furthermore, her blood culture at this institution, which was drawn after the report of the echocardiogram, not because the patient having fever, chills, or left shift. Cardiac nicole, the patient does have in summary class 3 shortness of breath on exertion, cough, leg swelling, easy fatigability. There is surprisingly no angina. The patient had a nuclear stress test in [place], which was mainly showing scar and plan was not to proceed with cardiac catheterization since the patient was not having angina and to be treated medically mainly in view of her comorbid condition and her nephrotic syndrome, etc. The patient says she is followed by her jump iron machine presser in [place]. She lives in [place] and she is here visiting her kids, they live here. REVIEW OF SYSTEMS: Mainly as per above in addition to bloating, indigestion, easy fatigability, increased frequency of urination, swelling of the lower extremities. SOCIAL HISTORY: She is . She is a smoker. She uses marijuana every now and then. She is not an alcohol drinker. CURRENT MEDICATIONS: Include Lasix, lisinopril 20 mg a day, metoprolol 25 mg twice a day, atorvastatin 80 mg a day, hydrochlorothiazide 25 mg a day, hydralazine p.r.n., amlodipine 10 mg a day, insulin and other p.r.n. medication. ALLERGIES: MORPHINE. PHYSICAL EXAMINATION: GENERAL: Obese lady with height of 5 feet 1 inch, weight of 230. Blood pressure 140/70, heart rate of 70, respiratory rate of 18. HEENT: Pupils are reactive. NECK: No elevation of jugular venous pulsation. CHEST: Clear to auscultation and percussion. HEART: PMI in fifth left intercoastal space. Normal first and second heart sounds. ABDOMEN: Soft. EXTREMITIES: Peripheral edema. NEUROLOGIC: Nonfocal. IMPRESSION AND PLAN: 1. Diabetes mellitus with severe end organ damage. 2. Chronic renal insufficiency. 3. Nephrotic range of proteinuria. 4. Edema and anasarca secondary to above. 5. Chronic debility. 6. Hypercholesterolemia. 7. Possible coronary artery disease, however, the patient not having active symptoms. She is treated currently medically. Her latest nuclear stress test on May showed an ejection fraction of 46% and the presence of mixed scar and ischemia with of scar. 8. Heavily calcified aortic valve and definitely very difficult to rule out vegetation as the report said, but the patient not having any fever or chills or there are any positive cultures, so there is no need for LEONEL. My recommendation is medical therapy at this time in point. The patient can be dismissed home from our point of view, but I had lengthy discussion explaining for her, her kidney function and use of diuretics and the fact that she is on other medication, she needs very close followup with her PCP and her Renal, and for her cardiac issues to be treated medically in case of having more symptoms, then we will think about invasive approach in the future. Definitely if she is having fever and/or positive blood culture, then we will evaluate our approach. MD JEREL Desai/ALDEN /[id number]
[2018-05-17] MEDS: INSULIN GLARGINE 100 UNITS/ML VIAL SQ SCH (21:00)
[2018-05-17] MEDS: ATORVASTATIN 40 MG TAB PO SCH (21:27)
[2018-05-17] MEDS: QUETIAPINE FUMARATE 100 MG TAB PO SCH (21:27)
[2018-05-18] VITALS (7 sets, daily range): BP systolic 170–186; BP diastolic 75–92
[2018-05-18 05:35] LABS: BASOPHILS % 0.3 % (0.0-1.0); EOSINOPHILS % 0.3 % (0.0-6.0); HEMATOCRIT 26.2 % (34.2-44.1); HEMOGLOBIN 8.1 g/dL (12.0-16.0); LYMPHOCYTES # (AUTO) 1.1 (1.0-3.2); LYMPHOCYTES % 29.3 % (18.0-39.1); MEAN CORPUSCULAR HEMOGLOBIN 26.7 pg (28-32); MEAN CORPUSCULAR HGB CONC 30.9 g/dL (31-35); MEAN CORPUSCULAR VOLUME 86.5 fL (81-99); MONOCYTES # (AUTO) 0.3 (0.2-0.8); MONOCYTES % 6.8 % (4.4-11.3); NEUTROPHILS # (AUTO) 2.4 (2.1-6.9); PLATELET COUNT 221 x10e3/uL (140-360); RED BLOOD COUNT 3.03 x10e6/uL (3.6-5.1); RED CELL DISTRIBUTION WIDTH 15.4 % (11.7-14.4)
[2018-05-18 06:00] LABS: ANION GAP 14.5 mmol/L (8-16); CALCIUM 8.8 mg/dL (8.4-10.2); CREATININE, SERUM 1.82 mg/dL (0.57-1.11); MAGNESIUM 1.4 MG/DL (1.3-2.1); POTASSIUM 3.5 mmol/L (3.5-5.1)
--- NOTE | 2018-05-18 06:11 | NUR ---
PT RESTED DURING THE NIGHT AND DENIES PAIN.CALL LIGHT WITH IN REACH .CONTINUE TO MONITOR
[2018-05-18] MEDS: INSULIN REGULAR, HUMAN 100 UNIT/1 ML 3ML VIAL SQ SCH ×4 (07:30→21:09)
--- NOTE | 2018-05-18 07:32 | NUR ---
REPORT GIVEN TO THE ONCOMING NURSE
[2018-05-18] MEDS: FUROSEMIDE INJ 10 MG/ML 4 ML VIAL IV SCH ×2 (08:56→17:00)
[2018-05-18] MEDS: HYDROCHLOROTHIAZIDE 25 MG TAB PO SCH (08:56)
[2018-05-18] MEDS: FOLIC ACID 1 MG TAB PO SCH (08:57)
[2018-05-18] MEDS: PANTOPRAZOLE SOD 40 MG TABEC PO SCH (08:58)
[2018-05-18] MEDS: LISINOPRIL 20 MG TAB PO SCH (08:58)
[2018-05-18] MEDS: METOPROLOL TARTRATE 25 MG TAB PO SCH ×2 (08:58→21:00)
[2018-05-18] MEDS: AMLODIPINE BESYLATE 10 MG TAB PO SCH (08:58)
[2018-05-18] MEDS: SERTRALINE HCL 100 MG TAB PO SCH (08:58)
[2018-05-18] MEDS ORDERED: ZOLOFT100 MG PO (11:09)
[2018-05-18] MEDS ORDERED: ESIDRIX25 MG PO (11:09)
[2018-05-18] MEDS ORDERED: FOLIC ACID1 MG PO (11:09)
[2018-05-18] MEDS ORDERED: LISINOPRIL20 MG PO (11:09)
[2018-05-18] MEDS ORDERED: SPIRONOLACTONE25 MG PO (11:09)
[2018-05-18] MEDS ORDERED: Atorvastatin PO (11:09)
[2018-05-18] MEDS ORDERED: ASPIR 8181 MG PO (11:12)
[2018-05-18] MEDS ORDERED: NIFEDIPINE ER30 M1 PO (11:17)
[2018-05-18] MEDS ORDERED: CEFUROXIME250 MG PO (11:18)
[2018-05-18] MEDS: NIFEDIPINE CR 30 MG TAB PO SCH (11:30)
--- NOTE | 2018-05-18 13:15 | Diagnostic Imaging Report ---
Exam: Limited four-quadrant abdominal ultrasound to evaluate for ascites. History: Abdominal distention. Comparison: None available Findings: Scanning in all 4 quadrants of the abdomen was accomplished. There is no free fluid present within the abdomen. Incidental notice is made of a small right pleural effusion. Impression: 1. No ascites identified. 2. Small right pleural effusion. Signed by: Dr. Marcin Baeza DO on 05/18/2018 1:12 PM
--- NOTE | 2018-05-18 15:30 | Progress Note ---
DATE: 05/18/2018 Nephrology Progress Note SUBJECTIVE: The patient is doing much better today with no complaints. will qualify for home O2 for discharge. PHYSICAL EXAMINATION: VITAL SIGNS: Temperature is 97.1, pulse 73, respiratory rate is 19, blood pressure the last one was 174/93, pulse ox 91% on nasal cannula. GENERAL: Not in acute distress. Alert and oriented x3. Cooperative on examination. HEENT: Head is normocephalic and atraumatic. Eyes; pupils are equal, round, and reactive to light bilaterally. Extraocular movements are intact bilaterally. Throat, no evidence of erythema or exudates in the posterior pharynx. Has poor dentition. NECK: Supple. Good range of motion. PULMONARY: Clear to auscultation bilaterally. No wheezing, no rales, no rhonchi, no crackles appreciated. CARDIOVASCULAR: Positive S1, S2. No murmurs, rubs, or gallops appreciated. ABDOMEN: Soft, nondistended, and nontender to palpation. Bowel sounds present. MUSCULOSKELETAL: Strength is 5/5 throughout. No evidence of any muscle deficits on examination. No weakness appreciated. NEUROLOGICAL: Cranial nerves II through XII grossly intact. No evidence of any neurological deficits on exam. SKIN: Intact. Warm to touch. Good cap refill. PSYCHIATRIC: Normal affect and mood. EXTREMITIES: No edema. Good range of motion throughout. LABORATORY DATA: White count is 3.8, hemoglobin 8.1, hematocrit is 26, platelets of 221. Chemistry; sodium 140, potassium 3.5, chloride 101, bicarb 20, anion gap of 14, BUN is 36, creatinine is 1.8, glucose is 81. IMPRESSION: 1. Acute kidney injury on chronic kidney disease stage 3, now improving. 2. Pulmonary edema with anasarca likely secondary to proteinuria. 3. Hypomagnesemia. PLAN: Continue with diuretics. She could be discharged when appropriate by the primary team on Lasix 40 mg daily as well with low-dose potassium supplement 12.5 mg of p.o. Aldactone with Lasix 40 mg daily. Continue with low-dose VIK inhibitor as well. Monitor very closely. She needs to follow up with her motor polarizer in the next 1 to 2 weeks for repeat labs. MD JOSESITO Joel/ALDEN /[id number]
[2018-05-18] MEDS: CEFTRIAXONE SOD 1 GM/NS 50 ML 50 ML IV SCH (16:45)
--- NOTE | 2018-05-18 20:00 | NUR ---
Patient visited in room during nursing rounds. Patient alert and oriented x3. No distress or discomfort noted. On 3L NC. Pt on scheduled IV antibiotics. Limb alert on left arm. Pt states she had a blood clot on left arm. BP elevated (173/91) and pt will be getting bp med (Lopressor) tonight. Call yancey within reach. Will monitor closely.
--- NOTE | 2018-05-18 20:05 | NUR ---
Informed patient lab orders were ordered to be drawn at 0300 (05/19/18). Patient stated she refuses to be drawn that early and preferred to be drawn by go cart mechanic around 0500.
[2018-05-18] MEDS: ONDANSETRON HCL INJ 2MG/ML 2ML 2 MG/ML VIAL IV PRN (20:58)
[2018-05-18] MEDS: ATORVASTATIN 40 MG TAB PO SCH (21:00)
[2018-05-18] MEDS: QUETIAPINE FUMARATE 100 MG TAB PO SCH (21:00)
[2018-05-18] MEDS: INSULIN GLARGINE 100 UNITS/ML VIAL SQ SCH (21:09)
[2018-05-19] VITALS (8 sets, daily range): BP systolic 154–183; BP diastolic 69–87
[2018-05-19 05:50] LABS: BASOPHILS % 0.3 % (0.0-1.0); EOSINOPHILS % 0.3 % (0.0-6.0); HEMATOCRIT 26.8 % (34.2-44.1); HEMOGLOBIN 8.4 g/dL (12.0-16.0); LYMPHOCYTES # (AUTO) 1.1 (1.0-3.2); LYMPHOCYTES % 33.2 % (18.0-39.1); MEAN CORPUSCULAR HEMOGLOBIN 27.2 pg (28-32); MEAN CORPUSCULAR HGB CONC 31.3 g/dL (31-35); MEAN CORPUSCULAR VOLUME 86.7 fL (81-99); MONOCYTES # (AUTO) 0.2 (0.2-0.8); MONOCYTES % 7.3 % (4.4-11.3); NEUTROPHILS # (AUTO) 1.9 (2.1-6.9); NEUTROPHILS % 58.6 % (38.7-80.0); PLATELET COUNT 241 x10e3/uL (140-360); RED BLOOD COUNT 3.09 x10e6/uL (3.6-5.1); RED CELL DISTRIBUTION WIDTH 15.2 % (11.7-14.4)
[2018-05-19 06:16] LABS: ANION GAP 12.5 mmol/L (8-16); CALCIUM 8.6 mg/dL (8.4-10.2); CREATININE, SERUM 1.82 mg/dL (0.57-1.11); MAGNESIUM 1.4 MG/DL (1.3-2.1); POTASSIUM 3.5 mmol/L (3.5-5.1)
[2018-05-19] MEDS: INSULIN REGULAR, HUMAN 100 UNIT/1 ML 3ML VIAL SQ SCH ×4 (07:30→19:43)
[2018-05-19] MEDS: HYDROCHLOROTHIAZIDE 25 MG TAB PO SCH (08:47)
[2018-05-19] MEDS: ASPIRIN 81 MG CHEW TAB PO SCH (08:47)
[2018-05-19] MEDS: FUROSEMIDE INJ 10 MG/ML 4 ML VIAL IV SCH ×2 (08:47→17:26)
[2018-05-19] MEDS: FOLIC ACID 1 MG TAB PO SCH (08:47)
[2018-05-19] MEDS: NIFEDIPINE CR 30 MG TAB PO SCH (08:48)
[2018-05-19] MEDS: LISINOPRIL 20 MG TAB PO SCH (08:48)
[2018-05-19] MEDS: SERTRALINE HCL 100 MG TAB PO SCH (08:48)
[2018-05-19] MEDS: METOPROLOL TARTRATE 25 MG TAB PO SCH ×2 (08:48→20:08)
[2018-05-19] MEDS: PANTOPRAZOLE SOD 40 MG TABEC PO SCH (08:48)
[2018-05-19] MEDS ORDERED: NIFEDIPINE ER30 M1 PO (11:24)
[2018-05-19] MEDS ORDERED: NIFEDIPINE CR 30 MG TAB PO SCH (12:30)
--- NOTE | 2018-05-19 16:15 | NUR ---
Patient requires portable O2 tank for discharge. Patient seen by RT, prescription needed for DME. JAYA contacted [facility] RENAL TECHNICIAN earlier today for prescription however RENAL TECHNICIAN stated MD Ambrosio will be able to sign Rx as he is covering for Killiam in the hospital. JAYA fax rest of referral package to [facility] [phone] to initiate DME request. Unfortunately, RX was completed later in the day and delivery for oxygen can not be confirmed. JAYA left a message for Huey Ruiz but has not heard back from him at this time. JAYA to follow up tomorrow.
[2018-05-19] MEDS: CEFTRIAXONE SOD 1 GM/NS 50 ML 50 ML IV SCH (17:26)
--- NOTE | 2018-05-19 17:31 | Progress Note ---
DATE: 05/19/2018 Nephrology Progress Note SUBJECTIVE: The patient is doing well today with no complaints. OBJECTIVE: VITAL SIGNS: Temperature is 96.6, pulse 73, respiratory rate is 21, blood pressure was elevated at 183/87, and pulse ox 97% on 2 L nasal cannula. GENERAL: Not in acute distress. Alert and oriented x3. Cooperative on examination. HEENT: Head is normocephalic and atraumatic. Eyes; pupils are equal, round, and reactive to light bilaterally. Extraocular movements are intact bilaterally. Throat, no evidence of erythema or exudates in the posterior pharynx. Has poor dentition. NECK: Supple. Good range of motion. PULMONARY: Clear to auscultation bilaterally. No wheezing, no rales, no rhonchi, no crackles appreciated. CARDIOVASCULAR: Positive S1, S2. No murmurs, rubs, or gallops appreciated. ABDOMEN: Soft, nondistended, and nontender to palpation. Bowel sounds present. MUSCULOSKELETAL: Strength is 5/5 throughout. No evidence of any muscle deficits on examination. No weakness appreciated. NEUROLOGICAL: Cranial nerves II through XII grossly intact. No evidence of any neurological deficits on exam. SKIN: Intact. Warm to touch. Good cap refill. PSYCHIATRIC: Normal affect and mood. EXTREMITIES: No edema. Good range of motion throughout. LAB FINDINGS: Show white count 3.3, hemoglobin 8.4, hematocrit is 27, and platelets of 241. Chemistry; sodium 141, potassium 3.5, chloride 101, bicarb 31, anion gap of 12, BUN 36, creatinine is 1.82. IMPRESSION: 1. Acute kidney injury on chronic kidney disease, stage 3. 2. Pulmonary edema with anasarca secondary to proteinuria. 3. Hypomagnesemia, replaced. PLAN: Continue with diuretics for now. She is doing well. Creatinine is at baseline. She should continue with Lasix and aldactone on discharge. Also low-dose VIK inhibitor. Follow up with fresh meat grader in 1 to 2 weeks. We are waiting for home O2. MD JOSESITO Joel/MODL /[id number]
--- NOTE | 2018-05-19 17:39 | NUR ---
[facility] called in regards to prescription from physician for oxy therapy. CM has prescription paperwork. Was informed to fax papers to [phone]
--- NOTE | 2018-05-19 19:05 | NUR ---
Patient visited in room during nursing rounds. Patient alert and oriented x3. No distress or discomfort noted. On 3L NC. Pt on scheduled IV antibiotics. Limb alert on left arm. Pt states she had a blood clot on left arm. BP elevated (179/85) and pt will be getting bp med (Lopressor) tonight. Call yancey within reach. Will monitor closely.
[2018-05-19] MEDS: ATORVASTATIN 40 MG TAB PO SCH (20:07)
[2018-05-19] MEDS: QUETIAPINE FUMARATE 100 MG TAB PO SCH (20:08)
[2018-05-19] MEDS: INSULIN GLARGINE 100 UNITS/ML VIAL SQ SCH (20:10)
[2018-05-20 00:20] VITALS: BP 125/58
[2018-05-20 04:00] VITALS: BP 127/60
[2018-05-20 05:56] LABS: BASOPHILS % 0.5 % (0.0-1.0); EOSINOPHILS % 0.3 % (0.0-6.0); HEMATOCRIT 25.7 % (34.2-44.1); LYMPHOCYTES % 24.4 % (18.0-39.1); MEAN CORPUSCULAR HEMOGLOBIN 26.8 pg (28-32); MEAN CORPUSCULAR HGB CONC 31.1 g/dL (31-35); MONOCYTES # (AUTO) 0.3 (0.2-0.8); MONOCYTES % 8.1 % (4.4-11.3); NEUTROPHILS # (AUTO) 2.6 (2.1-6.9); NEUTROPHILS % 66.2 % (38.7-80.0); PLATELET COUNT 217 x10e3/uL (140-360); RED BLOOD COUNT 2.99 x10e6/uL (3.6-5.1)
[2018-05-20 06:14] LABS: ANION GAP 13.4 mmol/L (8-16); CALCIUM 7.9 mg/dL (8.4-10.2); CREATININE, SERUM 1.99 mg/dL (0.57-1.11); MAGNESIUM 1.2 MG/DL (1.3-2.1); POTASSIUM 3.4 mmol/L (3.5-5.1)
[2018-05-20] MEDS: INSULIN REGULAR, HUMAN 100 UNIT/1 ML 3ML VIAL SQ SCH ×2 (07:30→11:30)
[2018-05-20 08:00] VITALS: BP 149/74
[2018-05-20] MEDS ORDERED: NIFEDIPINE ER30 M1 PO (08:02)
[2018-05-20] MEDS: SERTRALINE HCL 100 MG TAB PO SCH (08:35)
[2018-05-20] MEDS: FOLIC ACID 1 MG TAB PO SCH (08:35)
[2018-05-20] MEDS: METOPROLOL TARTRATE 25 MG TAB PO SCH (08:35)
[2018-05-20] MEDS: ASPIRIN 81 MG CHEW TAB PO SCH (08:35)
[2018-05-20] MEDS: FUROSEMIDE INJ 10 MG/ML 4 ML VIAL IV SCH (08:35)
[2018-05-20] MEDS: PANTOPRAZOLE SOD 40 MG TABEC PO SCH (08:35)
[2018-05-20] MEDS: HYDROCHLOROTHIAZIDE 25 MG TAB PO SCH (08:35)
[2018-05-20] MEDS: LISINOPRIL 20 MG TAB PO SCH (08:35)
[2018-05-20] MEDS ORDERED: NIFEDIPINE CR 30 MG TAB PO SCH (09:00)
[2018-05-20 09:24] VITALS: BP 149/74
--- NOTE | 2018-05-20 11:11 | NUR ---
JAYA contacted covering physician regarding the oxygen prescription for patient. SW tried to explain what was needed on the oxygen order per [employer]'s request. stated that patient is on 92% room air and does not think he needs O2. SW tried to ask what was the sat levels on exertion but he continued to express he was on uncomfortable with what is being requested. SW continue to try and explain [employer]'s request but MD continues to state she does not need oxygen and not comfortable agreeing to the request.
--- NOTE | 2018-05-20 12:35 | NUR ---
MARITZA Wagner informed of covering physician's decision on patient's oxygen. However, according CUFF MAKER patient can not go home without O2. She contacted MD Guidry who requested RX be faxed to him to sign. Rx has been signed and faxed to Huey from [facility].
--- NOTE | 2018-05-20 13:15 | Progress Note ---
DATE: 05/20/2018 I am covering for Dr. Chakraborty today. SUBJECTIVE: The patient was initially admitted with acute kidney injury and nephrotic range proteinuria. The patient had pulmonary edema that improved with Lasix. She is still on 3 L of oxygen, but is saturating 97%. She does not complain of dyspnea or cough. She denies chest pain. She denies any snoring or difficulty breathing at night. PHYSICAL EXAMINATION: VITAL SIGNS: The blood pressure is 149/74 and the pulse is 73. The saturation is 97% on 3 L. HEENT: Shows no facial swelling or erythema. LYMPHATIC: Shows no submandibular, cervical, or supraclavicular adenopathy. CARDIAC: Reveals a regular rate and rhythm with a normal S1 and S2. There are no murmurs or rubs. LUNGS: Auscultation of the lungs reveals a few crackles at the bases. There is no wheezing. ABDOMEN: Soft and nontender. There is no rebound or guarding. EXTREMITIES: Show 1+ leg edema. IMPRESSION: 1. Acute on chronic systolic congestive heart failure with a decreased ejection fraction of 40% to 45%. 2. Acute on chronic renal injury. 3. Nephrotic range proteinuria. 4. Hypertension. 5. Probable chronic obstructive pulmonary disease from prior smoking. 6. Bipolar illness. 7. Anemia, unspecified. PLAN: 1. The patient will be discharged home. 2. The patient will continue Zestril and nifedipine at home. 3. Continue Aldactone and hydrochlorothiazide at home. 4. Complete antibiotics. 5. Smoking cessation. 6. Evaluate the patient for home oxygen. Justyn Ambrosio MD [facility]/MODL /[id number]
--- NOTE | 2018-05-20 14:29 | NUR ---
JAYA spoke with Huey from [facility] to confirm receipt of O2 Rx. [facility] has received prescription and floor representative is trying to locate driver license technician to confirm if DME can be delivered today. Patient agreed to RN services for new home O2. Patient provided with list of HH and ALOC. Patient agreed to any HH agency covered by [facility]. JAYA sent referral to [facility] [phone]. Signed ALOC placed in chart.
--- NOTE | 2018-05-20 15:03 | NUR ---
JAYA received a call back from Huey at [facility]. He confirmed delivery will be completed today but does not have a time for drop off. He also stated that the company usually follows the patient home to setup the home oxygen as well. RN notified of the delivery and plans for setup. RN to inform patient of plans for discharge.
[2018-05-20 16:00] VITALS: BP 145/72
--- NOTE | 2018-05-20 17:11 | Progress Note ---
DATE: 05/20/2018 Renal Progress Note SUBJECTIVE: The patient is doing well today with no complaints. She is waiting for her home O2. PHYSICAL EXAMINATION: VITAL SIGNS: Temperature 96.6, pulse 71, respiratory rate is 16, blood pressure 149/74, pulse ox 95% on 2 L cannula. GENERAL: Not in acute distress. Alert and oriented x3. Cooperative on examination. HEENT: Head is normocephalic and atraumatic. Eyes; pupils are equal, round, and reactive to light bilaterally. Extraocular movements are intact bilaterally. Throat, no evidence of erythema or exudates in the posterior pharynx. Has poor dentition. NECK: Supple. Good range of motion. PULMONARY: Clear to auscultation bilaterally. No wheezing, no rales, no rhonchi, no crackles appreciated. CARDIOVASCULAR: Positive S1, S2. No murmurs, rubs, or gallops appreciated. ABDOMEN: Soft, nondistended, and nontender to palpation. Bowel sounds present. MUSCULOSKELETAL: Strength is 5/5 throughout. No evidence of any muscle deficits on examination. No weakness appreciated. NEUROLOGICAL: Cranial nerves II through XII grossly intact. No evidence of any neurological deficits on exam. SKIN: Intact. Warm to touch. Good cap refill. PSYCHIATRIC: Normal affect and mood. EXTREMITIES: No edema. Good range of motion throughout. LABORATORY DATA: White count 3.9, hemoglobin 8, hematocrit 25.7, and platelets of 217. Chemistry; sodium 142, potassium 3.4, chloride 100, bicarb 32, anion gap of 14, BUN 35, creatinine is 1.99 at baseline. MICROBIOLOGY: None. IMPRESSION: 1. Acute kidney injury on chronic kidney disease, stage 3, now at baseline. 2. Pulmonary edema with anasarca secondary to proteinuria. 3. Hypomagnesemia, replaced. PLAN: Continue with diuretics for now. Creatinine is at baseline. Continue with diuretics, Lasix and Aldactone. She is on low-dose VIK inhibitor. Follow up with Nephrology in 1-2 weeks. Wait for home O2. MD JOSESITO Joel/MODL /[id number]
--- NOTE | 2018-05-21 18:11 | Discharge Summary ---
ADMISSION DIAGNOSES: Dyspnea due to fluid overload, chronic kidney disease 3, type 2 diabetes, gastroesophageal reflux disease, hypertension; urinary tract infection, present on admission, bipolar depression, elevated D-dimer, and anemia. DISCHARGE DIAGNOSES: Dyspnea due to fluid overload, chronic kidney disease 3, type 2 diabetes, gastroesophageal reflux disease, hypertension; urinary tract infection, present on admission, bipolar depression, elevated D-dimer, and anemia. Rule out pulmonary embolism, left cephalic vein thrombosis. Rule out bilateral lower extremity deep venous thrombosis, chronic systolic congestive heart failure, possible vegetation on the posterior mitral valve leaflet. HISTORY: The patient has a history of CKD 3, type 2 diabetes, hypertension, GERD, bipolar, depression, and chronic systolic CHF. SURGICAL HISTORY: , bilateral cataract surgery, cholecystectomy, stomach stapling, right shoulder surgery, right knee surgery and tonsillectomy. FAMILY HISTORY: The patient's aunt had diabetes. The patient's grandpa had cancer. SOCIAL HISTORY: The patient admits to smoking 1 pack per day x45 years. She denies alcohol or illicit drug use. HOSPITAL COURSE: A 58-year-old female complains of shortness of breath and bilateral lower extremity x2 weeks. She was admitted to [facility] on . At [place], her bilateral lower extremity venous Doppler was negative. Echo showed EF of 50% to 55% and a stress test showed a fixed defect. Cardiology recommended medical management. The patient was discharged on 05/14/2018 and felt shortness of breath again by the evening. She returned to the ER. Symptoms improved with rest and worsened with activity. On admission, the patient's BNP was 2261. Nephrology, seeing her at [place], was reconsulted. The patient was started on Lasix. Bilateral lower extremity was negative for DVT. Echo showed EF between 40% and 45% with possible posterior mitral valve leaflet vegetation. The patient had swelling of the left arm, so a left upper extremity venous Doppler was ordered, which showed a left cephalic vein thrombosis. Urine culture came back contaminated. The blood cultures were negative. The patient was started on Rocephin. Cardiology was consulted due to the possible vegetation. They did not recommend a LEONEL as the blood cultures were negative and the patient was asymptomatic. So, after few days of Lasix and IV antibiotics, the patient is feeling much better. She was discharged home with spironolactone b.i.d. as well as hydrochlorothiazide per Nephrology recommendation. She was given 4 more days of Ceftin for the UTI. She will resume all other home medicines. The patient qualified for home oxygen and it was arranged before discharge. The patient will follow up with primary care in 1 to 2 weeks. Vital signs stable. The patient is afebrile. The patient understands discharge instructions and agrees to plan. Dictated by Pebbles Wagner NP MD ROBINSON Zaman/MODL /[id number]
== END 2018-05-20 17:11 | disposition home health service (06) | DRG 699 ==
LOC: ER 21:11 → ERHOLD 05-15 01:11 → MED/SURG3 05-15 17:23
PROVIDERS: ADMIT Internal Medicine; ATTEND Internal Medicine
DX: E11.21 Type 2 diabetes mellitus with diabetic nephropathy (principal); J18.2 Hypostatic pneumonia, unspecified organism; I50.22 Chronic systolic (congestive) heart failure; N39.0 Urinary tract infection, site not specified; I13.0 Hypertensive heart and chronic kidney disease with heart failure and stage 1 through stage 4 chronic kidney disease, or unspecified chronic kidney disease; I82.612 Acute embolism and thrombosis of superficial veins of left upper extremity; N17.9 Acute kidney failure, unspecified; E11.40 Type 2 diabetes mellitus with diabetic neuropathy, unspecified; N18.3 Chronic kidney disease, stage 3 (moderate); E83.42 Hypomagnesemia; E11.22 Type 2 diabetes mellitus with diabetic chronic kidney disease; K21.9 Gastro-esophageal reflux disease without esophagitis; F31.9 Bipolar disorder, unspecified; D64.9 Anemia, unspecified; F17.210 Nicotine dependence, cigarettes, uncomplicated; E78.5 Hyperlipidemia, unspecified; I25.10 Atherosclerotic heart disease of native coronary artery without angina pectoris; J44.9 Chronic obstructive pulmonary disease, unspecified; E11.319 Type 2 diabetes mellitus with unspecified diabetic retinopathy without macular edema; Z98.84 Bariatric surgery status; I05.9 Rheumatic mitral valve disease, unspecified; I70.0 Atherosclerosis of aorta
CPT/HCPCS: 36415; 71045; 76705; 78582; 80048; 80053; 81001; 82550; 82553; 82607; 82728; 82746; 82948; 83036; 83540; 83735; 83880; 84100; 84439; 84443; 84466; 84484; 85025; 85379; 85610; 85730; 87040; 87086; 93005; 93306; 93970; 93971; 96372; 99285; A9540; A9558; J0360; J0696; J1815; J1940; J2405; J3475